=== PATIENT | female | born 1970 | race Caucasian/White ===

== ENCOUNTER 2018-01-15 09:19 | Emergency (ER) | payer OTHER, MEDICAID, SELFPAY ==
--- NOTE | 2018-01-15 09:31 | ED.HA ---
HPI - Headache General Chief Complaint: Headache Stated Complaint: Tingling Time Seen by Provider: 01/15/18 09:27 Source: patient and EMS Mode of arrival: EMS Limitations: no limitations History of Present Illness HPI Narrative: Patient is a 47-year-old female who presents with left-sided headache numbness and tingling of her face and left arm leg. She had a headache for about the last 3 days. Today she woke up and felt like it had gotten worse. She has maybe some blurry vision she feels like her headache is predominantly behind her left eye. She has no weakness speech difficulty or trouble walking. She does have a history of a TIA and cardiac arrest. She has a defibrillator in place. She has some chest heaviness as well denies any shortness of breath. She does not have a history of headaches or migraine headaches. MD Complaint: headache Related Data Home Medications Medication Instructions Recorded Confirmed [HAIR SKIN AND NAILS] 1 tab PO QDAY #0 10/06/16 fluticasone 1 spray INTRANASAL BIDP PRN #0 10/06/16 lisinopril 5 mg PO QDAY #0 10/06/16 metoprolol succinate [Toprol XL] 25 mg PO QDAY #0 10/06/16 multivitamin [Multiple Vitamins] 1 tab PO QDAY #0 10/06/16 Previous Rx's Medication Instructions Recorded aspirin 81 mg PO QDAY #30 tab 10/07/16 atorvastatin [Lipitor] 80 mg PO HS #30 tab 10/07/16 Allergies Allergy/AdvReac Type Severity Reaction Status Date / Time meperidine [MEPERIDINE] Allergy Unknown Unverified 06/10/17 11:47 Review of Systems Review of Systems All systems reviewed & are unremarkable except as noted in HPI and below Constitutional Denies chills, Denies fever(s), Denies lethargy and Denies weakness Eyes Reports as per HPI, Denies blurry vision and Denies diplopia Cardiovascular Reports chest pain, Denies irregular heart rhythm, Denies lightheadedness, Denies palpitations, Denies dyspnea, Denies dyspnea on exertion and Denies orthopnea Respiratory Denies cough, Denies dyspnea, Denies dyspnea on exertion and Denies wheezing Gastrointestinal Gastrointestinal: Denies abdominal pain, Denies change in bowel habits, Denies diarrhea, Denies nausea and Denies vomiting Musculoskeletal Denies back pain, Denies muscle weakness, Denies numbness and Denies tingling Integumentary/Breasts Denies pruritus, Denies erythema, Denies rash and Denies wounds Neurologic Denies numbness, Denies tingling and Denies weakness Endocrine Denies palpitations Allergic/Immunologic Denies wheezing PFSH Medical History Cardiac arrest (Acute) TIA (transient ischemic attack) (Acute) Social History Smoking Status: Never smoker alcohol intake: never substance use type: does not use Exam Initial Vital Signs Initial Vital Signs: Vital Signs Temperature 98.2 F 01/15/18 09:33 Pulse Rate 82 01/15/18 09:33 Respiratory Rate 18 01/15/18 09:33 Blood Pressure 126/82 01/15/18 09:33 Pulse Oximetry 98 01/15/18 09:33 GENERAL: Well-appearing, well-nourished and in no acute distress. HEENT: Head atraumatic,EOMI, pupils reactive, face symmetric, moist mucous membranes CARDIOVASCULAR: Regular rate and rhythm without murmurs, rubs or gallops. RESPIRATORY: Breath sounds equal bilaterally, no wheezes rales or rhonchi. ABDOMEN: Soft, nontender. Normoactive bowel sounds all 4 quadrants. No guarding or rebound. EXTREMITIES: Normal range of motion, no clubbing or edema. Neurovascularly intact NEUROLOGICAL: Alert and oriented x4.Normal gait and speech. Cranial nerves II through XII grossly intact. Good [id number], good [id number], strength equal bilaterally, no dysarthria or aphasia, sensation in tact to soft touch bilaterally, no visual changes, no facial droop sensation to all extremities soft touch is intact SKIN: Warm, dry, no laceration, no petechiae, no rashes or lesions. Scores NIH Stroke Scale Level of Conciousness: Alert, keenly responsive Ask month/age: Answers both questions correctly. Open/close eyes, close hand: Performs both tasks correctly Best gaze horizontal: Normal Visual le: No visual loss Facial palsy: Normal symetrical movement Left arm drift: No drift for full 10 sec Right arm drift: No drift for full 10 sec Left leg drift: No drift for full 10 sec Right leg drift: No drift for full 10 sec Limb ataxia: Absent Sensory on face/arms/legs: Normal, no sensory loss Best language: No aphasia, normal Dysarthria: Normal Extinction or inattention: No abnormality Total NIH Stroke scale score: 0 Course Orders Ordered: ED Orders 01/15/18 09:29 EKG-12 Lead Stat 01/15/18 09:35 CT head/brain wo con Stat 01/15/18 09:57 Complete Blood Count AUTO DIFF Stat Comprehensive Metabolic Panel Stat Troponin & CK Cardiac Panel Stat Discontinued Medications Diphenhydramine HCl (Benadryl) 25 mg IV NOW ONE Stop: 01/15/18 09:28 Last Admin: 01/15/18 09:58 Dose: 25 mg Sodium Chloride (Normal Saline 0.9%) 1,000 mls @ 1,000 mls/hr IV BOLUS ONE Stop: 01/15/18 10:26 Last Infusion: 01/15/18 11:17 Dose: 0 mls/hr Admin: 01/15/18 09:57 Dose: 1,000 mls/hr Ketorolac Tromethamine (Toradol) 30 mg IV NOW ONE Stop: 01/15/18 09:28 Last Admin: 01/15/18 09:57 Dose: 30 mg Ondansetron HCl (Zofran) 4 mg IV NOW ONE Stop: 01/15/18 09:28 Last Admin: 01/15/18 10:03 Dose: 4 mg Prochlorperazine (Compazine) 10 mg IV NOW ONE Stop: 01/15/18 09:28 Last Admin: 01/15/18 10:33 Dose: 10 mg Vital Signs - 8 hr 01/15/18 09:33 01/15/18 10:33 01/15/18 10:45 Temperature 98.2 F Pulse Rate 82 72 73 Respiratory Rate 18 15 Blood Pressure 126/82 101/78 Blood Pressure [Right Arm] 93/75 Pulse Oximetry 98 100 01/15/18 11:17 Temperature 98.6 F Pulse Rate 69 Respiratory Rate 19 Blood Pressure 114/72 Blood Pressure [Right Arm] Pulse Oximetry 99 MDM - Headache Lab Data Attestation: I reviewed the patient's lab results. Result diagrams: 01/15/18 09:57 01/15/18 09:57 Lab Results 01/15/18 01/15/18 Range/Units 09:57 09:57 WBC 6.1 (4.5-11.0) X10^3/uL RBC 5.21 H (4.0-5.2) X10^6/uL Hgb 14.0 (12.0-16.0) g/dL Hct 41.8 (36-46) % MCV 80.3 (80-100) fL MCH 26.9 (26-34) PG MCHC 33.4 (30-36) % RDW 12.9 (11.6-14.8) % Plt Count 242 (150-400) X10^3/uL Neut % (Auto) 56.8 (50-75) % Lymph % (Auto) 32.8 (25-40) % [place] % (Auto) 6.4 (3-14) % Eos % (Auto) 2.7 (2-4) % Baso % (Auto) 1.3 (0-2) % Neut # (Auto) 3500 (7635-4430) /uL Sodium 140 (137-145) mmol/L Potassium 4.3 (3.4-5.1) mmol/L Chloride 104 (98-107) mmol/L Carbon Dioxide 24 (22-32) mmol/L BUN 19 H (7-17) mg/dL Creatinine 0.70 (0.52-1.04) mg/dL Estimated GFR > 60.0 (>60) mL/min BUN/Creatinine Ratio 27.1 H (6-22) Glucose 98 (70-100) mg/dL Calcium 9.6 (8.4-10.2) mg/dL Total Bilirubin 0.5 (0.2-1.3) mg/dL AST 33 (14-36) IU/L ALT 35 (9-52) IU/L Alkaline Phosphatase 95 (38-126) U/L Total Creatine Kinase 97 (30-135) U/L CK-MB (CK-2) TNP CK-MB (CK-2) Rel Index TNP Troponin I < 0.012 (0.01-0.034) ng/mL Total Protein 7.9 (6.3-8.2) g/dL Albumin 4.8 (3.5-5.0) g/dL Globulin 3.1 (1.7-4.1) g/dL Albumin/Globulin Ratio 1.5 (1.0-2.8) Imaging Data CT scan - head: Radiologist's impression: [address] [address] [address] Scan Report Signed Patient: Tori Murray LMR#: [id number] : 1970Acct:[id number] Age/Sex: 47 / FDate of Service: 01/15/18 Loc: ED Accession Number: [id number] Procedure: CT head/brain wo con Ordering Provider: Gabby Leon D.O. PROCEDURE: CT HEAD/BRAIN WO CON INDICATIONS: headache TECHNIQUE: Noncontrast 4.5 mm thick angled axial sections acquired from the foramen magnum to the vertex, with coronal and sagittal reformats. For radiation dose reduction, the following was used: automated exposure control, adjustment of mA and/or kV according to patient size. COMPARISON: [facility], CT, HEAD WITHOUT CONTRAST, 10/06/2016, 10:26. [facility], CT, HEAD AND NECK ANGIO, 10/06/2016, 12:49. FINDINGS: Image quality: Excellent. CSF spaces: Basal cisterns are patent. No extra-axial fluid collections. Ventricles are normal in size and shape. Brain: No midline shift. No intracranial masses or hemorrhage. Jonas-white matter interface is normal. The right cerebellar tonsils on the left may extend slightly below the foramen magnum. However, this area is not completely imaged on this examination. Skull and face: Calvarium and visualized facial bones are intact, without suspicious lesions. Sinuses: Visualized sinuses and mastoids are clear. IMPRESSION: 1. No acute intracranial hemorrhage. 2. Low lying right cerebellar tonsils may represent a Chiari malformation variant. The need for better evaluation utilizing MRI may be determined clinically. Dictated by: Ruben Garcia M.D. on 01/15/2018 at 9:35 ECG Data Attestation: I personally reviewed and interpreted this ECG as follows: Prior ECG tracings: available for review Interpretation: Normal sinus rhythm rate [address] changes no T-wave inversions artifact noted NE interval 127 QRS 95 QTC 444 MDM Narrative Medical decision making narrative: Patient's pain is much better. Her signs and symptoms are consistent with migraine and complicated migraine she has no focal deficits they have resolved with pain medication. Head CT negative. I discussed findings with patient she feels ready and able to go home. Discharge Plan Departure Patient Disposition: Home Clinical Impression: Headache Discharge Date/Time: 01/15/18 11:18 Interventions: ED Discharge Assessment Last Done: 01/15/18 11:17 Instructions: DI for Headache Activity Restrictions/Additional Instructions: *You have been diagnosed with headache *What to do: Blood work CT scan are all reassuring. Symptoms likely related to headache unlikely related to TIA or stroke *Continue to take medications as directed *Follow up with your primary care provider in 2-3 days *Return to ER if you should have worsening headache, persistent vomiting, vision changes, weakness in extremities, facial drooping, difficulty speaking any new, worsening or concerning symptoms Prescriptions: No Action lisinopril 5 MG tablet 5 mg PO QDAY Qty: 0 RF: 0 metoprolol succinate [Toprol XL] 25 MG tablet extended release 24 hr 25 mg PO QDAY Qty: 0 RF: 0 fluticasone 16 GM spray,suspension 1 spray Intranasal BIDP PRNQty: 0 RF: 0 [HAIR SKIN AND NAILS] 1 tab PO QDAY Qty: 0 RF: 0 multivitamin [Multiple Vitamins] 1 EACH tablet 1 tab PO QDAY Qty: 0 RF: 0 atorvastatin [Lipitor] 20 MG tablet 80 mg PO HS Qty: 30 RF: 0 aspirin 81 MG tablet,delayed release (DR/EC) 81 mg PO QDAY Qty: 30 RF: 0 Referrals: Bernardo Prater [Primary Care Provider] -
[2018-01-15 09:33] VITALS: BP 126/82; PULSE 82; RESP 18; TEMP 36.8; O2SAT 98
--- NOTE | 2018-01-15 09:34 | ED_ITS ---
HPI - Headache General Chief Complaint: Headache Stated Complaint: Tingling Time Seen by Provider: 01/15/18 09:27 Source: patient and EMS Mode of arrival: EMS Limitations: no limitations History of Present Illness HPI Narrative: Patient is a 47-year-old female who presents with left-sided headache numbness and tingling of her face and left arm leg. She had a headache for about the last 3 days. Today she woke up and felt like it had gotten worse. She has maybe some blurry vision she feels like her headache is predominantly behind her left eye. She has no weakness speech difficulty or trouble walking. She does have a history of a TIA and cardiac arrest. She has a defibrillator in place. She has some chest heaviness as well denies any shortness of breath. She does not have a history of headaches or migraine headaches. MD Complaint: headache Related Data Home Medications Medication Instructions Recorded Confirmed [HAIR SKIN AND NAILS] 1 tab PO QDAY #0 10/06/16 fluticasone 1 spray INTRANASAL BIDP PRN #0 10/06/16 lisinopril 5 mg PO QDAY #0 10/06/16 metoprolol succinate [Toprol XL] 25 mg PO QDAY #0 10/06/16 multivitamin [Multiple Vitamins] 1 tab PO QDAY #0 10/06/16 Previous Rx's Medication Instructions Recorded aspirin 81 mg PO QDAY #30 tab 10/07/16 atorvastatin [Lipitor] 80 mg PO HS #30 tab 10/07/16 Allergies Allergy/AdvReac Type Severity Reaction Status Date / Time meperidine [MEPERIDINE] Allergy Unknown Unverified 06/10/17 11:47 Review of Systems Review of Systems All systems reviewed & are unremarkable except as noted in HPI and below Constitutional Denies chills, Denies fever(s), Denies lethargy and Denies weakness Eyes Reports as per HPI, Denies blurry vision and Denies diplopia Cardiovascular Reports chest pain, Denies irregular heart rhythm, Denies lightheadedness, Denies palpitations, Denies dyspnea, Denies dyspnea on exertion and Denies orthopnea Respiratory Denies cough, Denies dyspnea, Denies dyspnea on exertion and Denies wheezing Gastrointestinal Gastrointestinal: Denies abdominal pain, Denies change in bowel habits, Denies diarrhea, Denies nausea and Denies vomiting Musculoskeletal Denies back pain, Denies muscle weakness, Denies numbness and Denies tingling Integumentary/Breasts Denies pruritus, Denies erythema, Denies rash and Denies wounds Neurologic Denies numbness, Denies tingling and Denies weakness Endocrine Denies palpitations Allergic/Immunologic Denies wheezing PFSH Medical History Cardiac arrest (Acute) TIA (transient ischemic attack) (Acute) Social History Smoking Status: Never smoker alcohol intake: never substance use type: does not use Exam Initial Vital Signs Initial Vital Signs: Vital Signs Temperature 98.2 F 01/15/18 09:33 Pulse Rate 82 01/15/18 09:33 Respiratory Rate 18 01/15/18 09:33 Blood Pressure 126/82 01/15/18 09:33 Pulse Oximetry 98 01/15/18 09:33 GENERAL: Well-appearing, well-nourished and in no acute distress. HEENT: Head atraumatic,EOMI, pupils reactive, face symmetric, moist mucous membranes CARDIOVASCULAR: Regular rate and rhythm without murmurs, rubs or gallops. RESPIRATORY: Breath sounds equal bilaterally, no wheezes rales or rhonchi. ABDOMEN: Soft, nontender. Normoactive bowel sounds all 4 quadrants. No guarding or rebound. EXTREMITIES: Normal range of motion, no clubbing or edema. Neurovascularly intact NEUROLOGICAL: Alert and oriented x4.Normal gait and speech. Cranial nerves II through XII grossly intact. Good [id number], good lkvd-[id number], strength equal bilaterally, no dysarthria or aphasia, sensation in tact to soft touch bilaterally, no visual changes, no facial droop sensation to all extremities soft touch is intact SKIN: Warm, dry, no laceration, no petechiae, no rashes or lesions. Scores NIH Stroke Scale Level of Conciousness: Alert, keenly responsive Ask month/age: Answers both questions correctly. Open/close eyes, close hand: Performs both tasks correctly Best gaze horizontal: Normal Visual le: No visual loss Facial palsy: Normal symetrical movement Left arm drift: No drift for full 10 sec Right arm drift: No drift for full 10 sec Left leg drift: No drift for full 10 sec Right leg drift: No drift for full 10 sec Limb ataxia: Absent Sensory on face/arms/legs: Normal, no sensory loss Best language: No aphasia, normal Dysarthria: Normal Extinction or inattention: No abnormality Total NIH Stroke scale score: 0 Course Orders Ordered: ED Orders 01/15/18 09:29 EKG-12 Lead Stat 01/15/18 09:35 CT head/brain wo con Stat 01/15/18 09:57 Complete Blood Count AUTO DIFF Stat Comprehensive Metabolic Panel Stat Troponin & CK Cardiac Panel Stat Discontinued Medications Diphenhydramine HCl (Benadryl) 25 mg IV NOW ONE Stop: 01/15/18 09:28 Last Admin: 01/15/18 09:58 Dose: 25 mg Sodium Chloride (Normal Saline 0.9%) 1,000 mls @ 1,000 mls/hr IV BOLUS ONE Stop: 01/15/18 10:26 Last Infusion: 01/15/18 11:17 Dose: 0 mls/hr Admin: 01/15/18 09:57 Dose: 1,000 mls/hr Ketorolac Tromethamine (Toradol) 30 mg IV NOW ONE Stop: 01/15/18 09:28 Last Admin: 01/15/18 09:57 Dose: 30 mg Ondansetron HCl (Zofran) 4 mg IV NOW ONE Stop: 01/15/18 09:28 Last Admin: 01/15/18 10:03 Dose: 4 mg Prochlorperazine (Compazine) 10 mg IV NOW ONE Stop: 01/15/18 09:28 Last Admin: 01/15/18 10:33 Dose: 10 mg Vital Signs - 8 hr 01/15/18 09:33 01/15/18 10:33 01/15/18 10:45 Temperature 98.2 F Pulse Rate 82 72 73 Respiratory Rate 18 15 Blood Pressure 126/82 101/78 Blood Pressure [Right Arm] 93/75 Pulse Oximetry 98 100 01/15/18 11:17 Temperature 98.6 F Pulse Rate 69 Respiratory Rate 19 Blood Pressure 114/72 Blood Pressure [Right Arm] Pulse Oximetry 99 MDM - Headache Lab Data Attestation: I reviewed the patient's lab results. Result diagrams: 01/15/18 09:57 01/15/18 09:57 Lab Results 01/15/18 01/15/18 Range/Units 09:57 09:57 WBC 6.1 (4.5-11.0) X10^3/uL RBC 5.21 H (4.0-5.2) X10^6/uL Hgb 14.0 (12.0-16.0) g/dL Hct 41.8 (36-46) % MCV 80.3 (80-100) fL MCH 26.9 (26-34) PG MCHC 33.4 (30-36) % RDW 12.9 (11.6-14.8) % Plt Count 242 (150-400) X10^3/uL Neut % (Auto) 56.8 (50-75) % Lymph % (Auto) 32.8 (25-40) % [place] % (Auto) 6.4 (3-14) % Eos % (Auto) 2.7 (2-4) % Baso % (Auto) 1.3 (0-2) % Neut # (Auto) 3500 (6195-2989) /uL Sodium 140 (137-145) mmol/L Potassium 4.3 (3.4-5.1) mmol/L Chloride 104 (98-107) mmol/L Carbon Dioxide 24 (22-32) mmol/L BUN 19 H (7-17) mg/dL Creatinine 0.70 (0.52-1.04) mg/dL Estimated GFR > 60.0 (>60) mL/min BUN/Creatinine Ratio 27.1 H (6-22) Glucose 98 (70-100) mg/dL Calcium 9.6 (8.4-10.2) mg/dL Total Bilirubin 0.5 (0.2-1.3) mg/dL AST 33 (14-36) IU/L ALT 35 (9-52) IU/L Alkaline Phosphatase 95 (38-126) U/L Total Creatine Kinase 97 (30-135) U/L CK-MB (CK-2) TNP CK-MB (CK-2) Rel Index TNP Troponin I < 0.012 (0.01-0.034) ng/mL Total Protein 7.9 (6.3-8.2) g/dL Albumin 4.8 (3.5-5.0) g/dL Globulin 3.1 (1.7-4.1) g/dL Albumin/Globulin Ratio 1.5 (1.0-2.8) Imaging Data CT scan - head: Radiologist's impression: [address] [address] [address] Scan Report Signed Patient: Tori Murray LMR#: [id number] : 1970Acct:[id number] Age/Sex: 47 / FDate of Service: 01/15/18 Loc: ED Accession Number: [id number] Procedure: CT head/brain wo con Ordering Provider: Gabby Leon D.O. PROCEDURE: CT HEAD/BRAIN WO CON INDICATIONS: headache TECHNIQUE: Noncontrast 4.5 mm thick angled axial sections acquired from the foramen magnum to the vertex, with coronal and sagittal reformats. For radiation dose reduction, the following was used: automated exposure control, adjustment of mA and/or kV according to patient size. COMPARISON: [facility], CT, HEAD WITHOUT CONTRAST, 10/06/2016, 10:26. [facility], CT, HEAD AND NECK ANGIO, 10/06/2016, 12:49. FINDINGS: Image quality: Excellent. CSF spaces: Basal cisterns are patent. No extra-axial fluid collections. Ventricles are normal in size and shape. Brain: No midline shift. No intracranial masses or hemorrhage. Jonas-white matter interface is normal. The right cerebellar tonsils on the left may extend slightly below the foramen magnum. However, this area is not completely imaged on this examination. Skull and face: Calvarium and visualized facial bones are intact, without suspicious lesions. Sinuses: Visualized sinuses and mastoids are clear. IMPRESSION: 1. No acute intracranial hemorrhage. 2. Low lying right cerebellar tonsils may represent a Chiari malformation variant. The need for better evaluation utilizing MRI may be determined clinically. Dictated by: Ruben Garcia M.D. on 01/15/2018 at 9:35 ECG Data Attestation: I personally reviewed and interpreted this ECG as follows: Prior ECG tracings: available for review Interpretation: Normal sinus rhythm rate [address] changes no T-wave inversions artifact noted PA interval 127 QRS 95 QTC 444 MDM Narrative Medical decision making narrative: Patient's pain is much better. Her signs and symptoms are consistent with migraine and complicated migraine she has no focal deficits they have resolved with pain medication. Head CT negative. I discussed findings with patient she feels ready and able to go home. Discharge Plan Departure Patient Disposition: Home Clinical Impression: Headache Discharge Date/Time: 01/15/18 11:18 Interventions: ED Discharge Assessment Last Done: 01/15/18 11:17 Instructions: DI for Headache Activity Restrictions/Additional Instructions: *You have been diagnosed with headache *What to do: Blood work CT scan are all reassuring. Symptoms likely related to headache unlikely related to TIA or stroke *Continue to take medications as directed *Follow up with your primary care provider in 2-3 days *Return to ER if you should have worsening headache, persistent vomiting, vision changes, weakness in extremities, facial drooping, difficulty speaking any new, worsening or concerning symptoms Prescriptions: No Action lisinopril 5 MG tablet 5 mg PO QDAY Qty: 0 RF: 0 metoprolol succinate [Toprol XL] 25 MG tablet extended release 24 hr 25 mg PO QDAY Qty: 0 RF: 0 fluticasone 16 GM spray,suspension 1 spray Intranasal BIDP PRNQty: 0 RF: 0 [HAIR SKIN AND NAILS] 1 tab PO QDAY Qty: 0 RF: 0 multivitamin [Multiple Vitamins] 1 EACH tablet 1 tab PO QDAY Qty: 0 RF: 0 atorvastatin [Lipitor] 20 MG tablet 80 mg PO HS Qty: 30 RF: 0 aspirin 81 MG tablet,delayed release (DR/EC) 81 mg PO QDAY Qty: 30 RF: 0 Referrals: Bernardo Prater [Primary Care Provider] -
[2018-01-15] MEDS: SODIUM CHLORIDE 0.9% 1,000 ML 1000 ML IV (09:57)
[2018-01-15] MEDS: KETOROLAC 60 MG/2 ML VIAL 30 MG IV (09:57)
[2018-01-15] MEDS: diphenhydrAMINE 50 MG/ML VIAL 25 MG IV (09:58)
[2018-01-15] MEDS: ONDANSETRON 4 MG/2 ML INJ IV (10:03)
[2018-01-15 10:08] LABS: Add Manual Diff / Slide Review NO; Basophils Percent Auto 1.3 % (0-2); Eosinophils Percent Auto 2.7 % (2-4); Hematocrit 41.8 % (36-46); Lymphocytes Percent Auto 32.8 % (25-40); Mean Corpuscular HGB Conc 33.4 % (30-36); Mean Corpuscular Hemoglobin 26.9 PG (26-34); Mean Corpuscular Volume 80.3 fL (80-100); Monocytes Percent Auto 6.4 % (3-14); Neutrophils Absolute Auto 3500 /uL (3000-5900); Neutrophils Percent Auto 56.8 % (50-75); Platelet Count 242 X10^3/uL (150-400); Red Blood Cell Count 5.21 X10^6/uL (4.0-5.2); Red Cell Distribution Width 12.9 % (11.6-14.8); White Blood Cell Count 6.1 X10^3/uL (4.5-11.0)
[2018-01-15 10:17] LABS: Alanine Aminotransferase 35 IU/L (9-52); Albumin 4.8 g/dL (3.5-5.0); Albumin Globulin Ratio 1.5 (1.0-2.8); Alkaline Phosphatase 95 U/L (38-126); Aspartate Aminotransferase 33 IU/L (14-36); BUN Creatinine Ratio 27.1 (6-22); Bilirubin Total 0.5 mg/dL (0.2-1.3); Blood Urea Nitrogen 19 mg/dL (7-17); Calcium 9.6 mg/dL (8.4-10.2); Carbon Dioxide 24 mmol/L (22-32); Chloride 104 mmol/L (98-107); Creatine Kinase 97 U/L (30-135); Estimated Glomerular Filt Rate > 60.0 mL/min (>60); Globulin 3.1 g/dL (1.7-4.1); Glucose 98 mg/dL (70-100); HEMOLYSIS 19 (0-50); Potassium 4.3 mmol/L (3.4-5.1); Sodium 140 mmol/L (137-145); Total Protein 7.9 g/dL (6.3-8.2)
[2018-01-15 10:30] LABS: Troponin I < 0.012 ng/mL (0.01-0.034)
[2018-01-15 10:33] VITALS: BP 101/78; PULSE 72
[2018-01-15] MEDS: PROCHLORPERAZINE 10 MG/2 ML VIAL IV (10:33)
[2018-01-15 10:45] VITALS: BP 93/75; PULSE 73; RESP 15; O2SAT 100
[2018-01-15 11:17] VITALS: BP 114/72; PULSE 69; RESP 19; TEMP 37; O2SAT 99
--- NOTE | 2018-01-16 16:11 | PC.NURSE ---
call back, feeling better, no questions offered.
== END 2018-01-15 11:18 | disposition home or self-care (01) ==
PROVIDERS: Emergency Provider Emergency Medicine; PCP Family Medicine
DX: R51 Headache (principal)
CPT/HCPCS: 36415; 70450; 80053; 82550; 84484; 85025; 93005; 96361; 96374; 96375; 99283; 99285; J0780; J1200; J1885; J2405

== ENCOUNTER → 2019-11-29 09:42 | Outpatient (CLI) | payer OTHER, MEDICAID, SELFPAY ==
[2019-11-30 09:36] LABS: COVID19 Sendout Not Detected (Not Detect)
== END ==
PROVIDERS: PCP Family Medicine; Visit Provider Physician Assistant
DX: Z11.59 Encounter for screening for other viral diseases (principal)
CPT/HCPCS: 87635

== ENCOUNTER 2019-12-02 14:11 | Day surgery (SDC) | payer OTHER, MEDICAID, SELFPAY ==
--- NOTE | 2019-12-02 | PATH_ITS ---
[facility] Accession Number: [id number] . 01 Material submitted: . cecum - CECAL POLYP 2MM . 02 Diagnosis: Cecum, Polyp 2 mm, Biopsy: Tubular adenoma. MRV 12/05/2019 1408 Local . 02 Electronically signed: . Tori Lindo MD, Pathologist NPI- [id number] . 01 Gross description: . The specimen is received in formalin, labeled cecal polyp, and consists of a 0.4 x 0.3 x 0.2 cm, moore polyp, which is entirely submitted in cassette A1. ([id number]) /FRR 12/03/2019 1934 Local . 02 Pathologist provided ICD-10: D12.0 . 02 CPT . 782754 Performed at: 01 [facility] [address] [id number] MD Shashi Grey MD Phone: [phone] Performed at: 02 [facility] [address] [place], [place] [id number] MD Tori Lindo MD Phone: [phone]
--- NOTE | 2019-12-02 11:55 | PM.HP.1 ---
History of Present Illness History of Present Illness Date Patient Seen: 12/02/19 [place] [facility] [place] [facility] [place]: 48 Years Old Female seen today for consideration of a screening colonoscopy. There have been no lower GI symptoms suggesting disease such as change in bowel habits, bleeding, abdominal pain or anemia. There's been no family history of colon cancer or colon polyps. 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 Drinks 36 ounces of beer daily. History of TIA and cardiac arrest, has defibrillator. Overall health issues have been stable, including no major cardiac events for at least 6 weeks. History of MRSA abscess, right breast with I&D in 2005. Current Medications: 1) Lamictal 25 Mg Oral Tablet (Lamotrigine) .... one a day 2) Prednisone 5 Mg Oral Tablet (Prednisone) .... Take 3 by mouth every morning. 3) Euthyrox 100 Mcg Oral Tablet (Levothyroxine Sodium) .... Take 1 tablet once a day 4) Abilify 5 Mg Oral Tablet (Aripiprazole) .... one a day at night 5) Hair Skin & Nails Advanced Oral Tablet (Multiple Vitamins-Minerals) .... Take 3 once a day 6) Metoprolol Succinate Er 25 Mg Oral Tablet Extended Release 24 Hour (Metoprolol Succinate) .... 1 a day 7) Wellbutrin Sr 150 Mg Oral Tablet Extended Release 12 Hour (Bupropion Hcl) .... Take 1 by mouth every 12 hours 8) Lisinopril 5 Mg Oral Tablet (Lisinopril) .... Take 1/2 tablet once a day 9) Hydroxyzine Hcl 25 Mg Oral Tablet (Hydroxyzine Hcl) .... 1 a day 10) Aspirin Ec 81 Mg Oral Tablet Delayed Release (Aspirin) .... Take one daily to reduce cardiovascular risk 11) Multi-Vitamin/minerals Oral Tablet (Multiple Vitamins-Minerals) .... take one daily Allergies: No Known Drug Allergies Past Medical History: Anemia Asthma Bladder Infections Depression Substance Abuse, meth, THC, alcohol Eczema Heart Disease Hypertension Hives Jaundice Mental disorder Migraine Headaches Sciatica TIA STD Reflux Thyroid Problems MRSA Past Surgical History: Heart Defibrillator (02/05/2016) 1985, 1987, 1996 MRSA I&D, 2005 Family History: Reviewed history from 09/08/2019 and no changes required: Father: Mother: HTN, substance abuse Siblings: substance abuse Social History: Reviewed history from 09/08/2019 and no changes required: Marital Status: Single ( engaged) Children: 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 Members: Keven Lynn (07/11/66) Education: Patient History Medical History (Updated 01/30/18 @ 00:00 by ) Cardiac arrest (Acute) TIA (transient ischemic attack) (Acute) Family & Social History Tobacco & Substance use: Smoking Status Never smoker alcohol intake never Meds Home Medications and Allergies Home Medications Medication Instructions Recorded Confirmed Type [HAIR SKIN AND NAILS] 1 tab PO QDAY #0 10/06/16 12/02/19 History fluticasone propionate 1 spray INTRANASAL BIDP PRN #0 10/06/16 12/02/19 History lisinopril 2.5 mg PO QDAY #0 10/06/16 12/02/19 History metoprolol succinate [Toprol XL] 25 mg PO QDAY #0 10/06/16 12/02/19 History multivitamin [Multiple Vitamins] 1 tab PO QDAY #0 10/06/16 12/02/19 History aspirin 81 mg PO QDAY #30 tab 10/07/16 12/02/19 Rx atorvastatin [Lipitor] 80 mg PO HS #30 tab 10/07/16 12/02/19 Rx aripiprazole [Abilify] 5 mg PO BEDTIME 12/02/19 12/02/19 History bupropion HCl [Wellbutrin SR] 150 mg PO BID 12/02/19 12/02/19 History hydroxyzine HCl 25 mg PO BEDTIME 12/02/19 12/02/19 History lamotrigine [Lamictal] 50 mg PO DAILY 12/02/19 12/02/19 History prednisone 40 mg PO DAILY 12/02/19 12/02/19 History Allergies Allergy/AdvReac Type Severity Reaction Status Date / Time meperidine [MEPERIDINE] Allergy Unknown Rash Verified 12/02/19 14:25 Review of Systems Review of Systems ROS: Yes All systems reviewed with the patient and are negative except as otherwise documented Exam Narrative Exam Narrative: GENERAL: Alert and oriented, appearing stated age and in no acute distress. HEENT: Head normocephalic/atraumatic. Pupils equal, round, and reactive to light and accomodation. Extraocular muscles intact. Tympanic membranes clear. Nasal mucosa moist, septum midline. Oral mucosa moist, no lesions. Neck soft and supple, no lymphadenopathy. LUNGS: Clear to ausculation bilaterally, no wheezes, rhonchi or rales. CV: Normal S1 and S2 with regular rate and rhythm, no audible murmurs, rubs or gallops. ABDOMEN: Soft, non-tender, non-distended, no organomegaly. Positive bowel sounds. EXTREMITIES: No clubbing, cyanosis, or edema. NEURO: Cranial nerves II through XII grossly intact, no focal deficits. PSYCH: Alert and oriented x 3. SKIN: No concerning lesions. Assessment & Plan Assessment & Plan narrative: Problem # 1: Screening for colon cancer 1. Colonoscopy The nature and character of the procedure as well as anticipated results were discussed. The possibility of not completing the procedure was also discussed. Possible complications including aspiration pneumonia, bleeding, perforation and reaction to medications either for sedation or preparation and missed lesions were discussed. Questions were answered and proceeding to the colonoscopy was elected. Informed consent signed. I sincerely appreciate the referral allowing me to participate in this patient's care. Please contact me with any questions or concerns. Problem # 2: Ethanol abuse 1. Will consult MD anesthesia for this patient as she has a history of meth/alcohol abuse. Currently still drinking 36 ounces of beer daily. She has a history of TIA and defibrillator. High risk for anesthesia intolerance due to her alcohol and drug abuse. In addition, she has a history of sudden cardiac arrest. Problem # 3: MRSA carrier 1. We will take extra precautions during and after procedure.
--- NOTE | 2019-12-02 11:57 | PM.OP.ENDO ---
Operative Date/Time/Diagnoses Date of procedure: 12/02/19 Procedure Notes Procedure in detail: ENDOSCOPIST: Sravanthi Walden MD Anesthesiologist Dr. Osei Sedation start time: 2:57 p.m. Sedation end time: 3:22 p.m. PROCEDURE: Colonoscopy INDICATIONS: 1. Screening for colon cancer 2. History of ethanol abuse 3. MRSA carrier MEDICATION: Levsin 0.125 mg sublingual, incremental doses of Versed and fentanyl until appropriate level sedation achieved. ASA CLASS: 3 CECAL WITHDRAWAL TIME: 23 minutes COMPLICATIONS: None. EXTENT OF PROCEDURE: Cecum. QUALITY OF PREP: Good with portions of liquid stool. PROCEDURE: Prior to insertion of the colonoscope, a digital rectal examination was accomplished with circumferential palpation of the distal rectal mucosa without significant findings being noted. The high-definition pediatric colonoscope was passed into the rectum in the usual fashion and advanced over to the cecum without difficulty. The ileocecal valve, appendiceal stoma, and medial wall all could be inspected and a 2 mm polyp was seen and removed with cold biopsy forceps. ASCENDING COLON: As the colonoscope was withdrawn, care was taken to expose and inspect the haustral folds and no abnormalities were seen. HEPATIC FLEXURE: Normal, no polyps, diverticula or other abnormalities. TRANSVERSE COLON: Normal, no polyps, diverticula or other abnormalities. DESCENDING COLON: Normal, no polyps, diverticula or other abnormalities. SIGMOID COLON: Normal, no polyps, diverticula or other abnormalities. RECTUM: Normal. J maneuver was produced. There was no significant perianal disease. The J maneuver was broken. The remainder of the rectum was inspected and there was no external hemorrhoid disease. The scope was withdrawn. IMPRESSION: 1. Cecal polyp x1, 2 mm, removed with cold biopsy forceps PLAN: 1. Follow-up clinic status post pathology results. The possibility of a missed lesion including a malignancy has been discussed with the patient previously. Potential alarm symptoms have been discussed and should be reported immediately.
[2019-12-02 14:31] VITALS: BP 111/72; PULSE 87; RESP 17; TEMP 36; O2SAT 96; BMI 42.5
[2019-12-02] MEDS: HYOSCYAMINE 0.125 MG TABLET PO (14:37)
[2019-12-02] MEDS: LACTATED RINGERS 1,000 ML 200 ML IV (14:43)
--- NOTE | 2019-12-02 15:01 | PC.NURSE ---
Pt having Anesthesia for MAC during procedure. See Anesthesia notes for sedation and medication administration
[2019-12-02 15:27] VITALS: BP 95/63; PULSE 82; RESP 16; TEMP 36.7; O2SAT 95
[2019-12-02 15:32] VITALS: BP 113/72; PULSE 85; RESP 16; O2SAT 98
[2019-12-02 15:37] VITALS: BP 118/63; PULSE 82; RESP 20; O2SAT 95
[2019-12-02 15:42] VITALS: BP 117/74; PULSE 78; RESP 20; O2SAT 95
[2019-12-02 15:55] VITALS: BP 104/70; PULSE 74; RESP 12; TEMP 36.3; O2SAT 98
== END 2019-12-02 15:56 | disposition home or self-care (01) ==
PROVIDERS: PCP Family Medicine; Referring Provider Family Medicine; Visit Provider Student in an Organized Health Care Education/Training Program
PROC: 0DJD8ZZ Inspection of Lower Intestinal Tract, Via Natural or Artificial Opening Endoscopic (ICD-10-PCS; CPT 45378; principal; 2019-12-02 15:15)
DX: Z12.11 Encounter for screening for malignant neoplasm of colon (principal); Z22.322 Carrier or suspected carrier of Methicillin resistant Staphylococcus aureus; F10.11 Alcohol abuse, in remission; I10 Essential (primary) hypertension; K21.9 Gastro-esophageal reflux disease without esophagitis; Z86.73 Personal history of transient ischemic attack (TIA), and cerebral infarction without residual deficits; F15.11 Other stimulant abuse, in remission; D12.0 Benign neoplasm of cecum
CPT/HCPCS: 45380; J2250; J2704

== ENCOUNTER 2021-04-17 06:43 | Emergency (ER) | payer OTHER, MEDICAID, SELFPAY ==
[2021-04-17] VITALS (7 sets, daily range): BP systolic 167–193; BP diastolic 86–102; PULSE 70–80; RESP 17–31; TEMP 36.6; O2SAT 90–98; BMI 41.0
--- NOTE | 2021-04-17 06:53 | DI.RAD.S_ITS ---
PROCEDURE: XR CHEST 1V INDICATIONS: chest pain TECHNIQUE: One view of the chest was acquired. COMPARISON: [facility], , CHEST 1 VIEW, 10/06/2016, 10:08. FINDINGS: Surgical changes and devices: There is a left chest wall AICD with a single lead projecting over right ventricle redemonstrated. Lungs and pleura: There is pulmonary vascular prominence consistent with pulmonary edema. There is a small left pleural effusion. No pneumothorax. Mediastinum: Mediastinal contours are unchanged. Heart size is enlarged. Bones and chest wall: No suspicious bony lesions. Overlying soft tissues appear unremarkable. IMPRESSION: 1. Pulmonary edema, small left effusion, and cardiomegaly suggestive of congestive heart failure. Dictated by: Shashi Azul M.D. on 04/17/2021 at 8:37 Approved by: Shashi Azul M.D. on 04/17/2021 at 8:50
[2021-04-17 07:10] LABS: Add Manual Diff / Slide Review NO; Basophils Absolute Auto 100 /uL (0-100); Basophils Percent Auto 1.1 % (0-2); Eosinophils Absolute Auto 100 /uL (0-450); Eosinophils Percent Auto 2.2 % (2-4); Hematocrit 35.9 % (36-46); Hemoglobin 12.1 g/dL (12.0-16.0); Lymphocytes Absolute Auto 2400 /uL (1100-4500); Lymphocytes Percent Auto 39.2 % (25-40); Mean Corpuscular HGB Conc 33.8 % (30-36); Mean Corpuscular Hemoglobin 27.2 PG (26-34); Mean Corpuscular Volume 80.4 fL (80-100); Monocytes Absolute Auto 500 /uL (0-900); Monocytes Percent Auto 7.8 % (3-14); Neutrophils Absolute Auto 3000 /uL (1500-7000); Neutrophils Percent Auto 49.7 % (50-75); Platelet Count 275 X10^3/uL (150-400); Red Blood Cell Count 4.46 X10^6/uL (4.0-5.2); Red Cell Distribution Width 13.6 % (11.6-14.8)
[2021-04-17 07:15] LABS: Prothrombin Time 10.8 SECONDS (10.1-12.7)
[2021-04-17 07:19] LABS: Alanine Aminotransferase 62 IU/L (<35); Albumin 4.2 g/dL (3.5-5.0); Albumin Globulin Ratio 1.6 (1.0-2.8); Alkaline Phosphatase 128 U/L (38-126); Aspartate Aminotransferase 54 IU/L (14-36); BUN Creatinine Ratio 16.8 (6-22); Bilirubin Total 0.7 mg/dL (0.2-1.3); Blood Urea Nitrogen 16 mg/dL (7-17); Calcium 8.9 mg/dL (8.4-10.2); Carbon Dioxide 32 mmol/L (22-32); Chloride 103 mmol/L (98-107); Creatine Kinase 135 U/L (30-135); Estimated Glomerular Filt Rate > 60.0 mL/min (>60); Globulin 2.7 g/dL (1.7-4.1); Glucose 105 mg/dL (70-100); HEMOLYSIS < 15 (0-50); Lipase 125 U/L (23-300); Potassium 3.6 mmol/L (3.4-5.1); Sodium 140 mmol/L (137-145); Total Protein 6.9 g/dL (6.3-8.2)
--- NOTE | 2021-04-17 07:24 | ED.CHESTPAIN ---
HPI - Chest Pain General Chief Complaint: Chest Pain Stated Complaint: Chest pain- has defibrillator Time Seen by Provider: 04/17/21 06:53 Source: patient Mode of arrival: Ambulatory Limitations: no limitations History of Present Illness HPI narrative: 50F non smoker with extensive medical history including hypertension hyperlipidemia and cardiac arrest many years ago which resulted in the placement of a defibrillator. She presents with significant other and a chief complaint of a sharp and stabbing anterior chest pain across her lower ribs that woke her from sleep a few hours prior to arrival. She states that discomfort is worse with a deep breath, motion and palpation. She has had some sneezing and coughing as of late but denies any fever, chills or report of shortness of breath. She denies other symptoms such as dizziness, weakness, lightheadedness. She is not nauseated and denies vomiting. She states her defibrillator not fire. She has otherwise been in her normal state of health. She has not taken her medications yet today Related Data Home Medications Medication Instructions Recorded Confirmed [HAIR SKIN AND NAILS] 1 tab PO QDAY #0 10/06/16 12/02/19 fluticasone propionate 50 1 spray INTRANASAL BIDP PRN #0 10/06/16 12/02/19 mcg/actuation nasal spray,suspension lisinopril 5 mg tablet 2.5 mg PO QDAY #0 10/06/16 12/02/19 metoprolol succinate 25 mg 25 mg PO QDAY #0 10/06/16 12/02/19 tablet,extended release 24 hr (Toprol XL) multivitamin (Multiple Vitamins) 1 tab PO QDAY #0 10/06/16 12/02/19 aripiprazole 5 mg tablet (Abilify) 5 mg PO BEDTIME 12/02/19 12/02/19 bupropion HCl 150 mg tablet,12 hr 150 mg PO BID 12/02/19 12/02/19 sustained-release (Wellbutrin SR) hydroxyzine HCl 25 mg tablet 25 mg PO BEDTIME 12/02/19 12/02/19 lamotrigine 25 mg tablet (Lamictal) 50 mg PO DAILY 12/02/19 12/02/19 omeprazole magnesium 20 mg 20 mg PO DAILY 12/02/19 12/02/19 tablet,delayed release (Prilosec OTC) prednisone 20 mg tablet 40 mg PO DAILY 12/02/19 12/02/19 Previous Rx's Medication Instructions Recorded aspirin 81 mg tablet,delayed 81 mg PO QDAY #30 tab 10/07/16 release atorvastatin 20 mg tablet (Lipitor) 80 mg PO HS #30 tab 10/07/16 Allergies Allergy/AdvReac Type Severity Reaction Status Date / Time meperidine [MEPERIDINE] Allergy Unknown Rash Verified 12/02/19 14:25 Review of Systems Review of Systems Narrative: GENERAL: See HPI HEENT: Denies sinus pain, ear pain, sore throat, difficulty swallowing, dizziness. RESPIRATORY: See HPI CARDIOVASCULAR: See HPI GASTROINTESTINAL: Denies nausea, vomiting, abdominal pain, diarrhea, constipation, melena. : Denies dysuria, frequency, incontinence, hematuria, urinary retention. MUSCULOSKELETAL: denies weakness, joint pain, or bony pain SKIN: Denies rash, skin lesions, or other NEUROLOGIC: Denies weakness, headache, numbness, change in speech, confusion, seizures, incoordination. PSYCHIATRIC: No concerning psychosocial issues. 12 point review of systems is negative except for those stated above Patient History Medical History Cardiac arrest TIA (transient ischemic attack) Social History household members: significant other Smoking Status: Never smoker alcohol intake: current substance use type: does not use Smoking Status: Never smoker alcohol intake frequency: 3 or more drinks per day Substance Use Type: marijuana Exam Narrative Exam Narrative: GENERAL: [50 year old patient appears stated age. Well-developed patient, in mild distress. HEAD: Atraumatic. Normocephalic. EYES: Pupils equal round and reactive. Extraocular motions intact. No scleral icterus. No injection or drainage. ENT: Nose without bleeding, purulent drainage. Throat without erythema, tonsillar hypertrophy or exudate. Airway patent. NECK: Trachea midline. Non tender CARDIOVASCULAR: Regular rate and rhythm without murmurs, gallops, or rubs. Tender to palpation across lower ribs and anterior chest RESPIRATORY: Clear to auscultation. Breath sounds equal bilaterally. No wheezes, rales, or rhonchi. GASTROINTESTINAL: Abdomen soft, non-tender, nondistended. EXTREMITIES: No edema or joint tenderness. BACK: Nontender without deformity or crepitance. No flank tenderness. NEURO: AOx3. SKIN: No rash or erythema of visible areas Initial Vital Signs Initial Vital Signs: Vital Signs Temperature 98 F 04/17/21 06:45 Pulse Rate 80 04/17/21 06:45 Respiratory Rate 18 04/17/21 06:45 Blood Pressure 181/99 H 04/17/21 06:45 Pulse Oximetry 98 04/17/21 06:45 Course Orders Ordered: Discontinued Medications Sodium Chloride (Normal Saline 0.9%) 1,000 mls @ 150 mls/hr IV CONT JOSE L Last Admin: 04/17/21 09:41 Dose: 150 mls/hr Documented by: PERRY Ketorolac Tromethamine (Ketorolac 30 Mg/Ml Vial) 15 mg IV NOW ONE Stop: 04/17/21 09:02 Last Admin: 04/17/21 09:39 Dose: 15 mg Documented by: PERRY Metoprolol Tartrate (Metoprolol Ir 25 Mg Tablet) 25 mg PO NOW ONE Stop: 04/17/21 09:28 Last Admin: 04/17/21 09:39 Dose: 25 mg Documented by: PERRY Vital Signs Vital signs: Vital Signs - 8 hr 04/17/21 06:45 04/17/21 09:19 04/17/21 09:30 Temperature 98 F Pulse Rate 80 77 72 Respiratory Rate 18 27 H 19 Blood Pressure 181/99 H 173/89 H 167/86 H Pulse Oximetry 98 97 97 04/17/21 10:00 04/17/21 10:30 Temperature Pulse Rate 74 72 Respiratory Rate 17 19 Blood Pressure 171/94 H 181/99 H Pulse Oximetry 97 96 MDM - Chest Pain Lab Data Result diagrams: 04/17/21 07:00 04/17/21 07:00 Labs: Lab Results 04/17/21 04/17/21 04/17/21 Range/Units 07:00 07:00 07:00 WBC 6.0 (4.5-11.0) X10^3/uL RBC 4.46 (4.0-5.2) X10^6/uL Hgb 12.1 (12.0-16.0) g/dL Hct 35.9 L (36-46) % MCV 80.4 (80-100) fL MCH 27.2 (26-34) PG MCHC 33.8 (30-36) % RDW 13.6 (11.6-14.8) % Plt Count 275 (150-400) X10^3/uL Neut % (Auto) 49.7 L (50-75) % Lymph % (Auto) 39.2 (25-40) % [place] % (Auto) 7.8 (3-14) % Eos % (Auto) 2.2 (2-4) % Baso % (Auto) 1.1 (0-2) % Neut # (Auto) 3000 (4099-2948) /uL Lymph # (Auto) 2400 (2956-8515) /uL [place] # (Auto) 500 (0-900) /uL Eos # (Auto) 100 (0-450) /uL Baso # (Auto) 100 (0-100) /uL ESR (0-20) MM/HR PT 10.8 (10.1-12.7) SECONDS INR 1.0 (0.9-1.3) D-Dimer (<230) ng/mL Sodium 140 (137-145) mmol/L Potassium 3.6 (3.4-5.1) mmol/L Chloride 103 (98-107) mmol/L Carbon Dioxide 32 (22-32) mmol/L BUN 16 (7-17) mg/dL Creatinine 0.95 (0.52-1.04) mg/dL Estimated GFR > 60.0 (>60) mL/min BUN/Creatinine Ratio 16.8 (6-22) Glucose 105 H (70-100) mg/dL Calcium 8.9 (8.4-10.2) mg/dL Total Bilirubin 0.7 (0.2-1.3) mg/dL AST 54 H (14-36) IU/L ALT 62 H (<35) IU/L Alkaline Phosphatase 128 H (38-126) U/L Total Creatine Kinase 135 (30-135) U/L CK-MB (CK-2) 1.62 (<2.37) ng/mL CK-MB (CK-2) Rel Index 1.2 L (1.5-5.0) % Troponin I < 0.012 (0.01-0.034) ng/mL C-Reactive Protein (<1.0) mg/dL NT-Pro-B Natriuret Pep (<125) pg/mL Total Protein 6.9 (6.3-8.2) g/dL Albumin 4.2 (3.5-5.0) g/dL Globulin 2.7 (1.7-4.1) g/dL Albumin/Globulin Ratio 1.6 (1.0-2.8) Lipase 125 (23-300) U/L 04/17/21 04/17/21 04/17/21 Range/Units 07:00 07:00 07:00 WBC (4.5-11.0) X10^3/uL RBC (4.0-5.2) X10^6/uL Hgb (12.0-16.0) g/dL Hct (36-46) % MCV (80-100) fL MCH (26-34) PG MCHC (30-36) % RDW (11.6-14.8) % Plt Count (150-400) X10^3/uL Neut % (Auto) (50-75) % Lymph % (Auto) (25-40) % [place] % (Auto) (3-14) % Eos % (Auto) (2-4) % Baso % (Auto) (0-2) % Neut # (Auto) (1251-6047) /uL Lymph # (Auto) (7129-1703) /uL [place] # (Auto) (0-900) /uL Eos # (Auto) (0-450) /uL Baso # (Auto) (0-100) /uL ESR 9 (0-20) MM/HR PT (10.1-12.7) SECONDS INR (0.9-1.3) D-Dimer < 200 (<230) ng/mL Sodium (137-145) mmol/L Potassium (3.4-5.1) mmol/L Chloride (98-107) mmol/L Carbon Dioxide (22-32) mmol/L BUN (7-17) mg/dL Creatinine (0.52-1.04) mg/dL Estimated GFR (>60) mL/min BUN/Creatinine Ratio (6-22) Glucose (70-100) mg/dL Calcium (8.4-10.2) mg/dL Total Bilirubin (0.2-1.3) mg/dL AST (14-36) IU/L ALT (<35) IU/L Alkaline Phosphatase (38-126) U/L Total Creatine Kinase (30-135) U/L CK-MB (CK-2) (<2.37) ng/mL CK-MB (CK-2) Rel Index (1.5-5.0) % Troponin I (0.01-0.034) ng/mL C-Reactive Protein < 0.5 (<1.0) mg/dL NT-Pro-B Natriuret Pep 749 H (<125) pg/mL Total Protein (6.3-8.2) g/dL Albumin (3.5-5.0) g/dL Globulin (1.7-4.1) g/dL Albumin/Globulin Ratio (1.0-2.8) Lipase (23-300) U/L 04/17/21 Range/Units 09:58 WBC (4.5-11.0) X10^3/uL RBC (4.0-5.2) X10^6/uL Hgb (12.0-16.0) g/dL Hct (36-46) % MCV (80-100) fL MCH (26-34) PG MCHC (30-36) % RDW (11.6-14.8) % Plt Count (150-400) X10^3/uL Neut % (Auto) (50-75) % Lymph % (Auto) (25-40) % [place] % (Auto) (3-14) % Eos % (Auto) (2-4) % Baso % (Auto) (0-2) % Neut # (Auto) (6930-4713) /uL Lymph # (Auto) (2647-5594) /uL [place] # (Auto) (0-900) /uL Eos # (Auto) (0-450) /uL Baso # (Auto) (0-100) /uL ESR (0-20) MM/HR PT (10.1-12.7) SECONDS INR (0.9-1.3) D-Dimer (<230) ng/mL Sodium (137-145) mmol/L Potassium (3.4-5.1) mmol/L Chloride (98-107) mmol/L Carbon Dioxide (22-32) mmol/L BUN (7-17) mg/dL Creatinine (0.52-1.04) mg/dL Estimated GFR (>60) mL/min BUN/Creatinine Ratio (6-22) Glucose (70-100) mg/dL Calcium (8.4-10.2) mg/dL Total Bilirubin (0.2-1.3) mg/dL AST (14-36) IU/L ALT (<35) IU/L Alkaline Phosphatase (38-126) U/L Total Creatine Kinase 120 (30-135) U/L CK-MB (CK-2) 1.38 (<2.37) ng/mL CK-MB (CK-2) Rel Index 1.2 L (1.5-5.0) % Troponin I < 0.012 (0.01-0.034) ng/mL C-Reactive Protein (<1.0) mg/dL NT-Pro-B Natriuret Pep (<125) pg/mL Total Protein (6.3-8.2) g/dL Albumin (3.5-5.0) g/dL Globulin (1.7-4.1) g/dL Albumin/Globulin Ratio (1.0-2.8) Lipase (23-300) U/L MDM Narrative Medical decision making narrative: Multiple causes of chest pain considered including PA, PE, pneumothorax, pneumonia, aortic dissection, and pleurisy. Patient reports no radiation, no diaphoresis, no provocation with exertion, and no vomiting Patient's symptoms improved over duration of stay with above-stated therapies. EKGs are nonischemic, defibrillator has been interrogated with no significant findings. Multiple troponins unremarkable, pulmonary embolism considered but thought unlikely given negative D-dimer. She does have some suggestion of fluid overload, though she complains of bilateral hand swelling it is hard to appreciate on exam. She demonstrates no significant work of breathing, no crackles on exam and no need for supplemental oxygen Findings and discharge diagnosis discussed with patient/family followed by verbalization of understanding Return precautions discussed with patient/family whom verbalize understanding. Discharge Plan Departure Patient Disposition: Home Clinical Impression: Atypical chest pain, Mild congestive heart failure Instructions: DI for Atypical Chest Pain Activity Restrictions/Additional Instructions: *You have been diagnosed with [atypical chest pain and mild CHF. Thankfully, your history and physical exam are very reassuring as are vital signs and lab work. There is no evidence of a heart attack or blood clot today. There is no evidence of pneumonia or other diagnosis which would require a specific or life-saving intervention *What to do: * as we discussed, please resume your regular dosing of blood pressure medications. Also, be sure to take your Lasix twice daily (rather than just wants) for each of the next 3 days including today, this will help remove some of the extra fluid you have on board which you note as swelling in your hands *Please continue to take your regular medications as directed. [ ] New medication prescriptions sent to your pharmacy: [ ] [ ] New medication written as a paper prescription [ ] No new medications given *Please follow up with your primary care provider in 2-3 days, call for an appointment. Let them know you were seen in the Emergency Department and that we ask that you be seen in follow up. We will electronically transmit a record of today's note if your PCP is in our system *If you do not have a primary care provider please contact the [facility] Resource line at [phone]. They will ask some questions about your medical history and help get you set up with a doctor in the community. *Return to Emergency Department if you should have any new, worsening or concerning symptoms, such as [fever greater than 101 F, shaking chills, worsening pain, persistent vomiting or other bothersome symptoms] Prescriptions: No Action lisinopril 5 MG tablet 2.5 mg PO QDAY Qty: 0 0RF metoprolol succinate [Toprol XL] 25 MG tablet extended release 24 hr 25 mg PO QDAY Qty: 0 0RF fluticasone propionate 16 GM spray,suspension 1 spray Intranasal BIDP PRN (Reason: allergies) Qty: 0 0RF [HAIR SKIN AND NAILS] 1 tab PO QDAY Qty: 0 0RF multivitamin [Multiple Vitamins] 1 EACH tablet 1 tab PO QDAY Qty: 0 0RF atorvastatin [Lipitor] 20 MG tablet 80 mg PO HS Qty: 30 0RF aspirin 81 MG tablet,delayed release (DR/EC) 81 mg PO QDAY Qty: 30 0RF bupropion HCl [Wellbutrin SR] 150 mg Tablet Sustained-Release 12 Hr 150 mg PO BID 0RF prednisone 20 mg Tablet 40 mg PO DAILY 0RF lamotrigine [Lamictal] 25 mg Tablet 50 mg PO DAILY 0RF hydroxyzine HCl 25 mg Tablet 25 mg PO BEDTIME 0RF aripiprazole [Abilify] 5 mg Tablet 5 mg PO BEDTIME 0RF omeprazole magnesium [Prilosec OTC] 20 mg Tablet,Delayed Release (Dr/Ec) 20 mg PO DAILY 0RF Referrals: Saleem Vogt MD [Primary Care Provider] -
[2021-04-17 07:31] LABS: Troponin I < 0.012 ng/mL (0.01-0.034)
[2021-04-17 07:34] LABS: CKMB % Relative Index 1.2 % (1.5-5.0); Creatine Kinase MB 1.62 ng/mL (<2.37)
[2021-04-17] MEDS: METOPROLOL IR 25 MG TABLET PO (09:39)
[2021-04-17] MEDS: KETOROLAC 30 MG/ML VIAL 15 MG IV (09:39)
[2021-04-17] MEDS: SODIUM CHLORIDE 0.9% 1,000 ML 150 ML IV (09:41)
[2021-04-17 09:45] LABS: D Dimer < 200 ng/mL (<230)
[2021-04-17 09:50] LABS: C-Reactive Protein Quant < 0.5 mg/dL (<1.0)
[2021-04-17 09:54] LABS: NT-proBNP (BNP-Adult 18+) 749 pg/mL (<125)
[2021-04-17 09:55] LABS: Erythrocyte Sedimentation Rate 9 MM/HR (0-20)
[2021-04-17 10:34] LABS: Creatine Kinase 120 U/L (30-135)
[2021-04-17 10:46] LABS: Troponin I < 0.012 ng/mL (0.01-0.034)
[2021-04-17 10:50] LABS: CKMB % Relative Index 1.2 % (1.5-5.0); Creatine Kinase MB 1.38 ng/mL (<2.37)
== END 2021-04-17 11:27 | disposition home or self-care (01) ==
PROVIDERS: Emergency Provider Emergency Medicine; PCP Family Medicine
DX: R07.89 Other chest pain (principal); I50.9 Heart failure, unspecified; I11.0 Hypertensive heart disease with heart failure; I25.2 Old myocardial infarction; Z95.810 Presence of automatic (implantable) cardiac defibrillator
CPT/HCPCS: 36415; 71045; 80053; 82550; 82553; 83690; 83880; 84484; 85025; 85379; 85610; 85651; 86140; 93005; 93010; 96374; 99284; J1885

== ENCOUNTER 2021-08-06 05:00 | Emergency (ER) | payer OTHER, MEDICAID, SELFPAY ==
[2021-08-06 05:05] VITALS: BP 166/79; PULSE 83; RESP 18; TEMP 36.2; O2SAT 95; BMI 38.0
--- NOTE | 2021-08-06 05:05 | DI.US.S_ITS ---
PROCEDURE: US ABDOMEN LIMITED INDICATIONS: EPIGASTRIC PAIN RADIATING TO BACK TECHNIQUE: Real-time scanning was performed of the abdominal and retroperitoneal organs, with image documentation. COMPARISON: None. FINDINGS: Liver: Liver is enlarged and measures 19.7 cm in length. Diffusely increased liver parenchymal echotexture is seen with area of sparing near gallbladder fossa measures 3.9 x 3 x 2.5 cm. Gallbladder: There is no gallstone. No gallbladder wall thickening or pericholecystic fluid. No sonographic De La Torre sign. Biliary ducts: Intrahepatic bile ducts are non-dilated. Extrahepatic bile duct caliber measures 4.0 mm. Normal is 6-7 mm or less in diameter, or 10 mm or less post-cholecystectomy. Pancreas: Visualized portions of the pancreas are sonographically normal. IMPRESSION: 1. Hepatic steatosis, and hepatomegaly. No discrete hepatic lesion is seen. 2. Normal appearing gallbladder. No biliary ductal dilatation. No abnormality is seen in visualized portion of pancreas. Dictated by: Sohail Joiner M.D. on 08/06/2021 at 8:56 Approved by: Sohail Joiner M.D. on 08/06/2021 at 8:58
--- NOTE | 2021-08-06 05:06 | DI.RAD.S_ITS ---
PROCEDURE: XR CHEST 1V INDICATIONS: chest pain TECHNIQUE: One view of the chest was acquired. COMPARISON: [facility], CR, XR CHEST 1V, 04/17/2021, 6:53. FINDINGS: Surgical changes and devices: Left chest wall single lead cardiac pacing device again noted. Lungs and pleura: Increased interstitial markings in the central/perihilar lungs with cephalization of pulmonary vessels. No pleural effusions or pneumothorax. Mediastinum: Mediastinal contours appear normal. Heart size is enlarged. Bones and chest wall: No suspicious bony lesions. Overlying soft tissues appear unremarkable. IMPRESSION: Cardiomegaly with pulmonary vascular congestion. Dictated by: Daljit Borden M.D. on 08/06/2021 at 8:24 Approved by: Daljit Borden M.D. on 08/06/2021 at 8:27
--- NOTE | 2021-08-06 05:11 | ED_ITS ---
HPI - Abdominal Pain <Eddie Bernal - Last Filed: 08/07/21 02:13> General Chief Complaint: Chest Pain Stated Complaint: Chest Pain Time Seen by Provider: 08/06/21 05:05 Source: patient Mode of arrival: EMS History of Present Illness HPI narrative: 50F nonsmoker, drinks alcohol with history of hypertension hyperlipidemia presents by EMS for evaluation of severe epigastric pain with radiation to her back that started at about 3:00 a.m.. She states that she has been in her normal state of health and went to bed feeling fine and woke up with these symptoms. She states that her pain seems to be worse with motion, deep breath and she is unable to eat or drink. She denies any runny nose, sore throat or cough. She denies any exertional symptoms or exercise intolerance. She denies any vomiting but has been nauseated. She has had loose stools off and on for at least the past few weeks. She denies any medication or dietary change. She denies recent travel, antibiotics or exposure to ill persons or bad food. Related Data Home Medications Medication Instructions Recorded Confirmed [HAIR SKIN AND NAILS] 1 tab PO QDAY #0 10/06/16 12/02/19 fluticasone propionate 50 1 spray INTRANASAL BIDP PRN #0 10/06/16 12/02/19 mcg/actuation nasal spray,suspension lisinopril 5 mg tablet 2.5 mg PO QDAY #0 10/06/16 12/02/19 metoprolol succinate 25 mg 25 mg PO QDAY #0 10/06/16 12/02/19 tablet,extended release 24 hr (Toprol XL) multivitamin (Multiple Vitamins) 1 tab PO QDAY #0 10/06/16 12/02/19 aripiprazole 5 mg tablet (Abilify) 5 mg PO BEDTIME 12/02/19 12/02/19 bupropion HCl 150 mg tablet,12 hr 150 mg PO BID 12/02/19 12/02/19 sustained-release (Wellbutrin SR) hydroxyzine HCl 25 mg tablet 25 mg PO BEDTIME 12/02/19 12/02/19 lamotrigine 25 mg tablet (Lamictal) 50 mg PO DAILY 12/02/19 12/02/19 omeprazole magnesium 20 mg 20 mg PO DAILY 12/02/19 12/02/19 tablet,delayed release (Prilosec OTC) prednisone 20 mg tablet 40 mg PO DAILY 12/02/19 12/02/19 Previous Rx's Medication Instructions Recorded aspirin 81 mg tablet,delayed 81 mg PO QDAY #30 tab 10/07/16 release atorvastatin 20 mg tablet (Lipitor) 80 mg PO HS #30 tab 10/07/16 furosemide 20 mg tablet (Lasix) 40 mg PO DAILY 5 Days #10 tab 08/06/21 oxycodone 5 mg tablet 5 mg PO Q6H PRN #10 tab 08/06/21 Allergies Allergy/AdvReac Type Severity Reaction Status Date / Time meperidine [MEPERIDINE] Allergy Unknown Rash Verified 12/02/19 14:25 Review of Systems <Eddie Bernal DO - Last Filed: 08/07/21 02:13> Review of Systems Narrative: GENERAL: Denies chills, fatigue, malaise, fever, sweats. HEENT: Denies sinus pain, ear pain, sore throat, difficulty swallowing, dizziness. RESPIRATORY: Denies dyspnea, cough, wheezing, hemoptysis, sputum. CARDIOVASCULAR: See HPI GASTROINTESTINAL: See HPI : Denies dysuria, frequency, incontinence, hematuria, urinary retention. MUSCULOSKELETAL: denies weakness, joint pain, or bony pain SKIN: Denies rash, skin lesions, or other NEUROLOGIC: Denies weakness, headache, numbness, change in speech, confusion, seizures, incoordination. PSYCHIATRIC: No concerning psychosocial issues. 12 point review of systems is negative except for those stated above Patient History <DO Frank Smart Last Filed: 08/07/21 02:13> Medical History Cardiac arrest TIA (transient ischemic attack) Social History household members: significant other Smoking Status: Never smoker alcohol intake: current substance use type: does not use Smoking Status: Never smoker alcohol intake frequency: 3 or more drinks per day Substance Use Type: marijuana Exam <DO Frank Smart Last Filed: 08/07/21 02:13> Narrative Exam Narrative: GENERAL: [50] year old patient appears stated age. Well-developed patient, in mild distress. HEAD: Atraumatic. Normocephalic. EYES: Pupils equal round and reactive. Extraocular motions intact. No scleral icterus. No injection or drainage. ENT: Nose without bleeding, purulent drainage. Throat without erythema, tonsillar hypertrophy or exudate. Airway patent. NECK: Trachea midline. Non tender CARDIOVASCULAR: Regular rate and rhythm without murmurs, gallops, or rubs. RESPIRATORY: Clear to auscultation. Breath sounds equal bilaterally. No wheezes, rales, or rhonchi. GASTROINTESTINAL: Abdomen soft, significant tenderness in the epigastrium and right upper quadrant nondistended. Bowel sounds present in all 4 quadrants EXTREMITIES: No edema or joint tenderness. BACK: Nontender without deformity or crepitance. No flank tenderness. NEURO: AOx3. SKIN: No rash or erythema of visible areas Initial Vital Signs Initial Vital Signs: Vital Signs Temperature 97.1 F L 08/06/21 05:05 Pulse Rate 83 08/06/21 05:05 Respiratory Rate 18 08/06/21 05:05 Blood Pressure 166/79 H 08/06/21 05:05 Pulse Oximetry 95 08/06/21 05:05 <Leonila Avalos, DO - Last Filed: 08/06/21 19:59> Initial Vital Signs Initial Vital Signs: Vital Signs Temperature 97.1 F L 08/06/21 05:05 Pulse Rate 83 08/06/21 05:05 Respiratory Rate 18 08/06/21 05:05 Blood Pressure 166/79 H 08/06/21 05:05 Pulse Oximetry 95 08/06/21 05:05 Course <Eddie Bernal DO - Last Filed: 08/07/21 02:13> Orders Ordered: Discontinued Medications Hydromorphone HCl (Hydromorphone 1 Mg Inj) 0.5 mg IV NOW ONE Stop: 08/06/21 05:06 Last Admin: 08/06/21 05:36 Dose: 0.5 mg Documented by: JOCELIN Sodium Chloride (Normal Saline 0.9%) 1,000 mls @ 150 mls/hr IV CONT JOSE L Last Infusion: 08/06/21 10:04 Dose: 0 mls/hr Documented by: Admin: 08/06/21 05:38 Dose: 150 mls/hr Documented by: JOCELIN Ketorolac Tromethamine (Ketorolac 30 Mg/Ml Vial) 15 mg IV NOW ONE Stop: 08/06/21 08:52 Last Admin: 08/06/21 09:24 Dose: 15 mg Documented by: KYLEE Ondansetron HCl (Ondansetron 4 Mg/2 Ml Inj) 4 mg IV NOW ONE Stop: 08/06/21 05:06 Last Admin: 08/06/21 05:37 Dose: 4 mg Documented by: JOCELIN Vital Signs Vital signs: Vital Signs - 8 hr 08/06/21 05:05 08/06/21 05:20 08/06/21 05:30 Temperature 97.1 F L Pulse Rate 83 75 72 Respiratory Rate 18 16 16 Blood Pressure 166/79 H 153/81 H Pulse Oximetry 95 97 96 08/06/21 06:00 Temperature Pulse Rate 75 Respiratory Rate 17 Blood Pressure 151/84 H Pulse Oximetry 94 <Leonila Avalos DO - Last Filed: 08/06/21 19:59> Orders Ordered: Discontinued Medications Hydromorphone HCl (Hydromorphone 1 Mg Inj) 0.5 mg IV NOW ONE Stop: 08/06/21 05:06 Last Admin: 08/06/21 05:36 Dose: 0.5 mg Documented by: JOCELIN Sodium Chloride (Normal Saline 0.9%) 1,000 mls @ 150 mls/hr IV CONT JOSE L Last Infusion: 08/06/21 10:04 Dose: 0 mls/hr Documented by: Admin: 08/06/21 05:38 Dose: 150 mls/hr Documented by: JOCELIN Ketorolac Tromethamine (Ketorolac 30 Mg/Ml Vial) 15 mg IV NOW ONE Stop: 08/06/21 08:52 Last Admin: 08/06/21 09:24 Dose: 15 mg Documented by: KYLEE Ondansetron HCl (Ondansetron 4 Mg/2 Ml Inj) 4 mg IV NOW ONE Stop: 08/06/21 05:06 Last Admin: 08/06/21 05:37 Dose: 4 mg Documented by: JOCELIN Vital Signs Vital signs: Vital Signs - 8 hr 08/06/21 05:05 08/06/21 05:20 08/06/21 05:30 Temperature 97.1 F L Pulse Rate 83 75 72 Respiratory Rate 18 16 16 Blood Pressure 166/79 H 153/81 H Pulse Oximetry 95 97 96 08/06/21 06:00 Temperature Pulse Rate 75 Respiratory Rate 17 Blood Pressure 151/84 H Pulse Oximetry 94 MDM - Abdominal Pain <Eddie Bernal DO - Last Filed: 08/07/21 02:13> Lab Data Result diagrams: 08/06/21 05:15 08/06/21 05:15 Labs: Lab Results 08/06/21 08/06/21 08/06/21 Range/Units 05:15 05:15 05:15 WBC 5.7 (4.5-11.0) X10^3/uL RBC 4.55 (4.0-5.2) X10^6/uL Hgb 12.2 (12.0-16.0) g/dL Hct 36.6 (36-46) % MCV 80.5 (80-100) fL MCH 26.8 (26-34) PG MCHC 33.3 (30-36) % RDW 13.2 (11.6-14.8) % Plt Count 287 (150-400) X10^3/uL Neut % (Auto) 50.7 (50-75) % Lymph % (Auto) 34.8 (25-40) % [place] % (Auto) 7.1 (3-14) % Eos % (Auto) 6.5 H (2-4) % Baso % (Auto) 0.9 (0-2) % Neut # (Auto) 2900 (3867-5351) /uL Lymph # (Auto) 2000 (1797-8078) /uL [place] # (Auto) 400 (0-900) /uL Eos # (Auto) 400 (0-450) /uL Baso # (Auto) 100 (0-100) /uL D-Dimer 376 H (<230) ng/mL Sodium (137-145) mmol/L Potassium (3.4-5.1) mmol/L Chloride (98-107) mmol/L Carbon Dioxide (22-32) mmol/L BUN (7-17) mg/dL Creatinine (0.52-1.04) mg/dL Estimated GFR (>60) mL/min BUN/Creatinine Ratio (6-22) Glucose (70-100) mg/dL Calcium (8.4-10.2) mg/dL Total Bilirubin (0.2-1.3) mg/dL AST (14-36) IU/L ALT (<35) IU/L Alkaline Phosphatase (38-126) U/L Total Creatine Kinase (30-135) U/L CK-MB (CK-2) CK-MB (CK-2) Rel Index Troponin I (0.01-0.034) ng/mL NT-Pro-B Natriuret Pep 566 H (<125) pg/mL Total Protein (6.3-8.2) g/dL Albumin (3.5-5.0) g/dL Globulin (1.7-4.1) g/dL Albumin/Globulin Ratio (1.0-2.8) Lipase (23-300) U/L Procalcitonin 0.05 (<0.5) ng/mL 08/06/21 08/06/21 Range/Units 05:15 07:50 WBC (4.5-11.0) X10^3/uL RBC (4.0-5.2) X10^6/uL Hgb (12.0-16.0) g/dL Hct (36-46) % MCV (80-100) fL MCH (26-34) PG MCHC (30-36) % RDW (11.6-14.8) % Plt Count (150-400) X10^3/uL Neut % (Auto) (50-75) % Lymph % (Auto) (25-40) % [place] % (Auto) (3-14) % Eos % (Auto) (2-4) % Baso % (Auto) (0-2) % Neut # (Auto) (9132-0821) /uL Lymph # (Auto) (7000-4659) /uL [place] # (Auto) (0-900) /uL Eos # (Auto) (0-450) /uL Baso # (Auto) (0-100) /uL D-Dimer (<230) ng/mL Sodium 138 (137-145) mmol/L Potassium 3.5 (3.4-5.1) mmol/L Chloride 103 (98-107) mmol/L Carbon Dioxide 29 (22-32) mmol/L BUN 15 (7-17) mg/dL Creatinine 0.84 (0.52-1.04) mg/dL Estimated GFR > 60 (>60) mL/min BUN/Creatinine Ratio 17.9 (6-22) Glucose 114 H (70-100) mg/dL Calcium 8.8 (8.4-10.2) mg/dL Total Bilirubin 0.7 (0.2-1.3) mg/dL AST 33 (14-36) IU/L ALT 31 (<35) IU/L Alkaline Phosphatase 123 (38-126) U/L Total Creatine Kinase 87 (30-135) U/L CK-MB (CK-2) TNP CK-MB (CK-2) Rel Index TNP Troponin I < 0.012 < 0.012 (0.01-0.034) ng/mL NT-Pro-B Natriuret Pep (<125) pg/mL Total Protein 6.9 (6.3-8.2) g/dL Albumin 4.0 (3.5-5.0) g/dL Globulin 2.9 (1.7-4.1) g/dL Albumin/Globulin Ratio 1.4 (1.0-2.8) Lipase 130 (23-300) U/L Procalcitonin (<0.5) ng/mL <Leonila Avalos, DO - Last Filed: 08/06/21 19:59> Lab Data Labs: Lab Results 08/06/21 08/06/21 08/06/21 Range/Units 05:15 05:15 05:15 WBC 5.7 (4.5-11.0) X10^3/uL RBC 4.55 (4.0-5.2) X10^6/uL Hgb 12.2 (12.0-16.0) g/dL Hct 36.6 (36-46) % MCV 80.5 (80-100) fL MCH 26.8 (26-34) PG MCHC 33.3 (30-36) % RDW 13.2 (11.6-14.8) % Plt Count 287 (150-400) X10^3/uL Neut % (Auto) 50.7 (50-75) % Lymph % (Auto) 34.8 (25-40) % [place] % (Auto) 7.1 (3-14) % Eos % (Auto) 6.5 H (2-4) % Baso % (Auto) 0.9 (0-2) % Neut # (Auto) 2900 (2659-1503) /uL Lymph # (Auto) 2000 (8051-6649) /uL [place] # (Auto) 400 (0-900) /uL Eos # (Auto) 400 (0-450) /uL Baso # (Auto) 100 (0-100) /uL D-Dimer 376 H (<230) ng/mL Sodium (137-145) mmol/L Potassium (3.4-5.1) mmol/L Chloride (98-107) mmol/L Carbon Dioxide (22-32) mmol/L BUN (7-17) mg/dL Creatinine (0.52-1.04) mg/dL Estimated GFR (>60) mL/min BUN/Creatinine Ratio (6-22) Glucose (70-100) mg/dL Calcium (8.4-10.2) mg/dL Total Bilirubin (0.2-1.3) mg/dL AST (14-36) IU/L ALT (<35) IU/L Alkaline Phosphatase (38-126) U/L Total Creatine Kinase (30-135) U/L CK-MB (CK-2) CK-MB (CK-2) Rel Index Troponin I (0.01-0.034) ng/mL NT-Pro-B Natriuret Pep 566 H (<125) pg/mL Total Protein (6.3-8.2) g/dL Albumin (3.5-5.0) g/dL Globulin (1.7-4.1) g/dL Albumin/Globulin Ratio (1.0-2.8) Lipase (23-300) U/L Procalcitonin 0.05 (<0.5) ng/mL 08/06/21 08/06/21 Range/Units 05:15 07:50 WBC (4.5-11.0) X10^3/uL RBC (4.0-5.2) X10^6/uL Hgb (12.0-16.0) g/dL Hct (36-46) % MCV (80-100) fL MCH (26-34) PG MCHC (30-36) % RDW (11.6-14.8) % Plt Count (150-400) X10^3/uL Neut % (Auto) (50-75) % Lymph % (Auto) (25-40) % [place] % (Auto) (3-14) % Eos % (Auto) (2-4) % Baso % (Auto) (0-2) % Neut # (Auto) (2231-1272) /uL Lymph # (Auto) (5821-5174) /uL [place] # (Auto) (0-900) /uL Eos # (Auto) (0-450) /uL Baso # (Auto) (0-100) /uL D-Dimer (<230) ng/mL Sodium 138 (137-145) mmol/L Potassium 3.5 (3.4-5.1) mmol/L Chloride 103 (98-107) mmol/L Carbon Dioxide 29 (22-32) mmol/L BUN 15 (7-17) mg/dL Creatinine 0.84 (0.52-1.04) mg/dL Estimated GFR > 60 (>60) mL/min BUN/Creatinine Ratio 17.9 (6-22) Glucose 114 H (70-100) mg/dL Calcium 8.8 (8.4-10.2) mg/dL Total Bilirubin 0.7 (0.2-1.3) mg/dL AST 33 (14-36) IU/L ALT 31 (<35) IU/L Alkaline Phosphatase 123 (38-126) U/L Total Creatine Kinase 87 (30-135) U/L CK-MB (CK-2) TNP CK-MB (CK-2) Rel Index TNP Troponin I < 0.012 < 0.012 (0.01-0.034) ng/mL NT-Pro-B Natriuret Pep (<125) pg/mL Total Protein 6.9 (6.3-8.2) g/dL Albumin 4.0 (3.5-5.0) g/dL Globulin 2.9 (1.7-4.1) g/dL Albumin/Globulin Ratio 1.4 (1.0-2.8) Lipase 130 (23-300) U/L Procalcitonin (<0.5) ng/mL Imaging Data CT scan - chest: Radiologist's Impression: [address] [address] [address] Scan Report Signed Patient: Tori Murray MR#: [id number] : 1970 Acct:[id number] Age/Sex: 50 / F Date of Service: 08/06/21 Loc: ED Accession Number: [id number] ?? Procedure: CT angio chest PE protocol Ordering Provider: Eddie Bernal D.O. PROCEDURE:? CT ANGIO CHEST PE PROTOCOL ? INDICATIONS:? chest pain, SOB, elevated dimer ? TECHNIQUE:? After the administration of intravenous contrast, 2 mm thick sections acquired from the pulmonary apices to the posterior costophrenic angles.? 3-dimensional maximum intensity projection (MIP) coronal and sagittal reformats were then acquired through the thorax.? For radiation dose reduction, the following was used:? automated exposure c ontrol, adjustment of mA and/or kV according to patient size.? ? COMPARISON:? [facility], CR, XR CHEST 1V, 04/17/2021, 6:53.? [facility], CR, CHEST 1 VIEW, 10/06/2016, 10:08.? [facility], CT, CT ANGIO CHEST PE, 01/28/2016, 16:45.? [facility], CR, XR CHEST 1V, 08/06/2021, 5:07. ? FINDINGS:? Image quality:? Excellent.? ? Pulmonary arteries:? Pulmonary arteries are normal in size, and demonstrate no intraluminal filling defects to suggest central pulmonary embolism.? ? Lungs and pleura:? No focal consolidation.? Bilateral subpleural septal thickening.? Small lung nodules are present bilaterally.? Tattoo And Body Artist nodules are listed in the following: ? Nodule 1:? 4 mm; right upper lobe; series 5, image 132. Nodule 2:? 4 mm; left upper lobe; series 5, image 101. Nodule 3:? 3 mm; lingula; series 55, image 151. ? ? No pleural effusions or pneumothorax.? Central and peripheral airways are patent.? ? Mediastinum:? Heart size is moderately increased, without pericardial effusion.? Mild mediastinal or hilar adenopathy.? There is a 1.2 cm right paratracheal lymph node.? Prominent right hilar lymph node measures 1 cm.? Thoracic aorta is normal in caliber and enhancement.? Esophagus is normal in caliber, without hiatal hernia.? ? Bones and chest wall:? No suspicious bony lesions.? Ribs and thoracic spine appear intact throughout.? Thyroid gland is normal.? No axillary or supraclavicular adenopathy.? ? Abdomen:? Visualized upper abdominal solid organs appear normal in the early arterial phase of enhancement.? ? IMPRESSION:? ? 1. No evidence for pulmonary embolism. 2. Moderate cardiomegaly. 3. Mild mediastinal and hilar lymphadenopathy, nonspecific. 4. Bilateral subpleural septal thickening.? Etiologies may be interstitial pneumonia or mild pulmonary congestion.? 5. Small pulmonary nodules are present bilaterally, most likely infectious or inflammatory etiology..? Please see enclosed follow-up recommendation. ? ? No significant discrepancy with the embroidery machine operator radiology preliminary report. ? ? Dictated by: Baldev Foster M.D. on 08/06/2021 at 8:06 ? ? Approved by: Baldev Foster M.D. on 08/06/2021 at 8:14?? CT scan - abdomen/pelvis: Radiologist's Impression: [place] [address] CT Scan Report Signed Patient: Tori Murray MR#: [id number] : 1970 Acct:[id number] Age/Sex: 50 / F Date of Service: 08/06/21 Loc: ED Accession Number: [id number] ?? Procedure: CT abdomen pelvis w con Ordering Provider: Eddie Bernal D.O. PROCEDURE:? CT ABDOMEN PELVIS W CON ? INDICATIONS:? severe epigastric pain, vomiting, diarrhea ? TECHNIQUE:? After the administration of oral and IV contrast, axial sections were acquired from the lung bases to the pubic symphysis.? Coronal and sagittal reformats were performed.? For radiation dose reduction, the following was used:? automated exposure control, adjustment of mA and/or kV according to patient size. ? COMPARISON:? [facility], CT, KIDNEY/ URETER/BLADDER, 11/25/2011, 14:49.? [facility], US, US ABDOMEN LIMITED, 08/06/2021, 6:39.? [facility], CT, CT ANGIO CHEST PE PROTOCOL, 08/06/2021, 6:46. ? FINDINGS:? Image quality:? Excellent.? ? Lung bases:? Subpleural septal thickening and small nodular densities bilaterally.? Small hiatal hernia.? ? Heart:? Mildly increased.? There is a cardiac pacemaker. ? ? ABDOMEN: Liver:? Mildly enlarged.? Mild hepatic steatosis..? ? Gallbladder:? Unremarkable.? ? Biliary ducts:? Unremarkable.? ? Pancreas:? Unremarkable.? ? Spleen:? Unremarkable.? ? Adrenal Glands:? Unremarkable.? ? Kidneys and Ureters:? There is a 0.6 cm indeterminate low-density cortical nodule in left kidney.? ? No stones or hydronephrosis. ? Stomach and Bowel:? Stomach, small bowel loops, and colon are normal in caliber.? Mild diverticulosis.? No acute diverticulitis. Peritoneum:? No abnormal intraperitoneal fluid.? No free air.? ? Ventral Wall: ? No hernia.? Abdominal Nodes:? No retroperitoneal or mesenteric adenopathy by size criteria.? Vessels:? Aorta and inferior vena cava are normal in size.? ? PELVIS: Pelvic Organs:? Uterus is unremarkable.? There is a 5.1 x 5.3 cm mass in the left adnexa. ?No right adnexal mass.? Bilateral tubal ligations.? No free fluid in the cul-de-sac or adnexa. Bladder:? Unremarkable.? ? Pelvic Nodes: No enlarged lymph nodes.? Miscellaneous: No inguinal hernias are seen. ? ? ? Bones:? Unremarkable.? IMPRESSION:? ? 1. No acute abnormalities in abdomen or pelvis. 2. Mild hepatomegaly and hepatic steatosis. 3. Mild diverticulosis without diverticulitis. 4. A 5.1 x 5.3 cm mass in the left adnexa.? Recommend pelvic ultrasound for follow-up evaluation.? ? ? No significant discrepancy with the embroidery machine operator radiology preliminary report. ? ? Dictated by: Baldev Foster M.D. on 08/06/2021 at 8:15 ? ? Approved by: Baldev Foster M.D. on 08/06/2021 at 8:21?? US - BLOCK BREAKER: Radiologist's Impression: [address] [address] Ultrasound Report Signed Patient: Tori Murray MR#: [id number] : 1970 Acct:[id number] Age/Sex: 50 / F Date of Service: 08/06/21 Loc: ED Accession Number: [id number] ?? Procedure: US pelvic complete Ordering Provider: Leonila Avalos D.O. PROCEDURE:? US PELVIC COMPLETE ? INDICATIONS:? left adenxal mass. ? TECHNIQUE:? Real-time scanning was performed of the pelvic organs, with image documentation.? Additional endovaginal scanning was necessary due to incomplete visualization of the adnexal and endometrial structures by transabdominal scanning.? ? COMPARISON:? None. ? FINDINGS:? ?? Uterus:? Uterus is anteverted and normal in size at 7.6 x 3.7 x 5.0 cm. The myometrium is homogeneous. ? The endometrium measures 6 mm combined thickness.? ? Ovaries:? The ovaries are not seen bilaterally.? There is a poorly visualized left adnexal mass measuring 4.5 x 4.8 x 3.7 cm.? No internal vascularity seen.? A definite origin for this mass is not visualized. ? Other:? No pathologic free abdominal or pelvic fluid.? Small amount of pelvic free fluid likely physiologic. ? ? IMPRESSION:? Nonvisualization of the bilateral ovaries with a poorly visualized left adnexal mass measuring up to 4.8 cm in size.? Consider further evaluation with CT. ? Normal sonographic appearance of the uterus. ? ? We strive to produce accurate, complete, and clear reports of imaging services. To assist us in improving patient care, this report was composed using standard report templates and voice recognition software. Therefore, it may contain abnormal punctuation, insertions and/or omissions. Occasional wrong-word or sound-alike substitutions may occur. Though we review the report and make efforts to correct it, we do recommend that the report be read carefully in proper context to recognize any text inaccuracies. ? ? Dictated by: Khoa Mcconnell M.D. on 08/06/2021 at 9:28 ? ? Approved by: Khoa Mcconnell M.D. on 08/06/2021 at 9:30? ECG Data Attestation: I personally reviewed and interpreted this ECG as follows: Interpretation: EKG 1. EKG 2. Sinus rhythm long QT, rate of 71 ME 160 QRS of 94 and QTC of 504. No acute ST changes noted from prior EKG from today and 04/17/21. MDM Narrative Medical decision making narrative: Patient signed out to myself by Dr. Bernal. CT imaging is pending. Repeat troponin and EKG are done. This is a 50-year-old female with history of hypertension, dyslipidemia normally on a diuretic who has back and is epigastric pain today. Patient had vomiting yesterday. Patient has had EKG with troponin x2 which is negative, chest x-ray which showed cardiomegaly, she has slightly elevated BN P, normal CBC, CMP and had a slightly elevated D-dimer. CT PE is negative for blood clots, it does show several very small pulmonary nodules and I discussed follow-up for these with the patient. Also possible pneumonia verses pulmonary congestion and suspect is not patient's BNP and lack of infectious symptoms fluid overload and patient's diuretic was increased from 20-40 mg daily for the next 5 days. Patient continues to have a headache after receiving nitro, was given a prescription for her headache as well as back pain which is reproducible on exam as well as her epigastric pain which is reproducible. Abdominal ultrasound did show acute changes, CT abdomen pelvis shows a pelvic mass and hepatic steatosis. Patient's masses more left lower quadrant her tenderness is more epigastric. Ultrasound was obtained but was inconclusive. Patient was asked to follow up for this for further evaluation with primary care referred to executive coach in based on the location. All this was reviewed with the patient she was seen and evaluated independently by myself all questions answered. She is aware of the importance of follow-up regarding the pelvic mass. Discharge Plan Departure Patient Disposition: Home Clinical Impression: Multiple pulmonary nodules, Pelvic mass, Hepatic steatosis Activity Restrictions/Additional Instructions: Your imaging and labs today show some small pulmonary nodules. It is recommended to have repeat CT scan at 6-12 months. Follow up with your primary care physician to arrange this. Your imaging also shows a pelvic mass. You need to follow up with primary care and chief petroleum engineer for further evaluation. Please call for an appointment. Referral is included below. Your labs show a slight elevation in your BNP and possible extra fluid on imaging. I would recommend a diuretic for the short term. You may take Tylenol up to a 1000 mg every 8 hours as needed for pain and/or ibuprofen up to 600 mg every 6 hours. If in adequate you may take narcotic pain medication 1-2 tablet every 6 hours needed. This medication can make you sleepy do not drive, perform hazardous activities or make any major decisions while taking it. This medication will make you constipated please take a stool softener once to twice daily until stools are soft and regular. Prescription sent to [facility] in [place]. Please return for fevers, worsening chest pain, shortness pain persistent black or stools, inability to bowel movement or urinate or other new or concerning. Prescriptions: New furosemide [Lasix] 20 mg tablet 40 mg PO DAILY 5 Days Qty: 10 0RF oxycodone 5 mg tablet 5 mg PO Q6H PRN (Reason: pain) Qty: 10 0RF No Action lisinopril 5 MG tablet 2.5 mg PO QDAY Qty: 0 0RF metoprolol succinate [Toprol XL] 25 MG tablet extended release 24 hr 25 mg PO QDAY Qty: 0 0RF fluticasone propionate 16 GM spray,suspension 1 spray Intranasal BIDP PRN (Reason: allergies) Qty: 0 0RF [HAIR SKIN AND NAILS] 1 tab PO QDAY Qty: 0 0RF multivitamin [Multiple Vitamins] 1 EACH tablet 1 tab PO QDAY Qty: 0 0RF atorvastatin [Lipitor] 20 MG tablet 80 mg PO HS Qty: 30 0RF aspirin 81 MG tablet,delayed release (DR/EC) 81 mg PO QDAY Qty: 30 0RF bupropion HCl [Wellbutrin SR] 150 mg Tablet Sustained-Release 12 Hr 150 mg PO BID 0RF prednisone 20 mg Tablet 40 mg PO DAILY 0RF lamotrigine [Lamictal] 25 mg Tablet 50 mg PO DAILY 0RF hydroxyzine HCl 25 mg Tablet 25 mg PO BEDTIME 0RF aripiprazole [Abilify] 5 mg Tablet 5 mg PO BEDTIME 0RF omeprazole magnesium [Prilosec OTC] 20 mg Tablet,Delayed Release (Dr/Ec) 20 mg PO DAILY 0RF Referrals: Saleem Vogt MD [Primary Care Provider] - Franco Hernandez MD [Physician] - Visit Report Forms: Patient Portal/API
[2021-08-06 05:20] VITALS: PULSE 75; RESP 16; O2SAT 97
[2021-08-06 05:22] LABS: Add Manual Diff / Slide Review NO; Basophils Absolute Auto 100 /uL (0-100); Basophils Percent Auto 0.9 % (0-2); Eosinophils Absolute Auto 400 /uL (0-450); Eosinophils Percent Auto 6.5 % (2-4); Hematocrit 36.6 % (36-46); Hemoglobin 12.2 g/dL (12.0-16.0); Lymphocytes Absolute Auto 2000 /uL (1100-4500); Lymphocytes Percent Auto 34.8 % (25-40); Mean Corpuscular HGB Conc 33.3 % (30-36); Mean Corpuscular Hemoglobin 26.8 PG (26-34); Mean Corpuscular Volume 80.5 fL (80-100); Monocytes Absolute Auto 400 /uL (0-900); Monocytes Percent Auto 7.1 % (3-14); Neutrophils Absolute Auto 2900 /uL (1500-7000); Neutrophils Percent Auto 50.7 % (50-75); Platelet Count 287 X10^3/uL (150-400); Red Blood Cell Count 4.55 X10^6/uL (4.0-5.2); Red Cell Distribution Width 13.2 % (11.6-14.8); White Blood Cell Count 5.7 X10^3/uL (4.5-11.0)
[2021-08-06 05:30] VITALS: BP 153/81; PULSE 72; RESP 16; O2SAT 96
[2021-08-06 05:31] LABS: D Dimer 376 ng/mL (<230)
[2021-08-06 05:33] LABS: Alanine Aminotransferase 31 IU/L (<35); Albumin Globulin Ratio 1.4 (1.0-2.8); Alkaline Phosphatase 123 U/L (38-126); Aspartate Aminotransferase 33 IU/L (14-36); BUN Creatinine Ratio 17.9 (6-22); Bilirubin Total 0.7 mg/dL (0.2-1.3); Blood Urea Nitrogen 15 mg/dL (7-17); Calcium 8.8 mg/dL (8.4-10.2); Carbon Dioxide 29 mmol/L (22-32); Chloride 103 mmol/L (98-107); Creatine Kinase 87 U/L (30-135); Estimated Glomerular Filt Rate > 60 mL/min (>60); Globulin 2.9 g/dL (1.7-4.1); Glucose 114 mg/dL (70-100); HEMOLYSIS < 15 (0-50); Lipase 130 U/L (23-300); Potassium 3.5 mmol/L (3.4-5.1); Sodium 138 mmol/L (137-145); Total Protein 6.9 g/dL (6.3-8.2)
[2021-08-06] MEDS: HYDROMORPHONE 1 MG INJ 0.5 MG IV (05:36)
[2021-08-06] MEDS: ONDANSETRON 4 MG/2 ML INJ IV (05:37)
[2021-08-06] MEDS: SODIUM CHLORIDE 0.9% 1,000 ML 150 ML IV (05:38)
[2021-08-06 05:44] LABS: Troponin I < 0.012 ng/mL (0.01-0.034)
[2021-08-06 06:00] VITALS: BP 151/84; PULSE 75; RESP 17; O2SAT 94
--- NOTE | 2021-08-06 06:29 | DI.CT.S_ITS ---
PROCEDURE: CT ANGIO CHEST PE PROTOCOL INDICATIONS: chest pain, SOB, elevated dimer TECHNIQUE: After the administration of intravenous contrast, 2 mm thick sections acquired from the pulmonary apices to the posterior costophrenic angles. 3-dimensional maximum intensity projection (MIP) coronal and sagittal reformats were then acquired through the thorax. For radiation dose reduction, the following was used: automated exposure control, adjustment of mA and/or kV according to patient size. COMPARISON: [facility], CR, XR CHEST 1V, 04/17/2021, 6:53. [facility], CR, CHEST 1 VIEW, 10/06/2016, 10:08. [facility], CT, CT ANGIO CHEST PE, 01/28/2016, 16:45. [facility], CR, XR CHEST 1V, 08/06/2021, 5:07. FINDINGS: Image quality: Excellent. Pulmonary arteries: Pulmonary arteries are normal in size, and demonstrate no intraluminal filling defects to suggest central pulmonary embolism. Lungs and pleura: No focal consolidation. Bilateral subpleural septal thickening. Small lung nodules are present bilaterally. [place] nodules are listed in the following: Nodule 1: 4 mm; right upper lobe; series 5, image 132. Nodule 2: 4 mm; left upper lobe; series 5, image 101. Nodule 3: 3 mm; lingula; series 55, image 151. No pleural effusions or pneumothorax. Central and peripheral airways are patent. Mediastinum: Heart size is moderately increased, without pericardial effusion. Mild mediastinal or hilar adenopathy. There is a 1.2 cm right paratracheal lymph node. Prominent right hilar lymph node measures 1 cm. Thoracic aorta is normal in caliber and enhancement. Esophagus is normal in caliber, without hiatal hernia. Bones and chest wall: No suspicious bony lesions. Ribs and thoracic spine appear intact throughout. Thyroid gland is normal. No axillary or supraclavicular adenopathy. Abdomen: Visualized upper abdominal solid organs appear normal in the early arterial phase of enhancement. IMPRESSION: 1. No evidence for pulmonary embolism. 2. Moderate cardiomegaly. 3. Mild mediastinal and hilar lymphadenopathy, nonspecific. 4. Bilateral subpleural septal thickening. Etiologies may be interstitial pneumonia or mild pulmonary congestion. 5. Small pulmonary nodules are present bilaterally, most likely infectious or inflammatory etiology.. Please see enclosed follow-up recommendation. No significant discrepancy with the steward/stewardess night radiology preliminary report. Dictated by: Baldev Foster M.D. on 08/06/2021 at 8:06 Approved by: Baldev Foster M.D. on 08/06/2021 at 8:14
--- NOTE | 2021-08-06 06:29 | DI.CT.S_ITS ---
PROCEDURE: CT ABDOMEN PELVIS W CON INDICATIONS: severe epigastric pain, vomiting, diarrhea TECHNIQUE: After the administration of oral and IV contrast, axial sections were acquired from the lung bases to the pubic symphysis. Coronal and sagittal reformats were performed. For radiation dose reduction, the following was used: automated exposure control, adjustment of mA and/or kV according to patient size. COMPARISON: [facility], CT, KIDNEY/ URETER/BLADDER, 11/25/2011, 14:49. [facility], US, US ABDOMEN LIMITED, 08/06/2021, 6:39. [facility], CT, CT ANGIO CHEST PE PROTOCOL, 08/06/2021, 6:46. FINDINGS: Image quality: Excellent. Lung bases: Subpleural septal thickening and small nodular densities bilaterally. Small hiatal hernia. Heart: Mildly increased. There is a cardiac pacemaker. ABDOMEN: Liver: Mildly enlarged. Mild hepatic steatosis.. Gallbladder: Unremarkable. Biliary ducts: Unremarkable. Pancreas: Unremarkable. Spleen: Unremarkable. Adrenal Glands: Unremarkable. Kidneys and Ureters: There is a 0.6 cm indeterminate low-density cortical nodule in left kidney. No stones or hydronephrosis. Stomach and Bowel: Stomach, small bowel loops, and colon are normal in caliber. Mild diverticulosis. No acute diverticulitis. Peritoneum: No abnormal intraperitoneal fluid. No free air. Ventral Wall: No hernia. Abdominal Nodes: No retroperitoneal or mesenteric adenopathy by size criteria. Vessels: Aorta and inferior vena cava are normal in size. PELVIS: Pelvic Organs: Uterus is unremarkable. There is a 5.1 x 5.3 cm mass in the left adnexa. No right adnexal mass. Bilateral tubal ligations. No free fluid in the cul-de-sac or adnexa. Bladder: Unremarkable. Pelvic Nodes: No enlarged lymph nodes. Miscellaneous: No inguinal hernias are seen. Bones: Unremarkable. IMPRESSION: 1. No acute abnormalities in abdomen or pelvis. 2. Mild hepatomegaly and hepatic steatosis. 3. Mild diverticulosis without diverticulitis. 4. A 5.1 x 5.3 cm mass in the left adnexa. Recommend pelvic ultrasound for follow-up evaluation. No significant discrepancy with the police shift commander radiology preliminary report. Dictated by: Baldev Foster M.D. on 08/06/2021 at 8:15 Approved by: Baldev Foster M.D. on 08/06/2021 at 8:21
[2021-08-06 06:31] LABS: NT-proBNP (BNP-Adult 18+) 566 pg/mL (<125)
[2021-08-06 06:38] LABS: Procalcitonin 0.05 ng/mL (<0.5)
[2021-08-06 08:40] LABS: Troponin I < 0.012 ng/mL (0.01-0.034)
--- NOTE | 2021-08-06 08:40 | DI.US.S_ITS ---
PROCEDURE: US PELVIC COMPLETE INDICATIONS: left adenxal mass. TECHNIQUE: Real-time scanning was performed of the pelvic organs, with image documentation. Additional endovaginal scanning was necessary due to incomplete visualization of the adnexal and endometrial structures by transabdominal scanning. COMPARISON: None. FINDINGS: Uterus: Uterus is anteverted and normal in size at 7.6 x 3.7 x 5.0 cm. The myometrium is homogeneous. The endometrium measures 6 mm combined thickness. Ovaries: The ovaries are not seen bilaterally. There is a poorly visualized left adnexal mass measuring 4.5 x 4.8 x 3.7 cm. No internal vascularity seen. A definite origin for this mass is not visualized. Other: No pathologic free abdominal or pelvic fluid. Small amount of pelvic free fluid likely physiologic. IMPRESSION: Nonvisualization of the bilateral ovaries with a poorly visualized left adnexal mass measuring up to 4.8 cm in size. Consider further evaluation with CT. Normal sonographic appearance of the uterus. We strive to produce accurate, complete, and clear reports of imaging services. To assist us in improving patient care, this report was composed using standard report templates and voice recognition software. Therefore, it may contain abnormal punctuation, insertions and/or omissions. Occasional wrong-word or sound-alike substitutions may occur. Though we review the report and make efforts to correct it, we do recommend that the report be read carefully in proper context to recognize any text inaccuracies. Dictated by: Khoa Mcconnell M.D. on 08/06/2021 at 9:28 Approved by: Khoa Mcconnell M.D. on 08/06/2021 at 9:30
[2021-08-06] MEDS: KETOROLAC 30 MG/ML VIAL 15 MG IV (09:24)
[2021-08-06 10:05] VITALS: BP 147/87; PULSE 72; O2SAT 96
== END 2021-08-06 10:05 | disposition home or self-care (01) ==
PROVIDERS: Emergency Medicine; Emergency Provider Emergency Medicine; PCP Family Medicine
DX: R91.8 Other nonspecific abnormal finding of lung field (principal); R19.00 Intra-abdominal and pelvic swelling, mass and lump, unspecified site; K76.0 Fatty (change of) liver, not elsewhere classified; R07.9 Chest pain, unspecified; R11.10 Vomiting, unspecified
CPT/HCPCS: 36415; 71045; 71275; 74177; 76705; 76856; 80053; 82550; 83690; 83880; 84145; 84484; 85025; 85379; 93005; 93010; 96361; 96374; 96375; 99284; J1170; J1885; J2405; Q9967

== ENCOUNTER → 2021-11-20 11:54 | Outpatient (CLI) | payer OTHER, MEDICAID, SELFPAY ==
--- NOTE | 2021-11-20 11:56 | DI.RAD.S_ITS ---
PROCEDURE: XR CHEST 2V INDICATIONS: COUGH TECHNIQUE: 2 views of the chest were acquired. COMPARISON: [facility], CR, XR CHEST 1V, 08/06/2021, 5:07. FINDINGS: Surgical changes and devices: Left-sided pacer. Lungs and pleura: Mild peribronchial opacity and cuffing. No pleural effusions or pneumothorax. Mediastinum: Mediastinal contours are normal. Heart size is normal. Bones and chest wall: No suspicious bony abnormalities. Soft tissues appear unremarkable. IMPRESSION: Mild bronchopneumonia. Dictated by: Haley Manning M.D. on 11/20/2021 at 13:57 Approved by: Haley Manning M.D. on 11/20/2021 at 13:57
== END ==
PROVIDERS: PCP Family Medicine; Referring Provider Family Medicine; Visit Provider Family Medicine
DX: J18.0 Bronchopneumonia, unspecified organism (principal); R05.1 Acute cough; Z95.0 Presence of cardiac pacemaker
CPT/HCPCS: 71046

== ENCOUNTER 2022-03-10 11:08 | Emergency (ER) | payer OTHER, MEDICAID, SELFPAY ==
[2022-03-10 11:51] VITALS: BP 156/81; PULSE 67; RESP 18; TEMP 36.3; O2SAT 100; BMI 36.1
== END 2022-03-10 12:09 | disposition left against medical advice (07) ==
PROVIDERS: Emergency Provider Emergency Medicine; PCP Family Medicine
CPT/HCPCS: 99281

== ENCOUNTER → 2022-04-17 14:18 | Outpatient (CLI) | payer OTHER, MEDICAID, SELFPAY ==
--- NOTE | 2022-04-17 | DI.RAD.S_ITS ---
PROCEDURE: XR CHEST 2V INDICATIONS: Presence of automatic (implantable) cardiac defibrillator TECHNIQUE: 2 views of the chest were acquired. COMPARISON: [facility], CR, XR CHEST 1V, 08/06/2021, 5:07. [facility], CR, XR CHEST 2V, 11/20/2021, 11:59. FINDINGS: Surgical changes and devices: There is a cardiac defibrillator. Lungs and pleura: Lungs are clear. No pleural effusions or pneumothorax. Mediastinum: Mediastinal contours are normal. Heart size is normal. Bones and chest wall: No suspicious bony abnormalities. Soft tissues appear unremarkable. IMPRESSION: 1. No acute cardiopulmonary disease. Dictated by: Baldev Foster M.D. on 04/17/2022 at 16:08 Approved by: Baldev Foster M.D. on 04/17/2022 at 16:11
== END ==
PROVIDERS: PCP Family Medicine; Referring Provider Internal Medicine Cardiovascular Disease; Visit Provider Internal Medicine Cardiovascular Disease
DX: R63.4 Abnormal weight loss (principal); Z95.810 Presence of automatic (implantable) cardiac defibrillator; R07.9 Chest pain, unspecified
CPT/HCPCS: 71046

== ENCOUNTER → 2022-05-21 10:51 | Outpatient (CLI) | payer OTHER, MEDICAID, SELFPAY ==
--- NOTE | 2022-05-21 10:52 | DI.CT.S_ITS ---
PROCEDURE: CT CHEST WO CON INDICATIONS: Other nonspecific abnormal finding of lung field TECHNIQUE: Noncontrast 5 mm thick sections acquired from the pulmonary apices to the posterior costophrenic angles. 1 mm lung window, 5 mm thick coronal and sagittal and 7 mm axial MIP reformats were then acquired. For radiation dose reduction, the following was used: automated exposure control, adjustment of mA and/or kV according to patient size. COMPARISON: [facility], CT, CT ANGIO CHEST PE PROTOCOL, 08/06/2021, 6:46. FINDINGS: Image quality: Excellent. Lungs and pleura: No consolidation. A previously seen subpleural reticular thickening is nearly resolved. This was likely due to pulmonary edema on the prior CT. No pleural effusions or pneumothorax. Central and peripheral airways are patent and normal in caliber. Mediastinum: Left pacemaker with right atrial and right ventricular leads.Heart size is within normal limits. No pericardial effusion. Precarinal node measuring 0.9 cm, (2), previously 1.1 cm. Thoracic aorta and central pulmonary arteries are normal in size. Esophagus is normal in caliber. No hiatal hernia. Bones and chest wall: No suspicious bony lesions. No vertebral body compression fractures. No axillary or supraclavicular adenopathy by size criteria. Thyroid gland is unremarkable. Abdomen: Visualized upper abdominal solid organs and bowel loops appear normal in the absence of contrast. IMPRESSION: 1. No acute airspace opacity. Resolved pulmonary edema. 2. No significant pulmonary nodules. 3. Mediastinal lymph nodes are decreased. Suspect reactive etiology. Dictated by: Kaveh Lou M.D. on 05/21/2022 at 12:52 Approved by: Kaveh Lou M.D. on 05/21/2022 at 13:01
== END ==
PROVIDERS: PCP Family Medicine; Referring Provider Family Medicine; Visit Provider Family Medicine
DX: R91.8 Other nonspecific abnormal finding of lung field (principal); Z95.0 Presence of cardiac pacemaker
CPT/HCPCS: 71250

== ENCOUNTER → 2022-07-12 10:51 | Outpatient (CLI) | payer OTHER, MEDICAID, SELFPAY ==
--- NOTE | 2022-07-12 11:03 | DI.CT.S_ITS ---
PROCEDURE: CT HEAD/BRAIN WO CON INDICATIONS: Dizziness and giddiness/headache TECHNIQUE: Noncontrast 4.5 mm thick angled axial sections acquired from the foramen magnum to the vertex, with coronal and sagittal reformats. For radiation dose reduction, the following was used: automated exposure control, adjustment of mA and/or kV according to patient size. COMPARISON: [facility], CT, HEAD AND NECK ANGIO, 10/06/2016, 12:49. [facility], CT, CT HEAD/BRAIN WO CON, 01/15/2018, 10:01. [facility], CT, HEAD WITHOUT CONTRAST, 10/06/2016, 10:26. FINDINGS: Image quality: Mild streak artifact can be seen through the skull base. CSF spaces: Basal cisterns are patent. No extra-axial fluid collections. Ventricles are normal in size and shape. Brain: No midline shift. No intracranial masses or hemorrhage. Jonas-white matter interface is normal. Skull and face: Calvarium and visualized facial bones are intact, without suspicious lesions. Sinuses: Visualized sinuses and mastoids are clear. IMPRESSION: Noncontrast head CT within normal limits for age, without a cause of the patient's presenting history identified. Dictated by: Blake Bell M.D. on 07/12/2022 at 16:50 Approved by: Blake Bell M.D. on 07/12/2022 at 16:51
== END ==
PROVIDERS: PCP Family Medicine; Referring Provider Family Medicine; Visit Provider Family Medicine
DX: R42 Dizziness and giddiness (principal); R51.9 Headache, unspecified
CPT/HCPCS: 70450

== ENCOUNTER 2022-10-04 16:46 | Emergency (ER) | payer OTHER, MEDICAID, SELFPAY ==
[2022-10-04 17:07] VITALS: BP 134/60; PULSE 71; RESP 19; TEMP 36.8; O2SAT 97; BMI 34.9
--- NOTE | 2022-10-04 17:38 | DI.CT.S_ITS ---
PROCEDURE: CT HEAD/BRAIN WO CON INDICATIONS: fall with LOC TECHNIQUE: Noncontrast 4.5 mm thick angled axial sections acquired from the foramen magnum to the vertex, with coronal and sagittal reformats. For radiation dose reduction, the following was used: automated exposure control, adjustment of mA and/or kV according to patient size. COMPARISON: [facility], CT, HEAD WITHOUT CONTRAST, 10/06/2016, 10:26. [facility], CT, CT HEAD/BRAIN WO CON, 07/12/2022, 10:56. FINDINGS: Image quality: Mild streak artifact can be seen through the skull base. CSF spaces: Basal cisterns are patent. No extra-axial fluid collections. Ventricles are normal in size and shape. Brain: No midline shift. No intracranial masses or hemorrhage. Jonas-white matter interface is normal. Skull and face: Rib posterior scalp hematoma can be seen, as on series 2, image 23. No associated calvarial fracture is seen. Calvarium and visualized facial bones are intact, without suspicious lesions. Sinuses: Visualized sinuses and mastoids are clear. IMPRESSION: Right posterior scalp hematoma, without an associated fracture. No acute intracranial hemorrhage is seen. No acute intracranial process is seen. Dictated by: Blake Bell M.D. on 10/04/2022 at 17:37 Approved by: Blake Bell M.D. on 10/04/2022 at 17:38
[2022-10-04 17:40] VITALS: PULSE 69; RESP 18; O2SAT 94
[2022-10-04 17:41] VITALS: BP 110/69; PULSE 69; RESP 29; O2SAT 92
[2022-10-04 18:00] VITALS: BP 111/64; PULSE 68; RESP 25; O2SAT 98
[2022-10-04] MEDS: LIDOCAINE 2% W/EPI INJ 20 ML INJ (18:04)
[2022-10-04 18:30] VITALS: PULSE 70; RESP 21; O2SAT 98
--- NOTE | 2022-10-04 18:39 | ED.FALL ---
HPI - Fall General Chief Complaint: Fall Stated Complaint: GLF Time Seen by Provider: 10/04/22 16:56 Source: patient, family and EMS Mode of arrival: EMS History of Present Illness HPI Narrative: 51-year-old female nonsmoker with history of hepatic steatosis, frequent falls, hyperlipidemia presents with family in the chief complaint of a ground level fall in which she was walking her dog and fell striking the back of her head. She does not have full recall of the event and likely had a brief loss of consciousness. She does not take blood thinners. She denies any vomiting and has no other neurologic symptoms such as blurred vision, trouble speech or extremity numbness, tingling or weakness. She denies other injuries. She is a laceration on her scalp and states her tetanus is up-to-date Related Data Home Medications Medication Instructions Recorded Confirmed [HAIR SKIN AND NAILS] 1 tab PO QDAY ##0 10/06/16 12/02/19 fluticasone propionate 50 1 spray intranasal BIDP PRN 10/06/16 12/02/19 mcg/actuation nasal allergies ##0 spray,suspension lisinopril 5 mg tablet 2.5 mg PO QDAY ##0 10/06/16 12/02/19 metoprolol succinate 25 mg 25 mg PO QDAY ##0 10/06/16 12/02/19 tablet,extended release 24 hr (Toprol XL) multivitamin (Multiple Vitamins 1 tab PO QDAY ##0 10/06/16 12/02/19 tablet) aripiprazole 5 mg tablet (Abilify) 5 mg PO BEDTIME 12/02/19 12/02/19 bupropion HCl 150 mg tablet,12 hr 150 mg PO BID 12/02/19 12/02/19 sustained-release (Wellbutrin SR) hydroxyzine HCl 25 mg tablet 25 mg PO BEDTIME 12/02/19 12/02/19 lamotrigine 25 mg tablet (Lamictal) 50 mg PO DAILY 12/02/19 12/02/19 omeprazole magnesium 20 mg 20 mg PO DAILY 12/02/19 12/02/19 tablet,delayed release (Prilosec OTC) prednisone 20 mg tablet 40 mg PO DAILY 12/02/19 12/02/19 Previous Rx's Medication Instructions Recorded aspirin 81 mg tablet,delayed 81 mg PO QDAY #30 tabs 10/07/16 release atorvastatin 20 mg tablet (Lipitor) 80 mg PO HS #30 tabs 10/07/16 oxycodone 5 mg tablet 5 mg PO Q6H PRN pain #10 tabs 08/06/21 Allergies Allergy/AdvReac Type Severity Reaction Status Date / Time meperidine [MEPERIDINE] Allergy Unknown Rash Verified 03/10/22 11:51 Review of Systems Review of Systems Narrative: GENERAL: Denies chills, fatigue, malaise, fever, sweats. HEENT: Denies sinus pain, ear pain, sore throat, difficulty swallowing, dizziness. RESPIRATORY: Denies dyspnea, cough, wheezing, hemoptysis, sputum. CARDIOVASCULAR: Denies chest pain, palpitations, orthopnea, edema, GASTROINTESTINAL: Denies nausea, vomiting, abdominal pain, diarrhea, constipation, melena. : Denies dysuria, frequency, incontinence, hematuria, urinary retention. MUSCULOSKELETAL: denies weakness, joint pain, or bony pain SKIN: See HPI NEUROLOGIC: Denies weakness, headache, numbness, change in speech, confusion, seizures, incoordination. PSYCHIATRIC: No concerning psychosocial issues. 12 point review of systems is negative except for those stated above Patient History Medical History Cardiac arrest TIA (transient ischemic attack) Social History household members: significant other Smoking Status: Never smoker alcohol intake: current substance use type: does not use Smoking Status: Never smoker alcohol intake frequency: 3 or more drinks per day Substance Use Type: marijuana Exam Narrative Exam Narrative: GENERAL: [51] year old patient appears stated age. Well-developed patient, in mild distress. GCS 15 HEAD: 3 cm irregular laceration on occiput, no evidence of depressed skull fracture or foreign body, no active bleeding EYES: Pupils equal round and reactive. No hyphema Extraocular motions intact. No scleral icterus. No injection or drainage. ENT: Nose without bleeding, purulent drainage. No nasal septal hematoma Throat without erythema, tonsillar hypertrophy or exudate. Airway patent. NECK: Trachea midline. Non tender, no step-offs or midline tenderness CARDIOVASCULAR: Regular rate and rhythm without murmurs, gallops, or rubs. RESPIRATORY: Clear to auscultation. Breath sounds equal bilaterally. No wheezes, rales, or rhonchi. GASTROINTESTINAL: Abdomen soft, non-tender, nondistended. EXTREMITIES: No edema or joint tenderness. BACK: Nontender without deformity or crepitance. No flank tenderness. NEURO: AOx3. SKIN: No rash or erythema of visible areas Initial Vital Signs Initial Vital Signs: Vital Signs Temperature 98.2 F 10/04/22 17:07 Pulse Rate 71 10/04/22 17:07 Respiratory Rate 19 10/04/22 17:07 Blood Pressure 134/60 10/04/22 17:07 Pulse Oximetry 97 10/04/22 17:07 Oxygen Delivery Method Room Air 10/04/22 17:07 Procedures Laceration Repair Laceration 1: Site: scalp Side (If applicable): right Size (cm): 3 Description: irregular Depth: simple, single layer Local Anesthetic: lidocaine 2% and with epi Amount of anesthesia used (mL): 4 Pre-repair: wound explored, irrigated extensively and cleansed with chlorhexadine Skin layer closed with: cayden Number of sutures: 10 Course Orders Ordered: ED Orders 10/04/22 17:38 CT head/brain wo con Stat Discontinued Medications Lidocaine/Epinephrine (Lidocaine 2% W/Epi Inj) 20 ml INJ INTRA-OP ONE Stop: 10/04/22 17:39 Last Admin: 10/04/22 18:04 Dose: 20 ml Documented By: NED Vital Signs Vital signs: Vital Signs - 8 hr 10/04/22 17:07 10/04/22 17:40 10/04/22 17:41 Temperature 98.2 F Pulse Rate 71 69 Respiratory Rate 19 18 Blood Pressure 134/60 110/69 Pulse Oximetry 97 94 Oxygen Delivery Method Room Air 10/04/22 17:41 10/04/22 18:00 10/04/22 18:00 Temperature Pulse Rate 69 68 Respiratory Rate 29 H 25 H Blood Pressure 111/64 Pulse Oximetry 92 98 Oxygen Delivery Method Room Air 10/04/22 18:30 10/04/22 18:46 Temperature Pulse Rate 70 Respiratory Rate 21 Blood Pressure 107/66 Pulse Oximetry 98 Oxygen Delivery Method MDM - Fall MDM Narrative Medical decision making narrative: CC: 51-year-old female with ground level fall and head injury Complicating co-morbidities: Aspirin Data collected from: Patient Medical records reviewed: Prior notes reviewed in our EMR Differential considered, but not limited to: Scalp laceration versus skull fracture versus intracranial hemorrhage versus concussion versus other Exam documented above, pertinent findings include: Alert and oriented x3, GCS 15, scalp laceration as noted, no evidence of depressed skull fracture, no hyphema, no neck pain or evidence of other injury Imaging studies independently reviewed: CT of head without evidence of fracture or intracranial hemorrhage Scores Used: GCS 15 Treatments: Lidocaine w/epi cayden Discussion: Ground level fall with isolated scalp injury, reassuring history and physical exam, head CT without fracture or intracranial hemorrhage, tetanus up-to-date, wound cleansed and closed with cayden. Disposition: see below, along with detailed discharge instructions that have been reviewed with patient as well as indications for ED re-evaluation and additional outpatient follow up Discharge Plan Departure Patient Disposition: Home Clinical Impression: Laceration of scalp, Concussion Instructions: DI for Concussion, How to Prevent Falls Activity Restrictions/Additional Instructions: Please keep the wound clean and dry to the best of your ability. Please monitor for signs of infection such as redness to the skin or increasing pain. Have the sutures/cayden removed by your doctor in about 7 days. If you are unable to get into your doctor, we would be happy to remove the sutures/cayden in that same timeframe. You have a slight concussion and will likely have a mild headache and some nausea for a few days. Avoiding highly stimulating activities and even TV or computers may be helpful in minimizing your symptoms. Avoid activities that will put you at risk for another head injury for at least a week. You can take tylenol or motrin for headache Return for worsening or persistent symptoms Prescriptions: No Action lisinopril 5 MG tablet 2.5 mg PO QDAY Qty: 0 metoprolol succinate [Toprol XL] 25 MG tablet extended release 24 hr 25 mg PO QDAY Qty: 0 fluticasone propionate 16 GM spray,suspension 1 spray Intranasal BIDP PRN (Reason: allergies) Qty: 0 [HAIR SKIN AND NAILS] 1 tab PO QDAY Qty: 0 multivitamin [Multiple Vitamins] 1 EACH tablet 1 tab PO QDAY Qty: 0 atorvastatin [Lipitor] 20 MG tablet 80 mg PO HS Qty: 30 0RF aspirin 81 MG tablet,delayed release (DR/EC) 81 mg PO QDAY Qty: 30 0RF bupropion HCl [Wellbutrin SR] 150 mg Tablet Sustained-Release 12 Hr 150 mg PO BID prednisone 20 mg Tablet 40 mg PO DAILY lamotrigine [Lamictal] 25 mg Tablet 50 mg PO DAILY hydroxyzine HCl 25 mg Tablet 25 mg PO BEDTIME aripiprazole [Abilify] 5 mg Tablet 5 mg PO BEDTIME omeprazole magnesium [Prilosec OTC] 20 mg Tablet,Delayed Release (Dr/Ec) 20 mg PO DAILY oxycodone 5 mg tablet 5 mg PO Q6H PRN (Reason: pain) Qty: 10 0RF Referrals: Saleem Vogt MD [Primary Care Provider] - Stand Alone Forms: Patient Portal/API
[2022-10-04 18:46] VITALS: BP 107/66
== END 2022-10-04 18:46 | disposition home or self-care (01) ==
PROVIDERS: Emergency Provider Emergency Medicine; PCP Family Medicine
DX: S06.0X0A Concussion without loss of consciousness, initial encounter (principal); S01.01XA Laceration without foreign body of scalp, initial encounter; W18.30XA Fall on same level, unspecified, initial encounter; Z79.899 Other long term (current) drug therapy
CPT/HCPCS: 12002; 70450; 99284

== ENCOUNTER → 2022-12-22 14:05 | Outpatient (CLI) | payer OTHER, MEDICAID, SELFPAY ==
--- NOTE | 2022-12-22 | DI.RAD.S_ITS ---
PROCEDURE: XR HIP W PEL IF DONE RT 2V INDICATIONS: HIP PAIN TECHNIQUE: AP pelvis with lateral view(s) of the right hip(s). COMPARISON: None. FINDINGS: Bones: No fractures or dislocations. Pelvic ring appears intact. No suspicious bony lesions. Mild bilateral hip degenerative change. Soft tissues: The visualized bowel gas pattern is normal. No suspicious soft tissue calcifications. IMPRESSION: Mild bilateral hip degenerative change. No evidence acute bony abnormality. If clinical suspicion and/or symptoms persist, further assessment with repeat plain films, or advanced imaging (e.g., CT, MRI, or bone scan) may be helpful for further assessment. Dictated by: Krystian Gamez M.D. on 12/22/2022 at 16:25 Approved by: Krystian Gamez M.D. on 12/22/2022 at 16:25
== END ==
PROVIDERS: PCP Family Medicine; Referring Provider Family Medicine; Visit Provider Family Medicine
DX: M70.61 Trochanteric bursitis, right hip (principal)
CPT/HCPCS: 73502

== ENCOUNTER 2023-04-12 15:43 | Emergency (ER) | payer OTHER, MEDICAID, SELFPAY ==
[2023-04-12 15:46] VITALS: BP 108/63; PULSE 79; RESP 18; TEMP 36.4; O2SAT 97; BMI 34.9
--- NOTE | 2023-04-12 15:57 | DI.CT.S_ITS ---
PROCEDURE: CT HEAD/BRAIN WO CON INDICATIONS: fall, LOC TECHNIQUE: Noncontrast 4.5 mm thick angled axial sections acquired from the foramen magnum to the vertex, with coronal and sagittal reformats. For radiation dose reduction, the following was used: automated exposure control, adjustment of mA and/or kV according to patient size. COMPARISON: [facility], CT, CT HEAD/BRAIN WO CON, 10/04/2022, 18:09. FINDINGS: Image quality: Diagnostic. CSF spaces: Basal cisterns are patent. No extra-axial fluid collections. Ventricles are normal in size and shape. Brain: No midline shift. No intracranial masses or hemorrhage. Jonas-white matter interface is normal. Skull and face: Calvarium and visualized facial bones are intact, without suspicious lesions. Sinuses: Visualized sinuses and mastoids are clear. IMPRESSION: 1. No acute intracranial pathology. 2. No gross acute skull fracture. Dictated by: Sohail Joiner M.D. on 04/12/2023 at 16:35 Approved by: Sohail Joiner M.D. on 04/12/2023 at 16:36
--- NOTE | 2023-04-12 15:57 | DI.CT.S_ITS ---
PROCEDURE: CT CERVICAL SPINE WO CON INDICATIONS: fall, LOC TECHNIQUE: Noncontrast 3 mm thick sections acquired from the skull base to the T4 level. Sagittal and coronal reformats were then constructed. For radiation dose reduction, the following was used: automated exposure control, adjustment of mA and/or kV according to patient size. COMPARISON: None. FINDINGS: Image quality: Excellent. Bones: No fractures or dislocations. There is straightening and mild reversal of normal cervical lordosis. Loss of disc height, degenerative endplate changes and bilateral facet hypertrophic changes are noted at C4-5 through C6-7 levels. Dorsal disc osteophyte complex formation at C4-5 through C6-7 levels are seen causing [id number] central canal stenosis and mild bilateral neural foraminal narrowing. Visualized superior ribs are intact. Soft tissues: Prevertebral soft tissues are normal in thickness. No paravertebral hematomas. No apical pneumothoraces. IMPRESSION: 1. No acute cervical spine fracture or dislocation. 2. Degenerative disc disease in mid to lower cervical spine as above. Dictated by: Sohail Joiner M.D. on 04/12/2023 at 16:36 Approved by: Sohail Joiner M.D. on 04/12/2023 at 16:38
--- NOTE | 2023-04-12 16:47 | ED_ITS ---
HPI - Fall <Tj Arellano PA-C - Last Filed: 04/12/23 17:00> General Chief Complaint: Fall Stated Complaint: fell and hit head Time Seen by Provider: 04/12/23 16:47 Source: patient Mode of arrival: Ambulatory History of Present Illness HPI Narrative: This is a 52-year-old female presents emergency department due to a closed head injury. Patient has been drinking this afternoon when she tripped and fell and hit her head on the toilet approximately 2 hours ago. She denies any slurred speech, nausea, vomiting, vision changes, or any other concerning signs or symptoms. Stating primarily she has had pain to the posterior head. Also complaining of some mild neck pain. Related Data Home Medications Medication Instructions Recorded Confirmed [HAIR SKIN AND NAILS] 1 tab PO QDAY ##0 10/06/16 12/02/19 fluticasone propionate 50 1 spray intranasal BIDP PRN 10/06/16 12/02/19 mcg/actuation nasal allergies ##0 spray,suspension lisinopril 5 mg tablet 2.5 mg PO QDAY ##0 10/06/16 12/02/19 metoprolol succinate 25 mg 25 mg PO QDAY ##0 10/06/16 12/02/19 tablet,extended release 24 hr (Toprol XL) multivitamin (Multiple Vitamins 1 tab PO QDAY ##0 10/06/16 12/02/19 tablet) aripiprazole 5 mg tablet (Abilify) 5 mg PO BEDTIME 12/02/19 12/02/19 bupropion HCl 150 mg tablet,12 hr 150 mg PO BID 12/02/19 12/02/19 sustained-release (Wellbutrin SR) hydroxyzine HCl 25 mg tablet 25 mg PO BEDTIME 12/02/19 12/02/19 lamotrigine 25 mg tablet (Lamictal) 50 mg PO DAILY 12/02/19 12/02/19 omeprazole magnesium 20 mg 20 mg PO DAILY 12/02/19 12/02/19 tablet,delayed release (Prilosec OTC) prednisone 20 mg tablet 40 mg PO DAILY 12/02/19 12/02/19 Previous Rx's Medication Instructions Recorded aspirin 81 mg tablet,delayed 81 mg PO QDAY #30 tabs 10/07/16 release atorvastatin 20 mg tablet (Lipitor) 80 mg (4 x 20 mg) PO HS #30 tabs 10/07/16 oxycodone 5 mg tablet 5 mg PO Q6H PRN pain #10 tabs 08/06/21 Allergies Allergy/AdvReac Type Severity Reaction Status Date / Time meperidine [MEPERIDINE] AdvReac Unknown Rash Verified 04/12/23 15:46 Review of Systems <Tj Arellano PA-C - Last Filed: 04/12/23 17:00> Review of Systems Narrative: GENERAL: Denies chills, fatigue, malaise, fever, sweats. HEENT: Reports head pain, Denies sinus pain, ear pain, sore throat, difficulty swallowing, dizziness. RESPIRATORY: Denies dyspnea, cough, wheezing, hemoptysis, sputum. CARDIOVASCULAR: Denies chest pain, palpitations, orthopnea, edema, GASTROINTESTINAL: Denies nausea, vomiting, abdominal pain, diarrhea, constipation, melena. : Denies dysuria, frequency, incontinence, hematuria, urinary retention. MUSCULOSKELETAL: Reports neck pain, denies weakness, joint pain, or bony pain SKIN: Denies rash, skin lesions, or other NEUROLOGIC: Denies weakness, headache, numbness, change in speech, confusion, seizures, incoordination. PSYCHIATRIC: No concerning psychosocial issues. 12 point review of systems is negative except for those stated above Patient History <Tj Arellano PA-C - Last Filed: 04/12/23 17:00> Medical History Cardiac arrest TIA (transient ischemic attack) Social History household members: significant other Smoking Status: Never smoker alcohol intake: current substance use type: does not use Smoking Status: Never smoker alcohol intake frequency: 3 or more drinks per day Alcohol type: hard liquor Substance Use Type: marijuana Exam <Tj Arellano PA-C - Last Filed: 04/12/23 17:00> Narrative Exam Narrative: GENERAL: Well-developed patient, in mild distress. HEAD: Atraumatic. Normocephalic. EYES: Pupils equal round and reactive. Extraocular motions intact. No scleral icterus. No injection or drainage. ENT: Nose without bleeding, purulent drainage. Throat without erythema, tonsillar hypertrophy or exudate. Airway patent. NECK: Trachea midline. Non tender EXTREMITIES: No edema or joint tenderness. NEURO: AOx3. Cranial nerves 2-12 intact SKIN: No rash or erythema of visible areas Initial Vital Signs Initial Vital Signs: Vital Signs Temperature 97.6 F 04/12/23 15:46 Pulse Rate 79 04/12/23 15:46 Respiratory Rate 18 04/12/23 15:46 Blood Pressure 108/63 04/12/23 15:46 Pulse Oximetry 97 04/12/23 15:46 Oxygen Delivery Method Room Air 04/12/23 15:46 <Leonila Avalos DO - Last Filed: 04/13/23 08:29> Initial Vital Signs Initial Vital Signs: Vital Signs Temperature 97.6 F 04/12/23 15:46 Pulse Rate 79 04/12/23 15:46 Respiratory Rate 18 04/12/23 15:46 Blood Pressure 108/63 04/12/23 15:46 Pulse Oximetry 97 04/12/23 15:46 Oxygen Delivery Method Room Air 04/12/23 15:46 Course <Tj Arellano PA-C - Last Filed: 04/12/23 17:00> Orders Ordered: ED Orders 04/12/23 15:57 CT cervical spine wo con Stat CT head/brain wo con Stat Vital Signs Vital signs: Vital Signs - 8 hr 04/12/23 15:46 Temperature 97.6 F Pulse Rate 79 Respiratory Rate 18 Blood Pressure 108/63 Pulse Oximetry 97 Oxygen Delivery Method Room Air <Leonila Avalos DO - Last Filed: 04/13/23 08:29> Orders Ordered: ED Orders 04/12/23 15:57 CT cervical spine wo con Stat CT head/brain wo con Stat Vital Signs Vital signs: Vital Signs - 8 hr 04/12/23 15:46 Temperature 97.6 F Pulse Rate 79 Respiratory Rate 18 Blood Pressure 108/63 Pulse Oximetry 97 Oxygen Delivery Method Room Air MDM - Fall <WENDI Lee Last Filed: 04/12/23 17:00> Imaging Data CT - cervical spine: Radiologist's Impression: [address] [place] [id number] Scan Report Signed Patient: Tori Murray MR#: [id number] : 1970 Acct:[id number] Age/Sex: 52 / F Date of Service: 04/12/23 Loc: ED Accession Number: [id number] Procedure: CT cervical spine wo con Ordering Provider: Leonila Avalos D.O. PROCEDURE: CT CERVICAL SPINE WO CON INDICATIONS: fall, LOC TECHNIQUE: Noncontrast 3 mm thick sections acquired from the skull base to the T4 level. Sagittal and coronal reformats were then constructed. For radiation dose reduction, the following was used: automated exposure control, adjustment of mA and/or kV according to patient size. COMPARISON: None. FINDINGS: Image quality: Excellent. Bones: No fractures or dislocations. There is straightening and mild reversal of normal cervical lordosis. Loss of disc height, degenerative endplate changes and bilateral facet hypertrophic changes are noted at C4-5 through C6-7 levels. Dorsal disc osteophyte complex formation at C4-5 through C6-7 levels are seen causing [id number] central canal stenosis and mild bilateral neural foraminal narrowing. Visualized superior ribs are intact. Soft tissues: Prevertebral soft tissues are normal in thickness. No paravertebral hematomas. No apical pneumothoraces. IMPRESSION: 1. No acute cervical spine fracture or dislocation. 2. Degenerative disc disease in mid to lower cervical spine as above. Dictated by: Sohail Joiner M.D. on 04/12/2023 at 16:36 Approved by: Sohail Joiner M.D. on 04/12/2023 at 16:38 CT scan - head: Radiologist's Impression: [place] [address] CT Scan Report Signed Patient: Tori Murray MR#: [id number] : 1970 Acct:[id number] Age/Sex: 52 / F Date of Service: 04/12/23 Loc: ED Accession Number: [id number] Procedure: CT head/brain wo con Ordering Provider: Leonila Avalos D.O. PROCEDURE: CT HEAD/BRAIN WO CON INDICATIONS: fall, LOC TECHNIQUE: Noncontrast 4.5 mm thick angled axial sections acquired from the foramen magnum to the vertex, with coronal and sagittal reformats. For radiation dose reduction, the following was used: automated exposure control, adjustment of mA and/or kV according to patient size. COMPARISON: [facility], CT, CT HEAD/BRAIN WO CON, 10/04/2022, 18:09. FINDINGS: Image quality: Diagnostic. CSF spaces: Basal cisterns are patent. No extra-axial fluid collections. Ventricles are normal in size and shape. Brain: No midline shift. No intracranial masses or hemorrhage. Jonas-white matter interface is normal. Skull and face: Calvarium and visualized facial bones are intact, without suspicious lesions. Sinuses: Visualized sinuses and mastoids are clear. IMPRESSION: 1. No acute intracranial pathology. 2. No gross acute skull fracture. Dictated by: Sohail Joiner M.D. on 04/12/2023 at 16:35 Approved by: Sohail Joiner M.D. on 04/12/2023 at 16:36 MDM Narrative Medical decision making narrative: ED course: This is a 52-year-old female presents to the emergency department due to closed head injury. She was not reporting any concussion symptoms or any other concerning neuro findings on exam. CT head and neck negative for acute changes. Recommended supportive care. CC: Closed head injury Complicating co-morbidities: None Data collected from: Previous notes Medical records reviewed: Patient was seen 6 months ago due to concussion. History of ground level falls. History of hepatic steatosis. History of TIA and cardiac arrest. CT head negative. Differential considered, but not limited to: Concussion, ischemic stroke, hemorrhagic stroke Exam documented above, pertinent findings include: Reassuring neuro exam Lab Test results independently reviewed as above. Pertinent findings: None obtained Imaging studies independently reviewed: CT head and neck showed no abnormal findings Scores Used: None MIPS Elements: None Consultations: None Treatments: None Re-evaluations: None Discussion: Discussed plan with the patient was comfortable with the plan Diagnosis: Closed head injury Disposition: see below, along with detailed discharge instructions that have been reviewed with patient as well as indications for ED re-evaluation and additional outpatient follow up Discharge Plan Departure Patient Disposition: Home Clinical Impression: Closed head injury Activity Restrictions/Additional Instructions: Thank you for coming to the [facility] Emergency Department today. As we discussed your head and neck CT were reassuring. There was no evidence of any kind of intracranial bleeding or neck injury. Please be careful to avoid any falls in the future. Please return to the emergency department if you develop any nausea, vomiting, vision changes, or any other concerning signs or symptoms. I hope you feel better soon. Please follow up with your primary care provider within a week if your symptoms continue. If you do not have a primary care provider please contact the [facility] Resource line at [phone]. They will ask some questions about your medical history and help you get set up with a provider in the community. Prescriptions: No Action lisinopril 5 MG tablet 2.5 mg PO QDAY Qty: 0 metoprolol succinate [Toprol XL] 25 MG tablet extended release 24 hr 25 mg PO QDAY Qty: 0 fluticasone propionate 16 GM spray,suspension 1 spray Intranasal BIDP PRN (Reason: allergies) Qty: 0 [HAIR SKIN AND NAILS] 1 tab PO QDAY Qty: 0 multivitamin [Multiple Vitamins] 1 EACH tablet 1 tab PO QDAY Qty: 0 atorvastatin [Lipitor] 20 MG tablet 80 mg PO HS Qty: 30 0RF aspirin 81 MG tablet,delayed release (DR/EC) 81 mg PO QDAY Qty: 30 0RF bupropion HCl [Wellbutrin SR] 150 mg Tablet Sustained-Release 12 Hr 150 mg PO BID prednisone 20 mg Tablet 40 mg PO DAILY lamotrigine [Lamictal] 25 mg Tablet 50 mg PO DAILY hydroxyzine HCl 25 mg Tablet 25 mg PO BEDTIME aripiprazole [Abilify] 5 mg Tablet 5 mg PO BEDTIME omeprazole magnesium [Prilosec OTC] 20 mg Tablet,Delayed Release (Dr/Ec) 20 mg PO DAILY oxycodone 5 mg tablet 5 mg PO Q6H PRN (Reason: pain) Qty: 10 0RF Referrals: Saleem Vogt MD [Primary Care Provider] - Stand Alone Forms: Patient Portal/API ED Sign-out <Leonila Avalos, - Last Filed: 04/13/23 08:29> Cosign ED Attending Rebecca Attestation: I was immediately available in the department for consultation.
[2023-04-12 17:04] VITALS: BP 115/71; PULSE 73; RESP 18; O2SAT 97
== END 2023-04-12 17:12 | disposition home or self-care (01) ==
PROVIDERS: Emergency Provider Physician Assistant Medical; PCP Family Medicine
DX: S09.8XXA Other specified injuries of head, initial encounter (principal); M54.2 Cervicalgia; W01.198A Fall on same level from slipping, tripping and stumbling with subsequent striking against other object, initial encounter
CPT/HCPCS: 70450; 72125; 99283

== ENCOUNTER 2023-05-05 07:30 | Observation (INO) | payer OTHER, MEDICAID, SELFPAY ==
[2023-05-05] VITALS (48 sets, daily range): BP systolic 132–182; BP diastolic 72–100; PULSE 64–91; RESP 13–29; TEMP 35.9–36.6; O2SAT 92–100; BMI 35.7
--- NOTE | 2023-05-05 07:19 | ED_ITS ---
HPI - General Adult General Chief complaint: Chest Pain Stated complaint: TENA/Cough/CP History of Present Illness HPI narrative: 52-year-old female with history of TIA, cardiac arrest, defibrillator presents with EMS with sudden headache, along with pleuritic chest pain. Patient states she felt normal this morning, was getting her grandchild some milk, walking then developed sudden headache in the last roughly 1 hour. It gradually worsened. No lightheadedness or syncope. She did however at the same time developed some pleuritic chest pain, difficult to localize, with no clear shortness of breath. No in addition, patient states headache is her primary concern. EMS applied a oxygen for comfort, however she was not hypoxic per their report, and patient denies shortness of breath to me. She does however note cough this morning, dry. She has myalgias. No fevers or chills. No visual or hearing changes, focal numbness or weakness, back or abdominal or flank pain, leg swelling or leg pain. She has some difficulty describing why she went to cardiac arrest many years ago but states she was given a defibrillator for this. She is also on oxycodone at home for pain in the setting of what sounds like a concussion in the last month from a fall. Family is reportedly on the way. Related Data Home Medications Medication Instructions Recorded Confirmed lisinopril 5 mg tablet 2.5 mg PO QDAY ##0 10/06/16 05/05/23 metoprolol succinate 25 mg 25 mg PO QDAY ##0 10/06/16 05/05/23 tablet,extended release 24 hr (Toprol XL) multivitamin (Multiple Vitamins 1 tab PO QDAY ##0 10/06/16 05/05/23 tablet) hydroxyzine HCl 25 mg tablet 25 mg PO BEDTIME 12/02/19 05/05/23 lamotrigine 25 mg tablet (Lamictal) 75 mg PO BID 12/02/19 05/05/23 clonidine HCl 0.3 mg tablet 0.3 mg PO BID 05/05/23 05/05/23 clotrimazole-betamethasone 1 1 applic topical PRN PRN Rash 05/05/23 05/05/23 %-0.05 % topical cream fluoxetine 40 mg capsule 40 mg PO BID depressive disorder 05/05/23 05/05/23 furosemide 20 mg tablet 20 mg PO DAILY 05/05/23 05/05/23 levothyroxine 125 mcg tablet 125 mcg PO DAILY 05/05/23 05/05/23 meloxicam 15 mg tablet 15 mg PO DAILY 05/05/23 05/05/23 nortriptyline 50 mg capsule 50 mg PO ONCE PM 05/05/23 05/05/23 Allergies Allergy/AdvReac Type Severity Reaction Status Date / Time adhesive tape AdvReac Mild Rash Verified 05/05/23 13:41 meperidine [MEPERIDINE] AdvReac Unknown Rash Verified 04/12/23 15:46 Review of Systems Review of Systems Narrative: Constitutional: no fever, no chills Eyes: no visual disturbance, no discharge Ears, Nose, Mouth, Throat: no rhinorrhea, no sore throat Cardiovascular: + chest pain, no palpitations Respiratory: + cough, no shortness of breath Gastrointestinal: no abdominal pain, no vomiting, no diarrhea Genitourinary: no dysuria, no hematuria Musculoskeletal: no back pain, no neck stiffness Skin: no rash, no wound Neurological: no focal weakness, no focal numbness Patient History Medical History Cardiac arrest TIA (transient ischemic attack) Social History household members: significant other, family and children Smoking Status: Never smoker alcohol intake: current substance use type: does not use Exam Narrative Exam Narrative: Const: no acute distress, non toxic though chronically ill appearing; calm, conversant, pleasant; occasional cough Eyes: PERRLA, EOMI, no photophobia ENT: mucous membranes moist Neck: supple, non-tender, no pain or stiffness with flexion and range of motion Resp: no respiratory distress, clear to auscultation bilaterally Card: regular rate and rhythm, no murmurs Abd: non tender diffusely, no rigidity or rebound or guarding Back: no T or L spine tenderness, no CVA tenderness bilaterally Extrem: no deformities, no swelling bilateral lower extremities Neuro: ANOx4. sanitation associate 2-12 intact. No rotatory or vertical nystagmus. Normal tone all extremities. Sensation intact to light touch all extremities. No ankle clonus bilaterally. 5/5 motor strength all extremities. Normal FNF BUE; normal heel-carlos test BLE. No pronator drift. No dysarthria. No neglect. Grossly normal cognition. Skin: no rash, warm and dry Initial Vital Signs Initial Vital Signs: Vital Signs Pulse Rate 87 05/05/23 07:33 Blood Pressure 178/87 H 05/05/23 07:33 Pulse Oximetry 97 05/05/23 07:33 Course Course Course Narrative: This patient presents with multiple concerns developing this morning, including headache, which she states is her primary concern, however along with pleuritic sounding chest pain and cough. I have considered broad differential including but not limited to viral syndrome, ICH, aneurysm, migraine headache, tension headache, vascular dissection such as in neck or an aorta, ACS, pulmonary embolism, pneumothorax, pneumonia, electrolyte derangements, LISA, among others. At this juncture, patient clearly states to me her head is hurting more than her chest, which seems secondary. While I think infectious etiology seems more likely given cough, I am obtaining immediate head CT which should have very high sensitivity for bleeding given recency of onset of pain. This seems less consistent with BLUEPRINTING MACHINE OPERATOR infection, with no clear meningeal signs here and relatively abrupt onset. In addition, while I think pulmonary embolism is less likely clinically, I am obtaining D-dimer to risk stratify. Aortic or other vascular dissection also seems less likely in this neurovascularly fully intact patient. I am obtaining EKG, CBC, CMP, troponin, D-dimer, viral swab, chest x-ray, head CT. I am giving fluids, oxycodone, which patient takes at home as well, and will reassess. EKG NSR without acute ischemia or immediately concerning interval prolongation on my review. Labs: CBC with no leukocytosis, with mild anemia, no thrombocytopenia. D-dimer elevated; CTA PE study being ordered. Chemistry shows elevation in creatinine though this is nearly 2 years after last creatinine; BUN elevated; EGFR in 50s; no immediately concerning electrolyte derangements. Troponin reassuring. Viral swab negative. Radiology review of imaging below, which I agree with on my independent review: XR: FINDINGS: Surgical changes and devices: Cardiac pacemaker is seen with pulse generator in the left chest. Lungs and pleura: Patient is rotated toward the left. Lungs are clear. No pleural effusions or pneumothorax. Mediastinum: Mediastinal contours appear normal. Heart size is normal. Bones and chest wall: No suspicious bony lesions. Overlying soft tissues appear unremarkable. IMPRESSION: No acute cardiopulmonary abnormality is seen. Approved by: Tre Li M.D. on 05/05/2023 at 8:16 hCT: FINDINGS: Image quality: Diagnostic. CSF spaces: Basal cisterns are patent. No extra-axial fluid collections. Ventricles and sulci are mildly prominent, likely related to mild generalized cerebral and cerebellar parenchymal volume loss. Brain: No midline shift. No intracranial masses or hemorrhage. Jonas-white matter interface is normal. Skull and face: Calvarium and visualized facial bones are intact, without suspicious lesions. Sinuses: Mild mucosal thickening is seen in the maxillary sinuses bilaterally and the right anterior ethmoid air cells. The remaining visualized paranasal sinuses and the mastoid air cells are clear. IMPRESSION: 1. No acute intracranial pathology. 2. Mild paranasal sinus disease. Approved by: Tre Li M.D. on 05/05/2023 at 8:12 Note no palpitations or evidence of arrhythmia here or syncope. CTA chest: FINDINGS: Image quality: Diagnostic. Pulmonary arteries: Pulmonary arteries are normal in size, and demonstrate no intraluminal filling defects to suggest central pulmonary embolism. Lower Neck: No enlarged lymph nodes. Thyroid: No thyroid nodules which require sonographic follow up, per consensus guidelines. Axillae: No enlarged lymph nodes. Chest Wall: Unremarkable. Bones: Unremarkable. Lungs and Pleura: No pneumothorax or pleural effusions. No consolidation or suspicious nodules. Heart: Heart size is normal. No pericardial effusion. Thoracic Vessels: No aortic aneurysm. Mediastinum and Cheryl: No enlarged lymph nodes. Esophagus: No wall thickening. No hiatal hernia. Upper Abdomen: Visualized upper abdomen solid organs and bowel loops appear normal. IMPRESSION: No pulmonary embolus. Unremarkable thoracic aorta. No acute cardiopulmonary process. Dictated by: Krystian Gamez M.D. on 05/05/2023 at 8:46 Repeat EKG grossly unchanged, NSR without acute ischemia or immediately concerning interval prolongation on my review. Repeat troponin reassuring. On my reassessment of patient, with spouse now at bedside, I have clarified history. Patient states on clarification now, she has had increasing frequency was a substernal chest pain in the last month, without clear provoking or palliating factors but again increasing in frequency. Today after walking in the house, she developed more severe episode of pain, and spouse saw her clutching her chest. This is different than the initial history given. In the setting of workup already obtained without cardiac injury, reassuring head CT and CTA chest, I have concern for ACS. I am giving aspirin and nitroglycerin. I am also requesting payroll secretary obtain records from [facility], where patient states she has seen Cardiology serially over the years. She thinks it has been a few years since last cardiac testing of any kind however. Records obtained from [facility] note ICD placed in 2016 for secondary prevention of ventricular fibrillation cardiac arrest. She has been seen by DEE Bradford. I am consulting Cardiology. NTG helps chest pain some; we are applying nitro paste. I spoke with Dr. Christina who reviewed case with me and agrees with admission here. I am consulting hospitalist. I spoke with Dr. Fan who reviewed case with me and kindly accepts. Patient being admitted in stable condition. Note patient is NOT tachypneic on admission. Orders Ordered: ED Orders 05/05/23 07:37 CBC Auto Diff [Complete Blood Count AUTO DIFF] Stat CMP [Comprehensive Metabolic Panel] Stat Covid-19 + FLU A/B + RSV - PCR Stat D Dimer Stat Troponin I Stat 05/05/23 07:39 CT head/brain wo con Stat XR chest 1V Stat EKG-12 Lead Stat 05/05/23 08:25 CT angio chest PE protocol Stat 05/05/23 09:30 Troponin I Stat 05/05/23 09:31 EKG-12 Lead Stat Acetaminophen (Acetaminophen 325 Mg Tablet) 975 mg PO Q6H PRN PRN Reason: Pain, Mild (1-3) Sodium Chloride (Normal Saline 0.9%) 1,000 mls @ 1,000 mls/hr IV BOLUS PRN PRN Reason: Fluid replacement Last Infusion: 05/05/23 13:06 Dose: Infused Documented By: Admin: 05/05/23 11:16 Dose: 1,000 mls/hr Documented By: AI Discontinued Medications Aspirin (Aspirin 81 Mg Chew Tab) 324 mg PO NOW ONE Stop: 05/05/23 10:44 Last Admin: 05/05/23 11:15 Dose: 324 mg Documented By: AI Morphine Sulfate (Morphine 4 Mg/Ml Inj) 4 mg IV NOW ONE Stop: 05/05/23 12:07 Last Admin: 05/05/23 12:09 Dose: 4 mg Documented By: AI Nitroglycerin (Nitroglycerin 0.4 Mg Sl Tab) 0.4 mg SL NOW ONE Stop: 05/05/23 10:44 Last Admin: 05/05/23 11:15 Dose: 0.4 mg Documented By: AI Nitroglycerin (Nitroglycerin 0.4 Mg Sl Tab) 0.4 mg SL NOW ONE Stop: 05/05/23 11:35 Last Admin: 05/05/23 11:36 Dose: 0.4 mg Documented By: AI Nitroglycerin (Nitroglycerin Oint 1 Inch/Gm Oint...G.) 1 inch TOP NOW ONE Stop: 05/05/23 11:42 Last Admin: 05/05/23 11:43 Dose: 1 inch Documented By: AI Oxycodone HCl (Oxycodone Ir 5 Mg Tablet) 10 mg PO NOW ONE Stop: 05/05/23 07:40 Last Admin: 05/05/23 07:54 Dose: 10 mg Documented By: AI Vital Signs Vital signs: Vital Signs - 8 hr 05/05/23 08:37 05/05/23 08:38 05/05/23 08:38 Pulse Rate 72 72 Respiratory Rate 21 Blood Pressure 174/98 H Pulse Oximetry 98 97 05/05/23 08:45 05/05/23 08:45 05/05/23 09:00 Pulse Rate 66 Respiratory Rate 24 Blood Pressure 163/95 H 175/99 H Pulse Oximetry 98 05/05/23 09:00 05/05/23 09:15 05/05/23 09:15 Pulse Rate 67 70 Respiratory Rate 22 Blood Pressure 169/97 H Pulse Oximetry 98 99 05/05/23 09:30 05/05/23 09:30 05/05/23 09:45 Pulse Rate 71 Respiratory Rate 21 Blood Pressure 161/76 H 160/88 H Pulse Oximetry 99 05/05/23 09:45 05/05/23 10:00 05/05/23 10:00 Pulse Rate 69 74 Respiratory Rate 23 Blood Pressure 154/87 H Pulse Oximetry 99 97 05/05/23 10:15 05/05/23 10:15 05/05/23 10:30 Pulse Rate 66 Respiratory Rate 25 H Blood Pressure 152/92 H 165/100 H Pulse Oximetry 95 05/05/23 10:30 05/05/23 10:45 05/05/23 10:45 Pulse Rate 66 70 Respiratory Rate Blood Pressure 164/98 H Pulse Oximetry 95 98 05/05/23 11:00 05/05/23 11:00 05/05/23 11:15 Pulse Rate 66 66 Respiratory Rate 19 Blood Pressure 157/92 H 157/92 H Pulse Oximetry 97 05/05/23 11:15 05/05/23 11:15 05/05/23 11:22 Pulse Rate 67 Respiratory Rate Blood Pressure 162/91 H 132/74 Pulse Oximetry 99 05/05/23 11:22 05/05/23 11:25 05/05/23 11:30 Pulse Rate 78 81 Respiratory Rate 20 Blood Pressure 136/75 Pulse Oximetry 97 94 05/05/23 11:30 05/05/23 11:35 05/05/23 11:36 Pulse Rate 72 70 77 Respiratory Rate 17 24 Blood Pressure 136/75 Pulse Oximetry 96 97 05/05/23 11:40 05/05/23 11:43 05/05/23 11:44 Pulse Rate 76 72 74 Respiratory Rate 18 Blood Pressure 142/72 H Pulse Oximetry 96 94 05/05/23 11:44 05/05/23 11:45 05/05/23 11:45 Pulse Rate 73 Respiratory Rate 21 Blood Pressure 140/72 133/72 Pulse Oximetry 96 05/05/23 11:50 05/05/23 12:00 05/05/23 12:01 Pulse Rate 72 91 H Respiratory Rate Blood Pressure 162/74 H Pulse Oximetry 95 92 05/05/23 12:01 05/05/23 12:05 05/05/23 12:10 Pulse Rate 80 71 64 Respiratory Rate 24 27 H 17 Blood Pressure Pulse Oximetry 95 99 99 05/05/23 12:13 05/05/23 12:13 05/05/23 12:15 Pulse Rate 69 Respiratory Rate Blood Pressure 160/92 H 165/97 H Pulse Oximetry 99 05/05/23 12:15 05/05/23 12:20 05/05/23 12:25 Pulse Rate 67 66 70 Respiratory Rate 28 H 29 H Blood Pressure Pulse Oximetry 99 99 98 05/05/23 12:30 05/05/23 12:30 05/05/23 12:35 Pulse Rate 67 65 Respiratory Rate Blood Pressure 164/95 H Pulse Oximetry 100 98 Medical Decision Making Lab Data 05/05/23 07:37 03/05/24 07:37 Labs: Lab Results 05/05/23 05/05/23 Range/Units 07:37 09:30 WBC 6.0 (4.5-11.0) X10^3/uL RBC 4.50 (4.0-5.2) X10^6/uL Hgb 11.5 L (12.0-16.0) g/dL Hct 34.9 L (36-46) % MCV 77.5 L (80-100) fL MCH 25.5 L (26-34) PG MCHC 33.0 (30-36) % RDW 12.8 (11.6-14.8) % Plt Count 290 (150-400) X10^3/uL Neut % (Auto) 56.4 (50-75) % Lymph % (Auto) 33.7 (25-40) % [place] % (Auto) 6.3 (3-14) % Eos % (Auto) 2.9 (2-4) % Baso % (Auto) 0.7 (0-2) % Neut # (Auto) 3400 (7071-7419) /uL Lymph # (Auto) 2000 (4881-3579) /uL [place] # (Auto) 400 (0-900) /uL Eos # (Auto) 200 (0-450) /uL Baso # (Auto) 0 (0-100) /uL D-Dimer 660 H (<500) ng/ml Sodium 139 (137-145) mmol/L Potassium 4.4 (3.4-5.1) mmol/L Chloride 107 (98-107) mmol/L Carbon Dioxide 27 (22-32) mmol/L BUN 26 H (7-17) mg/dL Creatinine 1.19 H (0.52-1.04) mg/dL Estimated GFR 54 L (>60) mL/min BUN/Creatinine Ratio 21.8 (6-22) Glucose 109 H (70-100) mg/dL Calcium 9.3 (8.4-10.2) mg/dL Total Bilirubin 0.5 (0.2-1.3) mg/dL AST 26 (14-36) IU/L ALT 31 (<35) IU/L Alkaline Phosphatase 98 (38-126) U/L Troponin I 0.012 < 0.012 (0.01-0.034) ng/mL Total Protein 6.9 (6.3-8.2) g/dL Albumin 3.9 (3.5-5.0) g/dL Globulin 3.0 (1.7-4.1) g/dL Albumin/Globulin Ratio 1.3 (1.0-2.8) SARS-CoV-2 (PCR) Negative (Negative) Influenza A (RT-PCR) Flu a negative (NEGATIVE) Influenza B (RT-PCR) Flu b negative (NEGATIVE) RSV (PCR) Negative (Negative) Discharge Plan Departure Patient Disposition: Admitted as Observation Clinical Impression: Chest pain Admit Date/Time: 05/05/23 12:35 Admit Provider: Saleem Vogt
--- NOTE | 2023-05-05 07:39 | DI.CT.S_ITS ---
PROCEDURE: CT HEAD/BRAIN WO CON INDICATIONS: sudden TENA TECHNIQUE: Noncontrast 4.5 mm thick angled axial sections acquired from the foramen magnum to the vertex, with coronal and sagittal reformats. For radiation dose reduction, the following was used: automated exposure control, adjustment of mA and/or kV according to patient size. COMPARISON: [facility], CT, CT HEAD/BRAIN WO CON, 04/12/2023, 16:08. [facility], CT, CT HEAD/BRAIN WO CON, 10/04/2022, 18:09. FINDINGS: Image quality: Diagnostic. CSF spaces: Basal cisterns are patent. No extra-axial fluid collections. Ventricles and sulci are mildly prominent, likely related to mild generalized cerebral and cerebellar parenchymal volume loss. Brain: No midline shift. No intracranial masses or hemorrhage. Jonas-white matter interface is normal. Skull and face: Calvarium and visualized facial bones are intact, without suspicious lesions. Sinuses: Mild mucosal thickening is seen in the maxillary sinuses bilaterally and the right anterior ethmoid air cells. The remaining visualized paranasal sinuses and the mastoid air cells are clear. IMPRESSION: 1. No acute intracranial pathology. 2. Mild paranasal sinus disease. Approved by: Tre Li M.D. on 05/05/2023 at 8:12
--- NOTE | 2023-05-05 07:39 | DI.RAD.S_ITS ---
PROCEDURE: XR CHEST 1V INDICATIONS: cough, CP TECHNIQUE: One view of the chest was acquired. COMPARISON: [facility], CR, XR CHEST 2V, 04/17/2022, 14:35. [facility], CR, XR CHEST 1V, 08/06/2021, 5:07. FINDINGS: Surgical changes and devices: Cardiac pacemaker is seen with pulse generator in the left chest. Lungs and pleura: Patient is rotated toward the left. Lungs are clear. No pleural effusions or pneumothorax. Mediastinum: Mediastinal contours appear normal. Heart size is normal. Bones and chest wall: No suspicious bony lesions. Overlying soft tissues appear unremarkable. IMPRESSION: No acute cardiopulmonary abnormality is seen. Approved by: Tre Li M.D. on 05/05/2023 at 8:16
[2023-05-05 07:48] LABS: Add Manual Diff / Slide Review NO; Basophils Absolute Auto 0 /uL (0-100); Basophils Percent Auto 0.7 % (0-2); Eosinophils Absolute Auto 200 /uL (0-450); Eosinophils Percent Auto 2.9 % (2-4); Hematocrit 34.9 % (36-46); Hemoglobin 11.5 g/dL (12.0-16.0); Lymphocytes Absolute Auto 2000 /uL (1100-4500); Lymphocytes Percent Auto 33.7 % (25-40); Mean Corpuscular Hemoglobin 25.5 PG (26-34); Mean Corpuscular Volume 77.5 fL (80-100); Monocytes Absolute Auto 400 /uL (0-900); Monocytes Percent Auto 6.3 % (3-14); Neutrophils Absolute Auto 3400 /uL (1500-7000); Neutrophils Percent Auto 56.4 % (50-75); Platelet Count 290 X10^3/uL (150-400); Red Cell Distribution Width 12.8 % (11.6-14.8)
[2023-05-05] MEDS: OXYCODONE IR 5 MG TABLET 10 MG PO (07:54)
[2023-05-05 07:59] LABS: D Dimer 660 ng/ml (<500)
[2023-05-05 08:00] LABS: Alanine Aminotransferase 31 IU/L (<35); Albumin 3.9 g/dL (3.5-5.0); Albumin Globulin Ratio 1.3 (1.0-2.8); Alkaline Phosphatase 98 U/L (38-126); Aspartate Aminotransferase 26 IU/L (14-36); BUN Creatinine Ratio 21.8 (6-22); Bilirubin Total 0.5 mg/dL (0.2-1.3); Blood Urea Nitrogen 26 mg/dL (7-17); Calcium 9.3 mg/dL (8.4-10.2); Carbon Dioxide 27 mmol/L (22-32); Chloride 107 mmol/L (98-107); Estimated Glomerular Filt Rate 54 mL/min (>60); Glucose 109 mg/dL (70-100); HEMOLYSIS < 15 (0-50); Potassium 4.4 mmol/L (3.4-5.1); Sodium 139 mmol/L (137-145); Total Protein 6.9 g/dL (6.3-8.2)
[2023-05-05 08:12] LABS: Troponin I 0.012 ng/mL (0.01-0.034)
--- NOTE | 2023-05-05 08:25 | DI.CT.S_ITS ---
PROCEDURE: CT ANGIO CHEST PE PROTOCOL INDICATIONS: rule out PE; aortic dissection much less likely; pleuritic TECHNIQUE: After the administration of intravenous contrast, 2 mm thick sections acquired from the pulmonary apices to the posterior costophrenic angles. 3-dimensional maximum intensity projection (MIP) coronal and sagittal reformats were then acquired through the thorax. For radiation dose reduction, the following was used: automated exposure control, adjustment of mA and/or kV according to patient size. COMPARISON: [facility], CT, CT CHEST WO CON, 05/21/2022, 10:54. [facility], CT, CT ANGIO CHEST PE PROTOCOL, 08/06/2021, 6:46. FINDINGS: Image quality: Diagnostic. Pulmonary arteries: Pulmonary arteries are normal in size, and demonstrate no intraluminal filling defects to suggest central pulmonary embolism. Lower Neck: No enlarged lymph nodes. Thyroid: No thyroid nodules which require sonographic follow up, per consensus guidelines. Axillae: No enlarged lymph nodes. Chest Wall: Unremarkable. Bones: Unremarkable. Lungs and Pleura: No pneumothorax or pleural effusions. No consolidation or suspicious nodules. Heart: Heart size is normal. No pericardial effusion. Thoracic Vessels: No aortic aneurysm. Mediastinum and Cheryl: No enlarged lymph nodes. Esophagus: No wall thickening. No hiatal hernia. Upper Abdomen: Visualized upper abdomen solid organs and bowel loops appear normal. IMPRESSION: No pulmonary embolus. Unremarkable thoracic aorta. No acute cardiopulmonary process. Dictated by: Krystian Gamez M.D. on 05/05/2023 at 8:46 Approved by: Krystian Gamez M.D. on 05/05/2023 at 9:06
[2023-05-05 08:28] LABS: Influenza A - CEPHEID Flu A NEGATIVE (NEGATIVE); Influenza B - CEPHEID Flu B NEGATIVE (NEGATIVE); Respiratory Syncytial Virus Negative (Negative)
[2023-05-05 08:29] LABS: COVID-19 CEPHEID 4-PLEX PCR Negative (Negative)
[2023-05-05 10:13] LABS: Troponin I < 0.012 ng/mL (0.01-0.034)
[2023-05-05] MEDS: NITROGLYCERIN 0.4 MG SL TAB SL ×2 (11:15→11:36)
[2023-05-05] MEDS: ASPIRIN 81 MG CHEW TAB 324 MG PO (11:15)
[2023-05-05] MEDS: SODIUM CHLORIDE 0.9% 1,000 ML 1000 ML IV (11:16)
--- NOTE | 2023-05-05 11:27 | PC.NURSE ---
Pt c/o left-sided cp that she describes as a throbbing 08/09. Pt denies sob, but states that her hands are more purple than normal. Pt's cap refill 3 seconds. Pt a&ox4.
[2023-05-05] MEDS: NITROGLYCERIN OINT 1 INCH/GM OINT...G. TOP (11:43)
[2023-05-05] MEDS: MORPHINE 4 MG/ML INJ IV (12:09)
--- NOTE | 2023-05-05 17:58 | PM.HP.1 ---
History of Present Illness History of Present Illness Date Patient Seen: 05/05/23 Time Patient Seen: 17:58 Chief complaint: TENA/Cough/CP Narrative: Patient is a 52-year-old well known to me with a history of TIA cardiac arrest and implantable defibrillator who presents with chest pain and headache. Patient apparently awoke today was feeling pretty good had no major issues and went over and sat down to feed the baby after she got a bottle and had acute headache. She got in a different position and then started having chest pain. Pain was quite severe. 7/10 in intensity. Mostly sharp. Chest pain was worse with certain movement her headache was worse with movement of her head. Neck. She has had no fevers no chills no shortness of breath no dyspnea with exertion. She has intermittently had chest pain over the past several days. But no other change. Her defibrillators not want off. She has not had any orthopnea PND or other change. She did have a fall 2 nights ago in the middle of the night she tripped and fell landing on her chest not sure about hitting her head. She has otherwise had no major issues and no definitive ischemic heart disease. Cardiac arrest occurred in when she was drinking heavily. She denies any drinking since 's . [facility] Medical History Cardiac arrest TIA (transient ischemic attack) Social History household members: significant other, family and children Smoking Status: Never smoker alcohol intake: current substance use type: does not use Meds Home Medications and Allergies Home Medications Medication Instructions Recorded Confirmed Type lisinopril 5 mg tablet 2.5 mg PO QDAY ##0 10/06/16 05/05/23 History metoprolol succinate 25 mg 25 mg PO QDAY ##0 10/06/16 05/05/23 History tablet,extended release 24 hr (Toprol XL) multivitamin (Multiple Vitamins 1 tab PO QDAY ##0 10/06/16 05/05/23 History tablet) hydroxyzine HCl 25 mg tablet 25 mg PO BEDTIME 12/02/19 05/05/23 History lamotrigine 25 mg tablet (Lamictal) 75 mg PO BID 12/02/19 05/05/23 History clonidine HCl 0.3 mg tablet 0.3 mg PO BID 05/05/23 05/05/23 History clotrimazole-betamethasone 1 1 applic topical PRN PRN Rash 05/05/23 05/05/23 History %-0.05 % topical cream fluoxetine 40 mg capsule 40 mg PO BID depressive disorder 05/05/23 05/05/23 History furosemide 20 mg tablet 20 mg PO DAILY 05/05/23 05/05/23 History levothyroxine 125 mcg tablet 125 mcg PO DAILY 05/05/23 05/05/23 History meloxicam 15 mg tablet 15 mg PO DAILY 05/05/23 05/05/23 History nortriptyline 50 mg capsule 50 mg PO ONCE PM 05/05/23 05/05/23 History Allergies Allergy/AdvReac Type Severity Reaction Status Date / Time adhesive tape AdvReac Mild Rash Verified 05/05/23 13:41 meperidine [MEPERIDINE] AdvReac Unknown Rash Verified 04/12/23 15:46 Review of Systems Review of Systems Narrative: Negative except above Exam Vital Signs (past 8 hours): - 05/05/23 10:00 05/05/23 10:00 05/05/23 10:15 Pulse Rate 74 66 Respiratory Rate 23 25 H Blood Pressure 154/87 H Pulse Oximetry 97 95 Oxygen Delivery Method 05/05/23 10:15 05/05/23 10:30 05/05/23 10:30 Pulse Rate 66 Respiratory Rate Blood Pressure 152/92 H 165/100 H Pulse Oximetry 95 Oxygen Delivery Method 05/05/23 10:45 05/05/23 10:45 05/05/23 11:00 Pulse Rate 70 Respiratory Rate Blood Pressure 164/98 H 157/92 H Pulse Oximetry 98 Oxygen Delivery Method 05/05/23 11:00 05/05/23 11:15 05/05/23 11:15 Pulse Rate 66 66 Respiratory Rate 19 Blood Pressure 157/92 H 162/91 H Pulse Oximetry 97 Oxygen Delivery Method 05/05/23 11:15 05/05/23 11:22 05/05/23 11:22 Pulse Rate 67 78 Respiratory Rate 20 Blood Pressure 132/74 Pulse Oximetry 99 97 Oxygen Delivery Method 05/05/23 11:25 05/05/23 11:30 05/05/23 11:30 Pulse Rate 81 72 Respiratory Rate 17 Blood Pressure 136/75 Pulse Oximetry 94 96 Oxygen Delivery Method 05/05/23 11:35 05/05/23 11:36 05/05/23 11:40 Pulse Rate 70 77 76 Respiratory Rate 24 18 Blood Pressure 136/75 Pulse Oximetry 97 96 Oxygen Delivery Method 05/05/23 11:43 05/05/23 11:44 05/05/23 11:44 Pulse Rate 72 74 Respiratory Rate Blood Pressure 142/72 H 140/72 Pulse Oximetry 94 Oxygen Delivery Method 05/05/23 11:45 05/05/23 11:45 05/05/23 11:50 Pulse Rate 73 72 Respiratory Rate 21 Blood Pressure 133/72 Pulse Oximetry 96 95 Oxygen Delivery Method 05/05/23 12:00 05/05/23 12:01 05/05/23 12:01 Pulse Rate 91 H 80 Respiratory Rate 24 Blood Pressure 162/74 H Pulse Oximetry 92 95 Oxygen Delivery Method 05/05/23 12:05 05/05/23 12:10 05/05/23 12:13 Pulse Rate 71 64 Respiratory Rate 27 H 17 Blood Pressure 160/92 H Pulse Oximetry 99 99 Oxygen Delivery Method 05/05/23 12:13 05/05/23 12:15 05/05/23 12:15 Pulse Rate 69 67 Respiratory Rate Blood Pressure 165/97 H Pulse Oximetry 99 99 Oxygen Delivery Method 05/05/23 12:20 05/05/23 12:25 05/05/23 12:30 Pulse Rate 66 70 Respiratory Rate 28 H 29 H Blood Pressure 164/95 H Pulse Oximetry 99 98 Oxygen Delivery Method 05/05/23 12:30 05/05/23 12:35 05/05/23 12:40 Pulse Rate 67 65 65 Respiratory Rate 19 Blood Pressure Pulse Oximetry 100 98 98 Oxygen Delivery Method 05/05/23 12:45 05/05/23 12:45 05/05/23 12:50 Pulse Rate 65 64 Respiratory Rate Blood Pressure 155/91 H Pulse Oximetry 97 98 Oxygen Delivery Method 05/05/23 12:51 05/05/23 12:55 05/05/23 13:00 Pulse Rate 65 Respiratory Rate Blood Pressure 163/98 H Pulse Oximetry 97 Oxygen Delivery Method Room Air 05/05/23 13:00 Pulse Rate 66 Respiratory Rate Blood Pressure Pulse Oximetry 97 Oxygen Delivery Method Oxygen Delivery Method Room Air Narrative Exam Narrative: Alert obese female mildly fatigued no acute distress Tympanic membranes normal conjunctivae clear she is got marked tenderness in the posterior occiput going down into the muscles of the neck midline is nontender. No swelling erythema no masses head is nontraumatic. Lungs clear heart is regular rate and rhythm. She is gotten marked chest wall tenderness over the left which reproduces her pain. Abdomen is benign extremities are normal. Objective Labs 05/05/23 07:37 05/05/23 07:37 Labs: Laboratory Results - last 24 hr 05/05/23 05/05/23 07:37 09:30 WBC 6.0 RBC 4.50 Hgb 11.5 L Hct 34.9 L MCV 77.5 L MCH 25.5 L MCHC 33.0 RDW 12.8 Plt Count 290 Neut % (Auto) 56.4 Lymph % (Auto) 33.7 [place] % (Auto) 6.3 Eos % (Auto) 2.9 Baso % (Auto) 0.7 Neut # (Auto) 3400 Lymph # (Auto) 2000 [place] # (Auto) 400 Eos # (Auto) 200 Baso # (Auto) 0 D-Dimer 660 H Sodium 139 Potassium 4.4 Chloride 107 Carbon Dioxide 27 BUN 26 H Creatinine 1.19 H Estimated GFR 54 L BUN/Creatinine Ratio 21.8 Glucose 109 H Calcium 9.3 Total Bilirubin 0.5 AST 26 ALT 31 Alkaline Phosphatase 98 Troponin I 0.012 < 0.012 Total Protein 6.9 Albumin 3.9 Globulin 3.0 Albumin/Globulin Ratio 1.3 SARS-CoV-2 (PCR) Negative Influenza A (RT-PCR) Flu a negative Influenza B (RT-PCR) Flu b negative RSV (PCR) Negative Assessment & Plan Assessment & Plan narrative: Chest pain. Negative EKG changes negative troponin. Will continue to monitor those. Certainly has some risk although she has never had ischemic disease. Marked chest wall tenderness which I think probably is most likely the cause but it is unclear. At this point will continue to monitor will place on tele and recheck troponins treadmill tomorrow follow from there. Will discuss this. Will start Toradol and re-evaluate tomorrow. Will discontinue nitrates. Do not think her current chest pain is related to that. Headache. Severe. I think this is related to her fall I think this is muscular tension type headache. Normal neurologic exam negative CT scan we discussed this. She understands. Will try Toradol and see how it goes. May need muscle relaxant re-evaluate in a.m.. Will hold meloxicam why we are giving Toradol. History of alcohol abuse. She has not been drinking recently. Do believe this. Low risk for withdrawal. But will watch closely. History of manic depression. Has been stable for many years continue usual meds. Hypothyroidism will continue usual thyroid meds Hypertension. Stable we will restart her usual meds. Code status full DVT prophylaxis mechanical. Patient should be mobile. Low risk. Disposition. Hopefully discharge tomorrow.
[2023-05-05] MEDS: MORPHINE 2 MG/ML INJ IV (18:49)
[2023-05-05 19:07] LABS: Troponin I < 0.012 ng/mL (0.01-0.034)
[2023-05-05] MEDS: NORTRIPTYLINE HCL 25 MG CAPSULE 50 MG PO (21:02)
[2023-05-05] MEDS: hydrOXYzine HCL 25 MG TABLET PO (21:02)
[2023-05-05] MEDS: FLUoxetine 20 MG CAPSULE 40 MG PO (21:02)
[2023-05-05] MEDS: cloNIDine 0.1 MG TABLET 0.3 MG PO (21:03)
[2023-05-05] MEDS: lamoTRIgine 100 MG TABLET 75 MG PO (21:03)
[2023-05-05] MEDS: OXYCODONE IR 5 MG TABLET PO (21:14)
[2023-05-05] MEDS: SODIUM CHLORIDE 0.9% FLUSH 10 ML IV (21:15)
[2023-05-06 00:11] VITALS: BP 126/79; PULSE 81; RESP 19; TEMP 35.8; O2SAT 97
[2023-05-06 03:03] LABS: Troponin I < 0.012 ng/mL (0.01-0.034)
[2023-05-06 04:43] VITALS: BP 157/95; PULSE 70; RESP 18; TEMP 35.6; O2SAT 96
[2023-05-06] MEDS: LEVOTHYROXINE 125 MCG TABLET PO (05:44)
[2023-05-06] MEDS: OXYCODONE IR 5 MG TABLET PO ×2 (05:45→11:49)
[2023-05-06 07:00] VITALS: O2SAT 99
[2023-05-06 08:00] VITALS: BP 158/82; PULSE 73; RESP 16; TEMP 36.2; O2SAT 99
--- NOTE | 2023-05-06 08:53 | PM.DS.1 ---
History of Present Illness History of Present Illness Date Patient Seen: 05/06/23 Time Patient Seen: 08:53 Date of Onset of Symptoms: 05/04/23 Chief complaint: TENA/Cough/CP Narrative: Patient is a 52-year-old well known to me with a history of TIA cardiac arrest and implantable defibrillator who presents with chest pain and headache. Patient apparently awoke today was feeling pretty good had no major issues and went over and sat down to feed the baby after she got a bottle and had acute headache. She got in a different position and then started having chest pain. Pain was quite severe. 7/10 in intensity. Mostly sharp. Chest pain was worse with certain movement her headache was worse with movement of her head. Neck. She has had no fevers no chills no shortness of breath no dyspnea with exertion. She has intermittently had chest pain over the past several days. But no other change. Her defibrillators not want off. She has not had any orthopnea PND or other change. She did have a fall 2 nights ago in the middle of the night she tripped and fell landing on her chest not sure about hitting her head. She has otherwise had no major issues and no definitive ischemic heart disease. Cardiac arrest occurred in when she was drinking heavily. She denies any drinking since '. Discharge Providers Provider Date of admission: 05/05/23 12:35 Discharge Date: 05/06/23 Primary care physician: Saleem Vogt MD Discharge provider: Saleem Vogt MD Summary Hospital Course Discharge Diagnosis: Chest pain Headache History of alcohol abuse Manic depression Hypothyroidism Hypertension Hospital Course: Chest pain. Patient was admitted. Exam was consistent with chest wall pain. EKGs were consistent labs were normal troponin was normal. Did not respond at all to nitroglycerin. Unable to get treadmill today and due to the fact that it appears to be mostly chest wall pain which recreates her pain we will get that as an outpatient. Will treat her pain with Toradol. I believe this is not no risk for cardiac disease but lower risk given her consistent exam and negative enzymes and EKG Heat and will follow-up on Thursday. Headache. This is all musculoskeletal. Was hoping to have Toradol last night but because she has mild increase in her creatinine was not given. Will do oral treatment as outpatient he and follow-up on Thursday. History of alcohol abuse stable at this time. Manic depression. No major issue will continue to follow no change in medication Hypothyroidism. Stable. Hypertension. Did well while in clinic will restart usual meds Exam Vital Signs (past 8 hours): - 05/06/23 04:43 05/06/23 08:00 Temperature 96.1 F L 97.2 F L Pulse Rate 70 73 Respiratory Rate 18 16 Blood Pressure 157/95 H 158/82 H Pulse Oximetry 96 99 Oxygen Flow Rate 0 Oxygen Delivery Method Room Air Oxygen Flow Rate 0 Narrative Exam Narrative: Alert female much more alert no acute distress Lungs are clear heart is regular rate and rhythm she was posterior occiput tenderness and tenderness down into her neck or chest wall is tender on the upper left and down around the breast into the ribs. No crepitus or step-off. Objective Labs 05/05/23 07:37 05/05/23 07:37 Labs: Laboratory Results - last 24 hr 05/05/23 05/05/23 05/06/23 09:30 18:34 02:30 Troponin I < 0.012 < 0.012 < 0.012 PFSH Medical History Cardiac arrest TIA (transient ischemic attack) Social History household members: significant other, family and children Smoking Status: Never smoker alcohol intake: current substance use type: does not use Discharge Assessment & Plan Assessment and Plan Assessment: Improved Plan of Treatment: Discharge home will follow up with treadmill as outpatient Discharge Plan Discharge Plan Patient Disposition: Home Discharge orders & Medications Prescriptions: New ketorolac 10 mg tablet 10 mg PO TID PRN (Reason: pain) 5 Days Qty: 15 0RF Continued lisinopril 5 MG tablet 2.5 mg PO QDAY Qty: 0 metoprolol succinate [Toprol XL] 25 MG tablet extended release 24 hr 25 mg PO QDAY Qty: 0 multivitamin [Multiple Vitamins] 1 EACH tablet 1 tab PO QDAY Qty: 0 lamotrigine [Lamictal] 25 mg Tablet 75 mg PO BID hydroxyzine HCl 25 mg Tablet 25 mg PO BEDTIME fluoxetine 40 mg capsule 40 mg PO BID clonidine HCl 0.3 mg tablet 0.3 mg PO BID levothyroxine 125 mcg tablet 125 mcg PO DAILY clotrimazole-betamethasone 1-0.05 % cream 1 applic topical PRN PRN (Reason: Rash) furosemide 20 mg tablet 20 mg PO DAILY nortriptyline 50 mg capsule 50 mg PO ONCE PM Discontinued meloxicam 15 mg tablet 15 mg PO DAILY Follow up/Referrals: Saleem Vogt MD [Primary Care Provider] - 05/11/23 (Please call for appointment) Discharge Health Status Multidrug resistant organism: No MDRO Diet/Activity/Treatments Diet: Diet as Tolerated Activity: As tolerated Other treatments: Please use heat on chest and neck Visit Report/Discharge Packet Instructions: Myocardial Perfusion Imaging Stand Alone Forms: Patient Portal/API, Stroke Signs & Symptoms Discharge Data Primary Care Provider: Saleem Vogt Attending Provider: Saleem Vogt Admit Date/Time: 05/05/23 12:35
[2023-05-06] MEDS: cloNIDine 0.1 MG TABLET 0.3 MG PO (09:21)
[2023-05-06] MEDS: lamoTRIgine 100 MG TABLET 75 MG PO (09:22)
[2023-05-06] MEDS: FLUoxetine 20 MG CAPSULE 40 MG PO (09:22)
[2023-05-06] MEDS: ASPIRIN EC 81 MG TABLET PO (09:23)
[2023-05-06] MEDS: lisinopriL 5 MG TABLET 2.5 MG PO (09:23)
[2023-05-06] MEDS: FUROSEMIDE 20 MG TABLET PO (09:24)
[2023-05-06] MEDS: MULTIVITAMIN 1 TABLET 1 TAB PO (09:24)
--- NOTE | 2023-05-06 09:24 | CM.DANOTE ---
Initial DCP Assessment Note Pt is a 52 yo female, resident of [place], presents with chest pain admitted for work up and chest pain r/o PCP: Saleem Vogt Payer: [employer] Reviewed chart, met w/patient and her SO Keven, introduced self and role. Patient lives with SO, daughter and three grandchildren. Patient is indp in all aspects, denies needs from this CM team. No barriers identified at this time to patient's safe discharge home w/family to assist; close outpatient f/u recommended. CM team will plan to follow closely in case any DC needs or concerns arise. CHARLES Estrada Discharge Planning/Care Management CM Discharge Assessment Start: 05/06/23 09:22 Freq: Status: Active Protocol: Document 05/06/23 09:22 MAXIM (Rec: 05/06/23 09:24 [id number]) Discharge Planning Assessment Assigned Proof Coin Collector CHARLES Allen DPOA/Assigned Designee Name Keven Lynn KARINA Contact Information [phone] Advance Directives? No History Provided By Patient,Significant Other Prior Living Arrangements Mobile home Household Members significant other,family, children Type of transporation used prior to Drives own vehicle admit Independent with ADL's Yes Is patient alert and oriented? Yes Discharge Plan Home Transportation Arrangement Family Referrals Initiated None needed Whiteboard Updated in Patient Room with Yes name and ext. # of Proof Coin Collector
[2023-05-06] MEDS: METOPROLOL ER 25 MG TABLET PO (09:25)
--- NOTE | 2023-05-06 12:36 | PC.NURSE ---
Discharge: Pt feels ready to d/c to home. Diet taken w/out problems. Still has a sl headache. Oxy has been effective for this pain and the chest wall pain she has a times. Gait unchanged, stiff, difficult at times, she says this is how she amb. Taking diet w/out problems. D/c packet given and reviewed, questions answered. Pt voiced no concerns at time of d/c. Pt d/c to home via auto with spouse.
== END 2023-05-06 12:05 | disposition home or self-care (01) ==
LOC: ED 07:37 → AC 12:36
PROVIDERS: Admitting Provider Family Medicine; Emergency Provider Emergency Medicine; PCP Family Medicine; Visit Provider Family Medicine
DX: R07.9 Chest pain, unspecified (principal); R51.9 Headache, unspecified; Z11.52 Encounter for screening for COVID-19; Z86.73 Personal history of transient ischemic attack (TIA), and cerebral infarction without residual deficits; Z86.74 Personal history of sudden cardiac arrest
CPT/HCPCS: 0241U; 36415; 70450; 71045; 71275; 80053; 84484; 85025; 85379; 93005; 93010; 96361; 96374; 96376; 99284; G0378; A9270; J2270; Q9967

== ENCOUNTER → 2023-06-15 07:22 | Outpatient (CLI) | payer OTHER, MEDICAID, SELFPAY ==
[2023-05-05 13:51] VITALS: BMI 35.7
--- NOTE | 2023-06-15 07:24 | DI.NM.S_ITS ---
PROCEDURE: NM BRIEN PERF SPECT SINGLE STUDY Exercise myocardial perfusion SPECT with gated imaging and ejection fraction RADIOPHARMACEUTICAL: 25.8 mCi Tc-99m sestamibi IV at peak exercise. No resting images done as the patient didn't return despite multiple scheduled appts and no-shows. INDICATIONS: PRECORDIAL PAIN TECHNIQUE: Radiopharmaceutical was injected at peak stress test. SPECT images were obtained, with perfusion images in short axis, horizontal long axis, and vertical long axis views. Gated images were reviewed using [employer] software. COMPARISON: None. CARDIAC STRESS: Pharm nuclear stress test was done using lexiscan 0.4mg IV X1. Hemodynamic data: There is normal blood pressure and heart response to lexiscan. Symptoms: Patient denied anginal chest pain during exercise. EKG: No diagnostic changes of ischemia; no ectopy. FINDINGS: Raw data: There is good labeling of myocardium by radiotracer. No significant motion artifacts. Left ventricular function: Gated images demonstrate hypokinesis of the distal septum. Left ventricle end diastolic volume is 103 mL. Left ventricle stress ejection fraction is 63%; normal values are above 45%. Myocardial perfusion: There is a mildly intense anterior wall defect at stress that could be prior infarction or ischemia or artifact. No resting imaging and no prone imaging done due to patient refusal. SSS 3. IMPRESSION: Abnormal pharm nuclear stress only study. Patient didn't return for resting study despite multiple scheduling attempts (including no-shows). 1) There is a mildly intense anterior wall defect at stress that could be prior infarction or ischemia or artifact. No resting imaging and no prone imaging done due to patient refusal. SSS 3. 2) Normal left ventricular size and systolic function (EF post stress 63%). Distal septum is hypokinetic. 3) No angina during the study. 4) No ST changes during the study. 5) No prior nuclear stress test available for comparison. Dictated by: Evin Long MD on 07/09/2023 at 16:47 Approved by: Evin Long MD on 07/09/2023 at 16:52
--- NOTE | 2023-06-15 08:18 | PM.TREADMILL ---
Cardiac Stress Test Report Referral & Results Date Patient Seen: 06/15/23 Time Patient Seen: 08:18 Requesting provider: Saleem Vogt Indication: Chest pain Rest ECG: Unremarkable Procedure Note: This was initially set up as an exercise Cardiolite, however after about 60 seconds on the treadmill with heart rate no where near heart rate targets patient reported severe fatigue in her legs and that she was nearly unable to continue. Therefore this was converted to a Lexiscan Cardiolite. The treadmill was lowered to 1 mile an hour with no elevation and was then injected with the Mariella scan material. The Cardiolite was then immediately administered. The patient spent an additional 2-3 minutes on the treadmill before being returned to the [facility] in the supine position. The patient had a normal response to all infused materials. Both written and verbal informed consent, the IV start, and the initial settings and attachment to the treadmill monitoring system were performed by they diagnostic imaging RN Patient did experience 7/10 atypical chest pain in the left anterior chest during the recovery period. There were absolutely no changes on her ECG, heart rate and blood pressure responded normally to lack of exercise and given the atypical nature and lack of findings it was elected to proceed with myocardial perfusion imaging Impression: Normal response to infuse materials. Significant exercise in capacity as above. Atypical chest pain as above. Please see myocardial perfusion imaging for details regarding possible ischemia. Please note: Actual ECG tracings can be found in the PACS system.
== END ==
PROVIDERS: PCP Family Medicine; Referring Provider Family Medicine; Visit Provider Family Medicine
DX: R07.2 Precordial pain (principal); R07.89 Other chest pain; R94.39 Abnormal result of other cardiovascular function study
CPT/HCPCS: 78451; 93016; 93017; 93018; A9502; J2785

== ENCOUNTER 2023-06-18 08:47 | Inpatient (IN) | payer OTHER, MEDICAID, SELFPAY ==
[2023-05-05 13:51] VITALS: BMI 35.7
[2023-06-18] VITALS (105 sets, daily range): BP systolic 71–177; BP diastolic 34–137; PULSE 91–116; RESP 13–51; TEMP 36.9–38.3; O2SAT 83–100; BMI 34.9; BMI 37.5
--- NOTE | 2023-06-18 | DI.RAD.S_ITS ---
PROCEDURE: FL GUIDED LUMBAR PUNCTURE LP INDICATIONS: MENIGITIS COMPARISON: None. TECHNIQUE: The indications, alternatives, benefits, risks, and complications were explained to the patient. Written informed consent was obtained and placed in the chart. The patient was placed in a prone position on the fluoroscopy table, and a level was chosen for percutaneous access under fluoroscopic guidance. The site was prepped and draped in a sterile fashion. After local anaesthetic, a spinal needle was then used to enter the intrathecal space, with return of cerebrospinal fluid. After obtaining sufficient fluid, the needle was then withdrawn, and a bandage applied to the puncture site. FINDINGS: Puncture level: L3-L4 Needle: Spinal needle. Opening pressure: 15 cm CSF volume and description: 10 cc clear Medications: 1% lidocaine for anaesthesia. Complications: None Laboratories: As ordered by referring clinician. IMPRESSION: Successful fluoroscopically guided lumbar puncture. Dictated by: Kaveh Lou M.D. on 06/18/2023 at 23:42 Approved by: Kaveh Lou M.D. on 06/18/2023 at 23:43
[2023-06-18] MEDS: LORazepam 2 MG/ML INJ 1 MG IV ×2 (09:01→09:17)
--- NOTE | 2023-06-18 09:01 | ED.GENADULT ---
HPI - General Adult General Chief complaint: Seizure Stated complaint: SEIZURE Time Seen by Provider: 06/18/23 08:59 Source: patient and family Mode of arrival: Wheelchair Limitations: no limitations History of Present Illness HPI narrative: Patient is a 52-year-old female who is here for initially a chief complaint of a seizure. She has never had seizures? like this? before per the who is at bedside. Apparently the patient was at her baseline state of health. They were leaving the house in order to go put their dog down because of medical issues when she started to have a fairly severe headache. She denies chest pain. No shortness of breath. She has episodes of ?spasming? that last a very short period of time. She has not confused afterwards. No loss of bowel or bladder. She denies abdominal pain or vomiting. No extremity numbness or tingling. Somewhat difficult to obtain an HPI or review of systems from the and patient secondary to the circumstances of her presenting to the ER. She does have a defibrillator in place but states she does not feel like her defibrillator is firing Related Data Home Medications Medication Instructions Recorded Confirmed lisinopril 5 mg tablet 2.5 mg PO QDAY ##0 10/06/16 06/19/23 metoprolol succinate 25 mg 25 mg PO QDAY ##0 10/06/16 06/19/23 tablet,extended release 24 hr (Toprol XL) multivitamin (Multiple Vitamins 1 tab PO QDAY ##0 10/06/16 06/19/23 tablet) hydroxyzine HCl 25 mg tablet 25 mg PO BEDTIME 12/02/19 05/05/23 lamotrigine 25 mg tablet (Lamictal) 75 mg PO BID 12/02/19 05/05/23 clonidine HCl 0.3 mg tablet 0.3 mg PO BID 05/05/23 06/19/23 clotrimazole-betamethasone 1 1 applic topical PRN PRN Rash 05/05/23 06/19/23 %-0.05 % topical cream fluoxetine 40 mg capsule 40 mg PO BID depressive disorder 05/05/23 06/19/23 furosemide 20 mg tablet 20 mg PO DAILY 05/05/23 05/05/23 levothyroxine 125 mcg tablet 125 mcg PO DAILY 05/05/23 06/19/23 nortriptyline 50 mg capsule 50 mg PO ONCE PM 05/05/23 06/19/23 diclofenac sodium 75 mg 75 mg PO BID PRN pain 06/19/23 06/19/23 tablet,delayed release hydroxyzine pamoate 50 mg capsule 50 mg PO 3XD 06/19/23 06/19/23 lamotrigine 100 mg tablet 300 mg PO BID 06/19/23 06/19/23 methocarbamol 750 mg tablet 750 mg PO BEDTIME 06/19/23 06/19/23 Allergies Allergy/AdvReac Type Severity Reaction Status Date / Time adhesive tape AdvReac Mild Rash Verified 05/05/23 13:41 meperidine [MEPERIDINE] AdvReac Unknown Rash Verified 04/12/23 15:46 Review of Systems Review of Systems Narrative: See HPI Patient History Medical History TIA (transient ischemic attack) Cardiac arrest Social History household members: significant other, family and children Smoking Status: Never smoker alcohol intake: current substance use type: does not use Smoking Status: Never smoker alcohol intake frequency: a few times a week Alcohol type: hard liquor Substance Use Type: marijuana Exam Initial Vital Signs Initial Vital Signs: Vital Signs Pulse Oximetry 93 06/18/23 09:03 Const General: cooperative, comfortable and No ill appearing HENMT Head: normal to inspection and normocephalic Mouth: oral mucosae normal and tongue normal Resp Effort & Inspection: normal respiratory effort Auscultation: clear to auscultation bilaterally Cardio Rate: regular rate Rhythm: regular rhythm GI Inspection: normal to inspection and non-distended Skin General: no rashes or lesions noted Neuro Other: Patient is alert and oriented. Somewhat difficult to obtain an actual HPI. She has episodes where she has a full body spasm and becomes unresponsive but then immediately recovers in his not confused afterwards. Extrem General: No edema Other: No gross deformities, moves all 4 extremities to command Course Orders Ordered: ED Orders 06/18/23 19:22 XR chest for PICC 1V Stat Acetaminophen (Acetaminophen 325 Mg Tablet) 650 mg PO Q6H PRN PRN Reason: Fever/Mild Pain (1-3) Last Admin: 06/19/23 03:12 Dose: 650 mg Documented By: Admin: 06/18/23 21:29 Dose: 650 mg Documented By: LIVE Hydrocodone Bitart/Acetaminophen (Hydrocodone/Acet 5/325 Tablet) 1 tab PO Q4H PRN PRN Reason: Pain, Moderate (4-6) Sodium Chloride (Normal Saline 0.9%) 1,000 mls @ 125 mls/hr IV CONT JOSE L Last Admin: 06/18/23 11:31 Dose: Not Given Documented By: AI Piperacillin Sod/Tazobactam (Sod 3.375 gm/ Sodium Chloride) 100 mls @ 25 mls/hr IV Q8H JOSE L Vancomycin HCl/Dextrose (Vancomycin) 1,500 mg in 300 mls @ 200 mls/hr IV NOW ONE Stop: 06/19/23 03:59 Last Admin: 06/19/23 03:07 Dose: 200 mls/hr Documented By: LIVE Vancomycin HCl (Vancomycin) 1,000 mg in 200 mls @ 200 mls/hr IV NOW ONE Stop: 06/19/23 04:59 Vancomycin HCl/Dextrose (Vancomycin) 1,500 mg in 300 mls @ 200 mls/hr IV Q24H JOSE L Lorazepam (Lorazepam 2 Mg/Ml Inj) 1 mg IV Q1H PRN PRN Reason: Seizure Activity Lorazepam (Lorazepam 1 Mg Tablet) 1 mg PO BEDTIME PRN PRN Reason: Sleep Last Admin: 06/18/23 22:41 Dose: 1 mg Documented By: LIVE Morphine Sulfate (Morphine 2 Mg/Ml Inj) 2 mg IV Q4HR PRN PRN Reason: Pain, Moderate (4-6) Last Admin: 06/19/23 02:16 Dose: 2 mg Documented By: LIVE Naloxone HCl (Naloxone 0.4 Mg/Ml Vial) 0.2 mg IV Q2MIN PRN PRN Reason: Opiate Reversal Naloxone HCl (Naloxone 0.4 Mg/Ml Vial) 0.2 mg IV Q2MIN PRN PRN Reason: Opiate Reversal Ondansetron HCl (Ondansetron 4 Mg/2 Ml Inj) 4 mg IV Q8HR PRN PRN Reason: Nausea And Vomiting Ondansetron HCl (Ondansetron 4 Mg Odt) 4 mg PO Q8HR PRN PRN Reason: Nausea And Vomiting Oxycodone HCl (Oxycodone Ir 5 Mg Tablet) 5 mg PO Q3H PRN PRN Reason: Pain, Moderate (4-6) Last Admin: 06/19/23 00:36 Dose: 5 mg Documented By: Admin: 06/18/23 21:29 Dose: 5 mg Documented By: LIVE Oxycodone HCl (Oxycodone Ir 10 Mg Tablet) 10 mg PO Q3H PRN PRN Reason: Pain, Severe (7-10) Last Admin: 06/19/23 03:12 Dose: 10 mg Documented By: LIVE Vancomycin HCl (Vancomycin Per Pharmacy) 1 request MIS NOW JOSE L Discontinued Medications Diphenhydramine HCl (Diphenhydramine 50 Mg/Ml Vial) 25 mg IV NOW ONE Stop: 06/18/23 13:47 Last Admin: 06/18/23 14:01 Dose: 25 mg Documented By: FRANCISCO Sodium Chloride (Normal Saline 0.9%) 1,000 mls @ 1,000 mls/hr IV BOLUS ONE Stop: 06/18/23 11:05 Last Infusion: 06/18/23 11:39 Dose: Infused Documented By: Admin: 06/18/23 10:29 Dose: 1,000 mls/hr Documented By: AI Sodium Chloride (Normal Saline 0.9%) 1,000 mls @ 1,000 mls/hr IV BOLUS ONE Stop: 06/18/23 11:23 Last Infusion: 06/18/23 11:39 Dose: Infused Documented By: Admin: 06/18/23 10:31 Dose: 1,000 mls/hr Documented By: AI Acetaminophen (Ofirmev) 1,000 mg in 100 mls @ 400 mls/hr IV NOW ONE Stop: 06/18/23 11:09 Last Infusion: 06/18/23 11:22 Dose: Infused Documented By: Admin: 06/18/23 11:04 Dose: 400 mls/hr Documented By: AI Sodium Chloride (Normal Saline 0.9%) 1,000 mls @ 1,000 mls/hr IV BOLUS ONE Stop: 06/18/23 14:44 Last Infusion: 06/18/23 15:05 Dose: Infused Documented By: Admin: 06/18/23 14:01 Dose: 1,000 mls/hr Documented By: FRANCISCO Lactated Ringer's (Lactated Ringers) 1,000 mls @ 1,000 mls/hr IV BOLUS ONE Stop: 06/18/23 15:51 Last Infusion: 06/18/23 16:15 Dose: Infused Documented By: Admin: 06/18/23 15:04 Dose: 1,000 mls/hr Documented By: AI Sodium Chloride (Normal Saline 0.9%) 1,000 mls @ 100 mls/hr IV CONT JOSE L Stop: 06/18/23 19:54 Last Admin: 06/18/23 21:03 Dose: 100 mls/hr Documented By: LIVE Piperacillin Sod/Tazobactam (Sod 4.5 gm/ Sodium Chloride) 100 mls @ 200 mls/hr IV NOW ONE Stop: 06/19/23 01:58 Last Infusion: 06/19/23 03:03 Dose: Infused Documented By: Admin: 06/19/23 02:17 Dose: 200 mls/hr Documented By: LIVE Iopamidol (Iopamidol 15 Ml Vial) 15 ml INJ NOW ONE Stop: 06/18/23 16:35 Last Admin: 06/18/23 17:23 Dose: Not Given Documented By: AI Ketorolac Tromethamine (Ketorolac 30 Mg/Ml Vial) 30 mg IV NOW ONE Stop: 06/18/23 10:26 Last Admin: 06/18/23 10:29 Dose: 30 mg Documented By: AI Lidocaine HCl (Lidocaine 1% 20 Ml) 20 ml INJ INTRA-OP ONE Stop: 06/18/23 17:30 Last Admin: 06/18/23 17:46 Dose: Not Given Documented By: AI Lorazepam (Lorazepam 2 Mg/Ml Inj) 1 mg IV NOW ONE Stop: 06/18/23 09:02 Last Admin: 06/18/23 09:01 Dose: 1 mg Documented By: AI Lorazepam (Lorazepam 2 Mg/Ml Inj) 1 mg IV NOW ONE Stop: 06/18/23 09:18 Last Admin: 06/18/23 09:17 Dose: 1 mg Documented By: AI Metoclopramide HCl (Metoclopramide 10 Mg/2 Ml Inj) 10 mg IV NOW ONE Stop: 06/18/23 13:47 Last Admin: 06/18/23 14:01 Dose: 10 mg Documented By: FRANCISCO Morphine Sulfate (Morphine 4 Mg/Ml Inj) 4 mg IV NOW ONE Stop: 06/18/23 09:03 Last Admin: 04/18/24 09:26 Dose: 4 mg Documented By: MPO Vital Signs Vital signs: Vital Signs - 8 hr 06/18/23 12:10 06/18/23 12:10 06/18/23 12:20 Temperature Pulse Rate 107 H 104 H Respiratory Rate 27 H 23 Blood Pressure 101/55 L Pulse Oximetry 97 94 06/18/23 12:20 06/18/23 12:30 06/18/23 12:30 Temperature Pulse Rate 102 H Respiratory Rate 29 H Blood Pressure 106/57 L 97/52 L Pulse Oximetry 97 06/18/23 12:32 06/18/23 12:40 06/18/23 12:40 Temperature Pulse Rate 104 H 105 H Respiratory Rate 30 H 27 H Blood Pressure 102/62 Pulse Oximetry 97 97 06/18/23 12:45 06/18/23 12:50 06/18/23 12:50 Temperature Pulse Rate 106 H 105 H Respiratory Rate 29 H 30 H Blood Pressure 104/56 L Pulse Oximetry 97 97 06/18/23 13:00 06/18/23 13:00 06/18/23 13:11 Temperature Pulse Rate 102 H 100 H Respiratory Rate 26 H 31 H Blood Pressure 109/58 L Pulse Oximetry 96 97 06/18/23 13:11 06/18/23 13:15 06/18/23 13:20 Temperature Pulse Rate 101 H 101 H Respiratory Rate 31 H 23 Blood Pressure 102/56 L Pulse Oximetry 97 96 06/18/23 13:20 06/18/23 13:30 06/18/23 13:30 Temperature Pulse Rate 102 H Respiratory Rate 21 Blood Pressure 93/53 L 93/54 L Pulse Oximetry 96 06/18/23 13:40 06/18/23 13:40 06/18/23 13:42 Temperature Pulse Rate 106 H 105 H Respiratory Rate 28 H 20 Blood Pressure 80/53 L Pulse Oximetry 96 97 06/18/23 13:42 06/18/23 13:45 06/18/23 13:50 Temperature Pulse Rate 105 H 100 H Respiratory Rate 24 17 Blood Pressure 79/50 L Pulse Oximetry 95 95 06/18/23 13:50 06/18/23 14:00 06/18/23 14:00 Temperature Pulse Rate 96 H Respiratory Rate 18 Blood Pressure 71/41 L 75/44 L Pulse Oximetry 94 06/18/23 14:10 06/18/23 14:10 06/18/23 14:15 Temperature Pulse Rate 99 H 101 H Respiratory Rate 19 19 Blood Pressure 80/47 L Pulse Oximetry 96 97 06/18/23 14:20 06/18/23 14:20 06/18/23 14:30 Temperature Pulse Rate 97 H 96 H Respiratory Rate 25 H 17 Blood Pressure 77/43 L Pulse Oximetry 97 96 06/18/23 14:30 06/18/23 14:40 06/18/23 14:40 Temperature Pulse Rate 97 H Respiratory Rate 18 Blood Pressure 75/43 L 86/51 L Pulse Oximetry 99 06/18/23 14:45 06/18/23 14:50 06/18/23 14:50 Temperature Pulse Rate 93 H 93 H Respiratory Rate 16 15 Blood Pressure 80/42 L Pulse Oximetry 100 98 06/18/23 15:00 06/18/23 15:00 06/18/23 15:03 Temperature Pulse Rate 92 H 92 H Respiratory Rate 17 17 Blood Pressure 74/38 L Pulse Oximetry 98 97 06/18/23 15:03 06/18/23 15:10 06/18/23 15:10 Temperature Pulse Rate 92 H Respiratory Rate 17 Blood Pressure 80/43 L 78/48 L Pulse Oximetry 99 06/18/23 15:14 06/18/23 15:14 06/18/23 15:15 Temperature 98.5 F Pulse Rate 92 H Respiratory Rate 18 Blood Pressure 82/45 L Pulse Oximetry 99 06/18/23 15:20 06/18/23 15:20 06/18/23 15:30 Temperature Pulse Rate 93 H Respiratory Rate 17 Blood Pressure 85/50 L 73/34 L Pulse Oximetry 99 06/18/23 15:30 06/18/23 15:35 06/18/23 15:38 Temperature Pulse Rate 92 H 92 H Respiratory Rate 16 19 Blood Pressure 79/43 L Pulse Oximetry 95 100 06/18/23 15:38 06/18/23 15:40 06/18/23 15:40 Temperature Pulse Rate 92 H 92 H Respiratory Rate 15 19 Blood Pressure 78/37 L Pulse Oximetry 100 100 06/18/23 15:45 06/18/23 15:45 06/18/23 15:50 Temperature Pulse Rate 91 H Respiratory Rate 15 Blood Pressure 79/41 L 81/44 L Pulse Oximetry 100 06/18/23 15:50 06/18/23 15:55 06/18/23 15:55 Temperature Pulse Rate 91 H 92 H Respiratory Rate 16 14 Blood Pressure 83/47 L Pulse Oximetry 99 100 06/18/23 16:00 06/18/23 16:00 06/18/23 16:05 Temperature Pulse Rate 91 H Respiratory Rate 13 Blood Pressure 85/52 L 79/45 L Pulse Oximetry 100 06/18/23 16:05 06/18/23 16:10 06/18/23 16:10 Temperature Pulse Rate 91 H 91 H Respiratory Rate 15 21 Blood Pressure 79/48 L Pulse Oximetry 98 99 06/18/23 16:15 06/18/23 16:15 06/18/23 16:20 Temperature Pulse Rate 92 H 92 H Respiratory Rate 17 25 H Blood Pressure 75/45 L Pulse Oximetry 98 06/18/23 16:20 06/18/23 17:11 06/18/23 17:15 Temperature Pulse Rate 96 H 96 H Respiratory Rate 18 Blood Pressure 80/52 L Pulse Oximetry 90 L 100 06/18/23 17:20 06/18/23 17:25 06/18/23 17:25 Temperature Pulse Rate 94 H 93 H Respiratory Rate 17 18 Blood Pressure 82/45 L Pulse Oximetry 100 100 06/18/23 17:30 06/18/23 17:30 06/18/23 17:35 Temperature Pulse Rate 92 H 92 H Respiratory Rate 20 20 Blood Pressure 76/46 L Pulse Oximetry 100 99 06/18/23 17:35 06/18/23 17:40 06/18/23 17:40 Temperature Pulse Rate 93 H Respiratory Rate 25 H Blood Pressure 79/48 L 80/48 L Pulse Oximetry 100 06/18/23 17:45 06/18/23 17:45 06/18/23 17:50 Temperature Pulse Rate 93 H 92 H Respiratory Rate 34 H 20 Blood Pressure 83/51 L Pulse Oximetry 96 98 06/18/23 17:50 06/18/23 17:55 06/18/23 17:55 Temperature Pulse Rate 93 H Respiratory Rate 18 Blood Pressure 84/50 L 85/49 L Pulse Oximetry 94 06/18/23 18:00 06/18/23 18:00 06/18/23 18:05 Temperature Pulse Rate 93 H 92 H Respiratory Rate 26 H 15 Blood Pressure 84/51 L Pulse Oximetry 100 100 06/18/23 18:05 06/18/23 18:10 06/18/23 18:10 Temperature Pulse Rate 93 H Respiratory Rate 21 Blood Pressure 84/46 L 79/42 L Pulse Oximetry 100 06/18/23 18:15 06/18/23 18:15 06/18/23 18:20 Temperature Pulse Rate 95 H 93 H Respiratory Rate 28 H 20 Blood Pressure 83/49 L Pulse Oximetry 99 97 06/18/23 18:20 06/18/23 18:25 06/18/23 18:25 Temperature Pulse Rate 93 H Respiratory Rate 18 Blood Pressure 83/49 L 79/49 L Pulse Oximetry 99 06/18/23 18:30 06/18/23 18:30 06/18/23 18:35 Temperature Pulse Rate 93 H 93 H Respiratory Rate 16 20 Blood Pressure 83/51 L Pulse Oximetry 100 99 06/18/23 18:35 06/18/23 18:40 06/18/23 18:40 Temperature Pulse Rate 96 H Respiratory Rate 21 Blood Pressure 79/44 L 86/49 L Pulse Oximetry 99 06/18/23 18:45 06/18/23 18:45 06/18/23 18:50 Temperature Pulse Rate 96 H 96 H Respiratory Rate 24 20 Blood Pressure 83/48 L Pulse Oximetry 99 99 06/18/23 18:50 06/18/23 18:55 06/18/23 18:55 Temperature Pulse Rate 96 H Respiratory Rate 21 Blood Pressure 86/51 L 89/55 L Pulse Oximetry 100 06/18/23 19:00 06/18/23 19:00 Temperature Pulse Rate 94 H Respiratory Rate 21 Blood Pressure 91/50 L Pulse Oximetry 100 Medical Decision Making Medical Records Medical records reviewed: Yes I reviewed the patient's medical records. Lab Data Lab results reviewed: Yes I reviewed the patient's lab results. 06/18/23 15:28 06/18/23 15:28 Labs: Lab Results 06/18/23 06/18/23 06/18/23 Range/Units 09:10 10:20 15:28 WBC 7.9 6.2 (4.5-11.0) X10^3/uL RBC 4.84 3.85 L (4.0-5.2) X10^6/uL Hgb 12.3 9.8 L (12.0-16.0) g/dL Hct 36.7 29.7 L (36-46) % MCV 75.8 L 77.2 L (80-100) fL MCH 25.3 L 25.5 L (26-34) PG MCHC 33.4 33.0 (30-36) % RDW 13.1 13.3 (11.6-14.8) % Plt Count 301 199 (150-400) X10^3/uL Neut % (Auto) 87.6 H 95.8 H (50-75) % Lymph % (Auto) 10.1 L 2.4 L (25-40) % [place] % (Auto) 0.5 L 1.3 L (3-14) % Eos % (Auto) 1.5 L 0.4 L (2-4) % Baso % (Auto) 0.3 0.1 (0-2) % Neut # (Auto) 6900 5900 (3000-9090) /uL Lymph # (Auto) 800 L 200 L (1781-8641) /uL [place] # (Auto) 0 100 (0-900) /uL Eos # (Auto) 100 0 (0-450) /uL Baso # (Auto) 0 0 (0-100) /uL Sodium 152 H 132 L D (137-145) mmol/L Potassium 5.1 4.2 (3.4-5.1) mmol/L Chloride 103 108 H (98-107) mmol/L Carbon Dioxide 18 L 18 L (22-32) mmol/L BUN 63 H 54 H (7-17) mg/dL Creatinine 2.08 H 2.16 H (0.52-1.04) mg/dL Estimated GFR 28 L 27 L (>60) mL/min BUN/Creatinine Ratio 30.3 H 25.0 H (6-22) Glucose 122 H 83 (70-100) mg/dL Calcium 9.7 8.2 L (8.4-10.2) mg/dL Total Bilirubin 1.0 (0.2-1.3) mg/dL AST 78 H (14-36) IU/L ALT 70 H (<35) IU/L Alkaline Phosphatase 111 (38-126) U/L Total Protein 8.0 (6.3-8.2) g/dL Albumin 4.9 (3.5-5.0) g/dL Globulin 3.1 (1.7-4.1) g/dL Albumin/Globulin Ratio 1.6 (1.0-2.8) Lipase 229 (23-300) U/L TSH 4.93 H (0.47-4.68) uIU/mL Free T4 1.38 (0.78-2.19) ng/dL Free T3 3.55 (2.77-5.27) pg/mL Prolactin 12.4 (3.0-18.6) ng/mL CSF Tube Number CSF Volume CSF Appearance (Clear) CSF Color (Colorless) CSF WBC (0-5) MONO/uL CSF RBC RBC /uL CSF Mononuclear WBCs CSF Polynuclear WBCs CSF Glucose (40-70) mg/dL CSF Total Protein (12-60) mg/dL CSF C.neoform/gat PCR (Not Detect) CSF CMV DNA (PCR) (Not Detect) CSF Enterovirus (PCR) (Not Detect) CSF E. coli (PCR) (Not Detect) CSF H. influenzae (PCR) (Not Detect) CSF HSV I (PCR) (Not Detect) CSF HSV II (PCR) (Not Detect) CSF HHV 6 (PCR) (Not Detect) CSF L.monocytogenes PCR (Not Detect) CSF N. meningitidis PCR (Not Detect) CSF Parechovirus (PCR) (Not Detect) CSF S. agalactiae (PCR) (Not Detect) CSF S. pneumoniae (PCR) (Not Detect) CSF VZV (PCR) (Not Detecte) U Opiates 300ng/mL cut Positive H (Negative) Ur Oxycodone Screen Negative (Negative) Urine Methadone Screen Negative (Negative) Ur Barbiturates Screen Negative (Negative) U Tricyclic Antidepress Positive H (Negative) Ur Phencyclidine Scrn Negative (Negative) Ur Amphetamines Screen Negative (Negative) U Methamphetamines Scrn Negative (Negative) Ur MDMA Scrn (Ecstasy) Negative (Negative) U Benzodiazepines Scrn Negative (Negative) Urine Cocaine Screen Negative (Negative) U Marijuana (THC) Screen Negative (Negative) Urine pH Normal (Normal) Urine Specific [place] Normal (Normal) Ethyl Alcohol < 10 ( - 10) mg/dL Ur Creatinine Normal (Normal) 06/18/23 Range/Units 17:15 WBC (4.5-11.0) X10^3/uL RBC (4.0-5.2) X10^6/uL Hgb (12.0-16.0) g/dL Hct (36-46) % MCV (80-100) fL MCH (26-34) PG MCHC (30-36) % RDW (11.6-14.8) % Plt Count (150-400) X10^3/uL Neut % (Auto) (50-75) % Lymph % (Auto) (25-40) % [place] % (Auto) (3-14) % Eos % (Auto) (2-4) % Baso % (Auto) (0-2) % Neut # (Auto) (1128-3188) /uL Lymph # (Auto) (8395-8744) /uL [place] # (Auto) (0-900) /uL Eos # (Auto) (0-450) /uL Baso # (Auto) (0-100) /uL Sodium (137-145) mmol/L Potassium (3.4-5.1) mmol/L Chloride (98-107) mmol/L Carbon Dioxide (22-32) mmol/L BUN (7-17) mg/dL Creatinine (0.52-1.04) mg/dL Estimated GFR (>60) mL/min BUN/Creatinine Ratio (6-22) Glucose (70-100) mg/dL Calcium (8.4-10.2) mg/dL Total Bilirubin (0.2-1.3) mg/dL AST (14-36) IU/L ALT (<35) IU/L Alkaline Phosphatase (38-126) U/L Total Protein (6.3-8.2) g/dL Albumin (3.5-5.0) g/dL Globulin (1.7-4.1) g/dL Albumin/Globulin Ratio (1.0-2.8) Lipase (23-300) U/L TSH (0.47-4.68) uIU/mL Free T4 (0.78-2.19) ng/dL Free T3 (2.77-5.27) pg/mL Prolactin (3.0-18.6) ng/mL CSF Tube Number 3 CSF Volume 3.0 ml CSF Appearance Clear (Clear) CSF Color Colorless (Colorless) CSF WBC 1 (0-5) MONO/uL CSF RBC 2 RBC /uL CSF Mononuclear WBCs TNP CSF Polynuclear WBCs TNP CSF Glucose 56 (40-70) mg/dL CSF Total Protein 46 (12-60) mg/dL CSF C.neoform/gat PCR Not detected (Not Detect) CSF CMV DNA (PCR) Not detected (Not Detect) CSF Enterovirus (PCR) Not detected (Not Detect) CSF E. coli (PCR) Not detected (Not Detect) CSF H. influenzae (PCR) Not detected (Not Detect) CSF HSV I (PCR) Not detected (Not Detect) CSF HSV II (PCR) Not detected (Not Detect) CSF HHV 6 (PCR) Not detected (Not Detect) CSF L.monocytogenes PCR Not detected (Not Detect) CSF N. meningitidis PCR Not detected (Not Detect) CSF Parechovirus (PCR) Not detected (Not Detect) CSF S. agalactiae (PCR) Not detected (Not Detect) CSF S. pneumoniae (PCR) Not detected (Not Detect) CSF VZV (PCR) Not detected (Not Detecte) U Opiates 300ng/mL cut (Negative) Ur Oxycodone Screen (Negative) Urine Methadone Screen (Negative) Ur Barbiturates Screen (Negative) U Tricyclic Antidepress (Negative) Ur Phencyclidine Scrn (Negative) Ur Amphetamines Screen (Negative) U Methamphetamines Scrn (Negative) Ur MDMA Scrn (Ecstasy) (Negative) U Benzodiazepines Scrn (Negative) Urine Cocaine Screen (Negative) U Marijuana (THC) Screen (Negative) Urine pH (Normal) Urine Specific [place] (Normal) Ethyl Alcohol ( - 10) mg/dL Ur Creatinine (Normal) Urine Dip Bedside Urine Glucose Negative Bedside Urine Bilirubin - Negative Bedside Urine Ketone - Negative Urine Specific [place] 1.015 Bedside Urine Occult Blood - Negative Bedside Urine pH 5.5 Bedside Urine Protein - Negative Bedside Urine Urobilinogen - Negative Bedside Urine Nitrite - Negative Bedside Urine Leukocytes - Negative Esterase Point of care testing: Urine Dip Bedside Urine Glucose Negative Bedside Urine Bilirubin - Negative Bedside Urine Ketone - Negative Urine Specific [place] 1.015 Bedside Urine Occult Blood - Negative Bedside Urine pH 5.5 Bedside Urine Protein - Negative Bedside Urine Urobilinogen - Negative Bedside Urine Nitrite - Negative Bedside Urine Leukocytes - Negative Esterase Imaging Data CT scan - head: Radiologist's Impression: PROCEDURE: CT HEAD/BRAIN WO CON INDICATIONS: Severe headache TECHNIQUE: Noncontrast 4.5 mm thick angled axial sections acquired from the foramen magnum to the vertex, with coronal and sagittal reformats. For radiation dose reduction, the following was used: automated exposure control, adjustment of mA and/or kV according to patient size. COMPARISON: [facility], CT, CT HEAD/BRAIN WO CON, 05/05/2023, 8:03. FINDINGS: Image quality: Diagnostic. CSF spaces: Basal cisterns are patent. No extra-axial fluid collections. Ventricles are normal in size and shape. Brain: No midline shift. No intracranial masses or hemorrhage. Jonas-white matter interface is normal. Skull and face: Calvarium and visualized facial bones are intact, without suspicious lesions. Sinuses: Visualized sinuses and mastoids are clear. IMPRESSION: No acute intracranial pathology. ECG Data Attestation: I personally reviewed and interpreted this ECG as follows: Interpretation: Sinus rhythm Ventricular rate 95 Normal axis Normal QRS Nonspecific ST T wave changes MDM Narrative Medical decision making narrative: Very difficult clinical picture upon arrival however I have low suspicion that her symptoms are related to a seizure. I have had a difficult time controlling her headache despite multiple different medications. Her head CT is unremarkable. Lumbar puncture was performed secondary to a headache and neck pain and fever of 100.9. They subsequent CSF was unremarkable and shows no signs of infection. I do not have another specific source of infection. She has been alert and oriented. The muscle tetany/spasms that she has been having specifically her right upper extremity have decreased in frequency but are still present. She has remained somewhat hypotensive with systolic blood pressures in the 70s to 90s however her mean arterial pressures have been 60-65. Several of the lower blood pressures was after she received Reglan and Benadryl and was sleeping in the room. She does have an acute kidney injury This did not improve with fluids. Her hypernatremia did improve. Unsure the exact etiology of the patient's symptoms however I have exhausted of the resources that I have here in the emergency department and she still continues to have headaches. Discussed the case with he was on-call for the patient's primary doctor who will admit. A PICC line will be placed secondary to the hypotension although I have a low suspicion that she was going to require blood pressure support. I suspect that there is a psychiatric component to her symptoms today. She does have history of bipolar disorder. We will admit for further evaluation and treatment. Discussed the need for admission with the patient she expressed understanding and agreement. Discharge Plan Departure Patient Disposition: Admitted as Observation Clinical Impression: Acute intractable headache, Muscle spasm, Acute kidney injury, Hypotension Admit Date/Time: 06/18/23 19:27 Admit Provider: Saleem Vogt
[2023-06-18 09:17] LABS: Add Manual Diff / Slide Review NO; Basophils Absolute Auto 0 /uL (0-100); Basophils Percent Auto 0.3 % (0-2); Eosinophils Absolute Auto 100 /uL (0-450); Eosinophils Percent Auto 1.5 % (2-4); Hematocrit 36.7 % (36-46); Hemoglobin 12.3 g/dL (12.0-16.0); Lymphocytes Absolute Auto 800 /uL (1100-4500); Lymphocytes Percent Auto 10.1 % (25-40); Mean Corpuscular HGB Conc 33.4 % (30-36); Mean Corpuscular Hemoglobin 25.3 PG (26-34); Mean Corpuscular Volume 75.8 fL (80-100); Monocytes Absolute Auto 0 /uL (0-900); Monocytes Percent Auto 0.5 % (3-14); Neutrophils Absolute Auto 6900 /uL (1500-7000); Neutrophils Percent Auto 87.6 % (50-75); Platelet Count 301 X10^3/uL (150-400); Red Blood Cell Count 4.84 X10^6/uL (4.0-5.2); Red Cell Distribution Width 13.1 % (11.6-14.8); White Blood Cell Count 7.9 X10^3/uL (4.5-11.0)
[2023-06-18] MEDS: MORPHINE 4 MG/ML INJ IV (09:26)
[2023-06-18 09:54] LABS: Alanine Aminotransferase 70 IU/L (<35); Albumin 4.9 g/dL (3.5-5.0); Albumin Globulin Ratio 1.6 (1.0-2.8); Alkaline Phosphatase 111 U/L (38-126); Aspartate Aminotransferase 78 IU/L (14-36); BUN Creatinine Ratio 30.3 (6-22); Blood Urea Nitrogen 63 mg/dL (7-17); Calcium 9.7 mg/dL (8.4-10.2); Carbon Dioxide 18 mmol/L (22-32); Chloride 103 mmol/L (98-107); Estimated Glomerular Filt Rate 28 mL/min (>60); Ethanol (ETOH) < 10 mg/dL; Globulin 3.1 g/dL (1.7-4.1); Glucose 122 mg/dL (70-100); Lipase 229 U/L (23-300); Sodium 152 mmol/L (137-145)
--- NOTE | 2023-06-18 09:57 | PC.NURSE ---
Pt states that she went to take her dog out and states that she felt herself go black. Pt and spouse left house and pt had another seizure in car and ashish pt to ED. Pt being brought to ED in wheelchair and body became rigid and pt began to make gurgling noise for approximately 5-10 seconds. Pt able to answer questions appropriately. C/o headache, SOB. a&ox4. Hx of HTN and cardiac problems and defib pacemaker. VS WNL. Pt states that she was getting ready to take their family dog to be put to sleep when she started having seizure-like activity. Pt continues to have episodes of rigidity and states that she can feel in come in a wave over her body.
[2023-06-18 09:58] LABS: HEMOLYSIS 123 (0-50)
[2023-06-18 09:59] LABS: Potassium 5.1 mmol/L (3.4-5.1)
[2023-06-18 10:11] LABS: Prolactin 12.4 ng/mL (3.0-18.6)
[2023-06-18 10:25] LABS: Thyroid Stimulating Hormone 4.93 uIU/mL (0.47-4.68)
[2023-06-18] MEDS: SODIUM CHLORIDE 0.9% 1,000 ML 1000 ML IV ×3 (10:29→14:01)
[2023-06-18] MEDS: KETOROLAC 30 MG/ML VIAL IV (10:29)
[2023-06-18 11:00] LABS: Ur Creatinine Normal (Normal); Ur Specific Gravity Normal (Normal); Urine Tetrahydrocannabinol Negative (Negative); Urine pH Normal (Normal)
[2023-06-18 11:01] LABS: UR Morphine/Opiate cutoff 300 Positive (Negative); Urine Amphetamines Negative (Negative); Urine Barbiturates Negative (Negative); Urine Benzodiazepines Negative (Negative); Urine Cocaine Negative (Negative); Urine MDMA Negative (Negative); Urine Methadone Negative (Negative); Urine Methamphetamines Negative (Negative); Urine Oxycodone Negative (Negative); Urine Phencyclidine Negative (Negative); Urine Tricyclic Antidepressant Positive (Negative)
[2023-06-18] MEDS: ACETAMINOPHEN IV 1,000 MG/100 ML VIAL 400 MG IV (11:04)
--- NOTE | 2023-06-18 11:43 | PC.NURSE ---
Pt a&ox4. Sitting up in bed and speaking in full sentences. Pt oral temp 99 after IV tylenol. Pt states that she is still feeling shaky and that her arms still hurt. TENA remains at 7/10 pain. Pt states that she has been experiencing significant stress in her life since she found out that she had to put her 4 month old puppy to sleep.
--- NOTE | 2023-06-18 12:01 | PC.NURSE ---
Attempted ambulation trial with pt off monitors. Pt sat at edge of bed and body became rigid and pt started making gurgling noise similar to previous episodes while in the emergency department. Assisted pt back to bed. Pt able to answer questions appropriately. a&ox4. No loss of bowel or bladder control and pt remained conscious during episode.
--- NOTE | 2023-06-18 12:41 | PC.NURSE ---
Pt states that she has had 10 seizures since attempting to ambulate without monitor. Upon entering the room, pt body stiff and making gurgling noise similar to previous episodes. Family at bedside and state that she is very confused and forgetful. Pt able to answer all questions appropriately and answers all orientation questions correctly. Pt a&ox4 during and after episodes. No loss of bowel or bladder control.
[2023-06-18] MEDS: METOCLOPRAMIDE 10 MG/2 ML INJ IV (14:01)
[2023-06-18] MEDS: diphenhydrAMINE 50 MG/ML VIAL 25 MG IV (14:01)
[2023-06-18] MEDS: LACTATED RINGERS 1,000 ML 1000 ML IV (15:04)
[2023-06-18 15:42] LABS: Add Manual Diff / Slide Review NO; Basophils Absolute Auto 0 /uL (0-100); Basophils Percent Auto 0.1 % (0-2); Eosinophils Absolute Auto 0 /uL (0-450); Eosinophils Percent Auto 0.4 % (2-4); Hematocrit 29.7 % (36-46); Hemoglobin 9.8 g/dL (12.0-16.0); Lymphocytes Absolute Auto 200 /uL (1100-4500); Lymphocytes Percent Auto 2.4 % (25-40); Mean Corpuscular Hemoglobin 25.5 PG (26-34); Mean Corpuscular Volume 77.2 fL (80-100); Monocytes Absolute Auto 100 /uL (0-900); Monocytes Percent Auto 1.3 % (3-14); Neutrophils Absolute Auto 5900 /uL (1500-7000); Neutrophils Percent Auto 95.8 % (50-75); Platelet Count 199 X10^3/uL (150-400); Red Blood Cell Count 3.85 X10^6/uL (4.0-5.2); Red Cell Distribution Width 13.3 % (11.6-14.8); White Blood Cell Count 6.2 X10^3/uL (4.5-11.0)
--- NOTE | 2023-06-18 15:45 | PC.NURSE ---
Pt consistently hypotensive with bp in 70s-80s systolic (see VS). Pt has had 3L NS and 1L LR. Pt in trendelenberg position. HR 91. Pt a&ox4 and answers all questions appropriately. Denies dizziness/lightheadedness. C/o headache with 8/10 pain and nausea. Pt arouses to sound and touch. Family at bedside. Doctor notified and aware of pt status.
[2023-06-18 15:56] LABS: Blood Urea Nitrogen 54 mg/dL (7-17); Calcium 8.2 mg/dL (8.4-10.2); Carbon Dioxide 18 mmol/L (22-32); Chloride 108 mmol/L (98-107); Estimated Glomerular Filt Rate 27 mL/min (>60); Glucose 83 mg/dL (70-100); HEMOLYSIS 40 (0-50); Potassium 4.2 mmol/L (3.4-5.1); Sodium 132 mmol/L (137-145)
--- NOTE | 2023-06-18 17:27 | PC.NURSE ---
Pt remains hypotensive after lp. Lying flat. A&Ox4. Denies SOB, cp, dizziness/lightheadedness.
[2023-06-18 17:44] LABS: Glucose CSF 56 mg/dL (40-70); Total Protein CSF 46 mg/dL (12-60)
[2023-06-18 18:02] LABS: Free T3, Triiodothyronine Free 3.55 pg/mL (2.77-5.27); Free T4, Direct Thyroxine 1.38 ng/dL (0.78-2.19)
[2023-06-18 18:04] LABS: Appearance CSF Clear (Clear); CSF Tube Number 3; CSF Tube Volume 3.0 mL; Color CSF Colorless (Colorless); Red Blood Cell CSF 2 RBC /uL; White Blood Cell CSF 1 MONO/uL (0-5)
[2023-06-18 18:49] LABS: Cryptococcus neoformans/gattii Not Detected (Not Detect); Enterovirus Not Detected (Not Detect); Escherichia coli K1 Not Detected (Not Detect); Haemophilus influenzae Not Detected (Not Detect); Herpes simplex virus 1 Not Detected (Not Detect); Herpes simplex virus 2 Not Detected (Not Detect); Human herpesvirus 6 Not Detected (Not Detect); Human parechovirus Not Detected (Not Detect); Listeria monocytogenes Not Detected (Not Detect); Neisseria meningitidis Not Detected (Not Detect); Streptococcus agalactiae Not Detected (Not Detect); Streptococcus pneumoniae Not Detected (Not Detect); Varicella Zoster Virus Not Detected (Not Detecte)
--- NOTE | 2023-06-18 19:37 | PM.HP.1 ---
History of Present Illness History of Present Illness Date Patient Seen: 06/18/23 Chief complaint: SEIZURE Narrative: 52 y/o with PMH of bipolar disorder, HTN, hypothyroidism with recent stress testing for chest pain (no ACS), brought to the ED by her who reported on her having seizures. Patient did not appear postictal however. She had unremarkable initial workup and the she started to complain on headache and some type of spasms affecting right arm.In the ED she received Benadryl, morphine and Ativan. After she spent whole day in the ED still complains on episodic spasms and headache. [facility] Medical History TIA (transient ischemic attack) Cardiac arrest Social History household members: significant other, family and children Smoking Status: Never smoker alcohol intake: current substance use type: does not use Meds Home Medications and Allergies Home Medications Medication Instructions Recorded Confirmed Type lisinopril 5 mg tablet 2.5 mg PO QDAY ##0 10/06/16 05/05/23 History metoprolol succinate 25 mg 25 mg PO QDAY ##0 10/06/16 05/05/23 History tablet,extended release 24 hr (Toprol XL) multivitamin (Multiple Vitamins 1 tab PO QDAY ##0 10/06/16 05/05/23 History tablet) hydroxyzine HCl 25 mg tablet 25 mg PO BEDTIME 12/02/19 05/05/23 History lamotrigine 25 mg tablet (Lamictal) 75 mg PO BID 12/02/19 05/05/23 History clonidine HCl 0.3 mg tablet 0.3 mg PO BID 05/05/23 05/05/23 History clotrimazole-betamethasone 1 1 applic topical PRN PRN Rash 05/05/23 05/05/23 History %-0.05 % topical cream fluoxetine 40 mg capsule 40 mg PO BID depressive disorder 05/05/23 05/05/23 History furosemide 20 mg tablet 20 mg PO DAILY 05/05/23 05/05/23 History levothyroxine 125 mcg tablet 125 mcg PO DAILY 05/05/23 05/05/23 History nortriptyline 50 mg capsule 50 mg PO ONCE PM 05/05/23 05/05/23 History Allergies Allergy/AdvReac Type Severity Reaction Status Date / Time adhesive tape AdvReac Mild Rash Verified 05/05/23 13:41 meperidine [MEPERIDINE] AdvReac Unknown Rash Verified 04/12/23 15:46 Exam Vital Signs (past 8 hours): - 06/18/23 11:40 06/18/23 11:40 06/18/23 11:50 Temperature Pulse Rate 106 H Respiratory Rate 42 H Blood Pressure 118/58 L 111/60 Pulse Oximetry 97 06/18/23 11:50 06/18/23 11:54 06/18/23 11:59 Temperature 99 F Pulse Rate 105 H Respiratory Rate 27 H Blood Pressure 108/55 L Pulse Oximetry 97 06/18/23 11:59 06/18/23 12:00 06/18/23 12:00 Temperature Pulse Rate 105 H 104 H Respiratory Rate 26 H 26 H Blood Pressure 106/56 L Pulse Oximetry 97 96 06/18/23 12:10 06/18/23 12:10 06/18/23 12:20 Temperature Pulse Rate 107 H 104 H Respiratory Rate 27 H 23 Blood Pressure 101/55 L Pulse Oximetry 97 94 06/18/23 12:20 06/18/23 12:30 06/18/23 12:30 Temperature Pulse Rate 102 H Respiratory Rate 29 H Blood Pressure 106/57 L 97/52 L Pulse Oximetry 97 06/18/23 12:32 06/18/23 12:40 06/18/23 12:40 Temperature Pulse Rate 104 H 105 H Respiratory Rate 30 H 27 H Blood Pressure 102/62 Pulse Oximetry 97 97 06/18/23 12:45 06/18/23 12:50 06/18/23 12:50 Temperature Pulse Rate 106 H 105 H Respiratory Rate 29 H 30 H Blood Pressure 104/56 L Pulse Oximetry 97 97 06/18/23 13:00 06/18/23 13:00 06/18/23 13:11 Temperature Pulse Rate 102 H 100 H Respiratory Rate 26 H 31 H Blood Pressure 109/58 L Pulse Oximetry 96 97 06/18/23 13:11 06/18/23 13:15 06/18/23 13:20 Temperature Pulse Rate 101 H 101 H Respiratory Rate 31 H 23 Blood Pressure 102/56 L Pulse Oximetry 97 96 06/18/23 13:20 04/18/24 13:30 06/18/23 13:30 Temperature Pulse Rate 102 H Respiratory Rate 21 Blood Pressure 93/53 L 93/54 L Pulse Oximetry 96 06/18/23 13:40 06/18/23 13:40 06/18/23 13:42 Temperature Pulse Rate 106 H 105 H Respiratory Rate 28 H 20 Blood Pressure 80/53 L Pulse Oximetry 96 97 06/18/23 13:42 06/18/23 13:45 06/18/23 13:50 Temperature Pulse Rate 105 H 100 H Respiratory Rate 24 17 Blood Pressure 79/50 L Pulse Oximetry 95 95 06/18/23 13:50 06/18/23 14:00 06/18/23 14:00 Temperature Pulse Rate 96 H Respiratory Rate 18 Blood Pressure 71/41 L 75/44 L Pulse Oximetry 94 06/18/23 14:10 06/18/23 14:10 06/18/23 14:15 Temperature Pulse Rate 99 H 101 H Respiratory Rate 19 19 Blood Pressure 80/47 L Pulse Oximetry 96 97 06/18/23 14:20 06/18/23 14:20 06/18/23 14:30 Temperature Pulse Rate 97 H 96 H Respiratory Rate 25 H 17 Blood Pressure 77/43 L Pulse Oximetry 97 96 06/18/23 14:30 06/18/23 14:40 06/18/23 14:40 Temperature Pulse Rate 97 H Respiratory Rate 18 Blood Pressure 75/43 L 86/51 L Pulse Oximetry 99 06/18/23 14:45 06/18/23 14:50 06/18/23 14:50 Temperature Pulse Rate 93 H 93 H Respiratory Rate 16 15 Blood Pressure 80/42 L Pulse Oximetry 100 98 06/18/23 15:00 06/18/23 15:00 06/18/23 15:03 Temperature Pulse Rate 92 H 92 H Respiratory Rate 17 17 Blood Pressure 74/38 L Pulse Oximetry 98 97 06/18/23 15:03 06/18/23 15:10 06/18/23 15:10 Temperature Pulse Rate 92 H Respiratory Rate 17 Blood Pressure 80/43 L 78/48 L Pulse Oximetry 99 06/18/23 15:14 06/18/23 15:14 06/18/23 15:15 Temperature 98.5 F Pulse Rate 92 H Respiratory Rate 18 Blood Pressure 82/45 L Pulse Oximetry 99 04/18/24 15:20 06/18/23 15:20 06/18/23 15:30 Temperature Pulse Rate 93 H Respiratory Rate 17 Blood Pressure 85/50 L 73/34 L Pulse Oximetry 99 06/18/23 15:30 06/18/23 15:35 06/18/23 15:38 Temperature Pulse Rate 92 H 92 H Respiratory Rate 16 19 Blood Pressure 79/43 L Pulse Oximetry 95 100 06/18/23 15:38 06/18/23 15:40 06/18/23 15:40 Temperature Pulse Rate 92 H 92 H Respiratory Rate 15 19 Blood Pressure 78/37 L Pulse Oximetry 100 100 06/18/23 15:45 06/18/23 15:45 06/18/23 15:50 Temperature Pulse Rate 91 H Respiratory Rate 15 Blood Pressure 79/41 L 81/44 L Pulse Oximetry 100 06/18/23 15:50 06/18/23 15:55 06/18/23 15:55 Temperature Pulse Rate 91 H 92 H Respiratory Rate 16 14 Blood Pressure 83/47 L Pulse Oximetry 99 100 06/18/23 16:00 06/18/23 16:00 06/18/23 16:05 Temperature Pulse Rate 91 H Respiratory Rate 13 Blood Pressure 85/52 L 79/45 L Pulse Oximetry 100 06/18/23 16:05 06/18/23 16:10 06/18/23 16:10 Temperature Pulse Rate 91 H 91 H Respiratory Rate 15 21 Blood Pressure 79/48 L Pulse Oximetry 98 99 06/18/23 16:15 06/18/23 16:15 06/18/23 16:20 Temperature Pulse Rate 92 H 92 H Respiratory Rate 17 25 H Blood Pressure 75/45 L Pulse Oximetry 98 06/18/23 16:20 06/18/23 17:11 06/18/23 17:15 Temperature Pulse Rate 96 H 96 H Respiratory Rate 18 Blood Pressure 80/52 L Pulse Oximetry 90 L 100 06/18/23 17:20 06/18/23 17:25 06/18/23 17:25 Temperature Pulse Rate 94 H 93 H Respiratory Rate 17 18 Blood Pressure 82/45 L Pulse Oximetry 100 100 06/18/23 17:30 06/18/23 17:30 06/18/23 17:35 Temperature Pulse Rate 92 H 92 H Respiratory Rate 20 20 Blood Pressure 76/46 L Pulse Oximetry 100 99 06/18/23 17:35 06/18/23 17:40 06/18/23 17:40 Temperature Pulse Rate 93 H Respiratory Rate 25 H Blood Pressure 79/48 L 80/48 L Pulse Oximetry 100 06/18/23 17:45 06/18/23 17:45 06/18/23 17:50 Temperature Pulse Rate 93 H 92 H Respiratory Rate 34 H 20 Blood Pressure 83/51 L Pulse Oximetry 96 98 06/18/23 17:50 06/18/23 17:55 06/18/23 17:55 Temperature Pulse Rate 93 H Respiratory Rate 18 Blood Pressure 84/50 L 85/49 L Pulse Oximetry 94 06/18/23 18:00 06/18/23 18:00 06/18/23 18:05 Temperature Pulse Rate 93 H 92 H Respiratory Rate 26 H 15 Blood Pressure 84/51 L Pulse Oximetry 100 100 06/18/23 18:05 06/18/23 18:10 06/18/23 18:10 Temperature Pulse Rate 93 H Respiratory Rate 21 Blood Pressure 84/46 L 79/42 L Pulse Oximetry 100 06/18/23 18:15 06/18/23 18:15 06/18/23 18:20 Temperature Pulse Rate 95 H 93 H Respiratory Rate 28 H 20 Blood Pressure 83/49 L Pulse Oximetry 99 97 06/18/23 18:20 06/18/23 18:25 06/18/23 18:25 Temperature Pulse Rate 93 H Respiratory Rate 18 Blood Pressure 83/49 L 79/49 L Pulse Oximetry 99 06/18/23 18:30 06/18/23 18:30 06/18/23 18:35 Temperature Pulse Rate 93 H 93 H Respiratory Rate 16 20 Blood Pressure 83/51 L Pulse Oximetry 100 99 06/18/23 18:35 06/18/23 18:40 06/18/23 18:40 Temperature Pulse Rate 96 H Respiratory Rate 21 Blood Pressure 79/44 L 86/49 L Pulse Oximetry 99 06/18/23 18:45 06/18/23 18:45 06/18/23 18:50 Temperature Pulse Rate 96 H 96 H Respiratory Rate 24 20 Blood Pressure 83/48 L Pulse Oximetry 99 99 06/18/23 18:50 06/18/23 18:55 06/18/23 18:55 Temperature Pulse Rate 96 H Respiratory Rate 21 Blood Pressure 86/51 L 89/55 L Pulse Oximetry 100 06/18/23 19:00 06/18/23 19:00 Temperature Pulse Rate 94 H Respiratory Rate 21 Blood Pressure 91/50 L Pulse Oximetry 100 Oxygen Delivery Method Nasal Cannula Objective Labs 06/18/23 15:28 06/18/23 15:28 Labs: Laboratory Results - last 24 hr 06/18/23 06/18/23 06/18/23 09:10 10:20 15:28 WBC 7.9 6.2 RBC 4.84 3.85 L Hgb 12.3 9.8 L Hct 36.7 29.7 L MCV 75.8 L 77.2 L MCH 25.3 L 25.5 L MCHC 33.4 33.0 RDW 13.1 13.3 Plt Count 301 199 Neut % (Auto) 87.6 H 95.8 H Lymph % (Auto) 10.1 L 2.4 L [place] % (Auto) 0.5 L 1.3 L Eos % (Auto) 1.5 L 0.4 L Baso % (Auto) 0.3 0.1 Neut # (Auto) 6900 5900 Lymph # (Auto) 800 L 200 L [place] # (Auto) 0 100 Eos # (Auto) 100 0 Baso # (Auto) 0 0 Sodium 152 H 132 L D Potassium 5.1 4.2 Chloride 103 108 H Carbon Dioxide 18 L 18 L BUN 63 H 54 H Creatinine 2.08 H 2.16 H Estimated GFR 28 L 27 L BUN/Creatinine Ratio 30.3 H 25.0 H Glucose 122 H 83 Calcium 9.7 8.2 L Total Bilirubin 1.0 AST 78 H ALT 70 H Alkaline Phosphatase 111 Total Protein 8.0 Albumin 4.9 Globulin 3.1 Albumin/Globulin Ratio 1.6 Lipase 229 TSH 4.93 H Free T4 1.38 Free T3 3.55 Prolactin 12.4 CSF Tube Number CSF Volume CSF Appearance CSF Color CSF WBC CSF RBC CSF Mononuclear WBCs CSF Polynuclear WBCs CSF Glucose CSF Total Protein CSF C.neoform/gat PCR CSF CMV DNA (PCR) CSF Enterovirus (PCR) CSF E. coli (PCR) CSF H. influenzae (PCR) CSF HSV I (PCR) CSF HSV II (PCR) CSF HHV 6 (PCR) CSF L.monocytogenes PCR CSF N. meningitidis PCR CSF Parechovirus (PCR) CSF S. agalactiae (PCR) CSF S. pneumoniae (PCR) CSF VZV (PCR) U Opiates 300ng/mL cut Positive H Ur Oxycodone Screen Negative Urine Methadone Screen Negative Ur Barbiturates Screen Negative U Tricyclic Antidepress Positive H Ur Phencyclidine Scrn Negative Ur Amphetamines Screen Negative U Methamphetamines Scrn Negative Ur MDMA Scrn (Ecstasy) Negative U Benzodiazepines Scrn Negative Urine Cocaine Screen Negative U Marijuana (THC) Screen Negative Urine pH Normal Urine Specific [place] Normal Ethyl Alcohol < 10 Ur Creatinine Normal 06/18/23 17:15 WBC RBC Hgb Hct MCV MCH MCHC RDW Plt Count Neut % (Auto) Lymph % (Auto) [place] % (Auto) Eos % (Auto) Baso % (Auto) Neut # (Auto) Lymph # (Auto) [place] # (Auto) Eos # (Auto) Baso # (Auto) Sodium Potassium Chloride Carbon Dioxide BUN Creatinine Estimated GFR BUN/Creatinine Ratio Glucose Calcium Total Bilirubin AST ALT Alkaline Phosphatase Total Protein Albumin Globulin Albumin/Globulin Ratio Lipase TSH Free T4 Free T3 Prolactin CSF Tube Number 3 CSF Volume 3.0 ml CSF Appearance Clear CSF Color Colorless CSF WBC 1 CSF RBC 2 CSF Mononuclear WBCs TNP CSF Polynuclear WBCs TNP CSF Glucose 56 CSF Total Protein 46 CSF C.neoform/gat PCR Not detected CSF CMV DNA (PCR) Not detected CSF Enterovirus (PCR) Not detected CSF E. coli (PCR) Not detected CSF H. influenzae (PCR) Not detected CSF HSV I (PCR) Not detected CSF HSV II (PCR) Not detected CSF HHV 6 (PCR) Not detected CSF L.monocytogenes PCR Not detected CSF N. meningitidis PCR Not detected CSF Parechovirus (PCR) Not detected CSF S. agalactiae (PCR) Not detected CSF S. pneumoniae (PCR) Not detected CSF VZV (PCR) Not detected U Opiates 300ng/mL cut Ur Oxycodone Screen Urine Methadone Screen Ur Barbiturates Screen U Tricyclic Antidepress Ur Phencyclidine Scrn Ur Amphetamines Screen U Methamphetamines Scrn Ur MDMA Scrn (Ecstasy) U Benzodiazepines Scrn Urine Cocaine Screen U Marijuana (THC) Screen Urine pH Urine Specific [place] Ethyl Alcohol Ur Creatinine Assessment & Plan Assessment and plan (1) Acute intractable headache: Status: Acute (2) Muscle spasm: Status: Acute (3) Hypotension: Status: Acute (4) Bipolar 1 disorder: Status: Acute (5) Hypothyroidism: Status: Acute Assessment & Plan narrative: 1. Suspected Seizure - air sampling and monitoring overnight - Hx of TIAs and defibrilator 2. Headache - CT unremarkable - had low grade fever in ED - had LP - w/o evidence of meningitis, w/o neck stiffness 3. Hypotension - takes Toprol XL, Clonidine, Lisinopril and Lasix at home and had morphine and ativan - poor oral intake today - had IVFs in the ED, continuing with NS at 100 cc/h overnight - monitored for rebound tachycardia - holding todays pm meds 4. Hypothyroidism - levothyroxine 5. Anemia DVT prophylaxis - SCDs
[2023-06-18] MEDS: SODIUM CHLORIDE 0.9% 1,000 ML 100 ML IV (21:03)
[2023-06-18] MEDS: ACETAMINOPHEN 325 MG TABLET 650 MG PO (21:29)
[2023-06-18] MEDS: OXYCODONE IR 5 MG TABLET PO (21:29)
[2023-06-18 22:08] LABS: MRSA (Nasal) PCR NOT DETECTED (Not Detect)
[2023-06-18] MEDS: LORazepam 1 MG TABLET PO (22:41)
[2023-06-19] VITALS (50 sets, daily range): BP systolic 80–172; BP diastolic 51–100; PULSE 84–119; RESP 14–42; TEMP 36.5–39.4; O2SAT 79–100
[2023-06-19] MEDS: OXYCODONE IR 5 MG TABLET PO ×2 (00:36→08:34)
[2023-06-19] MEDS: MORPHINE 2 MG/ML INJ IV (02:16)
[2023-06-19] MEDS: PIPERACILLIN/TAZO 4.5 GM in SODIUM CHLORIDE 0.9% 100 ML IV (02:17)
[2023-06-19] MEDS: VANCOMYCIN 1,500 MG/300 ML PIGGYBACK 200 MG IV (03:07)
[2023-06-19] MEDS: ACETAMINOPHEN 325 MG TABLET 650 MG PO ×2 (03:12→08:49)
[2023-06-19] MEDS: OXYCODONE IR 10 MG TABLET PO ×4 (03:12→21:38)
[2023-06-19] MEDS: VANCOMYCIN 1,000 MG/200 ML PIGGYBACK 200 MG IV (04:53)
[2023-06-19 05:18] LABS: Add Manual Diff / Slide Review NO; Basophils Absolute Auto 0 /uL (0-100); Basophils Percent Auto 0.1 % (0-2); Eosinophils Absolute Auto 0 /uL (0-450); Hematocrit 29.1 % (36-46); Hemoglobin 9.7 g/dL (12.0-16.0); Lymphocytes Absolute Auto 200 /uL (1100-4500); Lymphocytes Percent Auto 2.3 % (25-40); Mean Corpuscular HGB Conc 33.4 % (30-36); Mean Corpuscular Hemoglobin 25.4 PG (26-34); Mean Corpuscular Volume 75.9 fL (80-100); Monocytes Absolute Auto 100 /uL (0-900); Monocytes Percent Auto 1.9 % (3-14); Neutrophils Absolute Auto 7200 /uL (1500-7000); Neutrophils Percent Auto 95.7 % (50-75); Platelet Count 173 X10^3/uL (150-400); Red Blood Cell Count 3.83 X10^6/uL (4.0-5.2); Red Cell Distribution Width 13.2 % (11.6-14.8); White Blood Cell Count 7.5 X10^3/uL (4.5-11.0)
[2023-06-19 05:35] LABS: Alanine Aminotransferase 87 IU/L (<35); Albumin 3.3 g/dL (3.5-5.0); Albumin Globulin Ratio 1.4 (1.0-2.8); Alkaline Phosphatase 119 U/L (38-126); Aspartate Aminotransferase 92 IU/L (14-36); Blood Urea Nitrogen 44 mg/dL (7-17); Calcium 7.9 mg/dL (8.4-10.2); Carbon Dioxide 19 mmol/L (22-32); Chloride 105 mmol/L (98-107); Estimated Glomerular Filt Rate 31 mL/min (>60); Globulin 2.4 g/dL (1.7-4.1); Glucose 93 mg/dL (70-100); HEMOLYSIS < 15 (0-50); Potassium 4.7 mmol/L (3.4-5.1); Sodium 129 mmol/L (137-145); Total Protein 5.7 g/dL (6.3-8.2)
[2023-06-19] MEDS: PIPERACILLIN/TAZO 3.375 GM in SODIUM CHLORIDE 0.9% 100 ML IV (06:10)
--- NOTE | 2023-06-19 06:22 | PC.NURSE ---
[facility] Note-Patient admitted to room 228 at 2030. Fatigued, A/Ox3, shivers/tremors, T 100.0, ST 115, initial BP 105/56(65), RR 20s, SpO2 98% lung sounds CTA. Tylenol given for fever and 5mg oxycodone given for headache, neck and back pain. PO Ativan given for sleep. [id number] line tech unable to place Piccline. Order obtained for midline. Snack given, no N/V. Over next few hours, temp increased to 102.2, HR 105, BP stable 134/64. Patient has continued to have pain 7-8/[address] Vora, received orders Blood Cultures, Abx Vanco and Zosyn, IV morphine prn-see Emar. [id number] patient was intermittently restless, confused, and still having pain not controlled with morphine. T 103.0 at 0400, Tylenol and 10mg oxycodone given, ice packs to torso, was effective. Was placed on 2L NC to keep sats >92%, lungs CTA. Patient started to relax, no more shivering/tremors, T 101.7.
--- NOTE | 2023-06-19 08:00 | DI.RAD.S_ITS ---
PROCEDURE: XR CHEST 1V INDICATIONS: fever TECHNIQUE: One view of the chest was acquired. COMPARISON: [facility], CR, XR CHEST 1V, 05/05/2023, 7:57. FINDINGS: Surgical changes and devices: Left-sided single lead defibrillator Lungs and pleura: Lungs are clear. No pleural effusions or pneumothorax. Mediastinum: Heart size enlarged. Mild vascular congestion Bones and chest wall: No suspicious bony lesions. Overlying soft tissues appear unremarkable. IMPRESSION: Cardiomegaly and mild vascular congestion accentuated by low lung volumes Approved by: Wilfredo Guo M.D. on 06/19/2023 at 9:03
--- NOTE | 2023-06-19 08:17 | P.HP_ITS ---
History of Present Illness History of Present Illness Date Patient Seen: 06/19/23 Time Patient Seen: 08:18 Date of Onset of Symptoms: 06/17/23 Chief complaint: SEIZURE Narrative: Patient a 52-year-old female well known to me who presents with questionable seizures. Patient has been having headaches over the last 2-3 weeks. Seems like they are beginning worse. She has had no nausea vomiting or other changes. Patient recently started getting febrile. And apparently has been having witnessed spasming over the last 24 hours. Patient has had a lot stress because she had to put her dog down. She has had no significant cough. Fever started yesterday. She has had no urinary symptoms change in her bowel movements abdominal pain. Headache is all in her head down into her neck and back. She feels like it is hard to move her head around. She has no other significant new changes or complaints. Patient otherwise has had no change or complaint. 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 Depression. Manic. [facility] Medical History TIA (transient ischemic attack) Cardiac arrest Social History household members: significant other, family and children Smoking Status: Never smoker alcohol intake: current substance use type: does not use Meds Home Medications and Allergies Home Medications Medication Instructions Recorded Confirmed Type lisinopril 5 mg tablet 2.5 mg PO QDAY ##0 10/06/16 06/19/23 History metoprolol succinate 25 mg 25 mg PO QDAY ##0 10/06/16 06/19/23 History tablet,extended release 24 hr (Toprol XL) multivitamin (Multiple Vitamins 1 tab PO QDAY ##0 10/06/16 06/19/23 History tablet) hydroxyzine HCl 25 mg tablet 25 mg PO BEDTIME 12/02/19 05/05/23 History lamotrigine 25 mg tablet (Lamictal) 75 mg PO BID 12/02/19 05/05/23 History clonidine HCl 0.3 mg tablet 0.3 mg PO BID 05/05/23 06/19/23 History clotrimazole-betamethasone 1 1 applic topical PRN PRN Rash 05/05/23 06/19/23 History %-0.05 % topical cream fluoxetine 40 mg capsule 40 mg PO BID depressive disorder 05/05/23 06/19/23 History furosemide 20 mg tablet 20 mg PO DAILY 05/05/23 06/19/23 History levothyroxine 125 mcg tablet 125 mcg PO DAILY 05/05/23 06/19/23 History nortriptyline 50 mg capsule 50 mg PO ONCE PM 05/05/23 06/19/23 History diclofenac sodium 75 mg 75 mg PO BID PRN pain 06/19/23 06/19/23 History tablet,delayed release hydroxyzine pamoate 50 mg capsule 50 mg PO 3XD 06/19/23 06/19/23 History lamotrigine 100 mg tablet 300 mg PO BID 06/19/23 06/19/23 History methocarbamol 750 mg tablet 750 mg PO BEDTIME 06/19/23 06/19/23 History Allergies Allergy/AdvReac Type Severity Reaction Status Date / Time adhesive tape AdvReac Mild Rash Verified 05/05/23 13:41 meperidine [MEPERIDINE] AdvReac Unknown Rash Verified 04/12/23 15:46 Review of Systems Review of Systems Narrative: Negative except for above. Exam Vital Signs (past 8 hours): - 06/19/23 00:36 06/19/23 01:00 06/19/23 01:41 Temperature 101.1 F H Pulse Rate 104 H Respiratory Rate 24 Blood Pressure 136/63 134/64 Pulse Oximetry 97 Oxygen Flow Rate 0 06/19/23 01:41 06/19/23 02:00 06/19/23 03:00 Temperature 102.2 F H Pulse Rate 105 H 104 H Respiratory Rate 30 H 42 H Blood Pressure 113/86 164/83 H Pulse Oximetry 97 95 Oxygen Flow Rate 0 06/19/23 03:00 06/19/23 03:12 06/19/23 04:00 Temperature 102.2 F H Pulse Rate 105 H Respiratory Rate 25 H Blood Pressure 143/100 H Pulse Oximetry 95 Oxygen Flow Rate 1 06/19/23 04:00 06/19/23 05:00 06/19/23 05:00 Temperature 103.0 F H 101.7 F H Pulse Rate 104 H 103 H Respiratory Rate 31 H 28 H Blood Pressure 123/62 Pulse Oximetry 96 94 Oxygen Flow Rate 1 1 06/19/23 06:00 06/19/23 07:01 06/19/23 08:00 Temperature Pulse Rate 104 H 102 H Respiratory Rate 27 H 28 H Blood Pressure 150/81 H 130/86 Pulse Oximetry 93 92 Oxygen Flow Rate 1 06/19/23 08:00 Temperature Pulse Rate 97 H Respiratory Rate 23 Blood Pressure Pulse Oximetry 95 Oxygen Flow Rate Oxygen Delivery Method Room Air Oxygen Flow Rate 1 Narrative Exam Narrative: Alert fatigued appearing patient no acute distress. Tenderness in the posterior occiput. She has some pain with movement of the neck. Pupils are equal and responsive to light. No tongue deviation. Mucous membranes mostly moist. Neck without adenopathy. Lungs with basilar crackles heart is regular rate and rhythm no murmur click rub or gallop. Abdomen is soft positive bowel sounds nontender. Extremities without cyanosis clubbing edema. Neuro exa cranial nerves 2-12 are intact. Motor is 5/5. Moving all extremities. Sensations intact. She is alert and oriented. Objective Labs 06/19/23 05:00 06/19/23 05:00 Labs: Laboratory Results - last 24 hr 06/18/23 06/18/23 06/18/23 09:10 10:20 15:28 WBC 7.9 6.2 RBC 4.84 3.85 L Hgb 12.3 9.8 L Hct 36.7 29.7 L MCV 75.8 L 77.2 L MCH 25.3 L 25.5 L MCHC 33.4 33.0 RDW 13.1 13.3 Plt Count 301 199 Neut % (Auto) 87.6 H 95.8 H Lymph % (Auto) 10.1 L 2.4 L [place] % (Auto) 0.5 L 1.3 L Eos % (Auto) 1.5 L 0.4 L Baso % (Auto) 0.3 0.1 Neut # (Auto) 6900 5900 Lymph # (Auto) 800 L 200 L [place] # (Auto) 0 100 Eos # (Auto) 100 0 Baso # (Auto) 0 0 Sodium 152 H 132 L D Potassium 5.1 4.2 Chloride 103 108 H Carbon Dioxide 18 L 18 L BUN 63 H 54 H Creatinine 2.08 H 2.16 H Estimated GFR 28 L 27 L BUN/Creatinine Ratio 30.3 H 25.0 H Glucose 122 H 83 Calcium 9.7 8.2 L Total Bilirubin 1.0 AST 78 H ALT 70 H Alkaline Phosphatase 111 Total Protein 8.0 Albumin 4.9 Globulin 3.1 Albumin/Globulin Ratio 1.6 Lipase 229 TSH 4.93 H Free T4 1.38 Free T3 3.55 Prolactin 12.4 CSF Tube Number CSF Volume CSF Appearance CSF Color CSF WBC CSF RBC CSF Mononuclear WBCs CSF Polynuclear WBCs CSF Glucose CSF Total Protein CSF C.neoform/gat PCR CSF CMV DNA (PCR) CSF Enterovirus (PCR) CSF E. coli (PCR) CSF H. influenzae (PCR) CSF HSV I (PCR) CSF HSV II (PCR) CSF HHV 6 (PCR) CSF L.monocytogenes PCR CSF N. meningitidis PCR CSF Parechovirus (PCR) CSF S. agalactiae (PCR) CSF S. pneumoniae (PCR) CSF VZV (PCR) Nasal Screen MRSA (PCR) U Opiates 300ng/mL cut Positive H Ur Oxycodone Screen Negative Urine Methadone Screen Negative Ur Barbiturates Screen Negative U Tricyclic Antidepress Positive H Ur Phencyclidine Scrn Negative Ur Amphetamines Screen Negative U Methamphetamines Scrn Negative Ur MDMA Scrn (Ecstasy) Negative U Benzodiazepines Scrn Negative Urine Cocaine Screen Negative U Marijuana (THC) Screen Negative Urine pH Normal Urine Specific [place] Normal Ethyl Alcohol < 10 Ur Creatinine Normal 06/18/23 06/18/23 06/19/23 17:15 20:30 05:00 WBC 7.5 RBC 3.83 L Hgb 9.7 L Hct 29.1 L MCV 75.9 L MCH 25.4 L MCHC 33.4 RDW 13.2 Plt Count 173 Neut % (Auto) 95.7 H Lymph % (Auto) 2.3 L [place] % (Auto) 1.9 L Eos % (Auto) 0.0 L Baso % (Auto) 0.1 Neut # (Auto) 7200 H Lymph # (Auto) 200 L [place] # (Auto) 100 Eos # (Auto) 0 Baso # (Auto) 0 Sodium 129 L Potassium 4.7 Chloride 105 Carbon Dioxide 19 L BUN 44 H Creatinine 1.91 H Estimated GFR 31 L BUN/Creatinine Ratio 23.0 H Glucose 93 Calcium 7.9 L Total Bilirubin 1.0 AST 92 H ALT 87 H Alkaline Phosphatase 119 Total Protein 5.7 L Albumin 3.3 L Globulin 2.4 Albumin/Globulin Ratio 1.4 Lipase TSH Free T4 Free T3 Prolactin CSF Tube Number 3 CSF Volume 3.0 ml CSF Appearance Clear CSF Color Colorless CSF WBC 1 CSF RBC 2 CSF Mononuclear WBCs TNP CSF Polynuclear WBCs TNP CSF Glucose 56 CSF Total Protein 46 CSF C.neoform/gat PCR Not detected CSF CMV DNA (PCR) Not detected CSF Enterovirus (PCR) Not detected CSF E. coli (PCR) Not detected CSF H. influenzae (PCR) Not detected CSF HSV I (PCR) Not detected CSF HSV II (PCR) Not detected CSF HHV 6 (PCR) Not detected CSF L.monocytogenes PCR Not detected CSF N. meningitidis PCR Not detected CSF Parechovirus (PCR) Not detected CSF S. agalactiae (PCR) Not detected CSF S. pneumoniae (PCR) Not detected CSF VZV (PCR) Not detected Nasal Screen MRSA (PCR) Not detected U Opiates 300ng/mL cut Ur Oxycodone Screen Urine Methadone Screen Ur Barbiturates Screen U Tricyclic Antidepress Ur Phencyclidine Scrn Ur Amphetamines Screen U Methamphetamines Scrn Ur MDMA Scrn (Ecstasy) U Benzodiazepines Scrn Urine Cocaine Screen U Marijuana (THC) Screen Urine pH Urine Specific [place] Ethyl Alcohol Ur Creatinine Assessment & Plan Assessment & Plan narrative: Fever with probable sepsis. Source is unclear at this time. Blood cultures were not obtained. Will get those now but probably not helpful. I am going to get a chest x-ray. Will see what that shows. Spinal tap showed no significant abnormality. But culture pending. Certainly headache is concerning for possible meningitis. Could be pulmonary. Both of those could give us some of the issues that we are having. But does not explain her headache. I am going to get a respiratory panel and make sure this isn't viral. Could this be a viral issue. I guess it is possible but no lymphocytes on spinal tap. Current coverage is not for meningitis. Will switch to Rocephin. Continue vanco for unknown infection. Until we know more. Will continue Rocephin coverage for sure until negative cultures. Headache. Severe. Etiology is unclear. Was felt to be muscular previously but seems out of control for that. Unable to get MRI secondary to her defibrillator. CT scan showed no abnormalities spinal tap really did not show any bleeds or other changes. Could this just be from her infection I guess it is possible but it has been going on for a little while. Muscular is still possible but we need to follow up cultures. Will see how it responds. Will switch to Dilaudid and see if we get better coverage. Hyponatremia. Etiology is unclear. Could be pulmonary could be central. Will see what chest x-ray shows. Will continue saline and rechecked tomorrow. Hopefully things will trend in the right direction. Will see how it goes. Otherwise will need further workup. Acute renal failure. Etiology is unclear. Probably dehydration. Does not appear to be infection but will check urine today. Hopefully responds to hydration by tomorrow. Otherwise will need ultrasound. Anemia. Maybe related to fluid hydration. She got pretty aggressively hydrated will watch closely though and follow. History of cardiac arrest. Appears stable at this time. Will follow. Code status full. DVT prophylaxis will place on Lovenox. Disposition. Clearly will be here a few days. We have a lot to figure out and will have to follow. Patient is very ill at this time. And hopefully things will turn with multiple organ systems being involved. Quality VTE Deep Vein Thrombosis/Pulmonary Embolism Present on Admission: No
[2023-06-19] MEDS: SODIUM CHLORIDE 0.9% 1,000 ML 125 ML IV ×2 (08:32→17:34)
[2023-06-19] MEDS: METOPROLOL ER 25 MG TABLET PO (08:33)
[2023-06-19] MEDS: LEVOTHYROXINE 125 MCG TABLET PO (08:33)
[2023-06-19] MEDS: cloNIDine 0.1 MG TABLET 0.3 MG PO (08:33)
[2023-06-19] MEDS: FLUoxetine 20 MG CAPSULE 40 MG PO ×2 (08:34→21:34)
[2023-06-19] MEDS: lamoTRIgine 100 MG TABLET 300 MG PO ×2 (08:34→21:33)
[2023-06-19] MEDS: cefTRIAXone 2,000 MG in SODIUM CHLORIDE 0.9% 100 ML 200 MG IV ×2 (08:38→17:34)
[2023-06-19] MEDS: ENOXAPARIN 40 MG/0.4 ML SYRINGE SUBCUT (08:39)
[2023-06-19 08:45] LABS: Appearance Urine UA CLEAR; Bilirubin Urine UA NEGATIVE (NEGATIVE); Color Urine UA YELLOW; Glucose Urine UA NEGATIVE (Negative); Ketones Urine UA NEGATIVE (NEGATIVE); Leukocyte Esterase Urine UA NEGATIVE (NEGATIVE); Nitrite Urine UA NEGATIVE (Negative); Occult Blood Urine UA TRACE-INTACT (Negative); Protein Urine UA NEGATIVE (Negative); Urobilinogen Urine UA 0.2 E.U./dL (0.2)
[2023-06-19 08:46] LABS: Urine Volume 10mL (spun)
[2023-06-19 08:49] LABS: Bacteria Urine None Seen; Culture Indicated Urine Cult Not Indicated; RBC Urine 0-1/HPF (0-5/HPF); Squamous Epithelial Cell Urine 0-1 /HPF (0-5/HPF); WBC Urine None Seen (0-5/HPF)
[2023-06-19 09:11] LABS: Adenovirus Not Detected (Not Detect); B. parapertussis Not Detected (Not Detecte); Bordetella pertussis Not Detected (Not Detect); Chlamydophila pneumoniae Not Detected (Not Detect); Coronavirus 229E Not Detected (Not Detect); Coronavirus HKU1 Not Detected (Not Detect); Coronavirus NL 63 Not Detected (Not Detect); Coronavirus OC43 Not Detected (Not Detect); Human Metapneumovirus Not Detected (Not Detect); Human Rhinovirus/Enterovirus Not Detected (Not Detect); Influenza A Not Detected (Not Detect); Influenza B Not Detected (Not Detect); Mycoplasma pneumoniae Not Detected (Not Detect); Parainfluenza Virus 1 Not Detected (Not Detect); Parainfluenza Virus 2 Not Detected (Not Detect); Parainfluenza Virus 3 Not Detected (Not Detect); Parainfluenza Virus 4 Not Detected (Not Detect); Respiratory Syncytial Virus Not Detected (Not Detect); SARS- CoV-2 Not Detected (Not Detecte)
[2023-06-19 13:09] LABS: Magnesium 1.5 mg/dL (1.6-2.3)
[2023-06-19] MEDS: MAGNESIUM CHLORIDE 64 MG TABLET 128 MG PO (13:23)
--- NOTE | 2023-06-19 13:30 | CM.DANOTE ---
Addendum entered by CHARLES Farris 06/19/23 13:53: ADD: PMH notable for Bipolar I Disorder Original Note: Initial DCP Assessment Note Pt is a 52 yo female, resident of [place], presents from home with persistent headaches and suspected seizure activity. Chart indicates alcohol abuse in remission. Patient admitted for management of fever with probably sepsis, severe headaches, hyponatremia, acute renal failure, anemia. PCP: Saleem Vogt Payer: [employer] Reviewed chart, met with patient, SO Keven P [phone], daughter Arlet P [phone] and daughter Mary, introduced self and role. Patient sleepy throughout this visit. Family reports that household members include KARINA, daughter Arlet and her 3 children. Patient is independent and active at baseline and takes care of her grandchildren while her daughterArlet works tunnel mucker. KARINA Baca also works tunnel mucker. No hx HH or SNF. Family appreciative for the visit, no questions or concerns for this BASE REMOVER at this time. CM team will plan to follow clinical course closely as medical plan of care unfolds. Patient remains quite ill. Dispo needs unknown. CHARLES Estrada Discharge Planning/Care Management CM Discharge Assessment Start: 06/19/23 13:22 Freq: Status: Active Protocol: Document 06/19/23 13:23 MAXIM (Rec: 06/19/23 13:30 MAXIM [id number]) Discharge Planning Assessment Assigned Cloth Napping Supervisor CHARLES Allen DPOA/Assigned Designee Name francisco Hernandez Contact Information [phone] Advance Directives? No History Provided By Patient,Significant Other Prior Living Arrangements Mobile home Household Members significant other,family, children Type of transporation used prior to Drives own vehicle admit Independent with ADL's Yes Is patient alert and oriented? Yes Barriers to Discharge Yes Comment Patient is very ill currently, medical plan of care still unfolding. Discharge needs TBD Discharge Plan Home Transportation Arrangement Family Additional Comment TBD
[2023-06-19] MEDS: ALBUMIN HUMAN 50 GM/200 ML VIAL IV (13:40)
--- NOTE | 2023-06-19 14:15 | DI.ECHO.S_ITS ---
Version: 1 Study ID: [id number] [place] [id number] Name: ZECHARIAH LAZARO Study Date: 06/19/2023, 3: 17 PM : 1970 BP: 104 / 59 mmHg Gender: Female Height: 68 in Age: 52 Years Weight: 246 lb BSA: 2.23 mA? Ordering: HA WOODARD Referring: HA WOODARD Clinician: Cathryn Graf Reason For Study: GRAM POSITIVE BACTEREMIA History: Summary Statements Normal sinus rhythm. Normal LV size and wall thickness. Normal wall motion and LV systolic function. Ejection fraction is 55-60%. Normal chamber sizes. No significant valvular abnormalities. There is a pacing lead traversing the tricuspid valve with mild associated tricuspid regurgitation. No obvious vegetations found. Compared to prior study dated September 10, 2021 no changes have occurred. Procedure: A two-dimensional transthoracic echocardiogram with color flow and Doppler was performed. The study quality was technically adequate. Comparison is made with the echocardiogram of 09/10/2021. A contrast injection of Definity was performed to improve assessment of LV function. The patient was in sinus rhythm with heart rates between 85-90 bpm during the exam. Left Ventricle: The left ventricle is normal in size and wall thickness. The ejection fraction is estimated to be 55-60%. Right Ventricle: There is a pacemaker lead in the right ventricle. The right ventricle is at the upper limits of normal in size. Atria: The left atrial size is normal. There is a catheter/pacemaker lead seen in the right atrium. Right atrial size is normal. There is no Doppler evidence for an interatrial shunt. Mitral Valve: The mitral valve is normal in structure and function. There is trace mitral regurgitation. Aortic Valve: The aortic valve is trileaflet. The aortic valve opens well. There is no aortic valve stenosis. No aortic regurgitation is present. Tricuspid Valve: The tricuspid valve is normal in structure and function. There is mild tricuspid regurgitation. The right ventricular systolic pressure is estimated to be at least 27 mmHg based on an estimated right atrial pressure of 3 mm Hg. Pulmonic Valve: The pulmonic valve is not well seen, but is grossly normal. There is no pulmonic valvular regurgitation. Great Vessels: The aortic root is normal size. The dimensions of the ascending aorta are normal. The IVC is of normal diameter and collapses greater than 50% with a sniff. This suggests a low right atrial pressure of 3 mm Hg. Pericardium/ Pleura: There is a trivial pericardial effusion noted. There is no pleural effusion. 2D and M-Mode Measurements and Calculations LVIDd: 5.1 cm LVOT diam: 1.99 cm LVIDs: 3.4 cm Ao root diam: 3.0 cm IVSd: 1.01 cm asc Aorta Diam: 2.9 cm LVPWd: 0.89 cm Ao Arch Diam (Prox Trans): 2.8 cm LV dorman. diameter/BSA (cm/m^2): 2.30 LV sys. diameter/BSA (cm/m^2): 1.54 RVD1 (basal): 4.0 cm RVD2 (mid): 3.1 cm TAPSE: 1.93 cm LA A4 area: 18.7 refractory worker? IVC diam: 2.04 cm LA A2 area: 20.9 refractory worker? RA area: 18.0 refractory worker? LA length (vol): 5.7 cm RA long axis: 5.3 cm LA vol: 58.4 ml RA vol: 52.6 ml LA vol index: 26.2 ml/mA? RA : 23.6 ml/mA? Doppler Measurements and Calculations Ao V2 max: 168.8 cm/sec LVOT Max Homer: 105.4 cm/sec Ao V2 mean: 126.8 cm/sec LV V1 max P.4 mmHg Ao V2 VTI: 33.3 cm LV V1 VTI: 20.7 cm Ao max P.4 mmHg SV(LVOT): 64.3 ml Ao mean P.9 mmHg NAYELY(I,D): 1.93 refractory worker? NAYELY(V,D): 1.94 refractory worker? NAYELY indexed to BSA (cm^2/m^2): 0.86 sev ratio: 0.62 MV E max homer: 98.6 cm/sec MV dec time: 0.19 sec MV A max homer: 84.4 cm/sec MV mean P.94 mmHg MV E/A: 1.17 MVA(VTI): 2.31 refractory worker? Med Peak E' Homer: 7.3 cm/sec Lat Peak E' Homer: 12.3 cm/sec E/e' average: 10.8 TR max homer: 246.0 cm/sec PA mean P.87 mmHg TR max P.2 mmHg PA V2 max: 90.4 cm/sec Electronically signed by: Ayanna Alvarez M.D. 06/19/2023, 4: 32 PM
--- NOTE | 2023-06-19 14:35 | P.TELICUCN_ITS ---
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 Additionally there have been concerns abotu seizures and spasms with neck stiffness. She was febrile upon presentaito nand underwnt a LP in the ED which was non diangositc for her symptoms. otherwise chemistries notable for multple abnormalities including LISA and hypponatremia from previous level of 152. after my ewvauation her blood cx retruned + for gram postive cocci during my interview she complained of headache and chronic rashes, she dneid any recent insect bites, trauma, travel or outdoor exposure. she amidtted to etoh abuse though the amount has imrpoived [facility] Medical History TIA (transient ischemic attack) Cardiac arrest Social History household members: significant other, family and children Smoking Status: Never smoker alcohol intake: current substance use type: does not use Current Medications Current Medications Medications: Home Medications lisinopril 5 mg tablet 2.5 mg PO QDAY ##0 10/06/16 [History Confirmed 06/19/23] metoprolol succinate 25 mg tablet,extended release 24 hr (Toprol XL) 25 mg PO QDAY ##0 10/06/16 [History Confirmed 06/19/23] multivitamin (Multiple Vitamins tablet) 1 tab PO QDAY ##0 10/06/16 [History Confirmed 06/19/23] hydroxyzine HCl 25 mg tablet 25 mg PO BEDTIME 12/02/19 [History Confirmed 05/05/23] lamotrigine 25 mg tablet (Lamictal) 75 mg PO BID 12/02/19 [History Confirmed 05/05/23] clonidine HCl 0.3 mg tablet 0.3 mg PO BID 05/05/23 [History Confirmed 06/19/23] clotrimazole-betamethasone 1 %-0.05 % topical cream 1 applic topical PRN PRN Rash 05/05/23 [History Confirmed 06/19/23] fluoxetine 40 mg capsule 40 mg PO BID depressive disorder 05/05/23 [History Confirmed 06/19/23] furosemide 20 mg tablet 20 mg PO DAILY 05/05/23 [History Confirmed 06/19/23] levothyroxine 125 mcg tablet 125 mcg PO DAILY 05/05/23 [History Confirmed 06/19/23] nortriptyline 50 mg capsule 50 mg PO ONCE PM 05/05/23 [History Confirmed 06/19/23] diclofenac sodium 75 mg tablet,delayed release 75 mg PO BID PRN pain 06/19/23 [History Confirmed 06/19/23] hydroxyzine pamoate 50 mg capsule 50 mg PO 3XD 06/19/23 [History Confirmed 06/19/23] lamotrigine 100 mg tablet 300 mg PO BID 06/19/23 [History Confirmed 06/19/23] methocarbamol 750 mg tablet 750 mg PO BEDTIME 06/19/23 [History Confirmed 06/19/23] Visit Medications (administered) Generic Name Dose Route Start Last Admin Trade Name Keiq PRN Reason Stop Dose Admin Acetaminophen 650 mg 06/18/23 19:31 06/19/23 08:49 Acetaminophen 325 Mg Tablet PO 650 mg Q6H PRN Administration Fever/Mild Pain (1-3) Clonidine HCl 0.3 mg 06/19/23 09:00 06/19/23 08:33 Clonidine 0.1 Mg Tablet PO 0.3 mg BID JOSE L Administration Enoxaparin Sodium 40 mg 06/19/23 09:00 06/19/23 08:39 Enoxaparin 40 Mg/0.4 Ml Syringe SUBCUT 40 mg DAILY JOSE L Administration Fluoxetine HCl 40 mg 06/19/23 09:00 06/19/23 08:34 Fluoxetine 20 Mg Capsule PO 40 mg BID JOSE L Administration Sodium Chloride 1,000 mls @ 125 mls/hr 06/18/23 09:00 06/19/23 08:32 Normal Saline 0.9% IV 125 mls/hr CONT JOSE L Administration Ceftriaxone Sodium 2,000 mg/ 100 mls @ 200 mls/hr 06/19/23 08:00 06/19/23 09:45 Sodium Chloride IV Infused Q12H JOSE L Infusion Albumin Human 50 gm in 200 mls @ 60 mls/hr 06/19/23 13:28 06/19/23 13:40 Albuminar IV 06/19/23 16:47 60 mls/hr NOW ONE Administration Lamotrigine 300 mg 06/19/23 09:00 06/19/23 08:34 Lamotrigine 100 Mg Tablet PO 300 mg BID JOSE L Administration Levothyroxine Sodium 125 mcg 06/19/23 07:45 06/19/23 08:33 Levothyroxine 125 Mcg Tablet PO 125 mcg DAILY@0600 JOSE L Administration Lorazepam 1 mg 06/18/23 19:56 06/18/23 22:41 Lorazepam 1 Mg Tablet PO 1 mg BEDTIME PRN Administration Sleep Metoprolol Succinate 25 mg 06/19/23 09:00 06/19/23 08:33 Metoprolol Er 25 Mg Tablet PO 25 mg DAILY JOSE L Administration Oxycodone HCl 5 mg 06/18/23 19:31 06/19/23 08:34 Oxycodone Ir 5 Mg Tablet PO 5 mg Q3H PRN Administration Pain, Moderate (4-6) Oxycodone HCl 10 mg 06/18/23 19:31 06/19/23 11:40 Oxycodone Ir 10 Mg Tablet PO 10 mg Q3H PRN Administration Pain, Severe (7-10) Exam Vital Signs (past 8 hours): - 06/19/23 07:00 06/19/23 07:01 06/19/23 08:00 Temperature Pulse Rate 102 H Respiratory Rate 28 H Blood Pressure 130/86 Pulse Oximetry 92 Oxygen Delivery Method Nasal Cannula 06/19/23 08:00 06/19/23 08:33 06/19/23 08:33 Temperature Pulse Rate 97 H 97 H 97 H Respiratory Rate 23 Blood Pressure 130/86 130/86 Pulse Oximetry 95 Oxygen Delivery Method 06/19/23 08:49 06/19/23 09:50 06/19/23 09:50 Temperature 97.9 F 97.9 F Pulse Rate 92 H Respiratory Rate Blood Pressure Pulse Oximetry Oxygen Delivery Method 06/19/23 11:00 06/19/23 11:00 06/19/23 11:42 Temperature 97.8 F 97.7 F Pulse Rate 86 Respiratory Rate 16 Blood Pressure 103/73 Pulse Oximetry 97 Oxygen Delivery Method 06/19/23 12:00 06/19/23 12:03 06/19/23 12:03 Temperature Pulse Rate 85 84 Respiratory Rate 18 16 Blood Pressure 97/52 L Pulse Oximetry 97 95 Oxygen Delivery Method 06/19/23 13:00 06/19/23 13:18 06/19/23 13:18 Temperature Pulse Rate 87 87 Respiratory Rate 27 H 18 Blood Pressure 80/57 L Pulse Oximetry 99 100 Oxygen Delivery Method 06/19/23 13:23 06/19/23 13:23 06/19/23 13:48 Temperature Pulse Rate 86 Respiratory Rate 14 Blood Pressure 84/51 L 83/52 L Pulse Oximetry 97 Oxygen Delivery Method 06/19/23 13:48 06/19/23 14:00 06/19/23 14:00 Temperature Pulse Rate 86 87 Respiratory Rate 16 18 Blood Pressure 86/54 L Pulse Oximetry 100 100 Oxygen Delivery Method Oxygen Delivery Method Nasal Cannula Oxygen Flow Rate 1 Narrative Exam Narrative: awake conversive NAD rate controlled symmetric chest rise no obvious rashes Objective Labs 06/19/23 05:00 06/19/23 05:00 Labs: Laboratory Results - last 24 hr 06/18/23 06/18/23 06/18/23 15:28 17:15 20:30 WBC 6.2 RBC 3.85 L Hgb 9.8 L Hct 29.7 L MCV 77.2 L MCH 25.5 L MCHC 33.0 RDW 13.3 Plt Count 199 Neut % (Auto) 95.8 H Lymph % (Auto) 2.4 L [place] % (Auto) 1.3 L Eos % (Auto) 0.4 L Baso % (Auto) 0.1 Neut # (Auto) 5900 Lymph # (Auto) 200 L [place] # (Auto) 100 Eos # (Auto) 0 Baso # (Auto) 0 Sodium 132 L D Potassium 4.2 Chloride 108 H Carbon Dioxide 18 L BUN 54 H Creatinine 2.16 H Estimated GFR 27 L BUN/Creatinine Ratio 25.0 H Glucose 83 Calcium 8.2 L Magnesium Total Bilirubin AST ALT Alkaline Phosphatase Total Protein Albumin Globulin Albumin/Globulin Ratio Free T4 1.38 Free T3 3.55 Urine Color Urine Appearance Urine pH Ur Specific [place] Urine Protein Urine Glucose (UA) Urine Ketones Urine Occult Blood Urine Nitrate Urine Bilirubin Urine Urobilinogen Ur Leukocyte Esterase Urine RBC Urine WBC Ur Squamous Epith Cells Urine Bacteria Ur Culture Indicated? Vol Urine Centrifuged CSF Tube Number 3 CSF Volume 3.0 ml CSF Appearance Clear CSF Color Colorless CSF WBC 1 CSF RBC 2 CSF Mononuclear WBCs TNP CSF Polynuclear WBCs TNP CSF Glucose 56 CSF Total Protein 46 CSF C.neoform/gat PCR Not detected CSF CMV DNA (PCR) Not detected CSF Enterovirus (PCR) Not detected CSF E. coli (PCR) Not detected CSF H. influenzae (PCR) Not detected CSF HSV I (PCR) Not detected CSF HSV II (PCR) Not detected CSF HHV 6 (PCR) Not detected CSF L.monocytogenes PCR Not detected CSF N. meningitidis PCR Not detected CSF Parechovirus (PCR) Not detected CSF S. agalactiae (PCR) Not detected CSF S. pneumoniae (PCR) Not detected CSF VZV (PCR) Not detected Nasal Screen MRSA (PCR) Not detected Chlamy pneumoniae PCR Adenovirus (PCR) B.parapertussis DNA PCR Coronavirus OC43 (PCR) Coronavirus HKU1 (PCR) Coronavirus 229E (PCR) SARS-CoV-2 (PCR) Coronavirus NL63 (PCR) Human Metapneumovir PCR Influenza Type A (PCR) Influenza Type B (PCR) M. pneumoniae (PCR) Parainfluenza 1 (PCR) Parainfluenza 2 (PCR) Parainfluenza 3 (PCR) Parainfluenza 4 (PCR) RSV (PCR) Entero/Rhino (PCR) 06/19/23 06/19/23 06/19/23 05:00 08:15 08:43 WBC 7.5 RBC 3.83 L Hgb 9.7 L Hct 29.1 L MCV 75.9 L MCH 25.4 L MCHC 33.4 RDW 13.2 Plt Count 173 Neut % (Auto) 95.7 H Lymph % (Auto) 2.3 L [place] % (Auto) 1.9 L Eos % (Auto) 0.0 L Baso % (Auto) 0.1 Neut # (Auto) 7200 H Lymph # (Auto) 200 L [place] # (Auto) 100 Eos # (Auto) 0 Baso # (Auto) 0 Sodium 129 L Potassium 4.7 Chloride 105 Carbon Dioxide 19 L BUN 44 H Creatinine 1.91 H Estimated GFR 31 L BUN/Creatinine Ratio 23.0 H Glucose 93 Calcium 7.9 L Magnesium 1.5 L Total Bilirubin 1.0 AST 92 H ALT 87 H Alkaline Phosphatase 119 Total Protein 5.7 L Albumin 3.3 L Globulin 2.4 Albumin/Globulin Ratio 1.4 Free T4 Free T3 Urine Color Yellow Urine Appearance Clear Urine pH 5.0 Ur Specific [place] 1.010 Urine Protein Negative Urine Glucose (UA) Negative Urine Ketones Negative Urine Occult Blood Trace-intact Urine Nitrate Negative Urine Bilirubin Negative Urine Urobilinogen 0.2 Ur Leukocyte Esterase Negative Urine RBC 0-1/hpf Urine WBC None seen Ur Squamous Epith Cells 0-1 /hpf Urine Bacteria None seen Ur Culture Indicated? Cult not indicated Vol Urine Centrifuged 10ml (spun) CSF Tube Number CSF Volume CSF Appearance CSF Color CSF WBC CSF RBC CSF Mononuclear WBCs CSF Polynuclear WBCs CSF Glucose CSF Total Protein CSF C.neoform/gat PCR CSF CMV DNA (PCR) CSF Enterovirus (PCR) CSF E. coli (PCR) CSF H. influenzae (PCR) CSF HSV I (PCR) CSF HSV II (PCR) CSF HHV 6 (PCR) CSF L.monocytogenes PCR CSF N. meningitidis PCR CSF Parechovirus (PCR) CSF S. agalactiae (PCR) CSF S. pneumoniae (PCR) CSF VZV (PCR) Nasal Screen MRSA (PCR) Chlamy pneumoniae PCR Not detected Adenovirus (PCR) Not detected B.parapertussis DNA PCR Not detected Coronavirus OC43 (PCR) Not detected Coronavirus HKU1 (PCR) Not detected Coronavirus 229E (PCR) Not detected SARS-CoV-2 (PCR) Not detected Coronavirus NL63 (PCR) Not detected Human Metapneumovir PCR Not detected Influenza Type A (PCR) Not detected Influenza Type B (PCR) Not detected M. pneumoniae (PCR) Not detected Parainfluenza 1 (PCR) Not detected Parainfluenza 2 (PCR) Not detected Parainfluenza 3 (PCR) Not detected Parainfluenza 4 (PCR) Not detected RSV (PCR) Not detected Entero/Rhino (PCR) Not detected Assessment & Plan Assessment & Plan narrative: gram postive bacteremia LISA ( ? pre-renal ) hyponatremia etoh abuse Sepsis ? dehydration unclear if this pt was having seizures or rigors given bacteremia. the source however does remain unclear. and I have ordered an echocardiogram. I do think her electrolyte and chemistry abnormalities were liekly from dehdration given the rapid improvement with IV fluid and decrease in BUN. eleavted LFt could be from chronic etoh abuse, and will order an abd us re further work this up f/u TTE supplemental o2 as needed she may need a burt CT to look for source of infectin adat trend bmp monitor UO f/u urine cx ( Ua was unimpressive so i dount this will yield anything) on mepiric abx dvt ppx total CCt 35 min
[2023-06-19 14:49] LABS: Acinetobacter calcoa-baumannii Not Detected (Not Detect); Bacteroides fragilis Not Detected (Not Detect); Candida albicans Not Detected (Not Detect); Candida auris Not Detected (Not Detect); Candida glabrata Not Detected (Not Detect); Candida krusei Not Detected (Not Detect); Candida parapsilosis Not Detected (Not Detect); Candida tropicalis Not Detected (Not Detect); Cryptococcus neoformans/gatti Not Detected (Not Detect); Enterobacter cloacae complex Not Detected (Not Detect); Enterobacterales Not Detected (Not Detect); Enterococcus faecalis Not Detected (Not Detect); Enterococcus faecium Not Detected (Not Detect); Haemophilus influenzae Not Detected (Not Detect); Klebsiella aerogenes Not Detected (Not Detect); Listeria monocytogenes Not Detected (Not Detect); Neisseria meningitidis Not Detected (Not Detect); Proteus species Not Detected (Not Detect); Pseudomonas aeruginosa Not Detected (Not Detect); Salmonella species Not Detected (Not Detect); Serratia marcescens Not Detected (Not Detect); Staphylococcus epidermidis Not Detected (Not Detect); Staphylococcus lugdunensis Not Detected (Not Detect); Staphylococcus species Detected (Not Detect); Stenotrophomonas maltophilia Not Detected (Not Detect); Streptococcus agalactiae (Gr B Not Detected (Not Detect); Streptococcus pneumonia Not Detected (Not Detect); Streptococcus pyogenes (Gr A) Not Detected (Not Detect); Streptococcus species Not Detected (Not Detect); mecA/C and MREJ (MRSA) Resista Not Detected (Not Detect)
[2023-06-19] MEDS: LORazepam 1 MG TABLET PO (16:15)
--- NOTE | 2023-06-19 20:34 | PM.ICURNDS ---
- :: This patient was seen via real time interactive two-way audiovisual telecommunication. pt TTE performed, no obvious vegitations to suggest endocarditis. will order a burt CT to asses, i will order a repeat bmp , if Cr is imrpoved w should do it with contrast.
[2023-06-19] MEDS: NORTRIPTYLINE HCL 25 MG CAPSULE 50 MG PO (21:33)
--- NOTE | 2023-06-19 22:11 | DI.RAD.S_ITS ---
PROCEDURE: XR CHEST FOR PICC 1V INDICATIONS: Piccline verification COMPARISON: [facility], KATRIN, XR CHEST 1V, 06/19/2023, 8:25. [facility], CR, XR CHEST 1V, 05/05/2023, 7:57. FINDINGS: PICC was placed by the intravenous therapy team from the left side. Fluoroscopic spot film demonstrates the tip of PICC projecting to the area of superior vena cava/cavoatrial junction. IMPRESSION: Tip of PICC projects to the area of superior vena cava/cavoatrial junction. Dictated by: Moses Ramachandran M.D. on 06/19/2023 at 22:36 Approved by: Moses Ramachandran M.D. on 06/19/2023 at 22:37
[2023-06-20] VITALS (37 sets, daily range): BP systolic 134–167; BP diastolic 73–126; PULSE 87–112; RESP 18–51; TEMP 36.2–36.9; O2SAT 90–100
--- NOTE | 2023-06-20 00:50 | PC.NURSE ---
[employer]) nurse arrived for PICC placement ordered by Dr. Saleem Vogt. The [facility] nurse informed this RN per their policy, provider approval is required to proceed with line placement d/t positive blood cultures. @2024 The answering services was contacted. @2039 Dr. Vogt verbalized to this RN, approval to proceed with PICC line placement in the presence of positive blood cultures.
[2023-06-20] MEDS: SODIUM CHLORIDE 0.9% 1,000 ML 125 ML IV (01:25)
[2023-06-20] MEDS: OXYCODONE IR 10 MG TABLET PO ×2 (04:16→20:33)
[2023-06-20 04:50] LABS: Add Manual Diff / Slide Review NO; Basophils Absolute Auto 0 /uL (0-100); Basophils Percent Auto 0.3 % (0-2); Eosinophils Absolute Auto 0 /uL (0-450); Eosinophils Percent Auto 0.2 % (2-4); Hematocrit 29.3 % (36-46); Hemoglobin 9.7 g/dL (12.0-16.0); Lymphocytes Absolute Auto 700 /uL (1100-4500); Lymphocytes Percent Auto 9.5 % (25-40); Mean Corpuscular HGB Conc 33.1 % (30-36); Mean Corpuscular Hemoglobin 25.3 PG (26-34); Mean Corpuscular Volume 76.3 fL (80-100); Monocytes Absolute Auto 400 /uL (0-900); Monocytes Percent Auto 5.5 % (3-14); Neutrophils Absolute Auto 6000 /uL (1500-7000); Neutrophils Percent Auto 84.5 % (50-75); Platelet Count 148 X10^3/uL (150-400); Red Blood Cell Count 3.84 X10^6/uL (4.0-5.2); Red Cell Distribution Width 13.9 % (11.6-14.8); White Blood Cell Count 7.1 X10^3/uL (4.5-11.0)
[2023-06-20 05:04] LABS: Alanine Aminotransferase 71 IU/L (<35); Albumin 3.6 g/dL (3.5-5.0); Albumin Globulin Ratio 1.4 (1.0-2.8); Alkaline Phosphatase 159 U/L (38-126); Aspartate Aminotransferase 53 IU/L (14-36); BUN Creatinine Ratio 19.6 (6-22); Bilirubin Total 0.6 mg/dL (0.2-1.3); Blood Urea Nitrogen 20 mg/dL (7-17); Calcium 8.6 mg/dL (8.4-10.2); Carbon Dioxide 18 mmol/L (22-32); Chloride 111 mmol/L (98-107); Estimated Glomerular Filt Rate > 60 mL/min (>60); Globulin 2.5 g/dL (1.7-4.1); Glucose 97 mg/dL (70-100); HEMOLYSIS < 15 (0-50); Potassium 4.2 mmol/L (3.4-5.1); Sodium 135 mmol/L (137-145); Total Protein 6.1 g/dL (6.3-8.2)
[2023-06-20] MEDS: cefTRIAXone 2,000 MG in SODIUM CHLORIDE 0.9% 100 ML 200 MG IV ×2 (06:05→18:04)
[2023-06-20] MEDS: LEVOTHYROXINE 125 MCG TABLET PO (06:06)
[2023-06-20] MEDS: cloNIDine 0.1 MG TABLET 0.3 MG PO ×2 (08:24→20:33)
[2023-06-20] MEDS: ENOXAPARIN 40 MG/0.4 ML SYRINGE SUBCUT (08:24)
[2023-06-20] MEDS: FLUoxetine 20 MG CAPSULE 40 MG PO ×2 (08:25→20:32)
[2023-06-20] MEDS: lamoTRIgine 100 MG TABLET 300 MG PO ×2 (08:25→20:32)
[2023-06-20] MEDS: METOPROLOL ER 25 MG TABLET PO (08:25)
--- NOTE | 2023-06-20 09:32 | DI.RAD.S_ITS ---
PROCEDURE: XR CHEST 1V INDICATIONS: SOB TECHNIQUE: One view of the chest was acquired. COMPARISON: Located Within [facility], CR, XR CHEST 1V, 06/19/2023, 8:25. Located Within [facility], CR, XR CHEST FOR PICC 1V, 06/19/2023, 22:15. FINDINGS: Surgical changes and devices: Left PICC with tip in the superior cavoatrial junction.. Lungs and pleura: Increased consolidation within the right mid lung. No pleural effusions or pneumothorax. Mediastinum: Mediastinal contours appear normal. Heart size is normal. Bones and chest wall: No suspicious bony lesions. Overlying soft tissues appear unremarkable. IMPRESSION: Increasing infiltrate within the right lung concerning for infection. Dictated by: Eder Borden M.D. on 06/20/2023 at 9:31 Approved by: Eder Borden M.D. on 06/20/2023 at 9:33
--- NOTE | 2023-06-20 09:47 | P.TELICUPN_ITS ---
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 pre-renal ) Hypovolemic hyponatremia etoh abuse Sepsis Plan Dc Iv fluid, check CXR Stop narcotics and hypnotics Hold off burt scan for source of baceteremia as repeated Cxs negative, no fever or leuckocytosis, may consider further work up if that changed On Ceftriaxone LISA & hyponatremia resolved dvt ppx total CCt 30 min Current Medications Current Medications Medications: Home Medications lisinopril 5 mg tablet 2.5 mg PO QDAY ##0 10/06/16 [History Confirmed 06/19/23] metoprolol succinate 25 mg tablet,extended release 24 hr (Toprol XL) 25 mg PO QDAY ##0 10/06/16 [History Confirmed 06/19/23] multivitamin (Multiple Vitamins tablet) 1 tab PO QDAY ##0 10/06/16 [History Confirmed 06/19/23] hydroxyzine HCl 25 mg tablet 25 mg PO BEDTIME 12/02/19 [History Confirmed 05/05/23] lamotrigine 25 mg tablet (Lamictal) 75 mg PO BID 12/02/19 [History Confirmed 05/05/23] clonidine HCl 0.3 mg tablet 0.3 mg PO BID 05/05/23 [History Confirmed 06/19/23] clotrimazole-betamethasone 1 %-0.05 % topical cream 1 applic topical PRN PRN Rash 05/05/23 [History Confirmed 06/19/23] fluoxetine 40 mg capsule 40 mg PO BID depressive disorder 05/05/23 [History Confirmed 06/19/23] furosemide 20 mg tablet 20 mg PO DAILY 05/05/23 [History Confirmed 06/19/23] levothyroxine 125 mcg tablet 125 mcg PO DAILY 05/05/23 [History Confirmed 06/19/23] nortriptyline 50 mg capsule 50 mg PO ONCE PM 05/05/23 [History Confirmed 06/19/23] diclofenac sodium 75 mg tablet,delayed release 75 mg PO BID PRN pain 06/19/23 [History Confirmed 06/19/23] hydroxyzine pamoate 50 mg capsule 50 mg PO 3XD 06/19/23 [History Confirmed 06/19/23] lamotrigine 100 mg tablet 300 mg PO BID 06/19/23 [History Confirmed 06/19/23] methocarbamol 750 mg tablet 750 mg PO BEDTIME 06/19/23 [History Confirmed 06/19/23] Visit Medications (administered) Generic Name Dose Route Start Last Admin Trade Name Keiq PRN Reason Stop Dose Admin Acetaminophen 650 mg 06/18/23 19:31 06/19/23 08:49 Acetaminophen 325 Mg Tablet PO 650 mg Q6H PRN Administration Fever/Mild Pain (1-3) Clonidine HCl 0.3 mg 06/19/23 09:00 06/20/23 08:24 Clonidine 0.1 Mg Tablet PO 0.3 mg BID JOSE L Administration Enoxaparin Sodium 40 mg 06/19/23 09:00 06/20/23 08:24 Enoxaparin 40 Mg/0.4 Ml Syringe SUBCUT 40 mg DAILY JOSE L Administration Fluoxetine HCl 40 mg 06/19/23 09:00 06/20/23 08:25 Fluoxetine 20 Mg Capsule PO 40 mg BID JOSE L Administration Ceftriaxone Sodium 2,000 mg/ 100 mls @ 200 mls/hr 06/19/23 18:00 06/20/23 06:05 Sodium Chloride IV 200 mls/hr Q12H JOS EL Administration Lamotrigine 300 mg 06/19/23 09:00 06/20/23 08:25 Lamotrigine 100 Mg Tablet PO 300 mg BID JOSE L Administration Levothyroxine Sodium 125 mcg 06/19/23 07:45 06/20/23 06:06 Levothyroxine 125 Mcg Tablet PO 125 mcg DAILY@0600 JOSE L Administration Lorazepam 1 mg 06/18/23 19:56 06/19/23 16:15 Lorazepam 1 Mg Tablet PO 1 mg BEDTIME PRN Administration Sleep Metoprolol Succinate 25 mg 06/19/23 09:00 06/20/23 08:25 Metoprolol Er 25 Mg Tablet PO 25 mg DAILY JOSE L Administration Oxycodone HCl 5 mg 06/18/23 19:31 06/19/23 08:34 Oxycodone Ir 5 Mg Tablet PO 5 mg Q3H PRN Administration Pain, Moderate (4-6) Oxycodone HCl 10 mg 06/18/23 19:31 06/20/23 04:16 Oxycodone Ir 10 Mg Tablet PO 10 mg Q3H PRN Administration Pain, Severe (7-10) Objective Labs 06/20/23 04:00 06/20/23 04:00 Labs: Laboratory Results - last 24 hr 06/19/23 06/19/23 06/20/23 02:35 05:00 04:00 WBC 7.1 RBC 3.84 L Hgb 9.7 L Hct 29.3 L MCV 76.3 L MCH 25.3 L MCHC 33.1 RDW 13.9 Plt Count 148 L Neut % (Auto) 84.5 H Lymph % (Auto) 9.5 L [place] % (Auto) 5.5 Eos % (Auto) 0.2 L Baso % (Auto) 0.3 Neut # (Auto) 6000 Lymph # (Auto) 700 L [place] # (Auto) 400 Eos # (Auto) 0 Baso # (Auto) 0 Sodium 135 L Potassium 4.2 Chloride 111 H Carbon Dioxide 18 L BUN 20 H Creatinine 1.02 Estimated GFR > 60 BUN/Creatinine Ratio 19.6 Glucose 97 Calcium 8.6 Magnesium 1.5 L Total Bilirubin 0.6 AST 53 H ALT 71 H Alkaline Phosphatase 159 H Total Protein 6.1 L Albumin 3.6 Globulin 2.5 Albumin/Globulin Ratio 1.4 A.calcoaceticus-baumannii cmplx PCR Not detected Bacteroides fragilis Not detected Karla albicans (PCR) Not detected Karla auris (PCR) Not detected C. glabrata (PCR) Not detected C. krusei (PCR) Not detected C. parapsilosis (PCR) Not detected C. tropicalis (PCR) Not detected C. neoform/gattii (PCR) Not detected Enterobacterales (PCR) Not detected E. cloacae complex PCR Not detected Enterococc faecalis PCR Not detected Enterococc faecium PCR Not detected E. coli (PCR) Not detected H. influenzae (PCR) Not detected Klebsiella aerogenes (PCR) Not detected Klebsiella oxytoca PCR Not detected Klebsiella pneumoniae Not detected List. monocytogenes PCR Not detected N. meningitidis (PCR) Not detected Proteus species (PCR) Not detected Salmonella spp. (PCR) Not detected Serratia marcescens PCR Not detected Staphylococcus sp PCR Detected Staph aureus (PCR) Detected mecA/C & MREJ Resist Gene Not detected mecA/C-Methicil Resis Gene Not applicable mcr-1 Colistin Res Gene PCR Not applicable Staph epidermidis (PCR) Not detected Staph lugdunensis PCR Not detected S. maltophilia (PCR) Not detected Streptococcus sp PCR Not detected Group A Strep (PCR) Not detected Strep agalactiae (PCR) Not detected Strep pneumoniae (PCR) Not detected P. aeruginosa (PCR) Not detected Fatoumata/B-Vanco Res Genes Not applicable blaIMP Car res Gene PCR Not applicable KPC-Carbap Res Gene PCR Not applicable blaNDM Car Res Gene PCR Not applicable OXA-48 Carbapenem Resis Gene (PCR) Not applicable blaVIM Car Res Gene PCR Not applicable CTX-M Gene Resistance (PCR) Not applicable Exam Vital Signs (past 8 hours): - 06/20/23 02:00 06/20/23 03:00 06/20/23 03:00 Temperature Pulse Rate 100 H 98 H Respiratory Rate 20 20 Blood Pressure Pulse Oximetry 93 94 Oxygen Delivery Method Nasal Cannula Oxygen Flow Rate 06/20/23 04:00 06/20/23 04:00 06/20/23 04:00 Temperature 98.0 F Pulse Rate 97 H Respiratory Rate 20 Blood Pressure 147/73 H Pulse Oximetry 93 93 Oxygen Delivery Method Oxygen Flow Rate 1 06/20/23 08:00 06/20/23 09:02 06/20/23 09:20 Temperature 98.4 F Pulse Rate 94 H 98 H Respiratory Rate 20 Blood Pressure 157/89 H 148/87 H Pulse Oximetry 94 Oxygen Delivery Method Nasal Cannula Oxygen Flow Rate 3 Fraction of Inspired Oxygen 24 SaO2/FiO2 Ratio 395 Oxygen Delivery Method Nasal Cannula Oxygen Flow Rate 3 Quality TeleICU VTE Deep Vein Thrombosis/Pulmonary Embolism Present on Admission: No
--- NOTE | 2023-06-20 09:47 | PM.PN.1 ---
Subjective Subjective Date Patient Seen: 06/20/23 Time Patient Seen: 11:55 Interval history: Patient seen as cross cover for Dr. Vogt. Supplemental O2 requirement increased to 3-4 L overnight. CXR this morning demonstrated increasing infiltrate within the right lung. Considered to be result of volume overload from aggressive IVF resuscitation, started on furosemide by tele-sleeve tailor. Sleeping comfortably with 2 daughters at bedside. Required oral Ativan for panic attack prior to my arrival. Daughter states patient does have severe anxiety managed with multiple medications, will review them when she goes home to provide us with a clear picture of what she typically takes. Daughter feels that her mother is overall improving compared to prior though not back at her baseline. She does seem to recognize where she is, her family members, and interact with them in her typical manner when she is awake. Exam Vital Signs (past 8 hours): - 06/20/23 02:00 06/20/23 03:00 06/20/23 03:00 Temperature Pulse Rate 100 H 98 H Respiratory Rate 20 20 Blood Pressure Pulse Oximetry 93 94 Oxygen Delivery Method Nasal Cannula Oxygen Flow Rate 06/20/23 04:00 06/20/23 04:00 06/20/23 04:00 Temperature 98.0 F Pulse Rate 97 H Respiratory Rate 20 Blood Pressure 147/73 H Pulse Oximetry 93 93 Oxygen Delivery Method Oxygen Flow Rate 1 06/20/23 08:00 06/20/23 09:02 06/20/23 09:20 Temperature 98.4 F Pulse Rate 94 H 98 H Respiratory Rate 20 Blood Pressure 157/89 H 148/87 H Pulse Oximetry 94 Oxygen Delivery Method Nasal Cannula Oxygen Flow Rate 3 Fraction of Inspired Oxygen 24 SaO2/FiO2 Ratio 395 Oxygen Delivery Method Nasal Cannula Oxygen Flow Rate 3 Narrative Exam Narrative: General: NAD HEENT:?NC/AT, EOMI, moist membranes CV: RRR, normal S1-S2, no m/g/r Resp: CTAB, comfortable WOB Abd: Soft, NTND, +BS Ext: No edema Skin: Dry and cracked on forearms and feet Neuro: Sleeping, oriented to self and place according to daughter Objective Imaging Chest x-ray: Radiologist's impression: Increasing infiltrate within the right lung concerning for infection. Dictated by: Eder Borden M.D. on 06/20/2023 at 9:31 Approved by: Eder Borden M.D. on 06/20/2023 at 9:33 Labs 06/20/23 04:00 06/20/23 04:00 Labs: Laboratory Results - last 24 hr 06/19/23 06/19/23 06/20/23 02:35 05:00 04:00 WBC 7.1 RBC 3.84 L Hgb 9.7 L Hct 29.3 L MCV 76.3 L MCH 25.3 L MCHC 33.1 RDW 13.9 Plt Count 148 L Neut % (Auto) 84.5 H Lymph % (Auto) 9.5 L [place] % (Auto) 5.5 Eos % (Auto) 0.2 L Baso % (Auto) 0.3 Neut # (Auto) 6000 Lymph # (Auto) 700 L [place] # (Auto) 400 Eos # (Auto) 0 Baso # (Auto) 0 Sodium 135 L Potassium 4.2 Chloride 111 H Carbon Dioxide 18 L BUN 20 H Creatinine 1.02 Estimated GFR > 60 BUN/Creatinine Ratio 19.6 Glucose 97 Calcium 8.6 Magnesium 1.5 L Total Bilirubin 0.6 AST 53 H ALT 71 H Alkaline Phosphatase 159 H Total Protein 6.1 L Albumin 3.6 Globulin 2.5 Albumin/Globulin Ratio 1.4 A.calcoaceticus-baumannii cmplx PCR Not detected Bacteroides fragilis Not detected Karla albicans (PCR) Not detected Karla auris (PCR) Not detected C. glabrata (PCR) Not detected C. krusei (PCR) Not detected C. parapsilosis (PCR) Not detected C. tropicalis (PCR) Not detected C. neoform/gattii (PCR) Not detected Enterobacterales (PCR) Not detected E. cloacae complex PCR Not detected Enterococc faecalis PCR Not detected Enterococc faecium PCR Not detected E. coli (PCR) Not detected H. influenzae (PCR) Not detected Klebsiella aerogenes (PCR) Not detected Klebsiella oxytoca PCR Not detected Klebsiella pneumoniae Not detected List. monocytogenes PCR Not detected N. meningitidis (PCR) Not detected Proteus species (PCR) Not detected Salmonella spp. (PCR) Not detected Serratia marcescens PCR Not detected Staphylococcus sp PCR Detected Staph aureus (PCR) Detected mecA/C & MREJ Resist Gene Not detected mecA/C-Methicil Resis Gene Not applicable mcr-1 Colistin Res Gene PCR Not applicable Staph epidermidis (PCR) Not detected Staph lugdunensis PCR Not detected S. maltophilia (PCR) Not detected Streptococcus sp PCR Not detected Group A Strep (PCR) Not detected Strep agalactiae (PCR) Not detected Strep pneumoniae (PCR) Not detected P. aeruginosa (PCR) Not detected Fatoumata/B-Vanco Res Genes Not applicable blaIMP Car res Gene PCR Not applicable KPC-Carbap Res Gene PCR Not applicable blaNDM Car Res Gene PCR Not applicable OXA-48 Carbapenem Resis Gene (PCR) Not applicable blaVIM Car Res Gene PCR Not applicable CTX-M Gene Resistance (PCR) Not applicable PFSH Medical History TIA (transient ischemic attack) Cardiac arrest Social History household members: significant other, family and children Smoking Status: Never smoker alcohol intake: current substance use type: does not use Assessment & Plan Assessment and plan (1) Gram-positive cocci bacteremia: Status: Acute (2) Pulmonary edema: Qualifiers: Chronicity: acute Qualified Code(s): J81.0 - Acute pulmonary edema Status: Acute (3) Hypoxia: Status: Acute (4) Acute intractable headache: Qualifiers: Headache type: unspecified Qualified Code(s): R51.9 - Headache, unspecified Status: Acute (5) Hyponatremia: Status: Acute (6) Acute kidney injury: Status: Acute (7) Microcytic anemia: Status: Acute (8) Bipolar 1 disorder: Status: Acute (9) CAD (coronary artery disease): Qualifiers: Associated angina: without angina Coronary Disease-Associated Artery/Lesion type: [place] artery [place] vs. transplanted heart: [place] heart Qualified Code(s): I25.10 - Atherosclerotic heart disease of [place] coronary artery without angina pectoris Status: Acute (10) Hypothyroidism: Qualifiers: Hypothyroidism type: unspecified Qualified Code(s): E03.9 - Hypothyroidism, unspecified Status: Acute Assessment & Plan narrative: 52-year-old female with history of alcohol abuse (in remission), cardiac arrest (ICD in place), depression, bipolar disorder admitted for seizure-like activity with fever in setting of severe headache that was unresponsive to analgesia. #Sepsis due to #Gram-positive bacteremia Admitted with fever meeting sepsis criteria. Afebrile since 0500 on 06/18. Headache c/f for possible meningitis, but LP w/o significant abnormality. 1/2 blood cultures growing Gram-positive cocci, further speciation and sensitivities pending. Respiratory viral panel unremarkable. There was some consideration by sleeve tailor for burt scan to identify source of fever, however repeat cultures from 06/18 negative thus far and patient without fever or leukocytosis. May consider further workup if that changes. -vancomycin (06/17- ) and ceftriaxone (06/18- ), s/p pip-tazo (06/17-06/18) -F/up Bcx, Ucx #Pulmonary edema #Hypoxia CXR with new infiltrate in right lung, likely due to aggressive IVF resuscitation in ED for hypotension. Low suspicion for infectious cause given normal WBC on broad-spectrum abx. Has already put out 1 L urine after dose of IV Lasix. -furosemide 20 mg IV x2 -stable on 3 L NC, wean as tolerated #Headache #Hx EToH abuse #Hx substance abuse Severe, unclear etiology. CT scan showed no abnormalities, LP unremarkable. Unable to get MRI 2/[address] MSK is possible cause but will have to monitor cultures. Consider EtOH withdrawal as well. Daughters do express concern about avoiding unnecessary narcotic use given patient's history of substance abuse. -narcotics and hypnotics dc'd by sleeve tailor to minimize medication interference with normal cognition. -f/up Bcx #Hyponatremia Resolved. Unclear cause. Could be pulmonary could be central. #LISA Resolved. Likely 2/2 dehydration. -f/up Ucx #Anemia Stable. Likely acute dilutional process from fluid resuscitation superimposed on chronic iron deficiency given microcytosis. -trend CBC -iron studies #Anxiety/Bipolar Severe, according to family. Required IV lorazepam x1 today for panic attack. -scheduled fluoxetine, lamotrigine, clonidine -lorazepam 1 mg q.h.s. as needed #CAD -home metoprolol #Hypothyroid -home levothyroxine Diet: Heart healthy DVT ppx: Lovenox Code: FULL PCP: Sin Dispo: Unclear, likely at least 3-4 days from now Time Spent With Patient Time with patient: 30 to 49 minutes with 50% spent counseling/coordinating care Quality VTE Deep Vein Thrombosis/Pulmonary Embolism Present on Admission: No IH PROFEE Charge codes Critical Care: 11128
[2023-06-20] MEDS: FUROSEMIDE 20 MG/2 ML VIAL IV (10:33)
[2023-06-20] MEDS: LORazepam 1 MG TABLET PO (11:51)
--- NOTE | 2023-06-20 12:59 | CM.DPC ---
DCP Cont. Reviewed EMR and team rounds for status updates. Per Dr. Bui, pt will need another 2-days for continued IV ABO's and diuresis. Once medically cleared she will d/c home w/family assistance.
[2023-06-20] MEDS: FUROSEMIDE 40 MG/4 ML VIAL 20 MG IV (14:51)
[2023-06-20] MEDS: VANCOMYCIN 1,250 MG/250 ML PIGGYBACK 250 MG IV (14:51)
[2023-06-20] MEDS: OXYCODONE IR 5 MG TABLET PO (15:46)
[2023-06-20] MEDS: ACETAMINOPHEN 325 MG TABLET 650 MG PO (15:47)
--- NOTE | 2023-06-20 17:18 | PC.NURSE ---
Patient anxious, tearful, and crying intermittently throughout shift. Complaints of 10/10 pain in upper left shoulder / neck region persists during times of extreme anxiety. Patient continues to be A/Ox4 while awake, but falls asleep very easily. Responded very well and very quickly to IV furosemide. Ambulates 1PA w/ front wheeled walker. Sat in chair for roughly 2.5 hours around lunchtime. SOB on exertion improved after diuresis. Currently 97% on 3L NC, improved from low 90's earlier in the shift on 3L.
--- NOTE | 2023-06-20 20:13 | P.ICUMDRN_ITS ---
- Date Patient Seen: 06/20/23 :: This patient was seen via real time interactive two-way audiovisual telecommunic ation. Note: Camera down and unable to visualize patient. Patient remains off pressor and on 3 liters NC. Blood cx + GPC 1/2 bottle. On ceftriaxone/vancomcyin. Cont to monitor closely. D/w bedside RN.
[2023-06-21] VITALS (31 sets, daily range): BP systolic 143–194; BP diastolic 79–101; PULSE 83–118; RESP 17–28; TEMP 36.6–37.4; O2SAT 81–99
[2023-06-21] MEDS: OXYCODONE IR 10 MG TABLET PO ×2 (00:35→04:21)
[2023-06-21] MEDS: VANCOMYCIN 1,250 MG/250 ML PIGGYBACK 250 MG IV (01:12)
[2023-06-21] MEDS: LORazepam 2 MG/ML INJ 1 MG IV (04:14)
[2023-06-21 04:54] LABS: Add Manual Diff / Slide Review NO; Basophils Absolute Auto 100 /uL (0-100); Basophils Percent Auto 0.6 % (0-2); Eosinophils Absolute Auto 100 /uL (0-450); Eosinophils Percent Auto 0.9 % (2-4); Hematocrit 28.7 % (36-46); Hemoglobin 9.7 g/dL (12.0-16.0); Lymphocytes Absolute Auto 1400 /uL (1100-4500); Mean Corpuscular HGB Conc 33.7 % (30-36); Mean Corpuscular Hemoglobin 25.4 PG (26-34); Mean Corpuscular Volume 75.3 fL (80-100); Monocytes Absolute Auto 500 /uL (0-900); Monocytes Percent Auto 6.4 % (3-14); Neutrophils Absolute Auto 6600 /uL (1500-7000); Neutrophils Percent Auto 76.1 % (50-75); Platelet Count 166 X10^3/uL (150-400); Red Blood Cell Count 3.81 X10^6/uL (4.0-5.2); Red Cell Distribution Width 13.6 % (11.6-14.8); White Blood Cell Count 8.6 X10^3/uL (4.5-11.0)
[2023-06-21 05:11] LABS: Alanine Aminotransferase 56 IU/L (<35); Albumin 3.7 g/dL (3.5-5.0); Albumin Globulin Ratio 1.4 (1.0-2.8); Alkaline Phosphatase 196 U/L (38-126); Aspartate Aminotransferase 35 IU/L (14-36); Bilirubin Total 0.5 mg/dL (0.2-1.3); Blood Urea Nitrogen 18 mg/dL (7-17); Carbon Dioxide 22 mmol/L (22-32); Chloride 106 mmol/L (98-107); Estimated Glomerular Filt Rate > 60 mL/min (>60); Globulin 2.7 g/dL (1.7-4.1); Glucose 102 mg/dL (70-100); HEMOLYSIS < 15 (0-50); Sodium 133 mmol/L (137-145); Total Protein 6.4 g/dL (6.3-8.2)
[2023-06-21 05:25] LABS: HEMOLYSIS 17 (0-50); Iron 33 ug/dL (37-170)
[2023-06-21 05:35] LABS: Percent Iron Saturation 16 % (15-50); Total Iron Binding Capacity 210 ug/dL (265-497); Transferrin 162 mg/dL (206-381)
[2023-06-21] MEDS: cefTRIAXone 2,000 MG in SODIUM CHLORIDE 0.9% 100 ML 200 MG IV (06:19)
[2023-06-21] MEDS: FLUoxetine 20 MG CAPSULE 40 MG PO ×2 (08:20→20:48)
[2023-06-21] MEDS: cloNIDine 0.1 MG TABLET 0.3 MG PO ×2 (08:21→20:48)
[2023-06-21] MEDS: LEVOTHYROXINE 125 MCG TABLET PO (08:21)
[2023-06-21] MEDS: lamoTRIgine 100 MG TABLET 300 MG PO ×2 (08:21→20:47)
[2023-06-21] MEDS: METOPROLOL ER 25 MG TABLET PO (08:21)
[2023-06-21] MEDS: ENOXAPARIN 40 MG/0.4 ML SYRINGE SUBCUT (08:22)
--- NOTE | 2023-06-21 09:33 | CM.DPC ---
Addendum entered by CHARLES Talamantes 06/21/23 12:04: ADD: SW spoke to MD rounding this weekend and pt continues to wax and wane in her progress and abilities and some changes to medication to reduce IV Ativan to see if improves pt's alertness and mobility. Still on 2LO2. PT, home vs SNF pending progress as currently 2PA today. OT ordered and pending. Pt's [place] HO would be a potential barrier to SNF rehab as they tend to reimburse poorly for rehab. BF Original Note: DCP Cont: Per MD, pt still getting IV-Abx and labs seem to be improving but pt remains on oxygen and not yet medically stable to discharge. SW met bedside with pt who was sitting in bedside chair and able to participate some in discussion but drifting off to sleep and her spouse and explained role. Spouse confirms that pt does not have home oxygen at baseline and does not use DME for ambulation and is quite independent at baseline as she takes care of the 3 grandkids at home and drives and ambulates independently and manages her own ADLs independently. Spouse states he works but has submitted for FMLA through his job as he anticipates he will need some time off to assist pt at discharge. Dtr also works but is changing jobs and might have some time off to assist before starting her new job. Preference is pt to discharge home with family at d/c and spouse denies any hx of HH or SNF. Pt below baseline for mobility and needing assist and FWW at this time and could benefit from PT eval and recommendations. PT ordered and pending. Plan: SW to follow closely for PT eval and recommendations to confirm d/c home with family assist and r/o HH and any further identified discharge planning needs. CHARLES Talamantes
--- NOTE | 2023-06-21 10:24 | P.PN_ITS ---
Subjective Subjective Date Patient Seen: 06/21/23 Time Patient Seen: 11:15 Interval history: Patient resting in chair at bedside accompanied by her . She is intermittently communicative but only in brief sentences. Mumbles, not always clear in terms of what she is saying. and nursing staff report that she was quite lucid yesterday afternoon, essentially back at her baseline in terms of conversing normally with family members, laughing, able to ambulate to restroom by herself. She got another dose of lorazepam IV last night for anxiety/panic and since then has been in a more disoriented and emotional state. Additional information regarding typical home medications reviewed. Patient reportedly takes nortriptyline 50 mg at night and hydroxyzine 2-3 times daily as needed, presumably for anxiety. Exam Vital Signs (past 8 hours): - 06/21/23 03:00 06/21/23 04:00 06/21/23 04:24 Temperature Pulse Rate 96 H 92 H Respiratory Rate 28 H 25 H Blood Pressure 180/94 H Pulse Oximetry 94 95 Oxygen Delivery Method Oxygen Flow Rate 06/21/23 04:24 06/21/23 04:30 06/21/23 05:00 Temperature 97.9 F Pulse Rate 99 H 94 H Respiratory Rate 23 24 Blood Pressure 194/84 H Pulse Oximetry 94 99 Oxygen Delivery Method Nasal Cannula Oxygen Flow Rate 0 06/21/23 05:00 06/21/23 05:02 06/21/23 05:02 Temperature Pulse Rate 99 H 101 H Respiratory Rate 25 H 27 H Blood Pressure 160/92 H Pulse Oximetry 97 94 Oxygen Delivery Method Oxygen Flow Rate 06/21/23 06:00 06/21/23 07:00 06/21/23 09:13 Temperature Pulse Rate 100 H 98 H Respiratory Rate 21 25 H Blood Pressure Pulse Oximetry 96 94 Oxygen Delivery Method Nasal Cannula Oxygen Flow Rate Fraction of Inspired Oxygen 24 SaO2/FiO2 Ratio 395 Oxygen Delivery Method Nasal Cannula Oxygen Flow Rate 0 Narrative Exam Narrative: General: NAD HEENT:?NC/AT, TTP left occiput/splenius capitis region, EOMI, moist membranes CV: RRR, normal S1-S2, no m/g/r Resp: CTAB, comfortable WOB Abd: Soft, NTND, +BS Ext: No edema Skin: Dry and cracked on forearms and feet Neuro: Intermittently alert; oriented to self, place, and time; moves all extremities, no focal deficits Psych: Occasionally tearful, fearful of abandonment by family Objective Labs 06/21/23 04:30 06/21/23 04:30 Labs: Laboratory Results - last 24 hr 06/21/23 04:30 WBC 8.6 RBC 3.81 L Hgb 9.7 L Hct 28.7 L MCV 75.3 L MCH 25.4 L MCHC 33.7 RDW 13.6 Plt Count 166 Neut % (Auto) 76.1 H Lymph % (Auto) 16.0 L [place] % (Auto) 6.4 Eos % (Auto) 0.9 L Baso % (Auto) 0.6 Neut # (Auto) 6600 Lymph # (Auto) 1400 [place] # (Auto) 500 Eos # (Auto) 100 Baso # (Auto) 100 Sodium 133 L Potassium 4.0 Chloride 106 Carbon Dioxide 22 BUN 18 H Creatinine 0.82 Estimated GFR > 60 BUN/Creatinine Ratio 22.0 Glucose 102 H Calcium 9.0 Iron 33 L TIBC 210 L % Saturation 16 Transferrin 162 L Total Bilirubin 0.5 AST 35 ALT 56 H Alkaline Phosphatase 196 H Total Protein 6.4 Albumin 3.7 Globulin 2.7 Albumin/Globulin Ratio 1.4 PFSH Medical History TIA (transient ischemic attack) Cardiac arrest Social History household members: significant other, family and children Smoking Status: Never smoker alcohol intake: current substance use type: does not use Assessment & Plan Assessment and plan (1) Gram-positive cocci bacteremia: Status: Acute (2) Acute intractable headache: Qualifiers: Headache type: unspecified Qualified Code(s): R51.9 - Headache, unspecified Status: Acute (3) Altered mental status: Qualifiers: Altered mental status type: disorientation Qualified Code(s): R41.0 - Disorientation, unspecified Status: Acute (4) Bipolar 1 disorder: Status: Acute (5) Pulmonary edema: Qualifiers: Chronicity: acute Qualified Code(s): J81.0 - Acute pulmonary edema Status: Acute (6) Hypoxia: Status: Acute (7) Hyponatremia: Status: Acute (8) Acute kidney injury: Status: Acute (9) Microcytic anemia: Status: Acute (10) CAD (coronary artery disease): Qualifiers: Associated angina: without angina Coronary Disease-Associated Artery/Lesion type: [place] artery [place] vs. transplanted heart: [place] heart Qualified Code(s): I25.10 - Atherosclerotic heart disease of [place] coronary artery without angina pectoris Status: Acute (11) Hypothyroidism: Qualifiers: Hypothyroidism type: unspecified Qualified Code(s): E03.9 - Hypothyroidism, unspecified Status: Acute Assessment & Plan narrative: 52-year-old female with history of alcohol abuse (in remission), cardiac arrest (ICD in place), depression, bipolar disorder admitted for seizure-like activity with fever in setting of severe headache that was unresponsive to analgesia. #Sepsis due to #Gram-positive bacteremia Admitted with fever meeting sepsis criteria. Afebrile since 0500 on 06/18. Headache c/f for possible meningitis, but LP w/o significant abnormality. 1/2 blood cultures from 06/18 growing burt sensitive Staph aureus. Respiratory viral panel unremarkable, urine culture with no growth. There was some consideration by plasterer stucco for burt scan to identify source of fever, however repeat cultures from 06/18 negative thus far and patient without fever or leukocytosis. No obvious source of infection, may be contaminant given only 1/4 cultures positive thus far. -start amoxicillin clavulanate b.i.d. (06/20- ), s/p pip-tazo (06/17-) vancomycin (06/17-) ceftriaxone (06/18-) -06/18 repeat Bcx NGTD #Headache #Hx EToH abuse #Hx substance abuse Severe, unclear etiology. CT scan showed no abnormalities, LP unremarkable. Unable to get MRI 2/[address] MSK is possible cause but will have to monitor cultures. Unlikely EtOH withdrawal, last consumed 2 weeks ago per and outside window at this point. Family does express concern about avoiding unnecessary narcotic use given patient's history of substance abuse. -hold narcotics and hypnotics to minimize medication interference with normal cognition -trial of sumatriptan for possible migraine -could consider trial of muscle relaxer with some hesitation given potential effect on mental status #Anxiety/Bipolar #Confusion/Disorientation Severe, according to family. Required IV lorazepam x1 yesterday and again last night for anxiety/panic. -home fluoxetine, lamotrigine, clonidine -restart home nortriptyline 50mg qhs -hydroxyzine 50mg TID prn -hold lorazepam given possible effect on mental status #Pulmonary edema #Hypoxia 06/19 CXR with new infiltrate in right lung, likely due to aggressive IVF resuscitation in ED for hypotension. Low suspicion for infectious cause given normal WBC on broad-spectrum abx. Has vacillated between room air and 2-3 L supplemental O2. Diuresed 5 L total yesterday, however still 3 L positive since admission. -furosemide 20 mg IV -supplemental O2 prn #Hyponatremia Resolved. Unclear cause, pulmonary vs central. #LISA Resolved. Likely 2/2 dehydration. -06/18 Ucx NGTD #Anemia Stable. Likely acute dilutional process from fluid resuscitation superimposed on chronic iron deficiency given microcytosis. Iron profile results suspicious for iron deficiency. However, TIBC and transferrin also low so may have component of inflammatory anemia. -trend CBC #CAD #HTN -home metoprolol, lisinopril #Hypothyroid -home levothyroxine Diet: Heart healthy DVT ppx: Lovenox Code: FULL PCP: Sin Dispo: Potentially home with HH, likely at least 2-3 days from now Time Spent With Patient Time with patient: 30 to 49 minutes with 50% spent counseling/coordinating care Quality VTE Deep Vein Thrombosis/Pulmonary Embolism Present on Admission: No IH PROFEE Charge codes Subsequent inpatient/observation care: 10544
--- NOTE | 2023-06-21 11:50 | PT.IIE ---
Current Diagnoses Iron deficiency anemia, unspecified (06/18/23) Hypothyroidism, unspecified (06/18/23) Hypo-osmolality and hyponatremia (06/18/23) Bipolar disorder, unspecified (06/18/23) Atherosclerotic heart disease of [place] coronary artery without angina pectoris (06/18/23) Hypotension, unspecified (06/18/23) Acute pulmonary edema (06/18/23) Acute kidney failure, unspecified (06/18/23) Hypoxemia (06/18/23) Headache, unspecified (06/18/23) Bacteremia (06/18/23) Medical History (Last Reviewed 06/19/23 @ 08:20 by Saleem Vogt MD) Cardiac arrest TIA (transient ischemic attack) Physical Therapy Inpatient Evaluation/Re-Eval M1 PT/OT-IP Prior Functional Status Start: 06/21/23 10:12 Freq: NEEDED Status: Active Protocol: Document 06/21/23 11:12 MB (Rec: 06/21/23 11:50 MB [id number]) Medical Review Prior Functional Status Medical History Reviewed Yes Diet/Fluid Consistency Regular Communication WNLs at baseline Mobility and Gait I Activities of Daily Living and IADL's I, no AD and cares for her grand children at baseline Social History Household Members significant other,family, children Living Arrangements Mobile home Number of Floors (Floors) One Floor Number of Stairs To Enter/Railing? No steps to enter Home Environment Standard Height Toilet Additional Social History Comment No ADs, looks after grand children, drives M2 PT-IP Current Condition Start: 06/21/23 10:12 Freq: NEEDED Status: Active Protocol: Document 06/21/23 11:12 MB (Rec: 06/21/23 11:50 MB [id number]) Physical Therapy Current Condition Current Condition Evaluation Date 06/21/23 Treatment Diagnosis ? seizure, posterior neck pain /tightness and TENA M3 PT-IP Subjective Start: 06/21/23 10:12 Freq: NEEDED Status: Active Protocol: Document 06/21/23 11:12 MB (Rec: 06/21/23 11:50 MB [id number]) Subjective Physical Therapy Visit Type Type Initial Evaluation Visit Start Time 11:12 Visit Stop Time 11:39 Number of SANIPRACTIC PHYSICIAN Visits 0 Physical Therapy Visit Comments Patient Comments Pt groggy and tearful once awakened, c/o posterior neck stiffness and TENA Therapy Pain Assessment Pain When Pain Assessed At Rest Pain Present Pain Present Pain Reported Location Neck Intensity 6 Scale Used Lr-Carter (Faces) Pain Management Techniques Distraction,Modification of Treatment,Re-positioning Head Intensity 6 Scale Used Lr-Carter (Faces) Pain Management Techniques Distraction,Modification of Treatment,Re-positioning M4 PT-IP Mobility and Gait Start: 06/21/23 10:12 Freq: NEEDED Status: Active Protocol: Document 06/21/23 11:12 MB (Rec: 06/21/23 11:50 MB [id number]) PT-Bed Mobility Assessment Supine to Sit Supine to Sit Contact Guard Assistance,1 Person Assistance,Head of Bed Elevated,Bedrails Scooting Scooting Up and Down in Bed Contact Guard Assistance PT-Transfer Assessment Sit to and From Stand Sit to and from Stand Minimal Assistance,1 Person Assistance,Use of Upper Extremities Equipment Transfer Assistive Device Gait Belt,Front Wheeled Walker Orthotic/Prosthetic Devices or Brace: No Transfers Transfer Destination Chair Transfer Technique Stepping Transfer Ability Level of Assist Moderate Assistance,1 Person Assistance,Use of Upper Extremities Comments Mobility Comments PT must move walker for pt and pt is trembling in LEs with mobility. O2 sats on 2L at rest are 96% and with O2 doffed sitting EOB, sats decrease to the low 80s. Re- donned and O2 sats in the low 90s and drop to high 80s on 2L with minimal mobility. Only SOB once up in chair, pt is a mouth breather, is anxious and tearful and this does not allow nose breathing but she does nasal breathe when cued. O2 sats around 105 BPM with mobility Gait Assessment Gait Gait Assistance Required: Moderate Assistance Distance (Feet) 1 Able to Maintain Weight Bearing Status Yes During Gait Assistive Devices Assistive Device Gait Belt,Front Wheeled Walker Orthotic/Prosthetic Devices or Brace: No Gait Deviations General Gait Pattern Ataxic,Decreased Stride Length ,Decreased Feet Clearance,Wide Based Gait Factors Limiting Gait Function Factors Limiting Gait Function Abnormal Tonal Influences, Decreased Activity Tolerance, Difficulty Following Directions,Incoordination,Pain ,Poor Balance,Poor Safety Awareness Comments Gait Comments Pt tearful and hypoverbal with mobility PT-Balance Assessment Sitting Balance and Reactions Static Sitting Balance Ability Fair Dynamic Sitting Balance Ability Fair Standing Balance and Reactions Static Standing Balance Ability Fair Dynamic Standing Balance Ability Fair Device Used RW M5 PT-IP Objective Assessments Start: 06/21/23 10:12 Freq: NEEDED Status: Active Protocol: Document 06/21/23 11:12 MB (Rec: 06/21/23 11:50 MB [id number]) Orientation Orientation/Cognition Level of Alertness Confusional State Orientation Name,Age,Birthday,Month Safety Awareness Decreased Safety Awareness Comments Recommend OT cognitive test Gross Range of Motion Upper Extremity ROM Impairments Functionally assessed only today and no deficits noted Lower Extremity ROM Impairments As above Strength Comments Strength Comments Pt cannot follow formal ROM or MMT commands and she has trembling in legs with WB, transfer and stepping M6 PT-IP Treatment Start: 06/21/23 10:12 Freq: NEEDED Status: Active Protocol: Document 06/21/23 11:12 MB (Rec: 06/21/23 11:50 MB [id number]) Physical Therapy Treatment Education Education Provided Safety M7 PT-IP Assessment and Plan Start: 06/21/23 10:12 Freq: NEEDED Status: Active Protocol: Document 06/21/23 11:12 MB (Rec: 06/21/23 11:50 MB [id number]) PT Summary Assessment and Plan Potential Rehabilitation Potential Fair Status of Condition at Evaluation Evolving Summary Impairments Pain,ROM,Strength,Balance, Cognition,Bed Mobility, Transfers,Gait,Activity Tolerance Progress Towards Goals Slow Progress due to Activity Tolerance Assessment Summary Pt is a 52 y/o female presenting with tearfulness and reports of TENA and posterior neck stiffness and she is hook lying with poor cervical support upon arrival. Significant other and daughter nearby upon arrival and they do report she c/o TENA in the a.m. and PT provides education about proper pillow support in side lying to help with neck support and benefits of follow-up with PCP about possible sleep apnea testing given her complaints and her grogginess and pain in the a.m . in the hospital and nsg reports that she is much better in the afternoons. Pt has desaturation with mobility and requires 2L O2 and she con't to mouth breathe with mobility and sats decrease to the high 80s. Pt has confusion and is slow to move and has shaking in legs with standing. She will benefit from acute and post-acute PT and assistance for mobility, recommend OT consult. Goals Bed Mobility Goal Independent Transfer Goal Independent,Front Wheeled Walker Gait Goal Independent,Front Wheel Walker Gait Distance 100 Other Goals Increase gait distance and try with cane or no AD as able d/ t I at baseline. Days to Meet Goals 5 Frequency of Treatment Frequency Of Treatment Once a Day Treatment Plan Physical Therapy Treatment Plan Bed Mobility Training,Transfer Training,Gait Training, Therapeutic Exercise,Balance Retraining,Discharge Planning, Hot or Cold Pack,Neuromuscular Re-ed,Coordination Retraining ,Manual Therapy Weight Bearing Status Weight Bearing Status Weight Bear as Tolerated Recommendations To Nursing Amount of Assist Needed 2 Person Assist Discharge Recommendations PT Discharge Recommendations Home vs SNF Other Discharge Recommendations OT consult Transportation Needs at Discharge Private Vehicle,Wheelchair/ Cabulance
[2023-06-21] MEDS: lisinopriL 10 MG TABLET PO (12:36)
[2023-06-21] MEDS: hydrOXYzine HCL 25 MG TABLET 50 MG PO ×2 (14:09→20:48)
[2023-06-21] MEDS: ACETAMINOPHEN 325 MG TABLET 650 MG PO ×2 (14:10→18:54)
[2023-06-21] MEDS: SUMAtriptan 25 MG TABLET 50 MG PO ×2 (14:39→20:47)
[2023-06-21] MEDS: FUROSEMIDE 20 MG/2 ML VIAL IV (14:39)
[2023-06-21] MEDS: AMOXICILLIN/CLAV 875/125 MG 1 TAB PO ×2 (14:39→20:48)
[2023-06-21] MEDS: ONDANSETRON 4 MG/2 ML INJ IV (16:09)
[2023-06-21] MEDS: NORTRIPTYLINE HCL 25 MG CAPSULE 50 MG PO (20:48)
[2023-06-21] MEDS: methocarbamoL 500 MG TABLET 750 MG PO (22:54)
--- NOTE | 2023-06-21 23:03 | PC.NURSE ---
pt crying and c/o stabbing, cramping pain to neck and shoulders; she takes methocarbamol 750mg at bedtime at home; paged Dr Bui and notified him of situation; med ordered and given to pt, along with a warm blanket to place on her neck and shoulders
[2023-06-22] VITALS (37 sets, daily range): BP systolic 132–172; BP diastolic 71–97; PULSE 81–114; RESP 16–44; TEMP 36.8–37; O2SAT 79–99
[2023-06-22] MEDS: ACETAMINOPHEN 325 MG TABLET 650 MG PO ×4 (00:26→20:10)
[2023-06-22] MEDS: LEVOTHYROXINE 125 MCG TABLET PO (05:44)
--- NOTE | 2023-06-22 06:43 | PC.NURSE ---
pt has had a very restless night; she has not slept well and has been tearful off and on, stating I can't keep doing this; she is impulsive and repeatedly attempts to get up without calling; SO at bedside and bed alarm on; she appears somewhat calmer this morning
--- NOTE | 2023-06-22 08:11 | DI.US.S_ITS ---
PROCEDURE: US ABDOMEN COMPLETE INDICATIONS: ELEVATED ALK PHOS TECHNIQUE: Real-time scanning was performed of the abdominal and retroperitoneal organs, with image documentation. COMPARISON: [facility], , US ABDOMEN LIMITED, 08/06/2021, 6:39. FINDINGS: Liver: There is hepatomegaly. Liver measures 20.5 cm in length. Normal liver parenchymal echotexture is noted. No discrete hepatic lesion. Gallbladder: There is no gallstones. No gallbladder wall thickening or pericholecystic fluid. No sonographic De La Torre's sign. Biliary ducts: Intrahepatic bile ducts are non-dilated. Extrahepatic bile duct caliber measures 5.6 mm. Normal is 6-7 mm or less in diameter, or 10 mm or less post-cholecystectomy. Pancreas: Visualized portions of the pancreas are sonographically normal. Spleen: Spleen is normal in size and echotexture. Bilateral kidneys: Right kidney measures 11.3 cm in length. Left kidney measures 10.4 cm in length. There is no hydronephrosis. No solid appearing renal lesion. Abdominal aorta is normal in size. Common iliac arteries are not visualized due to overlying bowel gas. IVC is patent. Miscellaneous: No free abdominal fluid. IMPRESSION: 1. Hepatomegaly. No discrete hepatic lesion. 2. Rest of the exam is unremarkable. Dictated by: Sohail Joiner M.D. on 06/22/2023 at 11:47 Approved by: Sohail Joiner M.D. on 06/22/2023 at 11:49
--- NOTE | 2023-06-22 08:15 | DI.RAD.S_ITS ---
PROCEDURE: XR CERVICAL SPINE 2V OR 3V INDICATIONS: neck pain TECHNIQUE: 4 view(s) of the cervical spine were acquired. COMPARISON: None. FINDINGS: Bones: No fractures or dislocations to the T1 level. Straightening of normal cervical lordosis is seen. Loss of disc height, degenerative endplate changes and bilateral facet hypertrophic changes are noted throughout cervical spine. The lateral masses of C1 appear intact on the odontoid view. No suspicious bony lesions. Soft tissues: No prevertebral soft tissue swelling. IMPRESSION: No displaced fracture or traumatic subluxation. Degenerative disc disease throughout cervical spine more notably at C4-5 through C6-7 levels. Dictated by: Sohail Jonier M.D. on 06/22/2023 at 9:30 Approved by: Sohail Joiner M.D. on 06/22/2023 at 9:31
[2023-06-22] MEDS: cloNIDine 0.1 MG TABLET 0.3 MG PO ×2 (08:32→20:13)
[2023-06-22] MEDS: FLUoxetine 20 MG CAPSULE 40 MG PO ×2 (08:32→20:13)
[2023-06-22] MEDS: lamoTRIgine 100 MG TABLET 300 MG PO ×2 (08:32→20:13)
[2023-06-22] MEDS: KETOROLAC 30 MG/ML VIAL IV ×3 (08:32→20:12)
[2023-06-22] MEDS: hydrOXYzine HCL 25 MG TABLET 50 MG PO ×3 (08:33→20:13)
[2023-06-22] MEDS: lisinopriL 10 MG TABLET PO (08:33)
[2023-06-22] MEDS: ENOXAPARIN 40 MG/0.4 ML SYRINGE SUBCUT (08:33)
[2023-06-22] MEDS: METOPROLOL ER 25 MG TABLET PO (08:33)
[2023-06-22] MEDS: AMOXICILLIN/CLAV 875/125 MG 1 TAB PO ×2 (08:33→20:12)
--- NOTE | 2023-06-22 08:39 | PM.PN.1 ---
Subjective Subjective Date Patient Seen: 06/22/23 Time Patient Seen: 08:39 Interval history: Patient seen in follow-up of headache, fever, altered mental status. Patient feeling better. Still having neck pain more now up to her posterior scalp. Breathing better. Still hypoxic. Desatting into the 80s when she is up moving around. No other change. Energy level feeling slightly better. Exam Vital Signs (past 8 hours): - 06/22/23 01:00 06/22/23 04:30 06/22/23 05:00 Temperature 98.4 F Pulse Rate 89 Respiratory Rate 23 Blood Pressure 144/74 H Pulse Oximetry 97 Oxygen Delivery Method Nasal Cannula Nasal Cannula Oxygen Flow Rate 3 06/22/23 08:00 06/22/23 08:32 06/22/23 08:33 Temperature 98.5 F Pulse Rate 100 H 89 89 Respiratory Rate 16 Blood Pressure 172/97 H 172/97 H 172/97 H Pulse Oximetry 92 Oxygen Delivery Method Oxygen Flow Rate 3 06/22/23 08:33 Temperature Pulse Rate 89 Respiratory Rate Blood Pressure 172/97 H Pulse Oximetry Oxygen Delivery Method Oxygen Flow Rate Fraction of Inspired Oxygen 24 SaO2/FiO2 Ratio 395 Oxygen Delivery Method Nasal Cannula Oxygen Flow Rate 3 Narrative Exam Narrative: Alert female much less fatigued in no acute distress this morning. HEENT exam is unremarkable neck with tenderness in the posterior occiput down in the paravertebral muscles. Lungs with right-sided crackles. Heart is regular rate and rhythm abdomen is benign extremities normal neurologic exam alert oriented normal Objective Labs 06/21/23 04:30 06/21/23 04:30 [facility] Medical History TIA (transient ischemic attack) Cardiac arrest Social History household members: significant other, family and children Smoking Status: Never smoker alcohol intake: current substance use type: does not use Assessment & Plan Assessment & Plan narrative: Intractable headache and neck pain. I think this is probably musculoskeletal. Will continue physical therapy. Will get x-ray today. May need CT scan can not get MRI. We discussed this. Will see how things go. Toradol today IV Elevated alk-phos. Will obtain ultrasound today to make sure no evidence of obstruction Gram-positive bacteremia probably contaminant but sepsis was positive. Will see how things go. On oral antibiotics. Seems to be doing well. Sepsis due to probable pneumonia. Patient with chest x-ray developing pneumonia over time and probably was ?community-acquired pneumonia. I do not think it was secondary to the blood culture but will see how things go. Patient seems to be improving will continue antibiotics and follow. Pneumonia. Right lung. On antibiotics. Should be covered. Will see how things go. Follow white count and we will recheck chest x-ray in 4-6 weeks. Hyponatremia. Improving. Slowly. Probably secondary to pneumonia. Acute renal failure. Probably secondary to infection and hypovolemia. Resolved at this time. Microcytic anemia. Stable CAD is stable. History of alcohol abuse. Had not been drinking prior. Will follow though. Disposition. Will continue to follow continue to treat and hopefully O2 requirement will resolve if not will need home O2. Hopefully for just a short time. Quality VTE Deep Vein Thrombosis/Pulmonary Embolism Present on Admission: No
[2023-06-22 09:32] LABS: Add Manual Diff / Slide Review NO; Basophils Absolute Auto 100 /uL (0-100); Basophils Percent Auto 0.5 % (0-2); Eosinophils Absolute Auto 100 /uL (0-450); Eosinophils Percent Auto 0.6 % (2-4); Hematocrit 28.6 % (36-46); Hemoglobin 9.6 g/dL (12.0-16.0); Lymphocytes Absolute Auto 1800 /uL (1100-4500); Lymphocytes Percent Auto 16.7 % (25-40); Mean Corpuscular HGB Conc 33.7 % (30-36); Mean Corpuscular Hemoglobin 25.3 PG (26-34); Mean Corpuscular Volume 75.3 fL (80-100); Monocytes Absolute Auto 700 /uL (0-900); Neutrophils Absolute Auto 8000 /uL (1500-7000); Neutrophils Percent Auto 75.2 % (50-75); Platelet Count 180 X10^3/uL (150-400); Red Blood Cell Count 3.79 X10^6/uL (4.0-5.2); Red Cell Distribution Width 13.2 % (11.6-14.8); White Blood Cell Count 10.7 X10^3/uL (4.5-11.0)
[2023-06-22 09:42] LABS: Alanine Aminotransferase 47 IU/L (<35); Albumin 3.9 g/dL (3.5-5.0); Albumin Globulin Ratio 1.4 (1.0-2.8); Alkaline Phosphatase 305 U/L (38-126); Aspartate Aminotransferase 33 IU/L (14-36); Bilirubin Total 0.9 mg/dL (0.2-1.3); Blood Urea Nitrogen 15 mg/dL (7-17); Calcium 9.3 mg/dL (8.4-10.2); Carbon Dioxide 27 mmol/L (22-32); Chloride 103 mmol/L (98-107); Estimated Glomerular Filt Rate > 60 mL/min (>60); Globulin 2.7 g/dL (1.7-4.1); Glucose 125 mg/dL (70-100); HEMOLYSIS < 15 (0-50); Potassium 3.6 mmol/L (3.4-5.1); Sodium 134 mmol/L (137-145); Total Protein 6.6 g/dL (6.3-8.2)
--- NOTE | 2023-06-22 10:29 | PT.IPTN ---
Current Diagnoses Iron deficiency anemia, unspecified (06/18/23) Hypothyroidism, unspecified (06/18/23) Hypo-osmolality and hyponatremia (06/18/23) Bipolar disorder, unspecified (06/18/23) Atherosclerotic heart disease of [place] coronary artery without angina pectoris (06/18/23) Hypotension, unspecified (06/18/23) Acute pulmonary edema (06/18/23) Acute kidney failure, unspecified (06/18/23) Hypoxemia (06/18/23) Disorientation, unspecified (06/18/23) Headache, unspecified (06/18/23) Bacteremia (06/18/23) Physical Therapy Treatment Note M2 PT-IP Current Condition Start: 06/21/23 10:12 Freq: NEEDED Status: Active Protocol: Document 06/21/23 11:12 MB (Rec: 06/21/23 11:50 MB [id number]) Physical Therapy Current Condition Current Condition Evaluation Date 06/21/23 Treatment Diagnosis ? seizure, posterior neck pain /tightness and TENA M3 PT-IP Subjective Start: 06/21/23 10:12 Freq: NEEDED Status: Active Protocol: Document 06/22/23 10:06 MB (Rec: 06/22/23 10:28 MB [id number]) Subjective Physical Therapy Visit Type Type Treatment Note Visit Start Time 10:06 Visit Stop Time 10:17 Number of PROJECT INTERNSHIP Visits 0 Physical Therapy Visit Comments Patient Comments Pt getting OOB with O2 and tele lines attached with nearby and bed alarm going off upon PT arrival. Pt nor waiting for staff assistance. Pt needing to go to BR. M4 PT-IP Mobility and Gait Start: 06/21/23 10:12 Freq: NEEDED Status: Active Protocol: Document 06/22/23 10:06 MB (Rec: 06/22/23 10:28 MB [id number]) PT-Bed Mobility Assessment Sit to Supine Sit to Supine Contact Guard Assistance Scooting Scooting Up and Down in Bed Contact Guard Assistance PT-Transfer Assessment Sit to and From Stand Sit to and from Stand Contact Guard Assistance,1 Person Assistance,Use of Upper Extremities Equipment Transfer Assistive Device Gait Belt,Front Wheeled Walker Orthotic/Prosthetic Devices or Brace: No Transfers Transfer Destination Toilet Transfer Technique Stepping Transfer Ability Level of Assist Contact Guard Assistance,1 Person Assistance,Use of Upper Extremities Comments Mobility Comments Pt getting up without staffing assistance from the bed upon PT arrival and nsg and PT entering and nsg cues PT to add O2 research editor so that pt can go to rest room. Pt gait trains 10'x2 to BR and back with RW and cues for turning to manage O2 line. Superv for toileting (urination and hygiene). Returned to bed for US and PT positions ice at neck and pillows. Gait Assessment Gait Gait Assistance Required: Contact Guard Assist,1 Person Assist Distance (Feet) 10 Able to Maintain Weight Bearing Status Yes During Gait Assistive Devices Assistive Device Gait Belt,Front Wheeled Walker Orthotic/Prosthetic Devices or Brace: No Gait Deviations General Gait Pattern Decreased Stride Length, Decreased Feet Clearance, Flexed Trunk,Wide Based Gait Factors Limiting Gait Function Factors Limiting Gait Function Decreased Activity Tolerance, Difficulty Following Directions,Pain,Poor Balance, Poor Safety Awareness Comments Gait Comments See comments above PT-Balance Assessment Sitting Balance and Reactions Static Sitting Balance Ability Good Dynamic Sitting Balance Ability Good Standing Balance and Reactions Static Standing Balance Ability Good Dynamic Standing Balance Ability Fair Device Used RW M5 PT-IP Objective Assessments Start: 06/21/23 10:12 Freq: NEEDED Status: Active Protocol: Document 06/21/23 11:12 MB (Rec: 06/21/23 11:50 MB [id number]) Orientation Orientation/Cognition Level of Alertness Confusional State Orientation Name,Age,Birthday,Month Safety Awareness Decreased Safety Awareness Comments Recommend OT cognitive test Gross Range of Motion Upper Extremity ROM Impairments Functionally assessed only today and no deficits noted Lower Extremity ROM Impairments As above Strength Comments Strength Comments Pt cannot follow formal ROM or MMT commands and she has trembling in legs with WB, transfer and stepping M6 PT-IP Treatment Start: 06/21/23 10:12 Freq: NEEDED Status: Active Protocol: Document 06/22/23 10:06 MB (Rec: 06/22/23 10:28 MB [id number]) Physical Therapy Treatment Education Education Provided Safety M7 PT-IP Assessment and Plan Start: 06/21/23 10:12 Freq: NEEDED Status: Active Protocol: Document 06/22/23 10:06 MB (Rec: 06/22/23 10:28 MB [id number]) PT Summary Assessment and Plan Potential Rehabilitation Potential Fair Status of Condition at Evaluation Evolving Summary Impairments Pain,ROM,Strength,Balance, Cognition,Bed Mobility, Transfers,Gait,Activity Tolerance Progress Towards Goals Slow Progress due to Activity Tolerance Assessment Summary Pt con't with impulsivity and decreased insight, more than would be anticipated for 52 y/ o who is I at baseline and who is caregiver for grandchildren. also nearby and assisting pt despite bed alarm going off and many lines today. Pt mobilizes better today. Recommend cognitive screen by OT. Goals Bed Mobility Goal Independent Transfer Goal Independent,Front Wheeled Walker Gait Goal Independent,Front Wheel Walker Gait Distance 100 Other Goals Increase gait distance and try with cane or no AD as able d/ t I at baseline. Days to Meet Goals 5 Frequency of Treatment Frequency Of Treatment Once a Day Treatment Plan Physical Therapy Treatment Plan Bed Mobility Training,Transfer Training,Gait Training, Therapeutic Exercise,Balance Retraining,Discharge Planning, Hot or Cold Pack,Neuromuscular Re-ed,Coordination Retraining ,Manual Therapy Weight Bearing Status Weight Bearing Status Weight Bear as Tolerated Recommendations To Nursing Amount of Assist Needed 1 Person Assist Discharge Recommendations PT Discharge Recommendations Home with Assistance Transportation Needs at Discharge Private Vehicle,Wheelchair/ Cabulance
--- NOTE | 2023-06-22 11:16 | OT.IP.EVAL ---
Current Diagnoses Iron deficiency anemia, unspecified (06/18/23) Hypothyroidism, unspecified (06/18/23) Hypo-osmolality and hyponatremia (06/18/23) Bipolar disorder, unspecified (06/18/23) Atherosclerotic heart disease of [place] coronary artery without angina pectoris (06/18/23) Hypotension, unspecified (06/18/23) Acute pulmonary edema (06/18/23) Acute kidney failure, unspecified (06/18/23) Hypoxemia (06/18/23) Disorientation, unspecified (06/18/23) Headache, unspecified (06/18/23) Bacteremia (06/18/23) Past Medical History (Last Reviewed 06/19/23 @ 08:20 by Saleem Vogt MD) Cardiac arrest TIA (transient ischemic attack) Occupational Therapy Inpatient Evaluation/Re-Eval M1 PT/OT-IP Prior Functional Status Start: 06/22/23 11:16 Freq: NEEDED Status: Active Protocol: Document 06/22/23 11:18 [facility] (Rec: 06/22/23 11:37 [facility] [id number]) Medical Review Prior Functional Status Medical History Reviewed Yes Diet/Fluid Consistency Regular Communication WNLs at baseline Mobility and Gait I Activities of Daily Living and IADL's I, no AD and cares for her grand children at baseline Social History Household Members significant other,family, children Living Arrangements Mobile home Number of Floors (Floors) One Floor Number of Stairs To Enter/Railing? No steps to enter Home Environment Standard Height Toilet Additional Social History Comment No ADs, looks after grand children, drives M2 OT-IP Current Condition Start: 06/22/23 11:16 Freq: Status: Active Protocol: Document 06/22/23 11:18 [facility] (Rec: 06/22/23 11:37 [facility] [id number]) Occupational Therapy Current Condition Current Condition Evaluation Date 06/22/23 Treatment Diagnosis AMS, PNA, sepsis Diagnosis Onset Date 06/18/23 M3 OT- IP Subjective and Pain Start: 06/22/23 11:16 Freq: Status: Active Protocol: Document 06/22/23 11:18 [facility] (Rec: 06/22/23 11:37 [facility] [id number]) OT- Subjective Occupational Therapy Visit Type Type Initial Evaluation Visit Start Time 10:07 Visit Stop Time 11:16 Notes Pt seen from [id number], 1036- 1116 Occupational Therapy Visit Comments Patient Comments Pt agreed to work with OT. Patient/Caregiver Goals TO go home. OT Pain Assessment Pain When Pain Assessed At Rest Pain Present Pain Present Pain Reported Location Right Flank Intensity 4 Scale Used Numeric (0 - 10) M4 OT- IP ADL's Start: 06/22/23 11:16 Freq: Status: Active Protocol: Document 06/22/23 11:18 [facility] (Rec: 06/22/23 11:37 [facility] [id number]) OT [id number] Comments OT Self-Feeding Comments Not at meal time, no issues anticipated. OT ADL-Grooming Comments OT Grooming Comments Pt states did earlier. OT ADL-Oral Care Comments Oral Care Comments Pt states did earlier. OT ADL-Dressing Comments OT Dressing Comments NOt performed and pt states able to do otherwise her will assist her. OT ADL-Toileting General Evaluation Toileting Ability Standby Assistance,Contact Guard Assistance Comments OT Toileting Comments Pt able to use the toilet and earlier and just needing assist for O2 management and occasional steadying. OT ADL-Bathing Comments OT Bathing Comments Pt not wanting a shower chair but would benefit from one at this time. M5 OT- IP IADL's Start: 06/22/23 11:16 Freq: Status: Active Protocol: Document 06/22/23 11:18 [facility] (Rec: 06/22/23 11:37 [facility] [id number]) OT-Instrumental Activities of Daily Living Deficits IADL Deficits Identified Deficits Home Safety Awareness Awareness of Need for Assistance at Home Decreased Awareness Home Safety Comments Pt a bit drowsy at this time and will need at least supervision for needs. Medication Management Medication Management Comments Pt states keeps take of her pills from the bottles. Pt's states has already gotten her a pill organizer that she is insistent not to use it even after 's encouragement. Pt will greatly benefit from supervision at this time for medications. Money Management Money Management Comments Pt having difficulty with numbers and will benefit from assist. Meal Preparation Meal Preparation Comments Pt will benefit from assist at this time. Grease Press Helper Grease Press Helper Comments to assist. Driving Driving Comments Concerns for driving at this time. M6 OT- IP Functional Cognition Start: 06/22/23 11:16 Freq: Status: Active Protocol: Document 06/22/23 11:18 [facility] (Rec: 06/22/23 11:37 [facility] [id number]) Cognitive Factors Limiting Selfcare Function Cognitive Ability Level of Alertness Alert,Drowsy Patient Orientation Name,Year,Place,Situation Attention Span Ability Capable of Focused Attention, Unable to Sustain Attention Ability to Follow Commands Able to Follow One Step Commands with Increased Time, Able to Follow One Step Commands with Repetition Memory Description Short Term Impaired,Working Impaired Safety Awareness Underestimates Need for Assistance Problem Solving Ability Unable to Identify Errors, Needs Assist to Identify Solutions Cognitive Tests SLUMS Pt scored 17/30 which implies dementia, however pt just having medication and still on O2 and very drowsy on the assessment. Pt thought it was Thursday instead of Thursday, not able to subtract 100-23, able to recall 4/5 objects after time passed, not able to draw the number of the clock correctly or hour hands, pt able to answer 2/4 questions right after paragraph read. Cognitive Comments Cognitive Assessment Comments Pt having difficulty with her STM, problem solving and needing increased time to follow directions. Pt at this time will benefit from 22/09 assist with her needs. OT- Vision and Hearing OT- Hearing Assessment OT- Hearing Assessment WFL OT- Vision Assessment Visual Acuity Glasses All The Time Visual Attentiveness WFL Occular Pursuits WFL Visual Convergence WFL M7 OT- IP Mobility and Balance Start: 06/22/23 11:16 Freq: Status: Active Protocol: Document 06/22/23 11:18 [facility] (Rec: 06/22/23 11:37 [facility] [id number]) OT- Bed Mobility Assessment Supine to Sit Supine to Sit Assist Moderate Assistance OT-Transfer Assessment Sit to and From Stand Sit to and from Stand Minimal Assistance Transfers Transfer Ability Contact Guard Assistance Technique Transfer Destination Bed,Toilet Devices Transfer Assistive Devices Gait Belt,Front Wheeled Walker Comments Mobility Comments MODA to assist to get upright . Pt states to work on lowering her bed down as currently it is very high up off the ground. CGA with FWW to walk and very unsteady. Pt states does not want a FWW for house use and would rather try use of a SPC. To continue to assess best devices for ADL needs. OT- Balance Assessment Sitting Balance and Reactions Static Sitting Balance Ability Good Dynamic Sitting Balance Ability Good Standing Balance and Reactions Static Standing Balance Ability Good Dynamic Standing Balance Ability Fair Comments Other Balance Tests/Deviations/Treatment Pt unsteady on her feet. : M8 OT- IP Objective Assessments Start: 06/22/23 11:16 Freq: Status: Active Protocol: Document 06/22/23 11:18 [facility] (Rec: 06/22/23 11:37 [facility] [id number]) OT Gross Range of Motion Upper Extremity Range of Motion Assessment Within Functional Limits OT Strength Comments Strength Comments grossly WFL for needs OT- Coordination Assessment Upper Extremity Finger to Nose Test Bilateral UE Impaired Finger Tapping Test Within Functional Limits Comments Coordination Comments Intact for diadochokinesis OT Sensation Assessment Comments Summary Comments Intact for light touch. M9 OT- IP Assessment and Plan Start: 06/22/23 11:16 Freq: Status: Active Protocol: Document 06/22/23 11:18 [facility] (Rec: 06/22/23 11:37 [facility] [id number]) OT Summary Assessment and Plan Potential Rehabilitation Potential Good Analytic Complexity at Evaluation Moderate Summary OT Impairments Pain,Strength,Balance, Functional Cognition, Functional Mobility,Grooming, Dressing,Toileting,Bathing, Toilet Transfers,Shower Transfers,Activity Tolerance Progress Towards Goals Progressing Toward Goals Pt MOD complexity and main barriers are decreased activity tolerance , O2 drops during activities, decreased STM and problem solving, decreased balance, and would benefit from 24/7 assist at this time and have home health. Pt to go home with her when medically stable and have home health. AT this time pt not open to using ADL devices and continue to assess and suggest best appropriate equipment for the pt. Goals Grooming Goal Independent Dressing Goal Independent Toileting Goal Independent Bathing Goal Independent Toilet Transfer Goal Independent Shower Transfer Goal Independent Days to Meet Goals 10 Frequency of Treatment Frequency Of Treatment Once a Day Treatment Plan OT Treatment Plan ADL Training,Functional Cognition Training,Functional Mobility,Patient/Family Education,Discharge Planning Other Treatment Recommendations and Next standing ADLs Treatment Focus Discharge Recommendations OT Discharge Recommendations Home with 24/7 Assist Available,Home Health Home Equipment Needs BSC, shower chair, FWW Transportation Needs at Discharge Private Vehicle
--- NOTE | 2023-06-22 11:22 | CM.DPC ---
DCP HH Planning Per MD, pt making more progress today and remains on oxygen and not quite stable for discharge home today but likely tomorrow and RT to assess for home O2. Per PT/OT, pt made improvements with mobility today as well and still somewhat impulsive and 1PA with walker and below baseline but can safely d/c home with spouse and family assist and could benefit from HH. SW met bedside with pt and spouse and pt looks improved today compared to yesterday and able to remain awake and participate in discussion. They confirm they used HH back in 2016 and cannot remember which HH agency. SW explained HH services and frequency and both in agreement that HH needed at d/c and after reviewing HH Choice list no preference. SW made [facility] referral based on vendor calendar of who covers [facility] and accepts [employer] insurance. [facility] reviewing. F2F and HH orders completed. Plan: SW to follow for plan of discharge home with spouse and family assist tomorrow if medically stable and new [facility] referral made. CHARLES Talamantes
--- NOTE | 2023-06-22 12:00 | PC.NURSE ---
Day shift: pt A&Ox4 but impulsive. Sitting at edge of bed with spouse, bed alarm activated. Provided reeducation on calling for safety, fall risk, and patient safety to pt and spouse. Pt on RA, desat to 88%. 2L NC 98%. Pt up with PT. Pt 96% on 1L NC, reports desire to discharge home. Instructed pt on how to use IS with teachback method. Pt able to perform 4 reps to 1500. Care ongoing, will continue to monitor.
--- NOTE | 2023-06-22 13:14 | DI.CT.S_ITS ---
PROCEDURE: CT CERVICAL SPINE WO CON INDICATIONS: Persistent neck pain TECHNIQUE: Noncontrast 3 mm thick sections acquired from the skull base to the T4 level. Sagittal and coronal reformats were then constructed. Oblique axial images were also reformatted through the disc levels. For radiation dose reduction, the following was used: automated exposure control, adjustment of mA and/or kV according to patient size. COMPARISON: [facility], CR, XR CHEST 1V, 06/20/2023, 9:56. [facility], CR, XR CERVICAL SPINE 2V OR 3V, 06/22/2023, 8:46. [facility], CT, CT CERVICAL SPINE WO CON, 04/12/2023, 16:08. FINDINGS: Image quality: Poor quantum Bones: No fractures or dislocations. Visualized superior ribs are intact. Reversal of the normal cervical lordosis is seen, with the apex at the C4 level. No focal AP alignment abnormality is seen. Focal degenerative change is seen involving the C1-C2 interface anteriorly. There is at least moderate disc space narrowing seen at C4-C5, C5-C6, and C6-C7. Posteriorly directed endplate osteophytes are seen, which are overall most prominent at the C4-C5 level. Several levels of facet hypertrophy can be seen. Milder degenerative changes are seen elsewhere. Soft tissues: Abnormal interstitial type infiltrates can be seen involving both superior lungs, which are clearly worse than on 04/12/2023. Prevertebral soft tissues are normal in thickness. No paravertebral hematomas. No apical pneumothoraces. A left-sided pacer device is seen. IMPRESSION: No acute abnormality is seen. Underlying degenerative changes are seen, which are overall most prominent inferiorly. Abnormal interstitial type infiltrates can be seen involving both superior lungs. Although the appearance is nonspecific, a viral process is suspected. Additional findings: Left-sided pacer device Dictated by: Blake Bell M.D. on 06/22/2023 at 13:44 Approved by: Blake Bell M.D. on 06/22/2023 at 13:47
[2023-06-22] MEDS: LIDOCAINE 5% PATCH 1 EACH TOP (13:30)
[2023-06-22] MEDS: NORTRIPTYLINE HCL 25 MG CAPSULE 50 MG PO (20:14)
[2023-06-22] MEDS: methocarbamoL 500 MG TABLET 750 MG PO (20:14)
[2023-06-22] MEDS: SODIUM CHLORIDE 0.9% FLUSH 10 ML IV (21:00)
[2023-06-23] VITALS (46 sets, daily range): BP systolic 126–179; BP diastolic 63–105; PULSE 75–101; RESP 19–40; TEMP 36.2–36.9; O2SAT 88–98
[2023-06-23] MEDS: SUMAtriptan 25 MG TABLET 50 MG PO (00:43)
[2023-06-23] MEDS: KETOROLAC 30 MG/ML VIAL IV (02:49)
[2023-06-23] MEDS: LEVOTHYROXINE 125 MCG TABLET PO (05:22)
[2023-06-23 05:49] LABS: Add Manual Diff / Slide Review NO; Basophils Absolute Auto 100 /uL (0-100); Basophils Percent Auto 0.6 % (0-2); Eosinophils Absolute Auto 200 /uL (0-450); Eosinophils Percent Auto 1.4 % (2-4); Hemoglobin 9.2 g/dL (12.0-16.0); Lymphocytes Absolute Auto 2200 /uL (1100-4500); Lymphocytes Percent Auto 18.7 % (25-40); Mean Corpuscular Hemoglobin 24.9 PG (26-34); Mean Corpuscular Volume 75.2 fL (80-100); Monocytes Absolute Auto 800 /uL (0-900); Monocytes Percent Auto 6.9 % (3-14); Neutrophils Absolute Auto 8600 /uL (1500-7000); Neutrophils Percent Auto 72.4 % (50-75); Platelet Count 209 X10^3/uL (150-400); Red Blood Cell Count 3.72 X10^6/uL (4.0-5.2); Red Cell Distribution Width 13.4 % (11.6-14.8); White Blood Cell Count 11.9 X10^3/uL (4.5-11.0)
[2023-06-23 05:58] LABS: Alanine Aminotransferase 67 IU/L (<35); Albumin 3.9 g/dL (3.5-5.0); Albumin Globulin Ratio 1.5 (1.0-2.8); Alkaline Phosphatase 374 U/L (38-126); Aspartate Aminotransferase 51 IU/L (14-36); BUN Creatinine Ratio 23.9 (6-22); Bilirubin Total 0.9 mg/dL (0.2-1.3); Blood Urea Nitrogen 21 mg/dL (7-17); Calcium 9.2 mg/dL (8.4-10.2); Carbon Dioxide 26 mmol/L (22-32); Chloride 102 mmol/L (98-107); Estimated Glomerular Filt Rate > 60 mL/min (>60); Globulin 2.6 g/dL (1.7-4.1); Glucose 102 mg/dL (70-100); HEMOLYSIS < 15 (0-50); Potassium 3.6 mmol/L (3.4-5.1); Sodium 133 mmol/L (137-145); Total Protein 6.5 g/dL (6.3-8.2)
[2023-06-23] MEDS: ACETAMINOPHEN 325 MG TABLET 650 MG PO ×2 (07:45→15:58)
--- NOTE | 2023-06-23 08:23 | DI.RAD.S_ITS ---
PROCEDURE: XR CHEST 2V INDICATIONS: pneumonia TECHNIQUE: 2 views of the chest were acquired. COMPARISON: [facility], CR, XR CHEST 1V, 06/20/2023, 9:56. FINDINGS: Surgical changes and devices: Cardiac defibrillator electrode terminates in expected position. Left upper extremity PICC terminates in the lower SVC. Lungs and pleura: Diffuse lung disease has mildly decreased, notably in the right lung. No new lung abnormality. No pleural effusions or pneumothorax. Mediastinum: Mediastinal contours are normal. Heart size is at the upper limits of normal, stable. Bones and chest wall: No suspicious bony abnormalities. Soft tissues appear unremarkable. IMPRESSION: Diffuse lung disease has mildly decreased, notably in the right lung. No new lung abnormality. Findings are suggestive of edema, infection and/or alveolar damage. Dictated by: Aiden Phelan M.D. on 06/23/2023 at 9:43 Approved by: Aiden Phelan M.D. on 06/23/2023 at 10:02
[2023-06-23] MEDS: HYDROMORPHONE 2 MG TABLET PO ×2 (08:52→19:24)
[2023-06-23] MEDS: cloNIDine 0.1 MG TABLET 0.3 MG PO ×2 (09:19→20:26)
[2023-06-23] MEDS: lamoTRIgine 100 MG TABLET 300 MG PO ×2 (09:20→20:26)
[2023-06-23] MEDS: METOPROLOL ER 25 MG TABLET PO (09:20)
[2023-06-23] MEDS: hydrOXYzine HCL 25 MG TABLET 50 MG PO ×3 (09:20→20:27)
[2023-06-23] MEDS: lisinopriL 10 MG TABLET PO (09:20)
[2023-06-23] MEDS: ENOXAPARIN 40 MG/0.4 ML SYRINGE SUBCUT (09:20)
[2023-06-23] MEDS: AMOXICILLIN/CLAV 875/125 MG 1 TAB PO ×2 (09:21→20:26)
[2023-06-23] MEDS: LIDOCAINE 5% PATCH 1 EACH TOP (09:22)
[2023-06-23] MEDS: SODIUM CHLORIDE 0.9% FLUSH 10 ML IV ×2 (09:22→20:28)
[2023-06-23] MEDS: FLUoxetine 20 MG CAPSULE 40 MG PO ×2 (09:25→20:26)
--- NOTE | 2023-06-23 09:31 | DIET.CONS2 ---
Dietary Inpatient Consultation Note Admission Date: 06/18/2023 19:27 52 y F admitted for severe headaches and sepsis. Nutrition screened for LOS day 5. Pt is nutritionally adequate with no recent weight loss and adequate PO intakes. F/u prn. Diet: 06/18/23 Dinner Heart Healthy Diet Diet Modifications: Nutrition Percent Meal Consumed 75% 06/22/23 18:00 Percent Meal Consumed 100% 06/22/23 12:00 Percent Meal Consumed 50% 06/22/23 10:30 Electronically Signed by: Tiffany Multani 06/23/23 09:31 Clinical Dietitian [address] [id number]
--- NOTE | 2023-06-23 10:20 | PT.IPTN ---
Current Diagnoses Iron deficiency anemia, unspecified (06/18/23) Hypothyroidism, unspecified (06/18/23) Hypo-osmolality and hyponatremia (06/18/23) Bipolar disorder, unspecified (06/18/23) Atherosclerotic heart disease of [place] coronary artery without angina pectoris (06/18/23) Hypotension, unspecified (06/18/23) Acute pulmonary edema (06/18/23) Acute kidney failure, unspecified (06/18/23) Hypoxemia (06/18/23) Disorientation, unspecified (06/18/23) Headache, unspecified (06/18/23) Bacteremia (06/18/23) Physical Therapy Treatment Note M2 PT-IP Current Condition Start: 06/21/23 10:12 Freq: NEEDED Status: Active Protocol: Document 06/21/23 11:12 MB (Rec: 06/21/23 11:50 MB [id number]) Physical Therapy Current Condition Current Condition Evaluation Date 06/21/23 Treatment Diagnosis ? seizure, posterior neck pain /tightness and TENA M3 PT-IP Subjective Start: 06/21/23 10:12 Freq: NEEDED Status: Active Protocol: Document 06/23/23 10:20 AB (Rec: 06/23/23 12:33 AB [id number]) Subjective Physical Therapy Visit Type Type Treatment Note Visit Start Time 10:20 Visit Stop Time 10:55 Number of SUPERVISOR BLAST FURNACE Visits 0 Physical Therapy Visit Comments Patient Comments agreeable to do PT M4 PT-IP Mobility and Gait Start: 06/21/23 10:12 Freq: NEEDED Status: Active Protocol: Document 06/23/23 10:20 AB (Rec: 06/23/23 12:33 AB [id number]) PT-Bed Mobility Assessment Supine to Sit Supine to Sit Standby Assistance PT-Transfer Assessment Sit to and From Stand Sit to and from Stand Standby Assistance,Contact Guard Assistance,1 Person Assistance,Use of Upper Extremities Equipment Transfer Assistive Device Gait Belt,Front Wheeled Walker Orthotic/Prosthetic Devices or Brace: No Transfers Transfer Destination Toilet Transfer Technique ambulated Transfer Ability Level of Assist Standby Assistance,Contact Guard Assistance,1 Person Assistance,Use of Upper Extremities Comments Mobility Comments pt supine in bed and agreeable to do PT. O2 sat 94%. pt is a mouth breather and educated on deep breathing. spouse in room with pt. pt completed supine to sit SBA . required increase time to complete task. pt requiring increase and frequent rest breaks in between tasks. able to sit on EOB SBA. completed sit to stand SBA and ambulated in room using FWW SBA to CGA ~ 40 ft. presents with unsteady waddling gait. cued for deep breathing. pt requested to use the toilet . ambulated to the toilet using FWW SBA to CGA. assisted with brief management and hygiene care. pt completed sit to stand from the toilet using grab bar CGA and ambulated to the chair using fWW SBA to CGA. positioned pt on the chair. call light and table placed within reach. O2 sat: 94%. informed pt and spouse regarding FWW use recommendation at this time. pt and spouse agreed. spouse will attempt to borrow a FWW from the [employer] in [facility]. Gait Assessment Gait Gait Assistance Required: Standby Assistance,Contact Guard Assist Distance (Feet) 40 Able to Maintain Weight Bearing Status Yes During Gait Assistive Devices Assistive Device Gait Belt,Front Wheeled Walker Orthotic/Prosthetic Devices or Brace: No Gait Deviations General Gait Pattern Decreased Stride Length, Decreased Feet Clearance,Step- to Gait Factors Limiting Gait Function Factors Limiting Gait Function Decreased Activity Tolerance, Decreased Strength,Difficulty Following Directions,Limited Range of Motion,Pain,Poor Balance,Poor Safety Awareness, Respiratory Distress M5 PT-IP Objective Assessments Start: 06/21/23 10:12 Freq: NEEDED Status: Active Protocol: Document 06/21/23 11:12 MB (Rec: 06/21/23 11:50 MB [id number]) Orientation Orientation/Cognition Level of Alertness Confusional State Orientation Name,Age,Birthday,Month Safety Awareness Decreased Safety Awareness Comments Recommend OT cognitive test Gross Range of Motion Upper Extremity ROM Impairments Functionally assessed only today and no deficits noted Lower Extremity ROM Impairments As above Strength Comments Strength Comments Pt cannot follow formal ROM or MMT commands and she has trembling in legs with WB, transfer and stepping M6 PT-IP Treatment Start: 06/21/23 10:12 Freq: NEEDED Status: Active Protocol: Document 06/23/23 10:20 AB (Rec: 06/23/23 12:33 AB [id number]) Physical Therapy Treatment Education Education Provided Safety M7 PT-IP Assessment and Plan Start: 06/21/23 10:12 Freq: NEEDED Status: Active Protocol: Document 06/23/23 10:20 AB (Rec: 06/23/23 12:33 AB [id number]) PT Summary Assessment and Plan Potential Rehabilitation Potential Fair Summary Impairments Pain,ROM,Strength,Balance, Coordination,Sensation, Cognition,Bed Mobility, Transfers,Gait,Activity Tolerance Progress Towards Goals Slow Progress due to Medical Issues,Slow Progress due to Activity Tolerance Assessment Summary pt improving slowly but continues to require SBA to CGA with mobility using FWW and has decrease activity tolerance. recommending use of FWW at this time. pt plans to go home and spouse will assist pt at home. will conduct caregiver training when appropriate. pt also will benefit from HHPT. will continue to assess progress. Goals Bed Mobility Goal Independent Transfer Goal Independent,Front Wheeled Walker Gait Goal Independent,Front Wheel Walker Gait Distance 100 Other Goals improve ambulation using LRAD or without AD ~ 200 ft mod I Days to Meet Goals 10 Frequency of Treatment Frequency Of Treatment Once a Day Treatment Plan Physical Therapy Treatment Plan Bed Mobility Training,Transfer Training,Gait Training, Therapeutic Exercise,Balance Retraining,Discharge Planning, Hot or Cold Pack,Neuromuscular Re-ed,Coordination Retraining ,Manual Therapy Recommendations To Nursing Amount of Assist Needed 1 Person Assist Discharge Recommendations PT Discharge Recommendations Home with Assistance,Home Health Transportation Needs at Discharge Private Vehicle
--- NOTE | 2023-06-23 11:36 | CM.DPC ---
DCP Continued Reviewed EMR and team rounds for pt?s medical status. Per rounds, pt to discharge today with [facility] pending RT assessment for home O2. DCP entered room and introduced self and role. Present in the room is pt's . Pt was found sitting upright in chair, with nasal cannula. Pt discussed no other dc needs at this time, confirmed [facility] referral and spouse availability for care at dc. Pt explained she is feeling comfortable with dc home when medically stable. Plan: Discharge home with family, [facility] for PT/OT to open services. Following for Home O2 needs. CM Team following for other pending dc neds. TORRES Venegas
--- NOTE | 2023-06-23 12:31 | OT.IP.TRT ---
Current Diagnoses Iron deficiency anemia, unspecified (06/18/23) Hypothyroidism, unspecified (06/18/23) Hypo-osmolality and hyponatremia (06/18/23) Bipolar disorder, unspecified (06/18/23) Atherosclerotic heart disease of [place] coronary artery without angina pectoris (06/18/23) Hypotension, unspecified (06/18/23) Acute pulmonary edema (06/18/23) Acute kidney failure, unspecified (06/18/23) Hypoxemia (06/18/23) Disorientation, unspecified (06/18/23) Headache, unspecified (06/18/23) Bacteremia (06/18/23) Occupational Therapy Treatment Note M2 OT-IP Current Condition Start: 06/22/23 11:16 Freq: Status: Active Protocol: Document 06/22/23 11:18 [facility] (Rec: 06/22/23 11:37 [facility] [id number]) Occupational Therapy Current Condition Current Condition Evaluation Date 06/22/23 Treatment Diagnosis AMS, PNA, sepsis Diagnosis Onset Date 06/18/23 M3 OT- IP Subjective and Pain Start: 06/22/23 11:16 Freq: Status: Active Protocol: Document 06/23/23 12:23 [facility] (Rec: 06/23/23 12:31 [facility] [id number]) OT- Subjective Occupational Therapy Visit Type Type Treatment Note Visit Start Time 11:25 Visit Stop Time 12:23 Notes Pt seen from [id number], and [id number] Occupational Therapy Visit Comments Patient Comments Pt agreed to work with OT , pt 's daughter and SO in the room . Patient/Caregiver Goals TO go home. OT Pain Assessment Pain When Pain Assessed During Mobility Pain Present Pain Present Pain Reported M4 OT- IP ADL's Start: 06/22/23 11:16 Freq: Status: Active Protocol: Document 06/23/23 12:23 [facility] (Rec: 06/23/23 12:31 [facility] [id number]) OT [id number] General Evaluation Self-Feeding Ability Independent OT ADL-Grooming Comments OT Grooming Comments Pt states did earlier. OT ADL-Oral Care Comments Oral Care Comments Pt states did earlier. OT ADL-Dressing Comments OT Dressing Comments Pt states able to do for herself. OT ADL-Toileting Comments OT Toileting Comments Pt refused as just went earlier. Suggested to get a [employer]CS and be sure to have someone there when getting up as will have to the O2 at home to negotiate and that pt is unsteady on her feet. OT ADL-Bathing Comments OT Bathing Comments Suggested pt get a shower chair- pt's daughter states to look into it. M5 OT- IP IADL's Start: 06/22/23 11:16 Freq: Status: Active Protocol: Document 06/22/23 11:18 [facility] (Rec: 06/22/23 11:37 [facility] [id number]) OT-Instrumental Activities of Daily Living Deficits IADL Deficits Identified Deficits Home Safety Awareness Awareness of Need for Assistance at Home Decreased Awareness Home Safety Comments Pt a bit drowsy at this time and will need at least supervision for needs. Medication Management Medication Management Comments Pt states keeps take of her pills from the bottles. Pt's states has already gottn her a pill organizer that she is insistent not to use. Pt will greatly benefit from supervision at this time. Money Management Money Management Comments Pt having difficulty with numbers and will benefit from assist. Meal Preparation Meal Preparation Comments Pt will benefit from assist at this time. Waterworks Chief Engineer Waterworks Chief Engineer Comments to assist. Driving Driving Comments Concerns for driving at this time. M6 OT- IP Functional Cognition Start: 06/22/23 11:16 Freq: Status: Active Protocol: Document 06/23/23 12:23 [facility] (Rec: 06/23/23 12:31 [facility] [id number]) Cognitive Factors Limiting Selfcare Function Cognitive Comments Cognitive Assessment Comments Pt more alert today and insistent on her care. Pt will still benefit from 22/09 assist to assist with her needs especially for safety and IADL needs. Pt's daughter aware to assist and provide supervision for meds and finances as needed. M7 OT- IP Mobility and Balance Start: 06/22/23 11:16 Freq: Status: Active Protocol: Document 06/23/23 12:23 [facility] (Rec: 06/23/23 12:31 [facility] [id number]) OT-Transfer Assessment Comments Mobility Comments Pt on 1L on O2 and at 94% and on RA 93% and after talking for several minutes O2 drops to 88%. M8 OT- IP Objective Assessments Start: 06/22/23 11:16 Freq: Status: Active Protocol: Document 06/22/23 11:18 [facility] (Rec: 06/22/23 11:37 [facility] [id number]) OT Gross Range of Motion Upper Extremity Range of Motion Assessment Within Functional Limits OT Strength Comments Strength Comments grossly WFL for needs OT- Coordination Assessment Upper Extremity Finger to Nose Test Bilateral UE Impaired Finger Tapping Test Within Functional Limits Comments Coordination Comments Intact for diadochokinesis OT Sensation Assessment Comments Summary Comments Intact for light touch. M9 OT- IP Assessment and Plan Start: 06/22/23 11:16 Freq: Status: Active Protocol: Document 06/23/23 12:23 [facility] (Rec: 06/23/23 12:31 [facility] [id number]) OT Summary Assessment and Plan Potential Rehabilitation Potential Good Analytic Complexity at Evaluation Moderate Summary OT Impairments Pain,Strength,Balance, Functional Cognition, Functional Mobility,Grooming, Dressing,Toileting,Bathing, Toilet Transfers,Shower Transfers,Activity Tolerance Progress Towards Goals Progressing Toward Goals,Slow Progress due to Activity Tolerance Assessment Summary Pt main barriers are decreased activity tolerance and will now need O2 at home for needs. Spoke to pt's daughter for ADL eequipment needs and to provide at least supervision and assist as needed especially when getting up to the bathroom at night and for showers. Pt to go home with 24/7 assist and home health. Goals Grooming Goal Independent Dressing Goal Independent Toileting Goal Independent Bathing Goal Independent Toilet Transfer Goal Independent Shower Transfer Goal Independent Days to Meet Goals 9 Frequency of Treatment Frequency Of Treatment Once a Day Treatment Plan OT Treatment Plan ADL Training,Functional Cognition Training,Functional Mobility,Patient/Family Education,Discharge Planning Discharge Recommendations OT Discharge Recommendations Home with 24/7 Assist Available,Home Health Home Equipment Needs BSC, shower chair, FWW Transportation Needs at Discharge Private Vehicle
[2023-06-23 12:57] LABS: Magnesium 1.9 mg/dL (1.6-2.3)
[2023-06-23] MEDS: FUROSEMIDE 40 MG/4 ML VIAL 20 MG IV (13:12)
--- NOTE | 2023-06-23 13:24 | PM.PN.1 ---
Subjective Subjective Date Patient Seen: 06/23/23 Time Patient Seen: 13:24 Interval history: Patient seen in follow-up of multiple issues pneumonia sepsis elevated alk-phos intractable headache. Patient still having quite a bit of pain has moved more into the musculature in the upper back and neck. But otherwise no change. Has no other significant changes feeling tired. Exam Vital Signs (past 8 hours): - 06/23/23 06:00 06/23/23 07:00 06/23/23 07:30 Temperature Pulse Rate 79 78 82 Respiratory Rate 23 23 Blood Pressure Pulse Oximetry 98 97 98 Oxygen Delivery Method Oxygen Flow Rate 06/23/23 07:54 06/23/23 07:54 06/23/23 08:00 Temperature 97.3 F L Pulse Rate 83 83 Respiratory Rate 32 H 29 H Blood Pressure 164/80 H 164/80 H Pulse Oximetry 91 93 Oxygen Delivery Method Oxygen Flow Rate 1 06/23/23 08:00 06/23/23 08:05 06/23/23 08:30 Temperature Pulse Rate 80 79 Respiratory Rate 29 H Blood Pressure Pulse Oximetry 93 93 Oxygen Delivery Method Nasal Cannula Oxygen Flow Rate 06/23/23 09:08 06/23/23 09:17 06/23/23 09:17 Temperature Pulse Rate 93 H 81 Respiratory Rate 32 H Blood Pressure 165/95 H Pulse Oximetry 92 Oxygen Delivery Method Oxygen Flow Rate 06/23/23 09:19 06/23/23 09:20 06/23/23 09:20 Temperature Pulse Rate 79 79 79 Respiratory Rate Blood Pressure 165/95 H 165/95 H 165/95 H Pulse Oximetry Oxygen Delivery Method Oxygen Flow Rate 06/23/23 09:30 06/23/23 09:50 06/23/23 10:00 Temperature Pulse Rate 82 94 H 81 Respiratory Rate 26 H Blood Pressure 126/63 Pulse Oximetry 94 95 Oxygen Delivery Method Oxygen Flow Rate 06/23/23 11:00 06/23/23 11:25 06/23/23 11:25 Temperature Pulse Rate 92 H 96 H Respiratory Rate 21 31 H Blood Pressure 126/63 Pulse Oximetry Oxygen Delivery Method Oxygen Flow Rate 06/23/23 11:30 06/23/23 11:30 06/23/23 12:00 Temperature 97.4 F L Pulse Rate 95 H 92 H Respiratory Rate Blood Pressure Pulse Oximetry 93 Oxygen Delivery Method Oxygen Flow Rate 06/23/23 12:30 Temperature Pulse Rate 94 H Respiratory Rate Blood Pressure Pulse Oximetry 94 Oxygen Delivery Method Oxygen Flow Rate Fraction of Inspired Oxygen 24 SaO2/FiO2 Ratio 395 Oxygen Delivery Method Nasal Cannula Oxygen Flow Rate 1 Narrative Exam Narrative: Alert middle-aged female older than her stated age in no acute distress HEENT exam is unremarkable neck supple without adenopathy lungs with crackles right side most of the lung field. Abdomen is soft positive bowel sounds nontender. Extremities are without cyanosis clubbing 1+ edema edema. Neurologic exam normal Objective Labs 06/23/23 05:40 06/23/23 05:40 Labs: Laboratory Results - last 24 hr 06/23/23 06/23/23 05:40 12:20 WBC 11.9 H RBC 3.72 L Hgb 9.2 L Hct 28.0 L MCV 75.2 L MCH 24.9 L MCHC 33.0 RDW 13.4 Plt Count 209 Neut % (Auto) 72.4 Lymph % (Auto) 18.7 L [place] % (Auto) 6.9 Eos % (Auto) 1.4 L Baso % (Auto) 0.6 Neut # (Auto) 8600 H Lymph # (Auto) 2200 [place] # (Auto) 800 Eos # (Auto) 200 Baso # (Auto) 100 Sodium 133 L Potassium 3.6 Chloride 102 Carbon Dioxide 26 BUN 21 H Creatinine 0.88 Estimated GFR > 60 BUN/Creatinine Ratio 23.9 H Glucose 102 H Calcium 9.2 Magnesium 1.9 Total Bilirubin 0.9 AST 51 H ALT 67 H Alkaline Phosphatase 374 H Total Protein 6.5 Albumin 3.9 Globulin 2.6 Albumin/Globulin Ratio 1.5 PFSH Medical History TIA (transient ischemic attack) Cardiac arrest Social History household members: significant other, family and children Smoking Status: Never smoker alcohol intake: current substance use type: does not use Assessment & Plan Assessment & Plan narrative: Elevated white count. White count mildly more elevated today. Probably secondary from pneumonia the question is we got good coverage she seems to be doing well. Still requiring oxygen which is going to be probably something is going to go home with. We will continue her current IV antibiotics. Hopefully will repeat tomorrow and hopefully she will be able to go home. Acute respiratory failure. Patient with O2 requirement usually does not require it. Not feeling much better. Still requiring O2 but not worsening. Will need to go home on O2. Will set up and go from there. Continue treatment pneumonia will add 20 of Lasix for possible fluid overload. Will need follow-up x-ray Elevated alk-phos. Etiology is unclear ultrasound is normal. Exam is normal. Do not think infection. Do not think obstruction certainly do not see it. May have been secondary to her sepsis and hypovolemia and infection. And will just have to watch and see repeat tomorrow will follow as outpatient. Drain Cleaner if persistent or worsening. Sepsis due to pneumonia. Resolving. Overall doing well. No evidence of worsening of this condition. Although her white count is slightly going up. She does not have any of the signs and symptoms and has been resolved. Intractable headache and neck pain I think this is all musculoskeletal. She responded okay to her Toradol may need to do some more but will do Dilaudid today and see how it does. Control has been poor throughout this process. Hyponatremia. Much improved. Acute renal failure resolved. Will follow. Secondary to prerenal. Microcytic anemia. Probably iron deficiency but will see. Re-evaluate History of coronary artery disease stable. History of alcohol abuse has not been drinking prior at least within the last 2 weeks. Disposition. We will set up O2 at home. Will see what her white count in her alk-phos does over the next 24 hours will see how she responds to Lasix and follow from there. Quality VTE Deep Vein Thrombosis/Pulmonary Embolism Present on Admission: No
--- NOTE | 2023-06-23 13:31 | PC.NURSE ---
Addendum entered by Malia Gage R.N. 06/23/23 18:56: In am around 0830 provider ordered dilaudid, RN clarified based on previous physician report about holding narcotics and provider said to give dilaudid. Original Note: In am, reported to provider that pt's WBC had increased to 11.9 today from 10.9 yesterday. Also reported to provider that pt's alkaline phosphate had increased to 374 from 305. When RN was doing 1100 telemetry strips, RN noticed that pt's QTc was prolonged. RN looked at previous telemetry strips and observed that previous QTc had been slightly prolonged. RN notified provider. RN also contacted pharmacy who did a medication review. Mg drawn and level normal.
[2023-06-23] MEDS: DOXYCYCLINE HYCLATE 100 MG TABLET PO ×2 (13:48→20:27)
[2023-06-23] MEDS: methocarbamoL 500 MG TABLET 750 MG PO ×2 (14:57→20:27)
[2023-06-23] MEDS: NORTRIPTYLINE HCL 25 MG CAPSULE 50 MG PO (20:26)
[2023-06-24] VITALS (28 sets, daily range): BP systolic 138–189; BP diastolic 74–97; PULSE 76–93; RESP 18–42; TEMP 36.1–37.6; O2SAT 90–95
[2023-06-24] MEDS: ACETAMINOPHEN 325 MG TABLET 650 MG PO (00:43)
[2023-06-24] MEDS: SUMAtriptan 25 MG TABLET 50 MG PO (04:31)
[2023-06-24 05:21] LABS: Add Manual Diff / Slide Review NO; Basophils Absolute Auto 100 /uL (0-100); Basophils Percent Auto 0.9 % (0-2); Eosinophils Absolute Auto 100 /uL (0-450); Eosinophils Percent Auto 1.1 % (2-4); Hematocrit 26.1 % (36-46); Hemoglobin 8.6 g/dL (12.0-16.0); Lymphocytes Absolute Auto 2000 /uL (1100-4500); Lymphocytes Percent Auto 16.9 % (25-40); Mean Corpuscular HGB Conc 32.9 % (30-36); Mean Corpuscular Hemoglobin 24.8 PG (26-34); Mean Corpuscular Volume 75.4 fL (80-100); Monocytes Absolute Auto 900 /uL (0-900); Monocytes Percent Auto 7.3 % (3-14); Neutrophils Absolute Auto 8700 /uL (1500-7000); Neutrophils Percent Auto 73.8 % (50-75); Platelet Count 247 X10^3/uL (150-400); Red Blood Cell Count 3.46 X10^6/uL (4.0-5.2); Red Cell Distribution Width 13.7 % (11.6-14.8); White Blood Cell Count 11.8 X10^3/uL (4.5-11.0)
[2023-06-24 05:37] LABS: Alanine Aminotransferase 69 IU/L (<35); Albumin 3.5 g/dL (3.5-5.0); Albumin Globulin Ratio 1.3 (1.0-2.8); Alkaline Phosphatase 381 U/L (38-126); Aspartate Aminotransferase 54 IU/L (14-36); Bilirubin Total 0.9 mg/dL (0.2-1.3); Blood Urea Nitrogen 14 mg/dL (7-17); Calcium 8.9 mg/dL (8.4-10.2); Carbon Dioxide 31 mmol/L (22-32); Chloride 101 mmol/L (98-107); Estimated Glomerular Filt Rate > 60 mL/min (>60); Globulin 2.6 g/dL (1.7-4.1); Glucose 106 mg/dL (70-100); HEMOLYSIS < 15 (0-50); Potassium 3.4 mmol/L (3.4-5.1); Sodium 135 mmol/L (137-145); Total Protein 6.1 g/dL (6.3-8.2)
[2023-06-24] MEDS: LEVOTHYROXINE 125 MCG TABLET PO (06:09)
[2023-06-24] MEDS: HYDROMORPHONE 2 MG TABLET PO (06:18)
[2023-06-24] MEDS: lisinopriL 10 MG TABLET PO (09:04)
[2023-06-24] MEDS: hydrOXYzine HCL 25 MG TABLET 50 MG PO (09:04)
[2023-06-24] MEDS: DOXYCYCLINE HYCLATE 100 MG TABLET PO (09:05)
[2023-06-24] MEDS: METOPROLOL ER 25 MG TABLET PO (09:05)
[2023-06-24] MEDS: cloNIDine 0.1 MG TABLET 0.3 MG PO (09:05)
[2023-06-24] MEDS: FLUoxetine 20 MG CAPSULE 40 MG PO (09:06)
[2023-06-24] MEDS: AMOXICILLIN/CLAV 875/125 MG 1 TAB PO (09:07)
[2023-06-24] MEDS: lamoTRIgine 100 MG TABLET 300 MG PO (09:08)
[2023-06-24] MEDS: LIDOCAINE 5% PATCH 1 EACH TOP (09:09)
[2023-06-24] MEDS: ENOXAPARIN 40 MG/0.4 ML SYRINGE SUBCUT (09:09)
[2023-06-24] MEDS: SODIUM CHLORIDE 0.9% FLUSH 10 ML IV (09:24)
--- NOTE | 2023-06-24 10:46 | OT.IPNOTE ---
Per nursing doing a sterile procedure on the pt and afterwards pt to be lying on her back for 30 minutes. Check on the pt if appropriate later.
--- NOTE | 2023-06-24 10:49 | OT.IPNOTE ---
Per pt's nurse doing a sterile procedure with the pt and that the pt afterwards will need to be lying on her back for the next 30 minutes. OT to check back later as appropriate.
[2023-06-24] MEDS: ONDANSETRON 4 MG ODT PO (11:59)
[2023-06-24] MEDS: POTASSIUM CHLORIDE 20 MEQ TAB 40 MEQ PO (11:59)
--- NOTE | 2023-06-24 12:32 | PT-IP ANOTE ---
checked pt and nurse in room. stated that pt just finished a procedure and has to be supine in bed for ~ 20 more minutes. also stated that pt will be going home afterwards. checked on pt again after ~ 30 min and nurse in room. stated that pt is going home and no PT.
--- NOTE | 2023-06-24 13:11 | P.DS_ITS ---
History of Present Illness History of Present Illness Date Patient Seen: 06/24/23 Time Patient Seen: 13:11 Date of Onset of Symptoms: 06/17/23 Chief complaint: SEIZURE Narrative: Patient a 52-year-old female well known to me who presents with questionable seizures. Patient has been having headaches over the last 2-3 weeks. Seems like they are beginning worse. She has had no nausea vomiting or other changes. Patient recently started getting febrile. And apparently has been having witnessed spasming over the last 24 hours. Patient has had a lot stress because she had to put her dog down. She has had no significant cough. Fever started yesterday. She has had no urinary symptoms change in her bowel movements abdominal pain. Headache is all in her head down into her neck and back. She feels like it is hard to move her head around. She has no other significant new changes or complaints. Patient otherwise has had no change or complaint. 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 Depression. Manic. 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 machine operator Routine Comment: Consulting Provider: [facility] [employer] Reason for consultation: Atmospheric Technician services 06/21/23 09:38 Consult to Physical Therapy Evaluate & Treat Comment: Physician Instructions: Evaluate and Treat 06/21/23 12:03 Consult to Occupational Therapy Evaluate & Treat Comment: Physician Instructions: Evaluate and treat 06/22/23 11:28 Consult to Home Health Routine Comment: Hypoxia, LISA, infection, SOB Reason For Exam: Set up RN/PT/OT for discharge to home Discharge provider: Saleem Vogt MD Summary Hospital Course Discharge Diagnosis: Sepsis syndrome Pneumonia Acute respiratory failure LISA Headache severe Dehydration Hepatitis Elevated white count Microcytic anemia Hyponatremia History of alcohol abuse Hospital Course: Sepsis syndrome. Patient was admitted with fever and hypotension. Patient had initial positive blood cultures but only 1/4. Echocardiogram was done because of question of cause. Seem to be normal. Chest x-ray showed developing pneumonia over time. Which was probable cause. She was hydrated aggressively and started on broad-spectrum antibiotics vancomycin and Zosyn. For unknown infection. Patient had no evidence of GI issues or cellulitis but concern for meningitis despite negative spinal tap. She was switched to Rocephin. And continue to follow. Cultures were negative except for 1 positive blood culture with Staph aureus. After time-out was felt to be a contaminant. She had no other positive blood cultures. She continued to improve over the next 48-72 hours and was felt to be stable from a sepsis perspective. Hydration was decreased and she was taking p.o.. She did have some periods of mental status changes but was felt to be secondary to medication trying to control her headaches. Otherwise completely normalized. Pneumonia. Patient probably was secondary to her issue with sepsis. Chest x- ray on day 3 showed developing pneumonia. This fit with her respiratory failure. Patient was originally on Rocephin and vancomycin. She was discontinued on the vancomycin and continued on Rocephin. Patient had slight increase in white count in the last 48 hours before discharge and atypical coverage was added with doxycycline. She was switch to oral Augmentin and will go home on doxycycline and Augmentin. Acute respiratory failure. Patient was initially presented with hypoxia. Was felt to be secondary to sepsis syndrome and initially was not obvious that she had a right-sided pneumonia. But that developed over 3 days. Hydration. It was clear that was the issue. She has not had any previous oxygen requirement. She continued to require oxygen throughout the course of admission. And will go home on oxygen. Expectation is for her to resolve need over the next 1-2 weeks as her pneumonia clears. Acute kidney injury. Patient was initially found to have creatinines in the 2s. It was felt to be prerenal. And secondary to her sepsis syndrome. She was aggressively hydrated over the 4 it 1st 48 hours and essentially normalized over the course of the 1st 48 hours. No other issues and continued to follow. Severe headache. One of the presentation she came with was severe headaches. It was head into her neck. She had initial spinal tap which was found to be negative. It was unable to be really treated with no real findings on CT scan or other changes. Became more clear that this was muscular in nature. And methocarbamol was added and Toradol. Which actual slow improvement in her symptoms. Due to the fact that she was having such severe pain x-ray was obtained which showed no abnormality and then CT scan showed really no definitive abnormality. On date of discharge she was completely asymptomatic and had no further issues it was felt to be secondary to a severe tension headache. Dehydration. Patient was dehydrated on presentation. Part of that was her sepsis syndrome but it was felt that she was moderately dehydrated. She was aggressively hydrated over the 1st 72 hours and then she was taking p.o. well and was discontinued. She is euvolemic on discharge. Hepatitis. It was noted over the course of the last 3 days of her admission that her alk-phos was increasing along with her other LFT labs. Alk-phos was higher than the others. Patient was having no abdominal symptoms. Normal exam. Ultrasound was obtained which showed no blockage of the hepatic system and otherwise was normal gallbladder was unremarkable. After discussion with hospitalist it was felt this was secondary to hypovolemia on her initial presentation and sepsis. It did stop elevating on the last day. And was stable. It will be followed as an outpatient hepatitis labs were drawn. They were pending at the day of discharge and will be followed as an outpatient. Low expectation of hepatitis viral mediated. Patient does have a history of alcohol abuse but was not drinking within the prior 2 weeks to presentation. Do not believe this was a probable cause. Elevated white count on discharge. Etiology is unclear some point. Probably part of her pneumonia. She was started on doxycycline 2 days prior to discharge and this will be followed as an outpatient. No fever. Clinically she is improving. Microcytic anemia. Iron deficiency by labs. No evidence of blood loss while she was in the hospital. She did have a slight decrease in hematocrit prior to discharge and will be followed as an outpatient. She will be discharged on iron. Hyponatremia. Patient was initially admitted with hyponatremia which with hydration resolved completely. She was normalized by the time of discharge. No symptoms or problems. [place] to be a combination of dehydration and pneumonia History of alcohol abuse. Patient has intermittently been dry has been dry for some time. But intermittently does drink. We have discussed this extensively and will continue to follow. 55 minutes spent on discharge discussion with the patient nursing orders dictation Exam Vital Signs (past 8 hours): - 06/24/23 06:00 06/24/23 06:23 06/24/23 06:23 Temperature Pulse Rate 81 92 H Respiratory Rate 28 H 34 H Blood Pressure 164/97 H Pulse Oximetry 94 92 Oxygen Delivery Method Oxygen Flow Rate 06/24/23 06:24 06/24/23 06:24 06/24/23 06:24 Temperature Pulse Rate 88 Respiratory Rate 42 H 24 Blood Pressure 159/88 H Pulse Oximetry 94 93 Oxygen Delivery Method Oxygen Flow Rate 2 06/24/23 08:00 06/24/23 08:00 06/24/23 09:04 Temperature 97.3 F L Pulse Rate 82 91 H Respiratory Rate 20 Blood Pressure 168/81 H 153/82 H Pulse Oximetry 94 Oxygen Delivery Method Nasal Cannula Oxygen Flow Rate 0 06/24/23 09:05 06/24/23 09:05 06/24/23 09:35 Temperature Pulse Rate 91 H 91 H 90 Respiratory Rate Blood Pressure 153/82 H 153/82 H 147/90 H Pulse Oximetry Oxygen Delivery Method Oxygen Flow Rate 06/24/23 12:00 Temperature 99.1 F Pulse Rate 90 Respiratory Rate 18 Blood Pressure 138/85 Pulse Oximetry 92 Oxygen Delivery Method Oxygen Flow Rate 2 Fraction of Inspired Oxygen 24 SaO2/FiO2 Ratio 395 Oxygen Delivery Method Nasal Cannula Oxygen Flow Rate 2 Narrative Exam Narrative: Alert female much less fatigued no acute respiratory distress mucous membranes moist. Neck supple without adenopathy. She has no tenderness in the muscles of the neck or into the upper back. Neck is free ranging without tenderness. Lungs with diffuse crackles primarily worse on the right with no significant rhonchi or wheeze. Heart is regular rate and rhythm without murmurs clicks rubs or gallops. Abdomen is soft positive bowel sounds no hepatosplenomegaly no mass. Extremities without cyanosis clubbing edema. Neurologic exam is nonfocal Objective Labs 06/24/23 04:40 06/24/23 04:40 Labs: Laboratory Results - last 24 hr 06/24/23 04:40 WBC 11.8 H RBC 3.46 L Hgb 8.6 L Hct 26.1 L MCV 75.4 L MCH 24.8 L MCHC 32.9 RDW 13.7 Plt Count 247 Neut % (Auto) 73.8 Lymph % (Auto) 16.9 L [place] % (Auto) 7.3 Eos % (Auto) 1.1 L Baso % (Auto) 0.9 Neut # (Auto) 8700 H Lymph # (Auto) 2000 [place] # (Auto) 900 Eos # (Auto) 100 Baso # (Auto) 100 Sodium 135 L Potassium 3.4 Chloride 101 Carbon Dioxide 31 BUN 14 Creatinine 0.70 Estimated GFR > 60 BUN/Creatinine Ratio 20.0 Glucose 106 H Calcium 8.9 Total Bilirubin 0.9 AST 54 H ALT 69 H Alkaline Phosphatase 381 H Total Protein 6.1 L Albumin 3.5 Globulin 2.6 Albumin/Globulin Ratio 1.3 [facility] Medical History TIA (transient ischemic attack) Cardiac arrest Social History household members: significant other, family and children Smoking Status: Never smoker alcohol intake: current substance use type: does not use Discharge Assessment & Plan Assessment and Plan Assessment: Improving Plan of Treatment: Discharge to home Discharge Plan Discharge Plan Patient Disposition: Home Discharge orders & Medications Prescriptions: New doxycycline hyclate 100 mg Tablet 100 mg PO BID Qty: 20 0RF amoxicillin-pot clavulanate 875-125 mg Tablet 1 tab PO BID Qty: 20 0RF Continued lisinopril 5 MG tablet 2.5 mg PO QDAY Qty: 0 metoprolol succinate [Toprol XL] 25 MG tablet extended release 24 hr 25 mg PO QDAY Qty: 0 multivitamin [Multiple Vitamins] 1 EACH tablet 1 tab PO QDAY Qty: 0 fluoxetine 40 mg capsule 40 mg PO BID clonidine HCl 0.3 mg tablet 0.3 mg PO BID levothyroxine 125 mcg tablet 125 mcg PO DAILY clotrimazole-betamethasone 1-0.05 % cream 1 applic topical PRN PRN (Reason: Rash) furosemide 20 mg tablet 20 mg PO DAILY nortriptyline 50 mg capsule 50 mg PO ONCE PM hydroxyzine pamoate 50 mg capsule 50 mg PO 3XD methocarbamol 750 mg tablet 750 mg PO BEDTIME lamotrigine 100 mg tablet 300 mg PO BID Discontinued hydroxyzine HCl 25 mg Tablet 50 mg PO TID Rx Instructions: Take two tablets by mouth three times a day diclofenac sodium 75 mg tablet,delayed release (DR/EC) 75 mg PO BID PRN (Reason: pain) Follow up/Referrals: Saleem Vogt MD [Primary Care Provider] - 06/29/23 2:15 pm (Appt:06/28 @ 2:[address] Vogt ) Discharge Health Status Multidrug resistant organism: No MDRO Diet/Activity/Treatments Diet: Diet as Tolerated Oxygen: Use to keep saturations above 93% Skin/Wound/Dressing Care Report to your healthcare provider any signs of infection, such as:: chills, fever and increased pain Visit Report/Discharge Packet Stand Alone Forms: Patient Portal/API, Stroke Signs & Symptoms Discharge Data Primary Care Provider: Saleem Vogt VTE Deep Vein Thrombosis/Pulmonary Embolism Present on Admission: No
--- NOTE | 2023-06-24 13:25 | PC.NURSE ---
Addendum entered by Malia Gage R.N. 06/24/23 18:05: PICC removed before pt discharged, per provider order. Tip intact, pt tolerated well, Hemostasis achieved. Original Note: Pt met discharge criteria, pt VSS. SPO2 90 or greater on 2L O2. RN measured pt oral temperature of 99.7, provider aware and provider at bedside during measurement Provider okayed discharge. Pt and pt family member verified that pt will have O2 at home and walker at home. O2 transferred to portable tank and RN verified tank was full and providing O2 to pt. Pt and family member were educated on how to use the O2 tank and pt and family verbalized they knew how to use it. Pt education given on when to call the doctor and when to go to the ED.
--- NOTE | 2023-06-24 13:46 | CM.DPNOTE ---
DCP Note BALLOON TE[employer] reviewed EMR, Per Provider, medically cleared to dc home today with family and HH services. Pt getting wheeled out the door with family when this BALLOON TESTER attempted to meet with them. They confirm they're all set with [facility]. BALLOON TESTER faxed (f [phone]) [facility] f2f, order, and dc summary. Placed f2f in scanning folder. BALLOON TESTER emailed Harleen Abbott, and Alex at [facility] notification of pt discharge. Plan: pt dc home today with [facility] and family. No additional CM needs identified at this time. CM team will follow as needed. CHARLES Marroquin
[2023-06-24 20:27] LABS: HBsAg Screen Negative (Negative); Hepatitis A Antibody IgM Negative (Negative); Hepatitis B Core Antibody IgM Negative (Negative); Hepatitis C Antibody Non Reactive (Non Reactive)
== END 2023-06-24 13:39 | disposition home health service (06) | DRG 720 ==
LOC: ED 19:25 → AC 19:49 → ICU 20:31 → AC 06-19 11:09 → ICU 06-19 11:09
PROVIDERS: Family Medicine; Internal Medicine; Admitting Provider Family Medicine; Emergency Provider Emergency Medicine; PCP Family Medicine; Referring Provider Emergency Medicine; Visit Provider Family Medicine
DX: A41.9 Sepsis, unspecified organism (principal); E87.1 Hypo-osmolality and hyponatremia; N17.9 Acute kidney failure, unspecified; R51.9 Headache, unspecified; E86.0 Dehydration; F41.9 Anxiety disorder, unspecified; F31.9 Bipolar disorder, unspecified; I25.10 Atherosclerotic heart disease of native coronary artery without angina pectoris; E03.9 Hypothyroidism, unspecified; J98.11 Atelectasis; R41.0 Disorientation, unspecified; J18.9 Pneumonia, unspecified organism; M54.2 Cervicalgia; R65.20 Severe sepsis without septic shock; J96.01 Acute respiratory failure with hypoxia; D50.9 Iron deficiency anemia, unspecified; K75.9 Inflammatory liver disease, unspecified; Z86.74 Personal history of sudden cardiac arrest
CPT/HCPCS: 36415; 36573; 36592; 62328; 70450; 71045; 71046; 72040; 72125; 76700; 80048; 80053; 80074; 80305; 80320; 81001; 81003; 82945; 83540; 83550; 83690; 83735; 84146; 84157; 84439; 84443; 84481; 85025; 87040; 87070; 87086; 87154; 87186; 87205; 87633; 87797; 87798; 89051; 93005; 94618; 96365; 96375; 97116; 97129; 97162; 97166; 97530; 97535; 99285; A9270; C8929; J0136; J0696; J1200; J1642; J1650; J1885; J1940; J2060; J2270; J2405; J2543; J2765; P9041; Q9957

== ENCOUNTER 2023-07-10 06:32 | Emergency (ER) | payer OTHER, MEDICAID, SELFPAY ==
[2023-06-18 23:41] VITALS: BMI 37.5
[2023-07-10] VITALS (15 sets, daily range): BP systolic 93–113; BP diastolic 50–71; PULSE 98–111; RESP 20–29; TEMP 37.2–37.7; O2SAT 91–96; BMI 34.9
--- NOTE | 2023-07-10 06:32 | PC.NURSE ---
Alerted Dr. Gusman patient meets sepsis criteria. No new orders at this time.
--- NOTE | 2023-07-10 07:26 | ED.SEIZURE ---
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 this morning. Patient describes her seizures as like ?a stretching?, where her whole body will bend backwards and she seems to go stiff. She states that she is cognizant throughout the entire events and does not lose consciousness. She did not fall, did not hit her head, did not bite her tongue, denies urinary incontinence. Significant other at bedside confirms multiple of these events today. Patient recently admitted from [address] [place] [address] for headaches as well as these abnormal activities. She was diagnosed with pneumonia and discharged on antibiotics. Patient states that she finished her antibiotics several days ago and feels better, but since she does not have her oxygen on she feels somewhat short of breath. EMS reports fever EN route, oral temperature here on arrival 99.8. Patient denies alcohol use. Related Data Home Medications Medication Instructions Recorded Confirmed lisinopril 5 mg tablet 2.5 mg PO QDAY ##0 10/06/16 06/19/23 metoprolol succinate 25 mg 25 mg PO QDAY ##0 10/06/16 06/19/23 tablet,extended release 24 hr (Toprol XL) multivitamin (Multiple Vitamins 1 tab PO QDAY ##0 10/06/16 06/19/23 tablet) clonidine HCl 0.3 mg tablet 0.3 mg PO BID 05/05/23 06/19/23 clotrimazole-betamethasone 1 1 applic topical PRN PRN Rash 05/05/23 06/19/23 %-0.05 % topical cream fluoxetine 40 mg capsule 40 mg PO BID depressive disorder 05/05/23 06/19/23 furosemide 20 mg tablet 20 mg PO DAILY 05/05/23 06/19/23 levothyroxine 125 mcg tablet 125 mcg PO DAILY 05/05/23 06/19/23 nortriptyline 50 mg capsule 50 mg PO ONCE PM 05/05/23 06/19/23 hydroxyzine pamoate 50 mg capsule 50 mg PO 3XD 06/19/23 06/19/23 lamotrigine 100 mg tablet 300 mg PO BID 06/19/23 06/19/23 methocarbamol 750 mg tablet 750 mg PO BEDTIME 06/19/23 06/19/23 Previous Rx's Medication Instructions Recorded amoxicillin 875 mg-potassium 1 tab PO BID #20 tabs 06/24/23 clavulanate 125 mg tablet doxycycline hyclate 100 mg tablet 100 mg PO BID #20 tabs 06/24/23 levofloxacin 750 mg tablet 750 mg PO DAILY #7 tabs 07/10/23 Allergies Allergy/AdvReac Type Severity Reaction Status Date / Time adhesive tape AdvReac Mild Rash Verified 05/05/23 13:41 meperidine [MEPERIDINE] AdvReac Unknown Rash Verified 04/12/23 15:46 Review of Systems Review of Systems Narrative: See HPI Patient History Medical History TIA (transient ischemic attack) Cardiac arrest Social History household members: significant other, family and children Smoking Status: Never smoker alcohol intake: current substance use type: does not use Smoking Status: Never smoker alcohol intake frequency: holidays/special occasions only Alcohol type: hard liquor Substance Use Type: marijuana Exam Initial Vital Signs Initial Vital Signs: Vital Signs Temperature 99.8 F H 07/10/23 06:32 Pulse Rate 111 H 07/10/23 06:32 Respiratory Rate 20 07/10/23 06:32 Blood Pressure 100/59 L 07/10/23 06:32 Pulse Oximetry 93 07/10/23 06:32 Oxygen Delivery Method Room Air 07/10/23 06:32 Const: Awake, alert, no acute distress, nontoxic appearing Cardiac: Tachycardia, regular rhythm RESP: unlabored, clear bilaterally, no wheezing GI: Soft, nontender, nondistended, no rebound, no guarding Skin: Warm, Dry, intact, no rashes Neuro: AO x3, CN II-XII grossly intact, moves all extremities Course Orders Ordered: ED Orders 07/10/23 06:47 EKG-12 Lead Stat 07/10/23 07:26 Chest [XR chest 1V] Stat 07/10/23 08:00 CBC Auto Diff [Complete Blood Count AUTO DIFF] Stat CMP [Comprehensive Metabolic Panel] Stat Discontinued Medications Diphenhydramine HCl (Diphenhydramine 50 Mg/Ml Vial) 50 mg IV NOW ONE Stop: 07/10/23 07:27 Last Admin: 07/10/23 07:35 Dose: 50 mg Documented By: RB Droperidol (Droperidol 5 Mg/2 Ml Vial) 2.5 mg IV NOW ONE Stop: 07/10/23 07:27 Last Admin: 07/10/23 07:35 Dose: 2.5 mg Documented By: RB Ketorolac Tromethamine (Ketorolac 30 Mg/Ml Vial) 15 mg IV NOW ONE Stop: 07/10/23 07:27 Last Admin: 07/10/23 07:35 Dose: 15 mg Documented By: RB Vital Signs Vital signs: Vital Signs - 8 hr 07/10/23 06:32 07/10/23 06:51 07/10/23 06:51 Temperature 99.8 F H Pulse Rate 111 H 110 H Respiratory Rate 20 23 Blood Pressure 100/59 L 107/54 L Pulse Oximetry 93 93 Oxygen Delivery Method Room Air Room Air 07/10/23 07:00 07/10/23 07:00 07/10/23 07:20 Temperature Pulse Rate 107 H 107 H Respiratory Rate 23 Blood Pressure 103/58 L Pulse Oximetry 95 95 Oxygen Delivery Method 07/10/23 07:20 07/10/23 07:30 07/10/23 07:30 Temperature Pulse Rate 104 H Respiratory Rate 27 H Blood Pressure 108/71 108/58 L Pulse Oximetry 95 Oxygen Delivery Method 07/10/23 07:40 07/10/23 07:40 07/10/23 07:50 Temperature 98.9 F Pulse Rate 105 H Respiratory Rate Blood Pressure 102/58 L 105/61 Pulse Oximetry 96 Oxygen Delivery Method 07/10/23 07:50 07/10/23 08:00 07/10/23 08:00 Temperature Pulse Rate 105 H 100 H Respiratory Rate 29 H 27 H Blood Pressure 103/52 L Pulse Oximetry 95 94 Oxygen Delivery Method 07/10/23 08:10 07/10/23 08:10 07/10/23 08:20 Temperature Pulse Rate 101 H Respiratory Rate 20 Blood Pressure 95/55 L 96/51 L Pulse Oximetry 93 Oxygen Delivery Method 07/10/23 08:20 07/10/23 08:30 07/10/23 08:30 Temperature Pulse Rate 103 H 106 H Respiratory Rate 27 H 26 H Blood Pressure 113/64 Pulse Oximetry 92 92 Oxygen Delivery Method 07/10/23 08:40 07/10/23 08:40 07/10/23 08:50 Temperature Pulse Rate 98 H 100 H Respiratory Rate 22 25 H Blood Pressure 95/50 L Pulse Oximetry 94 91 Oxygen Delivery Method 07/10/23 08:52 07/10/23 08:54 07/10/23 08:54 Temperature Pulse Rate 98 H 98 H Respiratory Rate 24 23 Blood Pressure 93/55 L Pulse Oximetry 92 93 Oxygen Delivery Method MDM - Seizure Differential Diagnosis Differential diagnosis: Likely intractable seizure disorder, febrile convulsion and focal seizure Lab Data 07/10/23 08:00 07/10/23 08:00 Labs: Lab Results 07/10/23 Range/Units 08:00 WBC 3.7 L (4.5-11.0) X10^3/uL RBC 3.78 L (4.0-5.2) X10^6/uL Hgb 9.5 L (12.0-16.0) g/dL Hct 28.9 L (36-46) % MCV 76.4 L (80-100) fL MCH 25.1 L (26-34) PG MCHC 32.9 (30-36) % RDW 13.9 (11.6-14.8) % Plt Count 412 H (150-400) X10^3/uL Neut % (Auto) 90.0 H (50-75) % Lymph % (Auto) 7.2 L (25-40) % [place] % (Auto) 1.3 L (3-14) % Eos % (Auto) 1.0 L (2-4) % Baso % (Auto) 0.5 (0-2) % Neut # (Auto) 3300 (2476-4279) /uL Lymph # (Auto) 300 L (5386-9827) /uL [place] # (Auto) 0 (0-900) /uL Eos # (Auto) 0 (0-450) /uL Baso # (Auto) 0 (0-100) /uL Sodium 137 (137-145) mmol/L Potassium 4.1 (3.4-5.1) mmol/L Chloride 107 (98-107) mmol/L Carbon Dioxide 24 (22-32) mmol/L BUN 22 H (7-17) mg/dL Creatinine 1.06 H (0.52-1.04) mg/dL Estimated GFR > 60 (>60) mL/min BUN/Creatinine Ratio 20.8 (6-22) Glucose 77 (70-100) mg/dL Calcium 9.2 (8.4-10.2) mg/dL Total Bilirubin 0.5 (0.2-1.3) mg/dL AST 42 H (14-36) IU/L ALT 35 H (<35) IU/L Alkaline Phosphatase 218 H (38-126) U/L Total Protein 6.6 (6.3-8.2) g/dL Albumin 3.8 (3.5-5.0) g/dL Globulin 2.8 (1.7-4.1) g/dL Albumin/Globulin Ratio 1.4 (1.0-2.8) Imaging Data Chest x-ray: Radiologist's Impression: PROCEDURE: XR CHEST 1V INDICATIONS: RECENT PNA, DYSPNEA TECHNIQUE: One view of the chest was acquired. COMPARISON: [facility], , XR CHEST 2V, 06/23/2023, 8:50. FINDINGS: Surgical changes and devices: Pacemaker Lungs and pleura: Significant interval improvement with resolution of pulmonary edema in the left lung. There is residual patchy consolidative process in the right lung, potentially representing right-sided pneumonia or unilateral pulmonary edema. No pleural effusions or pneumothorax. Mediastinum: Mediastinal contours appear normal. At least moderate cardiomegaly. Bones and chest wall: No suspicious bony lesions. Overlying soft tissues appear unremarkable. IMPRESSION: Overall, there has been interval improvement. There is persistent consolidative process in the right lung, potentially representing right-sided pneumonia versus unilateral pulmonary edema. Dictated by: Krystian Gamez M.D. on 07/10/2023 at 8:05 Approved by: Krystian Gamez M.D. on 07/10/2023 at 8:07 [facility] Narrative Medical decision making narrative: Recurrent ?seizures? at home. Patient's description of seizures is not consistent with epileptic pattern. She states that she was aware throughout the entire event, has no postictal state, no tongue biting, no incontinence. She states that she was told in the past that these are ?not true seizures? but she does not know the actual name. 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 Patient was reporting a headache, she was recently admitted for intractable headache and underwent CT imaging and lumbar puncture. She states that this is similar headache to when she was in the hospital previously. No focal neurologic deficit, patient was alert, oriented, NIH 0. No indication for repeat head imaging at this time. Laboratory work is reviewed, WBC count 3.7, hemoglobin 9.5 (chronic, baseline per patient), platelets 412, sodium 137, potassium 4.1, creatinine 1.06. Patient was given IV medications for headache with improvement in symptoms. No episodes of abnormal movement or seizure-like activity noted. Chest x-ray shows persistent process in the right lower lobe. It was possible that chest x-ray lagging behind clinical presentation, however since she was reporting shortness of breath earlier we will continue with several days of antibiotics. She already completed Augmentin and doxycycline, changed to Levaquin. Patient states that she was follow up next week with her primary care physician. She was informed of her normal lab results and x-ray imaging. Recommended primary care and Psychiatry follow up for her likely nonepileptic movements. Discharge Plan Departure Patient Disposition: Home Clinical Impression: Seizure-like activity Instructions: Psychogenic Nonepileptic Seizures Activity Restrictions/Additional Instructions: Your laboratory work today is reassuring. It does appear that you may have a touch of pneumonia left on your right-hand side. I will be changing up your antibiotics and adding a couple additional days of antibiotics. The activity that you describe is not consistent with neurologic seizures. I do recommend following up with your primary care doctor and maybe even psychiatry if you continue to have these abnormal episodes. Otherwise continue all of your other medications as prescribed. Prescriptions: New levofloxacin 750 mg tablet 750 mg PO DAILY Qty: 7 0RF No Action lisinopril 5 MG tablet 2.5 mg PO QDAY Qty: 0 metoprolol succinate [Toprol XL] 25 MG tablet extended release 24 hr 25 mg PO QDAY Qty: 0 multivitamin [Multiple Vitamins] 1 EACH tablet 1 tab PO QDAY Qty: 0 fluoxetine 40 mg capsule 40 mg PO BID clonidine HCl 0.3 mg tablet 0.3 mg PO BID levothyroxine 125 mcg tablet 125 mcg PO DAILY clotrimazole-betamethasone 1-0.05 % cream 1 applic topical PRN PRN (Reason: Rash) furosemide 20 mg tablet 20 mg PO DAILY nortriptyline 50 mg capsule 50 mg PO ONCE PM hydroxyzine pamoate 50 mg capsule 50 mg PO 3XD methocarbamol 750 mg tablet 750 mg PO BEDTIME lamotrigine 100 mg tablet 300 mg PO BID doxycycline hyclate 100 mg Tablet 100 mg PO BID Qty: 20 0RF amoxicillin-pot clavulanate 875-125 mg Tablet 1 tab PO BID Qty: 20 0RF Referrals: Saleem Vogt MD [Primary Care Provider] - Stand Alone Forms: Patient Portal/API
[2023-07-10] MEDS: diphenhydrAMINE 50 MG/ML VIAL IV (07:35)
[2023-07-10] MEDS: KETOROLAC 30 MG/ML VIAL 15 MG IV (07:35)
[2023-07-10] MEDS: DROPERIDOL 5 MG/2 ML VIAL 2.5 MG IV (07:35)
[2023-07-10 08:16] LABS: Add Manual Diff / Slide Review NO; Basophils Absolute Auto 0 /uL (0-100); Basophils Percent Auto 0.5 % (0-2); Eosinophils Absolute Auto 0 /uL (0-450); Hematocrit 28.9 % (36-46); Hemoglobin 9.5 g/dL (12.0-16.0); Lymphocytes Absolute Auto 300 /uL (1100-4500); Lymphocytes Percent Auto 7.2 % (25-40); Mean Corpuscular HGB Conc 32.9 % (30-36); Mean Corpuscular Hemoglobin 25.1 PG (26-34); Mean Corpuscular Volume 76.4 fL (80-100); Monocytes Absolute Auto 0 /uL (0-900); Monocytes Percent Auto 1.3 % (3-14); Neutrophils Absolute Auto 3300 /uL (1500-7000); Platelet Count 412 X10^3/uL (150-400); Red Blood Cell Count 3.78 X10^6/uL (4.0-5.2); Red Cell Distribution Width 13.9 % (11.6-14.8); White Blood Cell Count 3.7 X10^3/uL (4.5-11.0)
[2023-07-10 08:25] LABS: Alanine Aminotransferase 35 IU/L (<35); Albumin 3.8 g/dL (3.5-5.0); Albumin Globulin Ratio 1.4 (1.0-2.8); Alkaline Phosphatase 218 U/L (38-126); Aspartate Aminotransferase 42 IU/L (14-36); BUN Creatinine Ratio 20.8 (6-22); Bilirubin Total 0.5 mg/dL (0.2-1.3); Blood Urea Nitrogen 22 mg/dL (7-17); Calcium 9.2 mg/dL (8.4-10.2); Carbon Dioxide 24 mmol/L (22-32); Chloride 107 mmol/L (98-107); Estimated Glomerular Filt Rate > 60 mL/min (>60); Globulin 2.8 g/dL (1.7-4.1); Glucose 77 mg/dL (70-100); HEMOLYSIS < 15 (0-50); Potassium 4.1 mmol/L (3.4-5.1); Sodium 137 mmol/L (137-145); Total Protein 6.6 g/dL (6.3-8.2)
--- NOTE | 2023-07-10 19:13 | PC.NURSE ---
This RN was with RN student during assessment and agree with charted assessment findings by student.
== END 2023-07-10 09:07 | disposition home or self-care (01) ==
PROVIDERS: Emergency Provider Emergency Medicine; PCP Family Medicine
DX: R56.9 Unspecified convulsions (principal); R51.9 Headache, unspecified
CPT/HCPCS: 36415; 71045; 80053; 85025; 93005; 93010; 96374; 96375; 99283; 99284; J1200; J1790; J1885

== ENCOUNTER 2023-08-20 16:52 | Emergency (ER) | payer OTHER, MEDICAID, SELFPAY ==
[2023-06-18 23:41] VITALS: BMI 37.5
[2023-08-20 17:11] VITALS: BP 90/53; PULSE 106; RESP 28; TEMP 36.8; O2SAT 98; BMI 36.6
--- NOTE | 2023-08-20 17:15 | DI.RAD.S_ITS ---
PROCEDURE: XR CHEST 1V INDICATIONS: suspected sepsis TECHNIQUE: One view of the chest was acquired. COMPARISON: [facility], CR, XR CHEST 1V, 07/10/2023, 7:32. [facility], CR, XR CHEST 2V, 06/23/2023, 8:50. FINDINGS: Surgical changes and devices: Left chest wall pacemaker. Lungs and pleura: Prominent interstitial markings. No pleural effusions or pneumothorax. Mediastinum: Mediastinal contours appear normal. Heart size is enlarged. Bones and chest wall: No suspicious bony lesions. Overlying soft tissues appear unremarkable. IMPRESSION: Cardiomegaly, appears increased compared to prior, correlate for pericardial effusion. Prominent interstitial markings, likely representing pulmonary edema. Dictated by: Moses Ramachandran M.D. on 08/20/2023 at 17:39 Approved by: Moses Ramachandran M.D. on 08/20/2023 at 17:41
--- NOTE | 2023-08-20 17:15 | EKG_ITS ---
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
[2023-08-20 17:46] LABS: Add Manual Diff / Slide Review NO; Basophils Absolute Auto 0 /uL (0-100); Basophils Percent Auto 0.1 % (0-2); Eosinophils Absolute Auto 0 /uL (0-450); Hemoglobin 11.2 g/dL (12.0-16.0); Lymphocytes Absolute Auto 500 /uL (1100-4500); Lymphocytes Percent Auto 2.9 % (25-40); Mean Corpuscular Hemoglobin 25.3 PG (26-34); Mean Corpuscular Volume 76.5 fL (80-100); Monocytes Absolute Auto 400 /uL (0-900); Monocytes Percent Auto 2.2 % (3-14); Neutrophils Absolute Auto 16100 /uL (1500-7000); Neutrophils Percent Auto 94.8 % (50-75); Platelet Count 225 X10^3/uL (150-400); Red Blood Cell Count 4.44 X10^6/uL (4.0-5.2); Red Cell Distribution Width 14.7 % (11.6-14.8); White Blood Cell Count 16.9 X10^3/uL (4.5-11.0)
[2023-08-20 17:56] LABS: INR 1.2 (0.9-1.3); Prothrombin Time 13.7 SECONDS (9.4-12.5)
[2023-08-20 17:58] LABS: PTT Partial Thromboplastin Tim 31 SECONDS (25.1-36.5)
[2023-08-20 18:03] LABS: Lactate (Lactic Acid) 1.5 mmol/L (0.7-2.1)
[2023-08-20 18:04] LABS: Alanine Aminotransferase 78 IU/L (<35); Albumin 4.2 g/dL (3.5-5.0); Albumin Globulin Ratio 1.6 (1.0-2.8); Alkaline Phosphatase 97 U/L (38-126); Aspartate Aminotransferase 76 IU/L (14-36); BUN Creatinine Ratio 23.2 (6-22); Bilirubin Total 0.8 mg/dL (0.2-1.3); Blood Urea Nitrogen 36 mg/dL (7-17); Calcium 8.5 mg/dL (8.4-10.2); Carbon Dioxide 20 mmol/L (22-32); Chloride 99 mmol/L (98-107); Estimated Glomerular Filt Rate 40 mL/min (>60); Globulin 2.7 g/dL (1.7-4.1); Glucose 88 mg/dL (70-100); HEMOLYSIS < 15 (0-50); Lipase 39 U/L (23-300); Potassium 4.6 mmol/L (3.4-5.1); Sodium 127 mmol/L (137-145); Total Protein 6.9 g/dL (6.3-8.2)
[2023-08-20 18:18] LABS: Procalcitonin 34.9 ng/mL (<0.5)
[2023-08-20] MEDS: SODIUM CHLORIDE 0.9% 1,000 ML 1000 ML IV (18:26)
--- NOTE | 2023-08-20 19:38 | PC.NURSE ---
patient stats that she fell down after trying to get out of bed twice and hit her head. She's been having headache and nausea, stomach pain, and body aches. She has not been around anybody with illness. She reports feeling sweaty but is not febrile here today at triage. She has a history of cardiac disease and has a pacemaker. She still has her gallbladder, appendix, but had a hysterectomy with bilateral salpingooophorectomy in the past. her abd is round and soft and tender all over. she denies having diarrhea and constipation.
[2023-08-20 20:15] LABS: Bacteria Urine Few (2-10); Culture Indicated Urine Specimen Cultured; RBC Urine 1-5/HPF (0-5/HPF); Squamous Epithelial Cell Urine 1-5 /HPF (0-5/HPF); Urine Volume 10mL (spun); WBC Urine 30-100/HPF (0-5/HPF)
== END 2023-08-20 20:51 | disposition left against medical advice (07) ==
PROVIDERS: Emergency Medicine; Emergency Provider Emergency Medicine; PCP Family Medicine
DX: R10.84 Generalized abdominal pain (principal); R11.2 Nausea with vomiting, unspecified; R42 Dizziness and giddiness
CPT/HCPCS: 36415; 71045; 80053; 81003; 81015; 83605; 83690; 84145; 85025; 85610; 85730; 87040; 87077; 87086; 87186; 93005; 96360; 96361; 99284

== ENCOUNTER 2023-08-23 10:34 | Emergency (ER) | payer OTHER, MEDICAID, SELFPAY ==
[2023-06-18 23:41] VITALS: BMI 37.5
[2023-08-23] VITALS (32 sets, daily range): BP systolic 114–154; BP diastolic 62–86; PULSE 96–111; RESP 19–34; TEMP 36.4; O2SAT 93–97; BMI 37.1
--- NOTE | 2023-08-23 10:54 | DI.RAD.S_ITS ---
PROCEDURE: XR CHEST 1V INDICATIONS: suspected sepsis TECHNIQUE: One view of the chest was acquired. COMPARISON: [facility], CR, XR CHEST 1V, 08/20/2023, 17:31. FINDINGS: Surgical changes and devices: Left chest wall AICD device with single cardiac lead. Lungs and pleura: No pneumothorax. Low lung volumes. Probable small left pleural effusion. Left base opacity. Mediastinum: Mediastinal contours appear normal. Heart size is normal. Bones and chest wall: No suspicious bony lesions. Overlying soft tissues appear unremarkable. IMPRESSION: Left basilar opacity may represent atelectasis, aspiration or pneumonia in the appropriate clinical setting. Probable small left pleural effusion. Approved by: Amelia Padron M.D.,Ph.D. on 08/23/2023 at 11:41
--- NOTE | 2023-08-23 11:00 | EKG_ITS ---
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
--- NOTE | 2023-08-23 11:39 | DI.CT.S_ITS ---
PROCEDURE: CT HEAD/BRAIN WO CON INDICATIONS: fallen x 3 TECHNIQUE: Noncontrast 4.5 mm thick angled axial sections acquired from the foramen magnum to the vertex, with coronal and sagittal reformats. For radiation dose reduction, the following was used: automated exposure control, adjustment of mA and/or kV according to patient size. COMPARISON: [facility], CT, CT HEAD/BRAIN WO CON, 06/18/2023, 9:21. FINDINGS: Image quality: Diagnostic. CSF spaces: Basal cisterns are patent. No extra-axial fluid collections. The ventricles are symmetric in size and shape. Brain: No intracranial bleeds or masses. There is cerebral volume loss for age, with resultant ventricular and sulcal prominence. There are periventricular and deep white matter chronic small vessel ischemic changes. There is intracranial internal carotid artery atherosclerosis. Skull and face: Calvarium and visualized facial bones appear intact, without suspicious lesions. Sinuses: Mild mucosal thickening of the bilateral maxillary sinus. Left maxillary sinus retention cyst. Mild mucosal thickening of the bilateral ethmoid air cells. Mastoid air cells are well pneumatized. IMPRESSION: No acute intracranial pathology. Approved by: Amelia Padron M.D.,Ph.D. on 08/23/2023 at 12:58
--- NOTE | 2023-08-23 11:39 | DI.RAD.S_ITS ---
PROCEDURE: XR ELBOW LT MIN 3V INDICATIONS: fall TECHNIQUE: 3 views of the elbow were acquired. COMPARISON: None. FINDINGS: Bones: No fractures or dislocations. No suspicious bony lesions. Soft tissues: No elbow joint effusion. No suspicious soft tissue calcifications. IMPRESSION: No acute bony abnormality or significant joint effusion. Approved by: Amelia Padron M.D.,Ph.D. on 08/23/2023 at 11:42
[2023-08-23] MEDS: SODIUM CHLORIDE 0.9% 1,000 ML 1000 ML IV ×2 (11:44→13:16)
[2023-08-23 11:52] LABS: Hematocrit 32.6 % (36-46); Hemoglobin 10.6 g/dL (12.0-16.0); Mean Corpuscular HGB Conc 32.4 % (30-36); Mean Corpuscular Hemoglobin 24.8 PG (26-34); Mean Corpuscular Volume 76.7 fL (80-100); Platelet Count 99 X10^3/uL (150-400); Red Blood Cell Count 4.26 X10^6/uL (4.0-5.2); Red Cell Distribution Width 14.7 % (11.6-14.8); White Blood Cell Count 15.7 X10^3/uL (4.5-11.0)
[2023-08-23 11:54] LABS: Add Manual Diff / Slide Review YES; INR 1.1 (0.9-1.3)
[2023-08-23 11:55] LABS: Lactate (Lactic Acid) 1.5 mmol/L (0.7-2.1)
[2023-08-23 11:56] LABS: Alanine Aminotransferase 45 IU/L (<35); Albumin 3.6 g/dL (3.5-5.0); Albumin Globulin Ratio 1.2 (1.0-2.8); Alkaline Phosphatase 153 U/L (38-126); Aspartate Aminotransferase 31 IU/L (14-36); BUN Creatinine Ratio 21.1 (6-22); Bilirubin Total 0.6 mg/dL (0.2-1.3); Blood Urea Nitrogen 23 mg/dL (7-17); Calcium 8.9 mg/dL (8.4-10.2); Carbon Dioxide 22 mmol/L (22-32); Chloride 103 mmol/L (98-107); Estimated Glomerular Filt Rate > 60 mL/min (>60); Globulin 2.9 g/dL (1.7-4.1); Glucose 160 mg/dL (70-100); HEMOLYSIS < 15 (0-50); Lipase 26 U/L (23-300); PTT Partial Thromboplastin Tim 28 SECONDS (25.1-36.5); Potassium 3.6 mmol/L (3.4-5.1); Sodium 132 mmol/L (137-145); Total Protein 6.5 g/dL (6.3-8.2)
--- NOTE | 2023-08-23 12:21 | ED.RECABL ---
HPI - Recheck/Abnormal Lab/Rx <Gabby Edward, DO - Last Filed: 08/25/23 07:00> General Chief Complaint: Recheck/Abnormal Lab/Rx Stated Complaint: Tests Time Seen by Provider: 08/23/23 11:39 Source: patient Mode of arrival: Wheelchair History of Present Illness HPI narrative: Patient is a 52-year-old female who presents today after we called her she was seen here on August 19, met septic shock criteria with a blood pressure 90/53 heart rate 106 respiratory rate 28. sHe had blood work done including blood cultures urinalysis. Today blood culture is positive for Staphylococcus 2/2. And urinalysis is positive for E coli, which is resistant to Keflex and sensitive to fluoroquinolones. Patient was also seen at [facility] on 08/21/2021 where she had blood work done diagnosed with UTI sent home on Keflex for which urine culture is resistant to. She is here today because we finally were able to get hold of her and recommended she come back in for repeat blood cultures and evaluation. She reports that she has fallen a couple of times the reports nursing note that she fell in the ED she is complaining of left elbow pain. She has not on anticoagulation or antiplatelet medication. Would be cultures have been received and reviewed. He is also complaining of back pain at this time no nausea or vomiting. Upon further chart review patient was here and admitted in May on June 17 through the . During that admission she also had positive blood cultures for Staphylococcus, along with sepsis syndrome she had fever and hypotension she had 1 of for positive blood culture she had an echocardiogram that was done and seem to be normal without any evidence of vegetation on her valves. Related Data Home Medications Medication Instructions Recorded Confirmed lisinopril 5 mg tablet 2.5 mg PO QDAY ##0 10/06/16 06/19/23 metoprolol succinate 25 mg 25 mg PO QDAY ##0 10/06/16 06/19/23 tablet,extended release 24 hr (Toprol XL) multivitamin (Multiple Vitamins 1 tab PO QDAY ##0 10/06/16 06/19/23 tablet) clonidine HCl 0.3 mg tablet 0.3 mg PO BID 05/05/23 06/19/23 clotrimazole-betamethasone 1 1 applic topical PRN PRN Rash 05/05/23 06/19/23 %-0.05 % topical cream fluoxetine 40 mg capsule 40 mg PO BID depressive disorder 05/05/23 06/19/23 furosemide 20 mg tablet 20 mg PO DAILY 05/05/23 06/19/23 levothyroxine 125 mcg tablet 125 mcg PO DAILY 05/05/23 06/19/23 nortriptyline 50 mg capsule 50 mg PO ONCE PM 05/05/23 06/19/23 hydroxyzine pamoate 50 mg capsule 50 mg PO 3XD 06/19/23 06/19/23 lamotrigine 100 mg tablet 300 mg PO BID 06/19/23 06/19/23 methocarbamol 750 mg tablet 750 mg PO BEDTIME 06/19/23 06/19/23 Previous Rx's Medication Instructions Recorded amoxicillin 875 mg-potassium 1 tab PO BID #20 tabs 06/24/23 clavulanate 125 mg tablet doxycycline hyclate 100 mg tablet 100 mg PO BID #20 tabs 06/24/23 levofloxacin 750 mg tablet 750 mg PO DAILY #7 tabs 07/10/23 Allergies Allergy/AdvReac Type Severity Reaction Status Date / Time adhesive tape AdvReac Mild Rash Verified 05/05/23 13:41 meperidine [MEPERIDINE] AdvReac Unknown Rash Verified 04/12/23 15:46 Patient History <DO Frank Partida Last Filed: 08/25/23 07:00> Medical History TIA (transient ischemic attack) Cardiac arrest Social History household members: significant other, family and children Smoking Status: Never smoker alcohol intake: current substance use type: does not use Smoking Status: Never smoker alcohol intake frequency: holidays/special occasions only Alcohol type: hard liquor Substance Use Type: marijuana Exam <DO Frank Partida Last Filed: 08/25/23 07:00> Initial Vital Signs Initial Vital Signs: Vital Signs Temperature 97.6 F 08/23/23 10:47 Pulse Rate 107 H 08/23/23 10:47 Respiratory Rate 22 08/23/23 10:47 Blood Pressure 114/77 08/23/23 10:47 Pulse Oximetry 96 08/23/23 10:47 Oxygen Delivery Method Room Air 08/23/23 10:47 GENERAL: [Well-appearing, well-nourished] and in [no acute] distress. HEENT: Head atraumatic,EOMI, pupils reactive, face symmetric, [moist] mucous membranes CARDIOVASCULAR: Regular rate and rhythm without murmurs, rubs or gallops. RESPIRATORY: Breath sounds equal bilaterally, no wheezes rales or rhonchi. ABDOMEN: Soft, nontender. Normoactive bowel sounds all 4 quadrants. No guarding or rebound. EXTREMITIES: Normal range of motion, no clubbing or edema. Neurovascularly intact NEUROLOGICAL: Alert and oriented x4.Normal gait and speech. SKIN: Warm, dry, no laceration, no petechiae, no rashes or lesions. <Leonila Pereira MD - Last Filed: 08/24/23 05:29> Initial Vital Signs Initial Vital Signs: Vital Signs Temperature 97.6 F 08/23/23 10:47 Pulse Rate 107 H 08/23/23 10:47 Respiratory Rate 22 08/23/23 10:47 Blood Pressure 114/77 08/23/23 10:47 Pulse Oximetry 96 08/23/23 10:47 Oxygen Delivery Method Room Air 08/23/23 10:47 Course <Gabby Leon DO - Last Filed: 08/25/23 07:00> Orders Ordered: Discontinued Medications Droperidol (Droperidol 5 Mg/2 Ml Vial) 2.5 mg IV NOW ONE Stop: 08/23/23 21:00 Last Admin: 08/23/23 21:09 Dose: 2.5 mg Documented By: Hydromorphone HCl (Hydromorphone 0.5 Mg Inj) 0.5 mg IV NOW ONE Stop: 08/23/23 12:41 Last Admin: 08/23/23 12:52 Dose: 0.5 mg Documented By: AI Sodium Chloride (Normal Saline 0.9%) 1,000 mls @ 1,000 mls/hr IV BOLUS ONE Stop: 08/23/23 11:53 Last Infusion: 08/23/23 12:59 Dose: Infused Documented By: Admin: 08/23/23 11:44 Dose: 1,000 mls/hr Documented By: AI Ceftriaxone Sodium 1,000 mg/ (Sodium Chloride) 100 mls @ 200 mls/hr IV NOW ONE Stop: 08/23/23 12:36 Last Infusion: 08/23/23 13:42 Dose: Infused Documented By: Infusion: 08/23/23 13:17 Dose: 200 mls/hr Documented By: Infusion: 08/23/23 13:07 Dose: 0 mls/hr Documented By: Admin: 08/23/23 12:55 Dose: 200 mls/hr Documented By: AI Vancomycin HCl/Dextrose (Vancomycin) 1,500 mg in 300 mls @ 200 mls/hr IV NOW ONE Stop: 08/23/23 14:04 Last Infusion: 08/23/23 15:32 Dose: Infused Documented By: Admin: 08/23/23 13:43 Dose: 200 mls/hr Documented By: NED Sodium Chloride (Normal Saline 0.9%) 1,000 mls @ 1,000 mls/hr IV BOLUS ONE Stop: 08/23/23 14:00 Last Infusion: 08/23/23 14:20 Dose: Infused Documented By: Admin: 08/23/23 13:16 Dose: 1,000 mls/hr Documented By: NED Sodium Chloride (Normal Saline 0.9%) 1,000 mls @ 150 mls/hr IV CONT JOSE L Last Admin: 08/23/23 19:49 Dose: 150 mls/hr Documented By: Ketorolac Tromethamine (Ketorolac 30 Mg/Ml Vial) 15 mg IV NOW ONE Stop: 08/23/23 12:41 Last Admin: 08/23/23 12:55 Dose: 15 mg Documented By: AI Morphine Sulfate (Morphine 4 Mg/Ml Inj) 4 mg IV NOW ONE Stop: 08/23/23 19:43 Last Admin: 08/23/23 19:50 Dose: 4 mg Documented By: Morphine Sulfate (Morphine 4 Mg/Ml Inj) 4 mg IV NOW ONE Stop: 08/23/23 21:54 Last Admin: 08/23/23 22:00 Dose: 4 mg Documented By: Ondansetron HCl (Ondansetron 4 Mg/2 Ml Inj) 4 mg IV NOW PRN PRN Reason: Nausea And Vomiting Ondansetron HCl (Ondansetron 4 Mg Odt) 4 mg SL NOW PRN PRN Reason: Nausea And Vomiting Vital Signs Vital signs: Vital Signs - 8 hr 08/23/23 13:09 08/23/23 13:19 08/23/23 13:19 Pulse Rate 100 H 99 H Respiratory Rate 20 Blood Pressure 134/72 Pulse Oximetry 94 94 Oxygen Delivery Method Room Air 08/23/23 13:30 08/23/23 14:00 08/23/23 14:30 Pulse Rate Respiratory Rate Blood Pressure 133/70 136/82 136/69 Pulse Oximetry Oxygen Delivery Method 08/23/23 15:00 08/23/23 15:30 08/23/23 15:30 Pulse Rate 102 H Respiratory Rate 24 Blood Pressure 138/65 127/65 Pulse Oximetry 96 Oxygen Delivery Method 08/23/23 15:55 08/23/23 15:55 08/23/23 16:00 Pulse Rate 103 H 100 H Respiratory Rate 23 24 Blood Pressure 154/68 H Pulse Oximetry 95 95 Oxygen Delivery Method 08/23/23 16:00 08/23/23 16:30 08/23/23 16:30 Pulse Rate 97 H Respiratory Rate 22 Blood Pressure 119/65 118/66 Pulse Oximetry 93 Oxygen Delivery Method Room Air 08/23/23 17:00 08/23/23 17:15 08/23/23 17:15 Pulse Rate 96 H Respiratory Rate 21 Blood Pressure 121/71 124/71 Pulse Oximetry 94 Oxygen Delivery Method Room Air 08/23/23 17:30 08/23/23 17:30 08/23/23 17:45 Pulse Rate 99 H 100 H Respiratory Rate 27 H 24 Blood Pressure 134/71 Pulse Oximetry 96 97 Oxygen Delivery Method 08/23/23 17:45 08/23/23 18:00 08/23/23 18:00 Pulse Rate 97 H Respiratory Rate 26 H Blood Pressure 117/62 123/74 Pulse Oximetry 94 Oxygen Delivery Method 08/23/23 18:15 08/23/23 18:15 08/23/23 18:30 Pulse Rate 99 H 98 H Respiratory Rate 23 20 Blood Pressure 130/79 Pulse Oximetry 95 95 Oxygen Delivery Method 08/23/23 18:30 08/23/23 18:45 08/23/23 19:00 Pulse Rate 100 H Respiratory Rate 30 H Blood Pressure 122/72 137/74 Pulse Oximetry 96 Oxygen Delivery Method 08/23/23 19:00 08/23/23 19:15 08/23/23 19:15 Pulse Rate 100 H Respiratory Rate 21 Blood Pressure 141/74 H 143/74 H Pulse Oximetry 97 Oxygen Delivery Method 08/23/23 19:30 08/23/23 19:30 Pulse Rate 99 H Respiratory Rate 19 Blood Pressure 136/78 Pulse Oximetry 96 Oxygen Delivery Method <Leonila Pereira MD - Last Filed: 08/24/23 05:29> Orders Ordered: Discontinued Medications Droperidol (Droperidol 5 Mg/2 Ml Vial) 2.5 mg IV NOW ONE Stop: 08/23/23 21:00 Last Admin: 08/23/23 21:09 Dose: 2.5 mg Documented By: AB Hydromorphone HCl (Hydromorphone 0.5 Mg Inj) 0.5 mg IV NOW ONE Stop: 08/23/23 12:41 Last Admin: 08/23/23 12:52 Dose: 0.5 mg Documented By: MPO Sodium Chloride (Normal Saline 0.9%) 1,000 mls @ 1,000 mls/hr IV BOLUS ONE Stop: 08/23/23 11:53 Last Infusion: 08/23/23 12:59 Dose: Infused Documented By: Admin: 08/23/23 11:44 Dose: 1,000 mls/hr Documented By: MPO Ceftriaxone Sodium 1,000 mg/ (Sodium Chloride) 100 mls @ 200 mls/hr IV NOW ONE Stop: 08/23/23 12:36 Last Infusion: 08/23/23 13:42 Dose: Infused Documented By: Infusion: 08/23/23 13:17 Dose: 200 mls/hr Documented By: Infusion: 08/23/23 13:07 Dose: 0 mls/hr Documented By: Admin: 08/23/23 12:55 Dose: 200 mls/hr Documented By: MPO Vancomycin HCl/Dextrose (Vancomycin) 1,500 mg in 300 mls @ 200 mls/hr IV NOW ONE Stop: 08/23/23 14:04 Last Infusion: 08/23/23 15:32 Dose: Infused Documented By: Admin: 08/23/23 13:43 Dose: 200 mls/hr Documented By: SB Sodium Chloride (Normal Saline 0.9%) 1,000 mls @ 1,000 mls/hr IV BOLUS ONE Stop: 08/23/23 14:00 Last Infusion: 08/23/23 14:20 Dose: Infused Documented By: Admin: 08/23/23 13:16 Dose: 1,000 mls/hr Documented By: NED Sodium Chloride (Normal Saline 0.9%) 1,000 mls @ 150 mls/hr IV CONT JOSE L Last Admin: 08/23/23 19:49 Dose: 150 mls/hr Documented By: AB Ketorolac Tromethamine (Ketorolac 30 Mg/Ml Vial) 15 mg IV NOW ONE Stop: 08/23/23 12:41 Last Admin: 08/23/23 12:55 Dose: 15 mg Documented By: AI Morphine Sulfate (Morphine 4 Mg/Ml Inj) 4 mg IV NOW ONE Stop: 08/23/23 19:43 Last Admin: 08/23/23 19:50 Dose: 4 mg Documented By: AB Morphine Sulfate (Morphine 4 Mg/Ml Inj) 4 mg IV NOW ONE Stop: 08/23/23 21:54 Last Admin: 08/23/23 22:00 Dose: 4 mg Documented By: AB Ondansetron HCl (Ondansetron 4 Mg/2 Ml Inj) 4 mg IV NOW PRN PRN Reason: Nausea And Vomiting Ondansetron HCl (Ondansetron 4 Mg Odt) 4 mg SL NOW PRN PRN Reason: Nausea And Vomiting Vital Signs Vital signs: Vital Signs - 8 hr 08/23/23 13:09 08/23/23 13:19 08/23/23 13:19 Pulse Rate 100 H 99 H Respiratory Rate 20 Blood Pressure 134/72 Pulse Oximetry 94 94 Oxygen Delivery Method Room Air 08/23/23 13:30 08/23/23 14:00 08/23/23 14:30 Pulse Rate Respiratory Rate Blood Pressure 133/70 136/82 136/69 Pulse Oximetry Oxygen Delivery Method 08/23/23 15:00 08/23/23 15:30 08/23/23 15:30 Pulse Rate 102 H Respiratory Rate 24 Blood Pressure 138/65 127/65 Pulse Oximetry 96 Oxygen Delivery Method 08/23/23 15:55 08/23/23 15:55 08/23/23 16:00 Pulse Rate 103 H 100 H Respiratory Rate 23 24 Blood Pressure 154/68 H Pulse Oximetry 95 95 Oxygen Delivery Method 08/23/23 16:00 08/23/23 16:30 08/23/23 16:30 Pulse Rate 97 H Respiratory Rate 22 Blood Pressure 119/65 118/66 Pulse Oximetry 93 Oxygen Delivery Method Room Air 08/23/23 17:00 08/23/23 17:15 08/23/23 17:15 Pulse Rate 96 H Respiratory Rate 21 Blood Pressure 121/71 124/71 Pulse Oximetry 94 Oxygen Delivery Method Room Air 08/23/23 17:30 08/23/23 17:30 08/23/23 17:45 Pulse Rate 99 H 100 H Respiratory Rate 27 H 24 Blood Pressure 134/71 Pulse Oximetry 96 97 Oxygen Delivery Method 08/23/23 17:45 08/23/23 18:00 08/23/23 18:00 Pulse Rate 97 H Respiratory Rate 26 H Blood Pressure 117/62 123/74 Pulse Oximetry 94 Oxygen Delivery Method 08/23/23 18:15 08/23/23 18:15 08/23/23 18:30 Pulse Rate 99 H 98 H Respiratory Rate 23 20 Blood Pressure 130/79 Pulse Oximetry 95 95 Oxygen Delivery Method 08/23/23 18:30 08/23/23 18:45 08/23/23 19:00 Pulse Rate 100 H Respiratory Rate 30 H Blood Pressure 122/72 137/74 Pulse Oximetry 96 Oxygen Delivery Method 08/23/23 19:00 08/23/23 19:15 08/23/23 19:15 Pulse Rate 100 H Respiratory Rate 21 Blood Pressure 141/74 H 143/74 H Pulse Oximetry 97 Oxygen Delivery Method 08/23/23 19:30 08/23/23 19:30 Pulse Rate 99 H Respiratory Rate 19 Blood Pressure 136/78 Pulse Oximetry 96 Oxygen Delivery Method MDM - Recheck/Abnormal Lab/Rx <Gabby Leon, DO - Last Filed: 08/25/23 07:00> Lab Data 08/23/23 11:15 08/23/23 11:15 Labs: Lab Results 08/23/23 08/23/23 08/23/23 Range/Units 11:15 11:33 15:50 WBC 15.7 H (4.5-11.0) X10^3/uL RBC 4.26 (4.0-5.2) X10^6/uL Hgb 10.6 L (12.0-16.0) g/dL Hct 32.6 L (36-46) % MCV 76.7 L (80-100) fL MCH 24.8 L (26-34) PG MCHC 32.4 (30-36) % RDW 14.7 (11.6-14.8) % Plt Count 99 L (150-400) X10^3/uL Neut % (Auto) Not Reportable Lymph % (Auto) Not Reportable [place] % (Auto) Not Reportable Eos % (Auto) Not Reportable Baso % (Auto) Not Reportable Lymph # (Auto) Not Reportable [place] # (Auto) Not Reportable Baso # (Auto) Not Reportable Total Counted 100 Seg Neutrophils % 89.0 H (38-70) % Band Neutrophils % 2.0 L (3-7) % Lymphocytes % (Manual) 6.0 L (25-45) % Monocytes % (Manual) 3.0 (2-11) % Neutrophils # (Manual) 05606 H (8462-8626) /uL Toxic Granulation Present H Toxic Vacuolation Present H RBC Morphology Normal morphology PT 13.0 H (9.4-12.5) SECONDS INR 1.1 (0.9-1.3) APTT 28 (25.1-36.5) SECONDS Sodium 132 L (137-145) mmol/L Potassium 3.6 (3.4-5.1) mmol/L Chloride 103 (98-107) mmol/L Carbon Dioxide 22 (22-32) mmol/L BUN 23 H (7-17) mg/dL Creatinine 1.09 H (0.52-1.04) mg/dL Estimated GFR > 60 (>60) mL/min BUN/Creatinine Ratio 21.1 (6-22) Glucose 160 H (70-100) mg/dL Lactate 1.5 (0.7-2.1) mmol/L Calcium 8.9 (8.4-10.2) mg/dL Total Bilirubin 0.6 (0.2-1.3) mg/dL AST 31 (14-36) IU/L ALT 45 H (<35) IU/L Alkaline Phosphatase 153 H D (38-126) U/L Total Protein 6.5 (6.3-8.2) g/dL Albumin 3.6 (3.5-5.0) g/dL Globulin 2.9 (1.7-4.1) g/dL Albumin/Globulin Ratio 1.2 (1.0-2.8) Lipase 26 (23-300) U/L Procalcitonin 13.0 H (<0.5) ng/mL Urine RBC 1-5/hpf (0-5/HPF) Urine WBC 0-1/hpf (0-5/HPF) Ur Squamous Epith Cells 1-5 /hpf (0-5/HPF) Urine Bacteria Moderate (10-30) H (None) Ur Culture Indicated? Cult not indicated Vol Urine Centrifuged 10ml (spun) Point of Care Testing Test Results Negative Urine Dip Bedside Urine Glucose Negative Bedside Urine Bilirubin - Negative Bedside Urine Ketone - Negative Urine Specific [place] 1.010 Bedside Urine Occult Blood +/- Bedside Urine pH 6.0 Bedside Urine Protein - Negative Bedside Urine Urobilinogen - Negative Bedside Urine Nitrite - Negative Bedside Urine Leukocytes - Negative Esterase Imaging Data Chest x-ray: Radiologist's Impression: PROCEDURE: XR CHEST 1V INDICATIONS: suspected sepsis TECHNIQUE: One view of the chest was acquired. COMPARISON: [facility], , XR CHEST 1V, 08/20/2023, 17:31. FINDINGS: Surgical changes and devices: Left chest wall AICD device with single cardiac lead. Lungs and pleura: No pneumothorax. Low lung volumes. Probable small left pleural effusion. Left base opacity. Mediastinum: Mediastinal contours appear normal. Heart size is normal. Bones and chest wall: No suspicious bony lesions. Overlying soft tissues appear unremarkable. IMPRESSION: Left basilar opacity may represent atelectasis, aspiration or pneumonia in the appropriate clinical setting. Probable small left pleural effusion. Approved by: Amelia Padron M.D.,Ph.D. on 08/23/2023 at 11:41 Extremity x-ray #1: Radiologist's Impression: PROCEDURE: XR ELBOW LT MIN 3V INDICATIONS: fall TECHNIQUE: 3 views of the elbow were acquired. COMPARISON: None. FINDINGS: Bones: No fractures or dislocations. No suspicious bony lesions. Soft tissues: No elbow joint effusion. No suspicious soft tissue calcifications. IMPRESSION: No acute bony abnormality or significant joint effusion. Approved by: Amelia Padron M.D.,Ph.D. on 08/23/2023 at 11:42 CT scan - head: Radiologist's Impression: PROCEDURE: CT HEAD/BRAIN WO CON INDICATIONS: fallen x 3 TECHNIQUE: Noncontrast 4.5 mm thick angled axial sections acquired from the foramen magnum to the vertex, with coronal and sagittal reformats. For radiation dose reduction, the following was used: automated exposure control, adjustment of mA and/or kV according to patient size. COMPARISON: [facility], CT, CT HEAD/BRAIN WO CON, 06/18/2023, 9:21. FINDINGS: Image quality: Diagnostic. CSF spaces: Basal cisterns are patent. No extra-axial fluid collections. The ventricles are symmetric in size and shape. Brain: No intracranial bleeds or masses. There is cerebral volume loss for age, with resultant ventricular and sulcal prominence. There are periventricular and deep white matter chronic small vessel ischemic changes. There is intracranial internal carotid artery atherosclerosis. Skull and face: Calvarium and visualized facial bones appear intact, without suspicious lesions. Sinuses: Mild mucosal thickening of the bilateral maxillary sinus. Left maxillary sinus retention cyst. Mild mucosal thickening of the bilateral ethmoid air cells. Mastoid air cells are well pneumatized. IMPRESSION: No acute intracranial pathology. Approved by: Amelia Padron M.D.,Ph.D. on 08/23/2023 at 12:58 CT scan - abdomen/pelvis: Radiologist's Impression: PROCEDURE: CT ABDOMEN PELVIS W [facility] INDICATIONS: sepsis, evaluate for kidney stone TECHNIQUE: After the administration of intravenous contrast, axial sections acquired from the lung bases to the pubic symphysis. Coronal and sagittal reformats were performed. For radiation dose reduction, the following was used: automated exposure control, adjustment of mA and/or kV according to patient size. COMPARISON: [facility], CT, CT ABDOMEN PELVIS W CON, 08/06/2021, 6:46. FINDINGS: Image quality: Diagnostic. Lower Chest: Bibasilar and lingular atelectasis. Partially visualized right middle lobe 6 mm part solid nodule (5/1). ABDOMEN: Liver: No solid mass. Gallbladder: No radiopaque gallstones or wall thickening. Biliary ducts: No biliary dilation. Pancreas: No ductal dilation. Spleen: Size is within normal limits. Adrenal Glands: No adrenal nodules. Kidneys and Ureters: No hydronephrosis. No solid mass. No complex renal cystic lesion which requires follow up. Stomach and Bowel: Normal colonic caliber, without significant wall thickening. Scattered colonic reticulo CIS without acute inflammation Peritoneum: No abnormal intraperitoneal fluid. No free air. Ventral Wall: No significant ventral hernia. Abdominal Nodes: No retroperitoneal or mesenteric adenopathy by size criteria. Vessels: Aorta and inferior vena cava are normal in size. PELVIS: Pelvic Organs: Surgically absent. Bladder: No bladder wall thickening, accounting for underdistention. Pelvic Nodes: No enlarged lymph nodes. Miscellaneous: No inguinal hernias are seen. Bones: No aggressive osseous abnormality. Degenerative changes without acute vertebral body compression fracture. IMPRESSION: No acute process in the abdomen or pelvis. No nephrolithiasis or urolithiasis as clinically queried. Bibasilar and lingular atelectasis. Sub solid 6 mm right middle lobe nodule. Recommend follow-up CT chest in 6-12 months to demonstrate resolution/stability per Fleischner society guidelines. Approved by: Amelia Padron M.D.,Ph.D. on 08/23/2023 at 14:17 ECG Data Attestation: I personally reviewed and interpreted this ECG as follows: Prior ECG tracings: available for review Interpretation: Normal sinus rhythm rate 105, NE interval 154 QRS 102 QTC 550 MDM Narrative Medical decision making narrative: [facility] CC: Positive blood cultures positive E coli urine Complicating co-morbidities: Bipolar Medical records reviewed: [facility] record recent admission from May Differential considered: Sepsis, endocarditis Exam documented above, pertinent findings include: Overall appears well vitals are stable having some left elbow pain no significant range of motion Lab Test results independently reviewed as above. Pertinent findings: WBC 15.7 previously 16.9, hemoglobin 10.6, hematocrit 32.6, platelets 99 previously to 225, PT 13 INR 1.1 PTT 28, sodium 132 previously 127, potassium 3.6 chloride 103, carbon dioxide 22 BUN 23 creatinine 1.0 previously 1.5, glucose 160, lactate 1.5 bilirubin 0.3 AST 31 ALT 45 alk-phos 153, procalcitonin 13 previously 34.9 Independently reviewed EKG as above normal sinus rhythm no ischemic changes Imaging studies independently reviewed: CT scan no nephrolithiasis or septic stone chest x-ray no pneumonia no fracture extremities Consultations: 1400 Dr. Geller, updated on patient's symptoms test results he is reviewed chart requests that patient be transferred for a ANCA. Recurrent positive blood cultures with Staphylococcus and current pacemaker Treatments: IV fluid Rocephin, vancomycin Dilaudid and Toradol Re-evaluations: Patient has been continues to be controlled. Vitals are stable she understands she needs to be transferred for further workup Discussion: Patient 52-year-old female presenting today after call from us stating her blood cultures and urine culture positive. She was placed on Keflex for UTI at outside facility but it is actually resistant to Keflex. Based on cultures vancomycin and Rocephin are susceptible. However she had blood positive blood cultures with staph previously in May she continues to have positive Staphylococcus blood cultures which does not match urine culture of E coli. Concern for ongoing infection. She already had an echocardiogram here which was normal. PCP recommends transferring for a ANCA. She also has a pacemaker. Multiple facilities called [facility] is full, [facility] recommend checking back later waiting to hear from [facility] Patient signed out to Dr. Pereira for further disposition <Leonila Pereira MD - Last Filed: 08/24/23 05:29> Lab Data Labs: Lab Results 08/23/23 08/23/23 08/23/23 Range/Units 11:15 11:33 15:50 WBC 15.7 H (4.5-11.0) X10^3/uL RBC 4.26 (4.0-5.2) X10^6/uL Hgb 10.6 L (12.0-16.0) g/dL Hct 32.6 L (36-46) % MCV 76.7 L (80-100) fL MCH 24.8 L (26-34) PG MCHC 32.4 (30-36) % RDW 14.7 (11.6-14.8) % Plt Count 99 L (150-400) X10^3/uL Neut % (Auto) Not Reportable Lymph % (Auto) Not Reportable [place] % (Auto) Not Reportable Eos % (Auto) Not Reportable Baso % (Auto) Not Reportable Lymph # (Auto) Not Reportable [place] # (Auto) Not Reportable Baso # (Auto) Not Reportable Total Counted 100 Seg Neutrophils % 89.0 H (38-70) % Band Neutrophils % 2.0 L (3-7) % Lymphocytes % (Manual) 6.0 L (25-45) % Monocytes % (Manual) 3.0 (2-11) % Neutrophils # (Manual) 91625 H (5232-4694) /uL Toxic Granulation Present H Toxic Vacuolation Present H RBC Morphology Normal morphology PT 13.0 H (9.4-12.5) SECONDS INR 1.1 (0.9-1.3) APTT 28 (25.1-36.5) SECONDS Sodium 132 L (137-145) mmol/L Potassium 3.6 (3.4-5.1) mmol/L Chloride 103 (98-107) mmol/L Carbon Dioxide 22 (22-32) mmol/L BUN 23 H (7-17) mg/dL Creatinine 1.09 H (0.52-1.04) mg/dL Estimated GFR > 60 (>60) mL/min BUN/Creatinine Ratio 21.1 (6-22) Glucose 160 H (70-100) mg/dL Lactate 1.5 (0.7-2.1) mmol/L Calcium 8.9 (8.4-10.2) mg/dL Total Bilirubin 0.6 (0.2-1.3) mg/dL AST 31 (14-36) IU/L ALT 45 H (<35) IU/L Alkaline Phosphatase 153 H D (38-126) U/L Total Protein 6.5 (6.3-8.2) g/dL Albumin 3.6 (3.5-5.0) g/dL Globulin 2.9 (1.7-4.1) g/dL Albumin/Globulin Ratio 1.2 (1.0-2.8) Lipase 26 (23-300) U/L Procalcitonin 13.0 H (<0.5) ng/mL Urine RBC 1-5/hpf (0-5/HPF) Urine WBC 0-1/hpf (0-5/HPF) Ur Squamous Epith Cells 1-5 /hpf (0-5/HPF) Urine Bacteria Moderate (10-30) H (None) Ur Culture Indicated? Cult not indicated Vol Urine Centrifuged 10ml (spun) Point of Care Testing Test Results Negative Urine Dip Bedside Urine Glucose Negative Bedside Urine Bilirubin - Negative Bedside Urine Ketone - Negative Urine Specific [place] 1.010 Bedside Urine Occult Blood +/- Bedside Urine pH 6.0 Bedside Urine Protein - Negative Bedside Urine Urobilinogen - Negative Bedside Urine Nitrite - Negative Bedside Urine Leukocytes - Negative Esterase MDM Narrative Medical decision making narrative: CAROL CC: Positive blood cultures positive E coli urine Complicating co-morbidities: Bipolar Medical records reviewed: [facility] general record recent admission from May Differential considered: Sepsis, endocarditis Exam documented above, pertinent findings include: Overall appears well vitals are stable having some left elbow pain no significant range of motion Lab Test results independently reviewed as above. Pertinent findings: WBC 15.7 previously 16.9, hemoglobin 10.6, hematocrit 32.6, platelets 99 previously to 225, PT 13 INR 1.1 PTT 28, sodium 132 previously 127, potassium 3.6 chloride 103, carbon dioxide 22 BUN 23 creatinine 1.0 previously 1.5, glucose 160, lactate 1.5 bilirubin 0.3 AST 31 ALT 45 alk-phos 153, procalcitonin 13 previously 34.9 Independently reviewed EKG as above normal sinus rhythm no ischemic changes Imaging studies independently reviewed: CT scan no nephrolithiasis or septic stone chest x-ray no pneumonia no fracture extremities Consultations: 1400 Dr. Geller, updated on patient's symptoms test results he is reviewed chart requests that patient be transferred for a ANCA. Recurrent positive blood cultures with Staphylococcus and current pacemaker Treatments: IV fluid Rocephin, vancomycin Dilaudid and Toradol Re-evaluations: Patient has been continues to be controlled. Vitals are stable she understands she needs to be transferred for further workup Discussion: Patient 52-year-old female presenting today after call from us stating her blood cultures and urine culture positive. She was placed on Keflex for UTI at outside facility but it is actually resistant to Keflex. Based on cultures vancomycin and Rocephin are susceptible. However she had blood positive blood cultures with staph previously in May she continues to have positive Staphylococcus blood cultures which does not match urine culture of E coli. Concern for ongoing infection. She already had an echocardiogram here which was normal. PCP recommends transferring for a ANCA. She also has a pacemaker. Multiple facilities called [facility] is full, [facility] recommend checking back later waiting to hear from [facility] Patient signed out to Dr. Pereira for further disposition Dr. Pereira -care of patient is signed out to me by Dr. Leon. Hemodynamically stable, independent review of chart and patient performed by myself. She has already received IV antibiotics. Discussed case with Dr. Fuller of Cardiology and Dr. Mercado of internal medicine at [facility], who accepted patient for transfer. Critical Care Time <Gabby Leon, DO - Last Filed: 08/25/23 07:00> Critical Care Time Critical Care Time: Yes Total Critical Care Time: 45 Attestation: The high probability of a clinically significant, sudden or life threatening deterioration of the [cardiovascular] system(s) required my full and direct attention, intervention and personal management. The aggregate critical care time was [45] minutes. This time is in addition to time spent performing reported procedures but includes the following: [x] Data Review and interpretation [x] Patient assessment and monitoring of vital signs [x] Documentation [x] Medication orders and management Discharge Plan Departure Patient Disposition: Admitted As Inpatient Clinical Impression: Bacteremia, UTI (urinary tract infection)
--- NOTE | 2023-08-23 12:40 | DI.CT.S_ITS ---
PROCEDURE: CT ABDOMEN PELVIS W CON INDICATIONS: sepsis, evaluate for kidney stone TECHNIQUE: After the administration of intravenous contrast, axial sections acquired from the lung bases to the pubic symphysis. Coronal and sagittal reformats were performed. For radiation dose reduction, the following was used: automated exposure control, adjustment of mA and/or kV according to patient size. COMPARISON: Located Within [facility], CT, CT ABDOMEN PELVIS W CON, 08/06/2021, 6:46. FINDINGS: Image quality: Diagnostic. Lower Chest: Bibasilar and lingular atelectasis. Partially visualized right middle lobe 6 mm part solid nodule (5/1). ABDOMEN: Liver: No solid mass. Gallbladder: No radiopaque gallstones or wall thickening. Biliary ducts: No biliary dilation. Pancreas: No ductal dilation. Spleen: Size is within normal limits. Adrenal Glands: No adrenal nodules. Kidneys and Ureters: No hydronephrosis. No solid mass. No complex renal cystic lesion which requires follow up. Stomach and Bowel: Normal colonic caliber, without significant wall thickening. Scattered colonic reticulo CIS without acute inflammation Peritoneum: No abnormal intraperitoneal fluid. No free air. Ventral Wall: No significant ventral hernia. Abdominal Nodes: No retroperitoneal or mesenteric adenopathy by size criteria. Vessels: Aorta and inferior vena cava are normal in size. PELVIS: Pelvic Organs: Surgically absent. Bladder: No bladder wall thickening, accounting for underdistention. Pelvic Nodes: No enlarged lymph nodes. Miscellaneous: No inguinal hernias are seen. Bones: No aggressive osseous abnormality. Degenerative changes without acute vertebral body compression fracture. IMPRESSION: No acute process in the abdomen or pelvis. No nephrolithiasis or urolithiasis as clinically queried. Bibasilar and lingular atelectasis. Sub solid 6 mm right middle lobe nodule. Recommend follow-up CT chest in 6-12 months to demonstrate resolution/stability per Fleischner society guidelines. Approved by: Amelia Padron M.D.,Ph.D. on 08/23/2023 at 14:17
[2023-08-23 12:46] LABS: Neutrophils Absolute Manual 14287 /uL (3000-5900); Total Cells Counted 100
[2023-08-23 12:47] LABS: RBC Morphology Normal Morphology; Toxic Granulation Present; Toxic Vacuolation Present
[2023-08-23] MEDS: HYDROMORPHONE 0.5 MG INJ IV (12:52)
[2023-08-23] MEDS: KETOROLAC 30 MG/ML VIAL 15 MG IV (12:55)
[2023-08-23] MEDS: cefTRIAXone 1,000 MG in SODIUM CHLORIDE 0.9% 100 ML 200 MG IV (12:55)
[2023-08-23] MEDS: VANCOMYCIN 1,500 MG/300 ML PIGGYBACK 200 MG IV (13:43)
--- NOTE | 2023-08-23 14:54 | PC.NURSE ---
Called [facility], [facility] for potential transfer. [facility]: Face sheet faxed @[phone] and spoke to lanie Valentino on the phone who says they are pretty full. [facility]: Face sheet faxed @[phone] spoke to Luis. Pt on waitlist but they are tight on beds. [facility]: Face sheet faxed @[phone] spoke to Tori. On waitlist and will call back.
[2023-08-23 16:25] LABS: Urine Volume 10mL (spun)
[2023-08-23 16:26] LABS: Bacteria Urine Moderate (10-30); Culture Indicated Urine Cult Not Indicated; RBC Urine 1-5/HPF (0-5/HPF); Squamous Epithelial Cell Urine 1-5 /HPF (0-5/HPF); WBC Urine 0-1/HPF (0-5/HPF)
[2023-08-23] MEDS: SODIUM CHLORIDE 0.9% 1,000 ML 150 ML IV (19:49)
[2023-08-23] MEDS: MORPHINE 4 MG/ML INJ IV ×2 (19:50→22:00)
--- NOTE | 2023-08-23 20:25 | PC.NURSE ---
Waiting on transfer to higher level acuity facility
[2023-08-23] MEDS: DROPERIDOL 5 MG/2 ML VIAL 2.5 MG IV (21:09)
== END 2023-08-23 22:03 | disposition short-term general hospital (02) ==
PROVIDERS: Emergency Provider Emergency Medicine; PCP Family Medicine
DX: N39.0 Urinary tract infection, site not specified (principal); B96.20 Unspecified Escherichia coli [E. coli] as the cause of diseases classified elsewhere; R78.81 Bacteremia; M25.522 Pain in left elbow; R29.6 Repeated falls; R00.0 Tachycardia, unspecified; Z95.0 Presence of cardiac pacemaker
CPT/HCPCS: 36415; 70450; 71045; 73080; 74177; 80053; 81003; 81015; 81025; 83605; 83690; 84145; 85007; 85025; 85610; 85730; 87040; 87077; 87147; 87186; 93005; 96361; 96365; 96366; 96367; 96375; 96376; 99284; 99291; J0696; J1170; J1790; J1885; J2270; Q9967

== ENCOUNTER → 2023-09-07 12:02 | Outpatient (CLI) | payer OTHER, MEDICAID, SELFPAY ==
[2023-06-18 23:41] VITALS: BMI 37.5
--- NOTE | 2023-09-07 12:05 | DI.RAD.S_ITS ---
PROCEDURE: XR SHOULDER RT MIN 2V INDICATIONS: RT SHOULDER PAIN TECHNIQUE: 3 views of the shoulder were acquired. COMPARISON: None. FINDINGS: Bones: No fractures or dislocations. No suspicious bony lesions. Visualized ribs appear intact. Soft tissues: No suspicious soft tissue calcifications. IMPRESSION: Occult in Dictated by: Haylie Obregon M.D. on 09/07/2023 at 17:34 Approved by: Haylie Obregon M.D. on 09/07/2023 at 17:34
== END ==
PROVIDERS: PCP Family Medicine; Referring Provider Family Medicine; Visit Provider Family Medicine
DX: M25.511 Pain in right shoulder (principal)
CPT/HCPCS: 73030

== ENCOUNTER → 2023-10-07 14:00 | Oncology outpatient (ONC) | payer OTHER, MEDICAID, SELFPAY ==
[2023-06-18 23:41] VITALS: BMI 37.5
[2023-09-08 14:52] LABS: Alanine Aminotransferase 11 IU/L (<35); Albumin 3.4 g/dL (3.5-5.0); Alkaline Phosphatase 289 U/L (38-126); Aspartate Aminotransferase 37 IU/L (14-36); Bilirubin Total 0.3 mg/dL (0.2-1.3); Blood Urea Nitrogen 17 mg/dL (7-17); C-Reactive Protein Quant 4.6 mg/dL (<1.0); Calcium 8.8 mg/dL (8.4-10.2); Carbon Dioxide 27 mmol/L (22-32); Chloride 101 mmol/L (98-107); Estimated Glomerular Filt Rate > 60 mL/min (>60); Globulin 3.5 g/dL (1.7-4.1); Glucose 112 mg/dL (70-100); HEMOLYSIS < 15 (0-50); Potassium 4.2 mmol/L (3.4-5.1); Sodium 134 mmol/L (137-145); Total Protein 6.9 g/dL (6.3-8.2)
--- NOTE | 2023-09-08 15:55 | PC.NURSE ---
CMP, CRP LAB RESULTS FAXED TO DR. OGDEN @ [facility], FAX [phone] REQUESTED.
--- NOTE | 2023-09-16 15:53 | PC.NURSE ---
redness/itching/rash at outer edge of PICC dressing; IV 3000 had been used, especially itchy and red along the edge of one orange band, also near the stat lock. Picc orientation was moved to allow as much of the irritated skin to be free of dressing as possible. Tegaderm included in dressing kit was used instead of iv 3000 in case irritation was due to that dressing. Shaw was instructed to show and discuss it with her ID doctor at her appt on \thursday. \she voiced understanding.
[2023-09-23 15:14] LABS: Add Manual Diff / Slide Review NO; Basophils Absolute Auto 100 /uL (0-100); Eosinophils Absolute Auto 200 /uL (0-450); Eosinophils Percent Auto 2.7 % (2-4); Hematocrit 29.2 % (36-46); Hemoglobin 9.5 g/dL (12.0-16.0); Lymphocytes Absolute Auto 1900 /uL (1100-4500); Lymphocytes Percent Auto 27.2 % (25-40); Mean Corpuscular HGB Conc 32.4 % (30-36); Mean Corpuscular Hemoglobin 25.2 PG (26-34); Mean Corpuscular Volume 77.6 fL (80-100); Monocytes Absolute Auto 500 /uL (0-900); Monocytes Percent Auto 7.2 % (3-14); Neutrophils Absolute Auto 4200 /uL (1500-7000); Neutrophils Percent Auto 61.9 % (50-75); Platelet Count 404 X10^3/uL (150-400); Red Blood Cell Count 3.76 X10^6/uL (4.0-5.2); Red Cell Distribution Width 15.5 % (11.6-14.8); White Blood Cell Count 6.8 X10^3/uL (4.5-11.0)
[2023-09-23 15:40] LABS: Alanine Aminotransferase 8 IU/L (<35); Albumin Globulin Ratio 1.3 (1.0-2.8); Alkaline Phosphatase 186 U/L (38-126); Aspartate Aminotransferase 28 IU/L (14-36); BUN Creatinine Ratio 25.8 (6-22); Bilirubin Total 0.3 mg/dL (0.2-1.3); Blood Urea Nitrogen 25 mg/dL (7-17); C-Reactive Protein Quant < 0.5 mg/dL (<1.0); Calcium 9.3 mg/dL (8.4-10.2); Carbon Dioxide 20 mmol/L (22-32); Chloride 105 mmol/L (98-107); Estimated Glomerular Filt Rate > 60 mL/min (>60); Globulin 3.2 g/dL (1.7-4.1); Glucose 95 mg/dL (70-100); HEMOLYSIS < 15 (0-50); Potassium 4.1 mmol/L (3.4-5.1); Sodium 135 mmol/L (137-145); Total Protein 7.2 g/dL (6.3-8.2)
[2023-09-30 15:05] LABS: Add Manual Diff / Slide Review NO; Basophils Absolute Auto 100 /uL (0-100); Basophils Percent Auto 1.4 % (0-2); Eosinophils Absolute Auto 300 /uL (0-450); Eosinophils Percent Auto 5.4 % (2-4); Hematocrit 29.2 % (36-46); Hemoglobin 9.5 g/dL (12.0-16.0); Lymphocytes Absolute Auto 1500 /uL (1100-4500); Lymphocytes Percent Auto 26.1 % (25-40); Mean Corpuscular HGB Conc 32.7 % (30-36); Mean Corpuscular Hemoglobin 25.6 PG (26-34); Mean Corpuscular Volume 78.4 fL (80-100); Monocytes Absolute Auto 600 /uL (0-900); Monocytes Percent Auto 10.6 % (3-14); Neutrophils Absolute Auto 3200 /uL (1500-7000); Neutrophils Percent Auto 56.5 % (50-75); Platelet Count 305 X10^3/uL (150-400); Red Blood Cell Count 3.73 X10^6/uL (4.0-5.2); Red Cell Distribution Width 15.9 % (11.6-14.8); White Blood Cell Count 5.7 X10^3/uL (4.5-11.0)
[2023-09-30 15:24] LABS: Alanine Aminotransferase 8 IU/L (<35); Albumin Globulin Ratio 1.4 (1.0-2.8); Alkaline Phosphatase 161 U/L (38-126); Aspartate Aminotransferase 30 IU/L (14-36); BUN Creatinine Ratio 21.2 (6-22); Bilirubin Total 0.3 mg/dL (0.2-1.3); Blood Urea Nitrogen 21 mg/dL (7-17); C-Reactive Protein Quant < 0.5 mg/dL (<1.0); Calcium 9.2 mg/dL (8.4-10.2); Carbon Dioxide 25 mmol/L (22-32); Chloride 103 mmol/L (98-107); Estimated Glomerular Filt Rate > 60 mL/min (>60); Globulin 2.9 g/dL (1.7-4.1); Glucose 93 mg/dL (70-100); HEMOLYSIS < 15 (0-50); Potassium 4.7 mmol/L (3.4-5.1); Sodium 134 mmol/L (137-145); Total Protein 6.9 g/dL (6.3-8.2)
[2023-10-07] MEDS: ALTEPLASE 2 MG/2 ML VIAL IV (15:20)
[2023-10-07 16:07] LABS: Add Manual Diff / Slide Review NO; Basophils Absolute Auto 0 /uL (0-100); Basophils Percent Auto 0.5 % (0-2); Eosinophils Absolute Auto 0 /uL (0-450); Hematocrit 30.4 % (36-46); Hemoglobin 9.9 g/dL (12.0-16.0); Lymphocytes Absolute Auto 1100 /uL (1100-4500); Lymphocytes Percent Auto 16.9 % (25-40); Mean Corpuscular HGB Conc 32.5 % (30-36); Mean Corpuscular Hemoglobin 25.2 PG (26-34); Mean Corpuscular Volume 77.6 fL (80-100); Monocytes Absolute Auto 100 /uL (0-900); Monocytes Percent Auto 1.8 % (3-14); Neutrophils Absolute Auto 5300 /uL (1500-7000); Neutrophils Percent Auto 80.8 % (50-75); Platelet Count 336 X10^3/uL (150-400); Red Blood Cell Count 3.92 X10^6/uL (4.0-5.2); Red Cell Distribution Width 15.3 % (11.6-14.8); White Blood Cell Count 6.6 X10^3/uL (4.5-11.0)
[2023-10-07 16:22] LABS: Alanine Aminotransferase 14 IU/L (<35); Albumin 4.2 g/dL (3.5-5.0); Albumin Globulin Ratio 1.4 (1.0-2.8); Alkaline Phosphatase 125 U/L (38-126); Aspartate Aminotransferase 34 IU/L (14-36); BUN Creatinine Ratio 26.7 (6-22); Bilirubin Total 0.3 mg/dL (0.2-1.3); Blood Urea Nitrogen 24 mg/dL (7-17); C-Reactive Protein Quant < 0.5 mg/dL (<1.0); Calcium 9.5 mg/dL (8.4-10.2); Carbon Dioxide 25 mmol/L (22-32); Chloride 103 mmol/L (98-107); Estimated Glomerular Filt Rate > 60 mL/min (>60); Globulin 2.9 g/dL (1.7-4.1); Glucose 128 mg/dL (70-100); HEMOLYSIS < 15 (0-50); Potassium 4.8 mmol/L (3.4-5.1); Sodium 133 mmol/L (137-145); Total Protein 7.1 g/dL (6.3-8.2)
== END ==
PROVIDERS: PCP Family Medicine; Referring Provider Family Medicine; Visit Provider Family Medicine
DX: T82.7XXA Infection and inflammatory reaction due to other cardiac and vascular devices, implants and grafts, initial encounter (principal)
CPT/HCPCS: 36592; 80053; 85025; 86140; 96374; J2997

== ENCOUNTER → 2024-01-07 12:09 | Outpatient (CLI) | payer OTHER, MEDICAID, SELFPAY ==
[2023-06-18 23:41] VITALS: BMI 37.5
--- NOTE | 2024-01-07 12:11 | DI.RAD.S_ITS ---
PROCEDURE: XR CHEST 2V INDICATIONS: Chronic ethmoidal sinusitis TECHNIQUE: 2 views of the chest were acquired. COMPARISON: [facility], CR, XR CHEST 1V, 08/23/2023, 11:32. [facility], CT, CT HEAD/BRAIN WO CON, 08/23/2023, 11:53. FINDINGS: Heart, mediastinum and pulmonary vasculature: The heart is mildly enlarged. Mediastinum and pulmonary vessels are are normal. Lungs: Clear Pleural spaces: Normal-no effusions or pneumothorax. Bones and soft tissues: Normal IMPRESSION: Mild cardiomegaly. No acute disease Dictated by: Hussain Snell M.D. on 01/08/2024 at 9:56 Approved by: Hussain Snell M.D. on 01/08/2024 at 9:58
== END ==
LOC: RAD 12:10
PROVIDERS: PCP Family Medicine; Referring Provider Family Medicine; Visit Provider Family Medicine
DX: J32.2 Chronic ethmoidal sinusitis (principal); I51.7 Cardiomegaly; R05.3 Chronic cough; Z87.01 Personal history of pneumonia (recurrent)
CPT/HCPCS: 71046

== ENCOUNTER → 2024-10-07 09:18 | Outpatient (CLI) | payer OTHER, SELFPAY ==
[2023-06-18 23:41] VITALS: BMI 37.5
--- NOTE | 2024-10-07 09:20 | DI.RAD.S_ITS ---
PROCEDURE: XR FOOT RT MIN 3V INDICATIONS: Pain in right foot TECHNIQUE: Three views of the foot were acquired. COMPARISON: None. FINDINGS: Bones: Normal mineralization. Bipartite medial sesamoid bone at the 1st metatarsal head. Minor degenerative joint space loss and cystic change at the medial 1st IP and 1st MTP joint. No subluxation fracture. Soft tissues: No tibiotalar joint effusion. Achilles tendon appears normal. IMPRESSION: Mild degeneration of the 1st digit. Dictated by: Daisha Jones M.D. on 10/07/2024 at 13:19 Approved by: Daisha Jones M.D. on 10/07/2024 at 13:21
== END ==
PROVIDERS: PCP Family Medicine; Referring Provider Family Medicine; Visit Provider Family Medicine
DX: M19.071 Primary osteoarthritis, right ankle and foot (principal); M79.671 Pain in right foot
CPT/HCPCS: 73630

== ENCOUNTER → 2024-11-27 14:37 | Outpatient (CLI) | payer OTHER, SELFPAY ==
[2023-06-18 23:41] VITALS: BMI 37.5
--- NOTE | 2024-11-27 14:39 | DI.MRI.S_ITS ---
PROCEDURE: MR HEAD/BRAIN WO/W CON INDICATIONS: Memory changes TECHNIQUE: Noncontrast axial T1 spin echo, axial T2 fast spin echo, sagittal and axial FLAIR, coronal T2 fast spin echo, axial gradient echo, axial diffusion and ADC through the brain. After the administration of contrast, axial and coronal and sagittal T1 spin echo with fat saturation through the brain. COMPARISON: None. FINDINGS: Image quality: Excellent. CSF spaces: Basal cisterns are patent. No extra-axial fluid collections. Ventricles are normal in size and shape. Brain: No midline shift. No intracranial bleeds or masses. No abnormal intracranial enhancement. There is cerebral volume loss for age. There is periventricular white matter chronic small vessel ischemic change. The brainstem appears normal. Diffusion-weighted images demonstrate no acute infarct. No chronic ischemic insults. Normal intravascular flow voids are present. Skull and face: Calvarial marrow is normal in signal. Orbits appear normal. Sinuses: Moderate bilateral maxillary sinus mucosal thickening. Mild bilateral ethmoid sinus mucosal thickening. Mastoids are clear. IMPRESSION: 1. No acute process. No recent infarct. 2. Volume loss and small vessel ischemic disease. 3. Sinus disease. Dictated by: Haley Manning M.D. on 11/28/2024 at 12:59 Approved by: Haley Manning M.D. on 11/28/2024 at 13:00
== END ==
LOC: MRI 14:38
PROVIDERS: PCP Family Medicine; Referring Provider Family Medicine; Visit Provider Family Medicine
DX: J32.8 Other chronic sinusitis (principal); R41.3 Other amnesia; R42 Dizziness and giddiness; Z86.73 Personal history of transient ischemic attack (TIA), and cerebral infarction without residual deficits
CPT/HCPCS: 70553; A9579